=== PATIENT | male | born 1955 | race Caucasian/White ===

== ENCOUNTER 2020-08-01 11:28 | Outpatient (REF) | payer OTHER, SELFPAY ==
[2020-08-09 12:36] LABS: Vitamin D 25-OH, D2 <4 ng/mL; Vitamin D 25-OH, D3 27 ng/mL; Vitamin D 25-OH, Total 27 ng/mL (30-100)
== END 2020-08-01 11:29 | disposition home or self-care (01) ==
LOC: HO.LAB 11:28
PROVIDERS: PCP Physician Assistant; Visit Provider Internal Medicine Cardiovascular Disease
DX: R53.83 Other fatigue (principal); I10 Essential (primary) hypertension; I71.00 Dissection of unspecified site of aorta
CPT/HCPCS: 36415; 82306; 93005

== ENCOUNTER → 2020-09-12 09:12 | Outpatient (BNVA) | payer OTHER, SELFPAY | PROVIDERS: PCP Physician Assistant; Visit Provider Internal Medicine Cardiovascular Disease ==

== ENCOUNTER → 2021-03-11 13:44 | Outpatient (BNVA) | payer OTHER, SELFPAY | PROVIDERS: PCP Physician Assistant; Referring Provider Physician Assistant; Visit Provider Internal Medicine Cardiovascular Disease ==

== ENCOUNTER → 2021-05-08 09:12 | Outpatient (REF) | payer OTHER, SELFPAY ==
--- NOTE | 2021-05-08 09:22 | CA_ITS ---
Transthoracic Echocardiogram Patient (Last, First, Middle): Guero Shukla, Gender: Male Date of : 1955 Age: 65 Procedure Date: 05/08/2021 Procedure Type: Transthoracic Echocardiogram Location: OP Height: 165.1 cm Weight: 74.84 kg BSA: 1.82 m2 Heart Rate: bpm BP: 130 / 86 mmHg Phonograph Cartridge Assembler: REBEKAH Referring MD: Chriss Taylor MD Symptoms: I71.00 - Dissection of unspecified site of aorta Study Quality: Fair ECG Rhythm: Sinus Conclusions: - The left ventricular systolic function is normal. The calculated ejection fraction is 65% by biplane method. - There is mild calcification of the aortic valve. - No obvious valvular pathology seen on this study. - The aortic annulus, sinuses of valsalva, asc aorta, and aortic arch are normal in size. - Visualization of aorta suboptimal. Consider CTA for further evaluation . Findings Left Ventricle Normal left ventricular cavity size. There is normal left ventricular wall thickness. The left ventricular systolic function is normal. The calculated ejection fraction is 65% by biplane method. There is no evidence of regional wall motion abnormalities. Diastolic function is normal for age. Right Ventricle Normal right ventricular cavity size and systolic function. Atria Both atria are normal in size. Aortic Valve There is a normal trileaflet aortic valve. There is mild calcification of the aortic valve. There is no aortic valve stenosis. There is no aortic valve regurgitation. Mitral Valve The mitral valve appears normal. There is no mitral valve regurgitation. There is no mitral valve stenosis. Pulmonic Valve The pulmonic valve was not well visualized. Tricuspid Valve Normal tricuspid valve structure. There is trace tricuspid valve regurgitation. The pulmonary artery systolic pressure is normal. Great Vessels The aortic annulus, sinuses of valsalva, asc aorta, and aortic arch are normal in size. Venous The inferior vena cava is normal in size and collapses greater than 50% with inspiration. Pericardium/Pleural There is no evidence of pericardial effusion. Prior Study Comparison No prior study available for comparison. Recommendations, Care & Conclusions No obvious valvular pathology seen on this study. Measurements M-Mode Liner Measurements Normals - Women/Men LVIDd: 4.47 3.9-5.3/4.2-5.9 cm LVIDd Index: 2.46 1.9-3.2 cm/m2 LVIDs: 3.46 2.0-3.8 cm M-Mode Volumes LV EDV: 91.00 LV ESV: 49.50 2D Linear Measurements IVSd: 1.07 0.6-0.9/0.6-1.0 cm LVIDd: 4.11 3.9-5.3/4.2-5.9 cm LVIDd Index: 2.26 2.4-3.2/2.2-3.1 cm/m2 LVIDs: 3.20 2.0-3.6 cm LVPWd: 1.02 0.7-1.1 cm Ao Root: 3.60 2.1-3.5 cm LA Diam: 2.70 2.7-3.8/3.0-4.0 cm LAIDs Index: 1.48 1.5-2.3 cm/m2 LV Mass: 175.66 67-162/88-224 g LV Mass Index: 96.52 43-95/49-115 g/m2 LVOT Diam: 2.00 3.0+(-)1.3 cm 2D Systolic Function EF 4C: 56.30 >55% EF 2C: 71.50 >55% EF BiP: 64.70 >55% M-Mode Systolic Function FS: 22.60 27-47/25-43% LVEF: 45.60 >55% Mitral Valve MV Pk E: 0.60 MV PK A: 0.77 MV Decel Time: 158.00 E/A: 0.80 E'Lateral: 8.05 E'Medial: 6.85 E/E' Med: 8.70 E/E' Lat: 7.40 PHT: 46.00 MVA PHT: 4.78 Decel Sterling: 3.76 Aortic Valve AoV Pk Kailash: 1.14 AoV Pk Grad: 5.00 LVOT LVOT Pk Kailash: 0.90 LVOT Mn Kailash: 0.65 LVOT VTI: 0.19 LVOT Pk Grad: 3.00 LVOT Mn Grad: 2.00 LVOT Diam: 2.00 LVOT Area: 3.14 Diastolic Function MV Pk E: 0.60 MV Pk A: 0.77 E/A: 0.80 E'Medial: 6.85 E/E' Med: 8.70 E' Laterial: 8.05 E/E' Lat: 7.40 Right Ventricle TAPSE (mm): 1.84 Tricuspid Valve TR Pk Kailash: 2.05 TR Pk Grad: 17.00 RA Press: 3.00 RVSP: 20.00 Great Vessels Aorta Ao Root-2D: 3.60 2.0-3.7 cm Ao Asc: 3.50 2.1-3.4 cm Updated in Other Vendor System with Status of Final Jeff Briggs MD electronically signed on 05/10/2021 12:06:48 PM with status of Final
== END ==
LOC: HO.CARD 09:12
PROVIDERS: PCP Physician Assistant; Visit Provider Internal Medicine Cardiovascular Disease
DX: I71.00 Dissection of unspecified site of aorta (principal)
CPT/HCPCS: 93306

== ENCOUNTER → 2021-09-09 13:47 | Outpatient (BNVA) | payer OTHER, SELFPAY | PROVIDERS: PCP Physician Assistant; Referring Provider Physician Assistant; Visit Provider Internal Medicine Cardiovascular Disease | DX: I71.00 Dissection of unspecified site of aorta (principal); I10 Essential (primary) hypertension; R53.83 Other fatigue | CPT/HCPCS: 93005 ==

== ENCOUNTER 2022-04-28 14:29 | Outpatient (REF) | payer OTHER, SELFPAY ==
[2022-04-28 17:17] LABS: Alanine Aminotransferase 19 U/L (0-40); Albumin Level 4.5 g/dL (3.5-5.0); Alkaline Phosphatase 61 U/L (39-117); Aspartate Amino Transferase 16 U/L (5-37); Bilirubin Direct 0.3 mg/dL (0.0-0.5); Ferritin 135 ng/mL (20-250); Total Protein 6.8 g/dL (6.5-8.0)
== END 2022-04-28 14:30 | disposition home or self-care (01) ==
LOC: HO.LAB 14:29
PROVIDERS: PCP Physician Assistant; Referring Provider Physician Assistant; Visit Provider Internal Medicine Cardiovascular Disease
DX: K76.0 Fatty (change of) liver, not elsewhere classified (principal)
CPT/HCPCS: 36415; 80076; 82728; 93005

== ENCOUNTER 2022-12-19 16:24 | Outpatient (AMB) | payer OTHER, SELFPAY ==
--- NOTE | 2022-12-19 16:26 | A.OFFPC_ITS ---
"Vital Signs 12/19/22 16:27 Height 5 ft 6 in Weight 182 lb BMI 29.4 BP 132/82 Blood Pressure Location Lt brachial Position Sitting Pulse 71 Pulse Source Pulse Oximeter Temp Source Skin Pulse Oximetry (%) 98 Oxygen Delivery Method Room Air Intake Visit Reasons: Diarrhea Intake Note: pt states diarrhea X1week, pt denies nausea vomiting or fevers Reclamation Worker Required: No Allergies No Known Allergies [No Known Allergies*] Allergy (Verified 12/19/22 16:34) Medication List - Last Reconciled 12/19/22 by DAVID Whitfield amlodipine 5 mg PO DAILY 90 days aspirin (Adult Low Dose Aspirin) 81 mg PO DAILY atenolol 25 mg PO DAILY 90 days atorvastatin 80 mg PO DAILY bupropion HCl 150 mg PO QAM cholecalciferol (vitamin D3) 2,000 units PO DAILY lisinopril 5 mg PO DAILY triamcinolone acetonide 0.5% 1 appl topical DAILY 30 days vitamin B complex (B Complex-Vitamin B12 tablet) 1 tab PO DAILY Tobacco use date assessed: 12/19/22 Fall risk assessment: No Falls in past year Last assessed Fall Risk: 12/19/22 Dental Screening Dental Screen Date: 12/19/22 Did you have a dental visit in the last 12 months?: Yes Did you have a dental problem in the last 6 months where you did not have access to dental care?: No HPI Diarrhea HPI Details Patient is a 67-year-old male who presents today for the same day visit due to diarrhea for the past 1 week. Patient of SIMONE Calle. medical history significant for hypertension, lumbar spine pain, hepatic steatosis among others. Patient reports diarrhea each time about 5 minutes after he eats, reports mucus in his stool for the past 3 days, no mucus in stool today. No nausea or vomiting. He reports taking Pepto-Bismol with mild improvement in his symptoms, reports that he feels slightly better. Denies being recently sick. Denies any changes in his life recently. Denies new foods. Reports bland diet now. Reports drinking electrolyte drinks. Reports intermittent abdominal cramping. Reports the stool started slightly forming today. Denies blood in stool. No acid reflux, no vomiting blood. Reports diarrhea in the past the would last about 1-2 days, this time it is about 1 week now. Denies other concerns today. FORMERLY [facility] Medical History Aortic dissection Surgical History H/O heart bypass surgery Family History Mother Breast cancer Father Heart disease Stroke Social History Housing: House Alcohol intake: current Alcohol intake frequency: a few times a month Alcohol type: beer Patient Tobacco Use Status: Never used Tobacco Tobacco use type: Cigarette e-Cigarette/Vaping Use: Never Used Second Hand Smoke Exposure: No Current occupational status: retired Cognitive needs: No Hearing needs: No Vision needs: No Questionnaire Thrive Questionnaire Date Thrive assessed: 01/09/22 AUDIT C Alcohol Use Questionnaire (AUDIT-C) 1. How often do you have a drink containing alcohol?: 2-4 times a month 2. How many drinks containing alcohol do you have on a typical day when you are drinking?: 1 or 2 3. How often do you have six or more drinks on one occasion?: Never Total Score: 2 Score Reviewed/Action Taken: No JANET-7 AMB Questionnaire JANET-7 Date JANET - 7 assessed: 01/09/22 Source: Developed by Drs. Jose Martinez, Jessica Mehta, Tulio Arroyo and colleagues, with an educational gal from [employer] - innovate | mentor | invest. Review of Systems Const Denies body aches, Denies chills, Denies fever(s), Denies headache(s) and Denies weight loss Eyes Denies change in vision ENT Denies dizziness, Denies otalgia, Denies headache(s), Denies nasal discharge, Denies sinus pain and Denies sore throat Card Denies chest pain, Denies edema, Denies lightheadedness and Denies dyspnea Resp Denies cough, Denies dyspnea and Denies wheezing GI Denies abdominal pain, Denies constipation, Reports GI cramping, Reports diarrhea, Denies nausea and Denies vomiting Denies difficulty urinating, Denies dysuria and Denies flank pain Musc Denies myalgias Skin/Breast Denies rash Neuro Denies dizziness and Denies headache(s) Aller/Immun Denies wheezing Physical exam (Primary Care) Vital Signs: Last Vital Signs Pulse 71 12/19/22 16:27 BP 132/82 12/19/22 16:27 Pulse Ox 98 12/19/22 16:27 Oxygen Delivery Method Room Air 12/19/22 16:27 BMI result Body Mass Index 29.4 Tobacco/Smoking Status: Tobacco use Status Tobacco use date assessed 12/19/22 12/19/22 16:27 Patient Tobacco Use Status Never used Tobacco 12/19/22 16:27 Tobacco use type Cigarette 12/19/22 16:27 e-Cigarette/Vaping Use Never Used 12/19/22 16:27 Thrive Assessment: Date of Thrive Assessment Date Thrive assessed 01/09/22 12/19/22 16:27 Const General: cooperative and no acute distress Orientation/consciousness: patient oriented x3 HENMT Head: Yes normocephalic and Yes atraumatic Mouth: oropharynx normal and moist mucous membranes Throat: Yes posterior oropharynx normal Eyes General: appearance normal, both eyes and all related structures Pupils: Equal, round and reactive pupils present Neck Neck: Yes normal visual inspection, Yes full ROM and Yes no lymphadenopathy Resp Effort & Inspection: normal respiratory effort and able to speak in complete sentences Auscultation: clear to auscultation bilaterally, no crackles, no rales, no rhonchi and no wheezes Cardio Rate: regular rate Rhythm: regular rhythm Heart sounds: S1 normal heart sound present, S2 normal heart sound present and no murmurs GI Inspection: Yes normal to inspection Palpation (GI): Soft to palpation, not firm, nontender, no guarding, not rigid and no hepatosplenomegaly Auscultation: normal bowel sounds Skin General skin exam: no rashes or lesions noted Neuro General: patient oriented x3 Cranial nerves: Yes Equal, round and reactive pupils present Gait exam (Neuro): Normal gait present Extrem General: Yes full ROM and No edema Assessment and Plan Assessment & Plan (1) Diarrhea: Code(s): R19.7 - Diarrhea, unspecified Plan: Patient presents with diarrhea for the past 1 week which is after meals. No nausea or vomiting, no fever or chills. Physical exam normal today. Reports taking Pepto-Bismol, reports slight improvement in diarrhea, reports stool started forming today somewhat. No blood in stool. Will obtain blood work and stool samples. Encouraged bland diet until improvement in symptoms. Stay hydrated. Signs and symptoms reviewed when to notify provider or go to the emergency department. Patient agreed with the plan. Orders: Orders Comprehensive Met. Panel Today R19.7 - Diarrhea, unspecified Complete Blood Count Auto Diff Today R19.7 - Diarrhea, unspecified CDiff Gene PCR Today R19.7 - Diarrhea, unspecified Ova and Parasite Today R19.7 - Diarrhea, unspecified Leukocytes Stool Qualitative Today R19.7 - Diarrhea, unspecified Coding Level of Care Code Est Pt Level 3 (64683) Diagnoses Diarrhea R19.7"
[2022-12-19 16:27] VITALS: BP 132/82; PULSE 71; O2SAT 98; BMI 29.4
== END 2022-12-19 16:50 | disposition home or self-care (01) ==
PROVIDERS: PCP Physician Assistant; Visit Provider Nurse Practitioner Family
DX: R19.7 Diarrhea, unspecified (principal)
CPT/HCPCS: 99213

== ENCOUNTER 2022-12-24 12:27 | Outpatient (REF) | payer OTHER, SELFPAY ==
[2022-12-24 13:43] LABS: Erythrocyte Sedimentation Rate 7 MM/HR (0-15)
[2022-12-24 14:50] LABS: Lipase 20 U/L (8-78)
== END 2022-12-24 12:28 | disposition home or self-care (01) ==
LOC: HO.LAB 12:27
PROVIDERS: PCP Physician Assistant; Visit Provider Physician Assistant
DX: R19.7 Diarrhea, unspecified (principal); R10.13 Epigastric pain
CPT/HCPCS: 36415; 83690; 85652; 87338

== ENCOUNTER 2023-01-01 13:15 | Outpatient (AMB) | payer OTHER, SELFPAY ==
--- NOTE | 2023-01-01 13:09 | MHC.PC.OV ---
Vital Signs 01/01/23 13:10 01/01/23 13:19 01/01/23 14:00 Height 5 ft 6 in Weight 167 lb 4 oz BMI 27.0 BP 104/62 90/62 Blood Pressure Location Lt brachial Lt brachial Position Standing Pulse 93 84 94 Pulse Source Pulse Oximeter Pulse Oximeter Pulse Oximetry (%) 97 95 Oxygen Delivery Method Room Air Room Air Intake Visit Reasons: Diarrhea/ abdomen pain Allergies No Known Allergies [No Known Allergies*] Allergy (Verified 01/01/23 13:21) Tobacco use date assessed: 12/19/22 Dental Screening Dental Screen Date: 01/01/23 Did you have a dental visit in the last 12 months?: No Did you have a dental problem in the last 6 months where you did not have access to dental care?: No Was dental information given to patient?: Patient has dentist HPI Diarrhea/ abdomen pain HPI Details Patient is a 67-year-old male here today for problem visit. Patient has a past medical history significant for hypertension, chronic fatigue syndrome, history of aortic dissection.. He reports over the last 3 weeks having diarrhea and decreased appetite. He reports initially having some lower min discomfort and his bowel movements had mucus appearance. He reports whenever he eats he ends up having acute diarrhea. Has lost 15 lb since last office visit. Has been using [id number] medication loperamide, represent old all and Pepto-Bismol all without much significant relief. Today in office blood pressure low and slightly tachycardic. Does seem somewhat tired. [facility]LY [facility] Medical History Aortic dissection Surgical History H/O heart bypass surgery Family History Mother Breast cancer Father Heart disease Stroke Social History Housing: House Alcohol intake: current Alcohol intake frequency: a few times a month Alcohol type: beer Patient Tobacco Use Status: Never used Tobacco Tobacco use type: Cigarette e-Cigarette/Vaping Use: Never Used Second Hand Smoke Exposure: No Advance Directives: No Advance Directives Information Provided: No Current occupational status: retired Cognitive needs: No Hearing needs: No Vision needs: No Questionnaire PHQ-9 Over the last 2 weeks, how often have you been bothered by any of the following problems? 1. Little interest or pleasure in doing things: not at all 2. Feeling down, depressed, or hopeless: not at all 3. Trouble falling or staying asleep, or sleeping too much: not at all 4. Feeling tired or having little energy: not at all 5. Poor appetite or overeating: not at all 6. Feeling bad about yourself - or that you are a failure or have let yourself or your family down: not at all 7. Trouble concentrating on things, such as reading the newspaper or watching television: not at all 8. Moving or speaking so slowly that other people could have noticed. Or the opposite - being so fidgety or restless that you have been moving around a lot more than usual: not at all 9. Thoughts that you would be better off or of hurting yourself in some way: not at all Total score: 0 Depression Screening Interpretation: Negative Source: Developed by Drs. Jose Martinez, Jessica Mehta, Tulio Arroyo and colleagues, with an educational gal from [employer]. Thrive Questionnaire Date Thrive assessed: 01/01/23 I am a: Patient What is your living situation today?: I have a steady place to live Within the past 12 months, did the food you bought not last and you didn't have the money to get more?: Never true Within the past 12 months, did you worry whether your food would run out before you got money to buy more?: Never true Currently or been in a relationship where the following occur: no concerns reported AUDIT C Alcohol Use Questionnaire (AUDIT-C) 1. How often do you have a drink containing alcohol?: Monthly or less 2. How many drinks containing alcohol do you have on a typical day when you are drinking?: 1 or 2 3. How often do you have six or more drinks on one occasion?: Never Total Score: 1 Score Reviewed/Action Taken: No JANET-7 AMB Questionnaire JANET-7 Date JANET - 7 assessed: 01/01/23 Feeling nervous, anxious, or on edge: 0 = Not at all Not being able to stop or control worryin = Not at all Worrying too much about different things: 0 = Not at all Trouble relaxin = Not at all Being so restless that it is hard to sit still: 0 = Not at all Becoming easily annoyed or irritable: 0 = Not at all Feeling afraid as if something awful might happen: 0 = Not at all Total JANET-7 score (0-4 normal; 5-9 mild; 10-14 moderate; 15-21 severe): 0 Source: Developed by Drs. Jose Martinez, Jessica Mehta, Tulio Arroyo and colleagues, with an educational gal from [employer]. Review of Systems Const Denies headache(s) and Reports weight loss Eyes Denies loss of vision ENT Denies vertigo, Denies dizziness, Denies headache(s) and Denies sore throat Card Denies chest pain, Denies leg edema and Denies lightheadedness Resp Denies cough, Denies hemoptysis and Denies wheezing GI Denies abdominal pain, Denies melena, Denies constipation, Reports diarrhea and Denies vomiting Denies dysuria, Denies urinary frequency and Denies urinary urgency Musc Denies arthralgias, Denies joint swelling, Denies numbness and Denies tingling Neuro Denies Abnormal speech present, Denies behavioral changes, Denies vertigo, Denies dizziness, Denies headache(s), Denies loss of vision, Denies memory loss, Denies numbness and Denies tingling Psych Denies anxiety, Denies behavioral changes, Denies depression, Denies memory loss and Denies panic attacks Giovanni/Lymph Denies easy bleeding and Denies easy bruising Aller/Immun Denies wheezing Physical exam (Primary Care) Vital Signs: Last Vital Signs Pulse 94 01/01/23 14:00 BP 90/62 01/01/23 13:19 Pulse Ox 95 01/01/23 13:19 Oxygen Delivery Method Room Air 01/01/23 13:19 BMI result Body Mass Index 27.0 Tobacco/Smoking Status: Tobacco use Status Tobacco use date assessed 12/19/22 01/01/23 13:11 Patient Tobacco Use Status Never used Tobacco 01/01/23 13:11 Tobacco use type Cigarette 01/01/23 13:11 e-Cigarette/Vaping Use Never Used 01/01/23 13:11 PHQ-9: PHQ-9 Score PHQ-9: Total score 0 01/01/23 14:03 Depression Screening Interpretation: Negative Thrive Assessment: Date of Thrive Assessment Date Thrive assessed 01/01/23 01/01/23 13:11 Currently or been in a relationship where the following occur: no concerns reported Const General: healthy appearing, no acute distress, alert and awake Nutritional Appearance: well nourished Orientation/consciousness: oriented to person, oriented to place and oriented to time HENMT Ears: TM's normal bilaterally General nose exam: Normal nasal mucous membranes and turbinates present Eyes Conjunctivae: conjunctivae normal Sclerae: sclerae normal Pupils: Equal, round and reactive pupils present Neck Neck: Yes no lymphadenopathy and Yes no JVD Thyroid: Thyroid normal Carotids: no bruits Resp Effort & Inspection: normal respiratory effort and not tachypneic Auscultation: no crackles, no rales, no rhonchi and no wheezes Cardio Rate: regular rate Rhythm: regular rhythm Heart sounds: no murmurs and normal S1 and S2 GI Palpation (GI): Soft to palpation, nontender, no hepatomegaly and no splenomegaly Auscultation: normal bowel sounds Skin General skin exam: no rashes or lesions noted and dry skin Neuro General: oriented to person, oriented to place and oriented to time Cranial nerves: Yes Equal, round and reactive pupils present Speech: No Abnormal speech present Gait exam (Neuro): Normal gait present Motor exam (neuro): no tremor noted Extrem Right upper extremity: full ROM Left upper extremity: full ROM Right lower extremity: full ROM; no edema Left lower extremity: full ROM; no edema Psych Mental Status: mental status grossly normal Speech and movement: Normal speech and movement present Affect: normal affect Attitude: cooperative Thought process: Normal thought process present Assessment and Plan Assessment & Plan (1) Diarrhea: Code(s): R19.7 - Diarrhea, unspecified Qualifiers: Diarrhea type: presumed infectious Qualified Code(s): R19.7 - Diarrhea, unspecified Plan: Patient with 3 week history diarrhea loss of appetite. Has lost 15 lb since last office visit. Seems somewhat dehydrated in lethargic on exam today. Has been able to somewhat keep down fluids though his apprehensive on eating foods as he has diarrhea after he eats. Has been referred to GI- of note has not had any colon cancer screening Recommended to be seen at the ER for acute evaluation with CT abdomen pelvis to evaluate for diverticulitis. (2) Weight loss: Code(s): R63.4 - Abnormal weight loss Coding Level of Care Code Est Pt Level 3 (10092) Diagnoses Diarrhea R19.7 Diarrhea type: presumed infectious Weight loss R63.4
[2023-01-01 13:10] VITALS: BP 104/62; PULSE 93; O2SAT 97; BMI 27.0
[2023-01-01 13:19] VITALS: BP 90/62; PULSE 84; O2SAT 95
[2023-01-01 14:00] VITALS: PULSE 94
== END 2023-01-01 13:47 | disposition home or self-care (01) ==
PROVIDERS: PCP Physician Assistant; Visit Provider Physician Assistant
DX: R19.7 Diarrhea, unspecified (principal); R63.4 Abnormal weight loss
CPT/HCPCS: 99213

== ENCOUNTER 2023-01-01 13:52 | Emergency (ER) | payer OTHER, SELFPAY ==
--- NOTE | ~2023-01-01 | CT_ITS ---
EXAMINATION: CT ABDOMEN AND PELVIS WITHOUT CONTRAST CLINICAL INFORMATION: Abdominal pain. Weight loss. COMPARISON: None available. TECHNIQUE: Multidetector volumetric imaging was performed from the superior aspect of the liver through the pubic symphysis. Sagittal and coronal reformatted images were obtained on the technologist's workstation. This CT examination was performed using dose optimization techniques as appropriate, variously including the following: *Automated exposure control. *Adjustment of mA and/or kV according to patient size (this includes techniques or standardized protocols for targeted exams where dose is matched to indication/reason for exam; i.e. extremities or head). *Use of iterative reconstruction technique. DLP: 494 mGy-cm FINDINGS: LUNG BASES: The visualized lung bases are unremarkable. LIVER, GALLBLADDER, AND BILIARY TREE: The liver is normal in size, shape, and attenuation. No focal hepatic lesion or biliary ductal dilatation is present. Multiple gallstones are seen. PANCREAS: Unremarkable. SPLEEN: Unremarkable. ADRENAL GLANDS: There is mild bilateral nonspecific adrenal gland thickening. KIDNEYS AND URETERS: The kidneys are normal in size, shape, and attenuation. No hydronephrosis, hydroureter, or calculi seen. No perinephric stranding. BLADDER: Unremarkable. GASTROINTESTINAL TRACT: There are diverticula of the descending and the sigmoid colon. There is a large segment of proximal sigmoid colonic thickening with mild surrounding infiltration. There are also a few diverticula of the ascending colon. ABDOMINAL WALL: No significant hernia is appreciated. LYMPH NODES: Normal. VASCULAR: There is mild atherosclerotic plaque of the abdominal aorta. PELVIC VISCERA: Unremarkable. OSSEOUS STRUCTURES: There is diffuse thoracolumbar disc degenerative change. CT/CT abdomen pelvis wo IV con IMPRESSION: 1. Diverticula of the descending and the sigmoid colon with a significant segment of proximal sigmoid colonic thickening with surrounding infiltration. Findings may be related to diverticulitis. Given history of weight loss other etiology is not excluded. Consider colonoscopic evaluation after treatment of apparent diverticulitis. 2. Cholelithiasis. Fleischner guidelines were followed.
--- NOTE | ~2023-01-01 | CT_ITS ---
EXAMINATION: CT CHEST WITHOUT CONTRAST CLINICAL INFORMATION: Weight loss. COMPARISON: None available. TECHNIQUE: Multidetector volumetric CT imaging of the chest was done. Axial MIP volume rendering provided. Sagittal and coronal reformatted images were obtained. This CT examination was performed using dose optimization techniques as appropriate, variously including the following: *Automated exposure control. *Adjustment of mA and/or kV according to patient size (this includes techniques or standardized protocols for targeted exams where dose is matched to indication/reason for exam; i.e. extremities or head). *Use of iterative reconstruction technique. DLP: 219 mGy-cm FINDINGS: UTILITIES OPERATOR: Unremarkable. LUNGS: There is minimal scarring at the right lung base. No mass or significant nodule is seen. There is no active infiltrate. MEDIASTINUM: The mediastinum is normal. CORONARY ARTERY CALCIFICATION: [id number]. PLEURA: There is no pleural effusion. No pleural mass or thickening. AXILLA: No lymphadenopathy. UPPER ABDOMEN: Numerous gallstones are noted. OSSEOUS STRUCTURES: Unremarkable. CT/CT chest wo IV con IMPRESSION: 1. No active cardiopulmonary disease. 2. Cholelithiasis. Fleischner guidelines were followed.
[2023-01-01 14:32] VITALS: BP 102/68; PULSE 88; RESP 17; TEMP 36.7; O2SAT 96; BMI 28.9
--- NOTE | 2023-01-01 14:33 | ED.GENADULT ---
HPI - General Adult General Chief complaint: General Medical Stated complaint: Dehydration, Cat scan Time Seen by Provider: 01/01/23 16:01 Related Data Home Medications ?Medication ?Instructions ?Recorded ?Confirmed aspirin 81 mg tablet,delayed 81 mg PO DAILY 08/01/20 07/22/23 release (Adult Low Dose Aspirin) cholecalciferol (vitamin D3) 10 2,000 unit PO DAILY 03/11/21 07/22/23 mcg (400 unit) capsule vitamin B complex (B 1 tab PO DAILY 03/11/21 07/22/23 Complex-Vitamin B12 tablet) atenolol 25 mg tablet 25 mg PO DAILY 11/11/23 Previous Rx's ?Medication ?Instructions ?Recorded atorvastatin 80 mg tablet 80 mg PO DAILY #90 tabs 01/26/23 bupropion HCl 150 mg 24 hr tablet, 150 mg PO QAM #90 tabs 02/17/23 extended release amlodipine 5 mg tablet 2.5 mg (1/2 x 5 mg) PO DAILY 90 11/12/23 days #45 tabs lisinopril 5 mg tablet 5 mg PO DAILY #90 tabs 11/12/23 Allergies Allergy/AdvReac Type Severity Reaction Status Date / Time No Known Allergies Allergy Verified 07/22/23 11:21 [No Known Allergies*] [facility] Past Medical History Medical History (Updated 07/22/23 @ 11:25 by Karthik Calle PA-C) Fatigue Essential hypertension Aortic dissection Surgical History Hx of colonoscopy H/O heart bypass surgery Family History Family History Mother Breast cancer Father Heart disease Stroke Social History Social History Housing: House Alcohol intake: current Alcohol intake frequency: holidays/special occasions only Alcohol type: beer Patient Tobacco Use Status: Never used Tobacco Tobacco use type: Cigarette e-Cigarette/Vaping Use: Never Used Second Hand Smoke Exposure: No Current occupational status: retired Cognitive needs: No Hearing needs: No Vision needs: No Physical Exam ED Vital Signs: Vital Signs - 24 hr 01/01/23 18:06 01/01/23 20:19 Temperature 97.9 F Pulse Rate 83 88 Respiratory Rate 15 22 H Blood Pressure 112/63 113/71 Pulse Oximetry 98 93 Oxygen Delivery Method Room Air Room Air BMI result Body Mass Index 28.9 Const Other: Appearance: Alert. Oriented X3. No acute distress. Eyes: Pupils equal, round and reactive to light. ENT: Pharynx normal. Neck: Normal inspection. Neck supple. No lymph nodes noted. No crepitus CVS: Normal heart rate and rhythm. Pulses normal. Normal S1 and S2 Respiratory: No respiratory distress. Breath sounds normal. No Wheezing. No rales Abdomen: Soft and nontender. No rigidity. No distention. Skin: Skin warm and dry. Normal skin color. Normal skin turgor. Extremities: No lower extremity edema. No Lacerations. No Rash Neuro: Oriented X 3. No motor deficit. No sensory deficit. Moving all extremities. No slurred speech. CN 2 through 12 grossly intact Psych: calm, cooperative, normal affect Course Course Course Narrative: RME: 67yo M w/PMHx HTN, Aortic dissection, sent in by PCP office [facility] for lower abdominal pain w/15-20lb weight loss over the past month, loose nonbloody diarrhea, & hypotension 90/60's in office. Patient denies abdominal pain at present. Admits to poor PO intake. Saw PCP 2x in the past few weeks, did outpatient lab/stool however unable to see results, had them done at our lab BP 102/68 Labs, Stool studies and UA ordered Full HPI, ROS and PE to be performed by primary ED provider. Medications Administered Discontinued Medications Generic Name Dose Route Start Last Admin Trade Name Freq PRN Reason Stop Dose Admin Sodium Chloride 1,000 mls @ 999 mls/hr 01/01/23 14:45 01/01/23 16:50 Ns IV 01/01/23 15:45 Infused .Q1H1M GUY Infusion Sodium Chloride 1,000 mls @ 999 mls/hr 01/01/23 16:00 01/01/23 18:13 Ns IV 01/01/23 17:00 Infused .Q1H1M GUY Infusion Piperacillin Sod/Tazobactam 50 mls @ 100 mls/hr 01/01/23 15:56 01/01/23 17:02 Sod 3.375 gm/ Sodium Chloride IV 01/01/23 16:25 Infused ONCE ONE Infusion Sodium Chloride 2,000 mls @ 999 mls/hr 01/01/23 16:16 01/01/23 18:55 Ns IVCONT 01/01/23 18:16 Infused .Q2H1M ONE Infusion Medical Decision Making Medical Decision Making [facility] Narrative: -the CT scans could not be done with contrast due to renal function. -my interpretation of chest CT: No obvious abnormality or malignancy -my interpretation of abdomen/pelvis CT scan: No obvious masses -I discussed the CT scan results with the patient, patient has diverticulitis. Patient was given Zosyn on arrival, patient will continue with Levaquin and metronidazole. Admission was offered to the patient, patient respectfully declined, states that he has no significant abdominal pain and prefers to take antibiotics p.o. at home. 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 Patient's creatinine 1.8, patient's baseline 1.7 Differential Diagnosis Differential Diagnoses: The differential diagnosis associated with the presentation includes (Diverticulitis, diverticulosis, malignancy, bacterial/parasitic intestinal infection) Admission/Observation Consideration of admission/observation: Escalation of care including admission/observation considered (Patient declined admission) Lab Data [facility] Lab Attestation statement: I reviewed the patient's lab results. 01/01/23 15:03 01/01/23 20:39 Labs: Lab Results 01/01/23 01/01/23 01/01/23 Range/Units 15:03 16:19 19:25 WBC 19.0 H (4.8-10.8) X10*3/uL RBC 5.48 (4.60-5.80) X10*6/uL Hgb 15.4 (14.0-18.0) g/dl Hct 46.4 (42.0-52.0) % MCV 84.7 (80.0-98.0) fL MCH 28.1 (27.0-33.0) pg MCHC 33.2 (31.0-36.0) g/dl RDW 13.2 (11.0-16.0) % Plt Count 390 (160-400) X10*3/uL MPV 8.7 L (9.4-12.4) fL Immature Gran % (Auto) 1.5 H (0.0-0.4) % Neut % (Auto) 77.9 H (45-73) % Lymph % (Auto) 9.2 L (20-40) % Maury % (Auto) 10.9 (2-11) % Eos % (Auto) 0.2 (0-4) % Baso % (Auto) 0.3 (0-2) % Lymph # (Auto) 1.8 (1.2-4.9) X10*3/uL Maury # (Auto) 2.1 H (0.1-1.2) X10*3/uL Eos # (Auto) 0.0 (0.0-0.4) X10*3/uL Baso # (Auto) 0.1 (0.0-0.2) X10*3/uL Abs Immat Gran (auto) 0.28 H (0.00-0.03) X10*3/uL Absolute Neuts (auto) 14.8 H (2.0-8.3) x10*3/uL Absolute Nucleated RBC 0.000 (0.0-0.012) X10*3/uL Nucleated RBC % (auto) 0.0 (0.0-0.2) /100WBC Smear Tech's Comments VERIFIED Sodium 138 (135-145) mmol/L Potassium 4.6 (3.3-5.1) mmol/L Chloride 101 (96-108) mmol/L Carbon Dioxide 26 (22-29) mmol/L Anion Gap 16 (12-20) BUN 31 H (9-16) mg/dL Creatinine 2.29 H (0.5-1.4) mg/dL Estim Creat Clear Calc 28.8 Estimated GFR 29 Random Glucose 139 H (60-115) mg/dL Lactic Acid 1.0 (0.5-2.0) mmol/L Calcium 10.0 (8.4-10.2) mg/dL Magnesium 2.5 (1.6-2.6) mg/dL Total Bilirubin 0.8 (0.0-1.0) mg/dL Direct Bilirubin 0.4 (0.0-0.5) mg/dL AST 37 (5-37) U/L ALT 64 H (0-40) U/L Alkaline Phosphatase 80 (39-117) U/L Total Protein 7.6 (6.5-8.0) g/dL Albumin 3.9 (3.5-5.0) g/dL Lipase 20 (8-78) U/L Urine Color Urine Appearance Urine pH (5.0-9.0) Ur Specific [place] (1.005-1.025) Urine Protein (Neg-Trace) mg/dL Urine Glucose (UA) (Negative) mg/dL Urine Ketones (Negative) mg/dL Urine Blood (Negative) Urine Nitrite (Negative) Ur Leukocyte Esterase (Negative) Stl C. cayetanensis PCR Cancelled Stool Rotavirus A PCR Cancelled Stl Adenov F 40/41 PCR Cancelled Stool Astrovirus (PCR) Cancelled Stool Campylobacter PCR Cancelled Stool Cryptosporidium PCR Cancelled Stl Sh Tox Pr E STEC PCR Cancelled Stool E coli O157 PCR Cancelled Stl Enterotoxigenic E PCR Cancelled Stool EPEC (PCR) Cancelled Stool EAEC (PCR) Cancelled Stl E. histolytica PCR Cancelled Stool Giardia Lamblia PCR Cancelled Stl P. shigelloides PCR Cancelled Stool Salmonella PCR Cancelled Stool Sapovirus (PCR) Cancelled Stl Shigella/EIEC PCR Cancelled St Y.enterocolitica PCR Cancelled Stool Vibrio (PCR) Cancelled Stl Vibrio cholerae PCR Cancelled Stl Norovirus GI/GII PCR Cancelled C. difficile Tox B Gene NEGATIVE (Negative) 01/01/23 01/01/23 Range/Units 20:30 20:39 WBC (4.8-10.8) X10*3/uL RBC (4.60-5.80) X10*6/uL Hgb (14.0-18.0) g/dl Hct (42.0-52.0) % MCV (80.0-98.0) fL MCH (27.0-33.0) pg MCHC (31.0-36.0) g/dl RDW (11.0-16.0) % Plt Count (160-400) X10*3/uL MPV (9.4-12.4) fL Immature Gran % (Auto) (0.0-0.4) % Neut % (Auto) (45-73) % Lymph % (Auto) (20-40) % Maury % (Auto) (2-11) % Eos % (Auto) (0-4) % Baso % (Auto) (0-2) % Lymph # (Auto) (1.2-4.9) X10*3/uL Maury # (Auto) (0.1-1.2) X10*3/uL Eos # (Auto) (0.0-0.4) X10*3/uL Baso # (Auto) (0.0-0.2) X10*3/uL Abs Immat Gran (auto) (0.00-0.03) X10*3/uL Absolute Neuts (auto) (2.0-8.3) x10*3/uL Absolute Nucleated RBC (0.0-0.012) X10*3/uL Nucleated RBC % (auto) (0.0-0.2) /100WBC Smear Tech's Comments Sodium 142 (135-145) mmol/L Potassium 4.1 (3.3-5.1) mmol/L Chloride 111 H (96-108) mmol/L Carbon Dioxide 22 (22-29) mmol/L Anion Gap 13 (12-20) BUN 29 H (9-16) mg/dL Creatinine 1.89 H (0.5-1.4) mg/dL Estim Creat Clear Calc 34.9 Estimated GFR 36 Random Glucose 112 (60-115) mg/dL Lactic Acid (0.5-2.0) mmol/L Calcium 7.9 L D (8.4-10.2) mg/dL Magnesium (1.6-2.6) mg/dL Total Bilirubin (0.0-1.0) mg/dL Direct Bilirubin (0.0-0.5) mg/dL AST (5-37) U/L ALT (0-40) U/L Alkaline Phosphatase (39-117) U/L Total Protein (6.5-8.0) g/dL Albumin (3.5-5.0) g/dL Lipase (8-78) U/L Urine Color Yellow Urine Appearance Clear Urine pH 5.5 (5.0-9.0) Ur Specific [place] 1.020 (1.005-1.025) Urine Protein Trace (Neg-Trace) mg/dL Urine Glucose (UA) Negative (Negative) mg/dL Urine Ketones Trace (Negative) mg/dL Urine Blood Negative (Negative) Urine Nitrite Negative (Negative) Ur Leukocyte Esterase Negative (Negative) Stl C. cayetanensis PCR Stool Rotavirus A PCR Stl Adenov F 40/41 PCR Stool Astrovirus (PCR) Stool Campylobacter PCR Stool Cryptosporidium PCR Stl Sh Tox Pr E STEC PCR Stool E coli O157 PCR Stl Enterotoxigenic E PCR Stool EPEC (PCR) Stool EAEC (PCR) Stl E. histolytica PCR Stool Giardia Lamblia PCR Stl P. shigelloides PCR Stool Salmonella PCR Stool Sapovirus (PCR) Stl Shigella/EIEC PCR St Y.enterocolitica PCR Stool Vibrio (PCR) Stl Vibrio cholerae PCR Stl Norovirus GI/GII PCR C. difficile Tox B Gene (Negative) Independent Interpretation I performed an independent interpretation of an: CT Scan Radiology Impression Discussion of test interpretation with radiology: I have reviewed the radiologist's reading. Radiologist Impression: INDINGS: PENSION AGENT: Unremarkable. LUNGS: There is minimal scarring at the right lung base. No mass or significant nodule is seen. There is no active infiltrate.? MEDIASTINUM: The mediastinum is normal.? CORONARY ARTERY CALCIFICATION: [id number]. PLEURA: There is no pleural effusion. No pleural mass or thickening.? AXILLA: No lymphadenopathy.? UPPER ABDOMEN: Numerous gallstones are noted.? OSSEOUS STRUCTURES: Unremarkable.? CT/CT chest wo IV con IMPRESSION: 1. No active cardiopulmonary disease. ? 2. Cholelithiasis.? Independent Historian Clinical information obtained from an independent historian. History obtained from or confirmed by: Spouse Critical Care Time Critical Care Time Critical Care Time: Yes Total Critical Care Time: 60 Attestation: I have personally provided critical care time. Time includes review of lab data, radiology results, discussion with consultants, and monitoring for potential decompensation. Intervention performed as documented. Discharge Plan Discharge Clinical Impression: Diverticulitis, [id number] kidney injury Patient Disposition: Home, Self-Care Instructions: Diverticulitis (ED), Diverticulitis Diet (ED) Additional Instructions: Please follow-up with your primary care physician tomorrow. If you have any worsening or new symptoms, please return to the emergency room or call 911 Prescriptions: No Action atorvastatin 80 mg tablet 80 mg PO DAILY Qty: 90 3RF bupropion HCl 150 mg tablet extended release 24 hr 150 mg PO QAM Qty: 90 3RF amlodipine 5 mg tablet 2.5 mg PO DAILY 90 Days Qty: 45 0RF lisinopril 5 mg tablet 5 mg PO DAILY Qty: 90 1RF atenolol 25 mg tablet 25 mg PO DAILY aspirin [Adult Low Dose Aspirin] 81 mg tablet,delayed release (DR/EC) 81 mg PO DAILY vitamin B complex [B Complex-Vitamin B12] Tablet 1 tab PO DAILY cholecalciferol (vitamin D3) 10 mcg (400 unit) capsule 2,000 unit PO DAILY Interventions: ED Discharge Assessment Last Done: 01/01/23 21:24 Discharge Date/Time: 01/01/23 21:26 Print Language: Lao
--- NOTE | 2023-01-01 14:44 | ECG_ITS ---
Test Reason : diarrhea Blood Pressure : / mmHG Vent. Rate : 083 BPM Atrial Rate : 083 BPM P-R Int : 140 ms QRS Dur : 084 ms QT Int : 380 ms P-R-T Axes : 033 039 047 degrees QTc Int : 446 ms Normal sinus rhythm Nonspecific ST and T wave abnormality Abnormal ECG When compared with ECG of 23-AUG-2018 14:48, ST-T wave changes have developed in the Anteroseptal leads Referred By: Johanna Mendoza Electronically Signed By:EMILY LOWERY
[2023-01-01 15:10] LABS: Basophils Absolute Auto 0.1 X10*3/uL (0.0-0.2); Basophils Percent Auto 0.3 % (0-2); Eosinophils Percent Auto 0.2 % (0-4); Hematocrit 46.4 % (42.0-52.0); Hemoglobin 15.4 g/dl (14.0-18.0); Imm Gran Abs Auto 0.28 X10*3/uL (0.00-0.03); Imm Gran Pct Auto 1.5 % (0.0-0.4); Lymphocytes Absolute Auto 1.8 X10*3/uL (1.2-4.9); Lymphocytes Percent Auto 9.2 % (20-40); MANUAL DIFF FLAG SCAN; Mean Corpuscular HGB Conc 33.2 g/dl (31.0-36.0); Mean Corpuscular Hemoglobin 28.1 pg (27.0-33.0); Mean Corpuscular Volume 84.7 fL (80.0-98.0); Mean Platelet Volume 8.7 fL (9.4-12.4); Monocytes Absolute Auto 2.1 X10*3/uL (0.1-1.2); Monocytes Percent Auto 10.9 % (2-11); Neutrophils Absolute Auto 14.8 x10*3/uL (2.0-8.3); Neutrophils Percent Auto 77.9 % (45-73); Platelet Count 390 X10*3/uL (160-400); Red Blood Count 5.48 X10*6/uL (4.60-5.80); Red Cell Distribution Width 13.2 % (11.0-16.0); SCAN SMEAR FLAG 1
[2023-01-01] MEDS: 0.9 % Sodium Chloride 1,000 ML 999 ML IV ×2 (15:22→16:53)
[2023-01-01 15:28] LABS: Alanine Aminotransferase 64 U/L (0-40); Albumin Level 3.9 g/dL (3.5-5.0); Alkaline Phosphatase 80 U/L (39-117); Anion Gap 16 (12-20); Aspartate Amino Transferase 37 U/L (5-37); Bilirubin Direct 0.4 mg/dL (0.0-0.5); Bilirubin Total 0.8 mg/dL (0.0-1.0); Blood Urea Nitrogen 31 mg/dL (9-16); Carbon Dioxide 26 mmol/L (22-29); Chloride 101 mmol/L (96-108); Creatinine Clr Calc Pharmacy 28.8; Estimated Glomerular Filt Rate 29; Glucose Random 139 mg/dL (60-115); Lipase 20 U/L (8-78); Magnesium 2.5 mg/dL (1.6-2.6); Potassium 4.6 mmol/L (3.3-5.1); Sodium 138 mmol/L (135-145); Total Protein 7.6 g/dL (6.5-8.0)
[2023-01-01 15:38] LABS: SLIDE REVIEW VERIFIED
[2023-01-01 16:10] VITALS: BP 104/69; PULSE 74; RESP 19; O2SAT 97
--- NOTE | 2023-01-01 16:17 | ED.GENADULT ---
HPI - General Adult General Chief complaint: General Medical Stated complaint: Dehydration, Cat scan Time Seen by Provider: 01/01/23 16:01 Source: patient and family Mode of arrival: ambulatory Limitations: no limitations History of Present Illness HPI narrative: Patient comes to the emergency room complaining of 1 month of diarrhea and 20 lb weight loss. Patient states that he also does not feel hungry. Patient denies nausea vomiting, patient does have intermittent diarrhea occasional soft stool. Patient denies any flank pain, no UTI symptoms. Patient states that he has tried Pepto-Bismol and loperamide. Patient came today because his symptoms have been ongoing for wait too long. Patient denies any blood in the stool. Related Data Home Medications ?Medication ?Instructions ?Recorded ?Confirmed aspirin 81 mg tablet,delayed 81 mg PO DAILY 08/01/20 07/22/23 release (Adult Low Dose Aspirin) cholecalciferol (vitamin D3) 10 2,000 unit PO DAILY 03/11/21 07/22/23 mcg (400 unit) capsule vitamin B complex (B 1 tab PO DAILY 03/11/21 07/22/23 Complex-Vitamin B12 tablet) atenolol 25 mg tablet 25 mg PO DAILY 11/11/23 Previous Rx's ?Medication ?Instructions ?Recorded atorvastatin 80 mg tablet 80 mg PO DAILY #90 tabs 01/26/23 bupropion HCl 150 mg 24 hr tablet, 150 mg PO QAM #90 tabs 02/17/23 extended release amlodipine 5 mg tablet 2.5 mg (1/2 x 5 mg) PO DAILY 90 11/12/23 days #45 tabs lisinopril 5 mg tablet 5 mg PO DAILY #90 tabs 11/12/23 Allergies Allergy/AdvReac Type Severity Reaction Status Date / Time No Known Allergies Allergy Verified 07/22/23 11:21 [No Known Allergies*] Review of Systems Review of Systems: Constitutional : Patient reports a 20 lb weight loss in a month No Fever, No Chills, No Night Sweats, No Fatigue, No Malaise ENT/Mouth : No Hearing loss, No Ear Pain, No Nasal Congestion, No Sinus Pain, No Hoarseness, No sore throat, No Rhinorrhea, No Swallowing Difficulty Eyes: No Eye Pain, No Swelling, No Redness, No Foreign Body, No Discharge, No Vision Changes Cardiovascular : No Chest Pain, No SOB, No Dyspnea on Exertion, No Orthopnea, No Edema, No Palpitations Respiratory : No Cough, No Sputum, No Wheezing, No Smoke Exposure, No Dyspnea Gastrointestinal : No Nausea, No Vomiting, complaining of chronic diarrhea for over a month, occasional abdominal cramping Genitourinary : no irregular bleeding, No Dysuria, No Urinary Frequency, No Hematuria, No Urinary Incontinence, No Urgency, No Flank Pain, No Urinary Flow Changes, No Hesitancy Musculoskeletal : No joint pain, No Myalgias, No Joint Swelling Skin : No Skin Lesions, No rash Neuro : No Weakness, No Numbness, No Paresthesias, No Loss of Consciousness, No Dizziness, No Headache Psych : No Anxiety/Panic, No Depression, No SI/HI/AH/VH, No Social Issues, Heme/Lymph: No Bruising, No Bleeding,No Lymphadenopathy Endocrine : No Polyuria, No Polydipsia, No Temperature Intolerance [facility] Past Medical History Medical History (Updated 07/22/23 @ 11:25 by Karthik Calle PA-C) Fatigue Essential hypertension Aortic dissection Surgical History Hx of colonoscopy H/O heart bypass surgery Family History Family History Mother Breast cancer Father Heart disease Stroke Social History Social History Housing: House Alcohol intake: current Alcohol intake frequency: holidays/special occasions only Alcohol type: beer Patient Tobacco Use Status: Never used Tobacco Tobacco use type: Cigarette e-Cigarette/Vaping Use: Never Used Second Hand Smoke Exposure: No Current occupational status: retired Cognitive needs: No Hearing needs: No Vision needs: No Physical Exam ED Vital Signs: Vital Signs - 24 hr 01/01/23 14:32 01/01/23 16:10 Temperature 98.1 F Pulse Rate 88 74 Respiratory Rate 17 19 Blood Pressure 102/68 104/69 Pulse Oximetry 96 97 Oxygen Delivery Method Room Air Room Air BMI result Body Mass Index 28.9 Const Other: Appearance: Alert. Oriented X3. No acute distress. Eyes: Pupils equal, round and reactive to light. ENT: Pharynx normal. Neck: Normal inspection. Neck supple. No lymph nodes noted. No crepitus CVS: Normal heart rate and rhythm. Pulses normal. Normal S1 and S2 Respiratory: No respiratory distress. Breath sounds normal. No Wheezing. No rales Abdomen: Soft and nontender. No rigidity. No distention. Skin: Skin warm and dry. Normal skin color. Normal skin turgor. Extremities: No lower extremity edema. No Lacerations. No Rash Neuro: Oriented X 3. No motor deficit. No sensory deficit. Moving all extremities. No slurred speech. CN 2 through 12 grossly intact Psych: calm, cooperative, normal affect Course Course Course Narrative: -labs antibiotics were ordered from triage Medications Administered Discontinued Medications Generic Name Dose Route Start Last Admin Trade Name Freq PRN Reason Stop Dose Admin Sodium Chloride 1,000 mls @ 999 mls/hr 01/01/23 14:45 01/01/23 16:50 Ns IV 01/01/23 15:45 Infused .Q1H1M GUY Infusion Sodium Chloride 1,000 mls @ 999 mls/hr 01/01/23 16:00 01/01/23 18:13 Ns IV 01/01/23 17:00 Infused .Q1H1M GUY Infusion Piperacillin Sod/Tazobactam 50 mls @ 100 mls/hr 01/01/23 15:56 01/01/23 17:02 Sod 3.375 gm/ Sodium Chloride IV 01/01/23 16:25 Infused ONCE ONE Infusion Sodium Chloride 2,000 mls @ 999 mls/hr 01/01/23 16:16 01/01/23 18:55 Ns IVCONT 01/01/23 18:16 Infused .Q2H1M ONE Infusion Medical Decision Making Medical Decision Making [facility] Narrative: My interpretation of labs: White blood cell count 19.0, patient has had diarrhea for a month, stool studies pending, unlikely to resolve today. Patient's creatinine 2.29, baseline 1.7, likely due to diarrhea/dehydration -urinalysis pending -CT scan of the chest abdomen pelvis, patient reports a 20 lb weight loss in 1 month Differential Diagnosis Differential Diagnoses: The differential diagnosis associated with the presentation includes (Bacterial intestinal infection, parasitic infection, malignancy) Admission/Observation Consideration of admission/observation: Escalation of care including admission/observation considered (Patient has an elevated white blood cell count and creatinine. Patient being hydrated, admission considered) Lab Data 01/01/23 15:03 01/01/23 20:39 Labs: Lab Results 01/01/23 01/01/23 01/01/23 Range/Units 15:03 16:19 19:25 WBC 19.0 H (4.8-10.8) X10*3/uL RBC 5.48 (4.60-5.80) X10*6/uL Hgb 15.4 (14.0-18.0) g/dl Hct 46.4 (42.0-52.0) % MCV 84.7 (80.0-98.0) fL MCH 28.1 (27.0-33.0) pg MCHC 33.2 (31.0-36.0) g/dl RDW 13.2 (11.0-16.0) % Plt Count 390 (160-400) X10*3/uL MPV 8.7 L (9.4-12.4) fL Immature Gran % (Auto) 1.5 H (0.0-0.4) % Neut % (Auto) 77.9 H (45-73) % Lymph % (Auto) 9.2 L (20-40) % Nolan % (Auto) 10.9 (2-11) % Eos % (Auto) 0.2 (0-4) % Baso % (Auto) 0.3 (0-2) % Lymph # (Auto) 1.8 (1.2-4.9) X10*3/uL Nolan # (Auto) 2.1 H (0.1-1.2) X10*3/uL Eos # (Auto) 0.0 (0.0-0.4) X10*3/uL Baso # (Auto) 0.1 (0.0-0.2) X10*3/uL Abs Immat Gran (auto) 0.28 H (0.00-0.03) X10*3/uL Absolute Neuts (auto) 14.8 H (2.0-8.3) x10*3/uL Absolute Nucleated RBC 0.000 (0.0-0.012) X10*3/uL Nucleated RBC % (auto) 0.0 (0.0-0.2) /100WBC Smear Tech's Comments VERIFIED Sodium 138 (135-145) mmol/L Potassium 4.6 (3.3-5.1) mmol/L Chloride 101 (96-108) mmol/L Carbon Dioxide 26 (22-29) mmol/L Anion Gap 16 (12-20) BUN 31 H (9-16) mg/dL Creatinine 2.29 H (0.5-1.4) mg/dL Estim Creat Clear Calc 28.8 Estimated GFR 29 Random Glucose 139 H (60-115) mg/dL Lactic Acid 1.0 (0.5-2.0) mmol/L Calcium 10.0 (8.4-10.2) mg/dL Magnesium 2.5 (1.6-2.6) mg/dL Total Bilirubin 0.8 (0.0-1.0) mg/dL Direct Bilirubin 0.4 (0.0-0.5) mg/dL AST 37 (5-37) U/L ALT 64 H (0-40) U/L Alkaline Phosphatase 80 (39-117) U/L Total Protein 7.6 (6.5-8.0) g/dL Albumin 3.9 (3.5-5.0) g/dL Lipase 20 (8-78) U/L Urine Color Urine Appearance Urine pH (5.0-9.0) Ur Specific [place] (1.005-1.025) Urine Protein (Neg-Trace) mg/dL Urine Glucose (UA) (Negative) mg/dL Urine Ketones (Negative) mg/dL Urine Blood (Negative) Urine Nitrite (Negative) Ur Leukocyte Esterase (Negative) Stl C. cayetanensis PCR Cancelled Stool Rotavirus A PCR Cancelled Stl Adenov F PCR Cancelled Stool Astrovirus (PCR) Cancelled Stool Campylobacter PCR Cancelled Stool Cryptosporidium PCR Cancelled Stl Sh Tox Pr E STEC PCR Cancelled Stool E coli O157 PCR Cancelled Stl Enterotoxigenic E PCR Cancelled Stool EPEC (PCR) Cancelled Stool EAEC (PCR) Cancelled Stl E. histolytica PCR Cancelled Stool Giardia Lamblia PCR Cancelled Stl P. shigelloides PCR Cancelled Stool Salmonella PCR Cancelled Stool Sapovirus (PCR) Cancelled Stl Shigella/EIEC PCR Cancelled St Y.enterocolitica PCR Cancelled Stool Vibrio (PCR) Cancelled Stl Vibrio cholerae PCR Cancelled Stl Norovirus GI/GII PCR Cancelled C. difficile Tox B Gene NEGATIVE (Negative) 01/01/23 01/01/23 Range/Units 20:30 20:39 WBC (4.8-10.8) X10*3/uL RBC (4.60-5.80) X10*6/uL Hgb (14.0-18.0) g/dl Hct (42.0-52.0) % MCV (80.0-98.0) fL MCH (27.0-33.0) pg MCHC (31.0-36.0) g/dl RDW (11.0-16.0) % Plt Count (160-400) X10*3/uL MPV (9.4-12.4) fL Immature Gran % (Auto) (0.0-0.4) % Neut % (Auto) (45-73) % Lymph % (Auto) (20-40) % Nolan % (Auto) (2-11) % Eos % (Auto) (0-4) % Baso % (Auto) (0-2) % Lymph # (Auto) (1.2-4.9) X10*3/uL Nolan # (Auto) (0.1-1.2) X10*3/uL Eos # (Auto) (0.0-0.4) X10*3/uL Baso # (Auto) (0.0-0.2) X10*3/uL Abs Immat Gran (auto) (0.00-0.03) X10*3/uL Absolute Neuts (auto) (2.0-8.3) x10*3/uL Absolute Nucleated RBC (0.0-0.012) X10*3/uL Nucleated RBC % (auto) (0.0-0.2) /100WBC Smear Tech's Comments Sodium 142 (135-145) mmol/L Potassium 4.1 (3.3-5.1) mmol/L Chloride 111 H (96-108) mmol/L Carbon Dioxide 22 (22-29) mmol/L Anion Gap 13 (12-20) BUN 29 H (9-16) mg/dL Creatinine 1.89 H (0.5-1.4) mg/dL Estim Creat Clear Calc 34.9 Estimated GFR 36 Random Glucose 112 (60-115) mg/dL Lactic Acid (0.5-2.0) mmol/L Calcium 7.9 L D (8.4-10.2) mg/dL Magnesium (1.6-2.6) mg/dL Total Bilirubin (0.0-1.0) mg/dL Direct Bilirubin (0.0-0.5) mg/dL AST (5-37) U/L ALT (0-40) U/L Alkaline Phosphatase (39-117) U/L Total Protein (6.5-8.0) g/dL Albumin (3.5-5.0) g/dL Lipase (8-78) U/L Urine Color Yellow Urine Appearance Clear Urine pH 5.5 (5.0-9.0) Ur Specific [place] 1.020 (1.005-1.025) Urine Protein Trace (Neg-Trace) mg/dL Urine Glucose (UA) Negative (Negative) mg/dL Urine Ketones Trace (Negative) mg/dL Urine Blood Negative (Negative) Urine Nitrite Negative (Negative) Ur Leukocyte Esterase Negative (Negative) Stl C. cayetanensis PCR Stool Rotavirus A PCR Stl Adenov F 40/41 PCR Stool Astrovirus (PCR) Stool Campylobacter PCR Stool Cryptosporidium PCR Stl Sh Tox Pr E STEC PCR Stool E coli O157 PCR Stl Enterotoxigenic E PCR Stool EPEC (PCR) Stool EAEC (PCR) Stl E. histolytica PCR Stool Giardia Lamblia PCR Stl P. shigelloides PCR Stool Salmonella PCR Stool Sapovirus (PCR) Stl Shigella/EIEC PCR St Y.enterocolitica PCR Stool Vibrio (PCR) Stl Vibrio cholerae PCR Stl Norovirus GI/GII PCR C. difficile Tox B Gene (Negative) Discharge Plan Discharge Clinical Impression: Diverticulitis, [id number] kidney injury Patient Disposition: Home, Self-Care Instructions: Diverticulitis (ED), Diverticulitis Diet (ED) Additional Instructions: Please follow-up with your primary care physician tomorrow. If you have any worsening or new symptoms, please return to the emergency room or call 911 Prescriptions: No Action atorvastatin 80 mg tablet 80 mg PO DAILY Qty: 90 3RF bupropion HCl 150 mg tablet extended release 24 hr 150 mg PO QAM Qty: 90 3RF amlodipine 5 mg tablet 2.5 mg PO DAILY 90 Days Qty: 45 0RF lisinopril 5 mg tablet 5 mg PO DAILY Qty: 90 1RF atenolol 25 mg tablet 25 mg PO DAILY aspirin [Adult Low Dose Aspirin] 81 mg tablet,delayed release (DR/EC) 81 mg PO DAILY vitamin B complex [B Complex-Vitamin B12] Tablet 1 tab PO DAILY cholecalciferol (vitamin D3) 10 mcg (400 unit) capsule 2,000 unit PO DAILY Interventions: ED Discharge Assessment Last Done: 01/01/23 21:24 Discharge Date/Time: 01/01/23 21:26 Print Language: Tuvaluan
[2023-01-01] MEDS: Piperacillin Sodium/Tazobactam 3.375 GM in 0.9 % Sodium Chloride 50 ML IV (16:24)
[2023-01-01] MEDS: 0.9 % Sodium Chloride 2,000 ML 999 ML IVCONT (16:54)
[2023-01-01 18:06] VITALS: BP 112/63; PULSE 83; RESP 15; O2SAT 98
[2023-01-01 20:19] VITALS: BP 113/71; PULSE 88; RESP 22; TEMP 36.6; O2SAT 93
[2023-01-01 20:38] LABS: Appearance Urine Clear; Color Urine Yellow; Glucose Urine UA Negative (Negative); Leukocyte Esterase Urine Negative (Negative); Nitrite Urine Negative (Negative); PH 5.5 (5.0-9.0); Urine Blood Negative (Negative); Urine Ketones Trace mg/dL (Negative); Urine Protein Trace mg/dL (Neg-Trace)
[2023-01-01 20:59] LABS: Anion Gap 13 (12-20); Blood Urea Nitrogen 29 mg/dL (9-16); Calcium 7.9 mg/dL (8.4-10.2); Carbon Dioxide 22 mmol/L (22-29); Chloride 111 mmol/L (96-108); Creatinine Clr Calc Pharmacy 34.9; Estimated Glomerular Filt Rate 36; Glucose Random 112 mg/dL (60-115); Potassium 4.1 mmol/L (3.3-5.1); Sodium 142 mmol/L (135-145)
[2023-01-02 02:00] LABS: CDiff Gene PCR NEGATIVE (Negative)
== END 2023-01-01 21:26 | disposition home or self-care (01) ==
PROVIDERS: Physician Assistant; Emergency Provider Emergency Medicine; PCP Physician Assistant
DX: K57.32 Diverticulitis of large intestine without perforation or abscess without bleeding (principal); N17.9 Acute kidney failure, unspecified; I10 Essential (primary) hypertension; F17.200 Nicotine dependence, unspecified, uncomplicated; Z79.82 Long term (current) use of aspirin; Z79.899 Other long term (current) drug therapy
CPT/HCPCS: 36415; 71250; 74176; 80048; 80076; 81003; 83605; 83690; 83735; 85025; 87040; 87493; 87507; 93005; 96361; 96374; 99285; J2543

== ENCOUNTER 2023-01-07 13:49 | Outpatient (REF) | payer OTHER, SELFPAY ==
[2023-01-07 15:06] LABS: MANUAL DIFF FLAG NO
[2023-01-07 15:31] LABS: Basophils Absolute Auto 0.1 X10*3/uL (0.0-0.2); Basophils Percent Auto 0.7 % (0-2); Eosinophils Absolute Auto 0.2 X10*3/uL (0.0-0.4); Hematocrit 42.1 % (42.0-52.0); Hemoglobin 13.8 g/dl (14.0-18.0); Imm Gran Abs Auto 0.74 X10*3/uL (0.00-0.03); Imm Gran Pct Auto 4.2 % (0.0-0.4); Lymphocytes Absolute Auto 1.8 X10*3/uL (1.2-4.9); Lymphocytes Percent Auto 10.4 % (20-40); Mean Corpuscular HGB Conc 32.8 g/dl (31.0-36.0); Mean Corpuscular Hemoglobin 28.2 pg (27.0-33.0); Mean Corpuscular Volume 86.1 fL (80.0-98.0); Mean Platelet Volume 8.9 fL (9.4-12.4); Monocytes Absolute Auto 1.1 X10*3/uL (0.1-1.2); Monocytes Percent Auto 6.2 % (2-11); Neutrophils Absolute Auto 13.7 x10*3/uL (2.0-8.3); Neutrophils Percent Auto 77.5 % (45-73); Platelet Count 351 X10*3/uL (160-400); Red Blood Count 4.89 X10*6/uL (4.60-5.80); Red Cell Distribution Width 13.5 % (11.0-16.0); White Blood Count 17.6 X10*3/uL (4.8-10.8)
[2023-01-07 16:10] LABS: Alanine Aminotransferase 26 U/L (0-40); Albumin Level 3.5 g/dL (3.5-5.0); Alkaline Phosphatase 60 U/L (39-117); Anion Gap 12 (12-20); Aspartate Amino Transferase 23 U/L (5-37); Bilirubin Total 0.5 mg/dL (0.0-1.0); Blood Urea Nitrogen 16 mg/dL (9-16); Calcium 9.3 mg/dL (8.4-10.2); Carbon Dioxide 25 mmol/L (22-29); Chloride 107 mmol/L (96-108); Estimated Glomerular Filt Rate 50; Glucose Random 98 mg/dL (60-115); Potassium 4.7 mmol/L (3.3-5.1); Sodium 139 mmol/L (135-145); Total Protein 6.4 g/dL (6.5-8.0)
[2023-01-07 16:24] LABS: TSH reflex Free T4 1.31 uIU/mL (0.32-4.0)
== END 2023-01-07 13:50 | disposition home or self-care (01) ==
LOC: HO.LAB 13:49
PROVIDERS: Nurse Practitioner Family; PCP Physician Assistant; Visit Provider Internal Medicine
DX: R19.7 Diarrhea, unspecified (principal); K52.9 Noninfective gastroenteritis and colitis, unspecified; R63.4 Abnormal weight loss
CPT/HCPCS: 36415; 80053; 84443; 85025

== ENCOUNTER 2023-01-07 13:49 | Outpatient (AMB) | payer OTHER, SELFPAY ==
[2023-01-07 13:50] VITALS: BP 110/69; PULSE 83; O2SAT 98; BMI 29.5
--- NOTE | 2023-01-07 13:50 | MHC.OFFVIS ---
Intake Vital Signs 01/07/23 13:50 Height 5 ft 4 in Weight 171 lb 15.369 oz BMI 29.5 BP 110/69 Blood Pressure Location Lt brachial Position Sitting Pulse 83 Pulse Source Pulse Oximeter Pulse Oximetry (%) 98 Oxygen Delivery Method Room Air Intake Visit Reasons: Diarrhea Intake Note: Pt presents to the office today as a new patient for diarrhea. He states he was in the emergency room last week and the ER did a CAT scan and they the ER stated he has diverticulitis. Pt states with the meds that were given to him from the ER he states he is feeling a bit better. He denies any NVD. He states his appetite is coming back but he is still mainly only eating soup, boiled chicken, and boiled carrots. He denies any stomach pain as well. Allergies No Known Allergies [No Known Allergies*] Allergy (Verified 01/07/23 13:53) HPI HPI Comments History of Present Illness Details This is a 67-year-old gentleman with past medical history of aortic dissection status post repair, hypertension, major depressive disorder, who is presenting to the office to establish care for chronic diarrhea and weight loss. History was removed the patient, who states that for the past 1 month, he has been having loose watery stools up to 10 times a day without any blood. Sometimes he does see mucus. This started a day after he had eaten out, however have continued beyond 4 weeks at this point. Associated with severe abdominal pain and loss of appetite. Resultantly, has lost almost 18 lb in this duration. He was seen in the emergency room last week for similar complaints and imaging showed:CT Abd/pel: 1. Diverticula of the descending and the sigmoid colon with a significant segment of proximal sigmoid colonic thickening with surrounding infiltration. Findings may be related to diverticulitis. Given history of weight loss other etiology is not excluded. Consider colonoscopic evaluation after treatment of apparent diverticulitis. ? 2. Cholelithiasis.? LABS NOTABLE FOR DERANGED KIDNEY FUNCTION, NORMAL TSH, NORMAL THYROID FUNCTION, NEGATIVE C DIFF. Pt has never had colon cancer screening performed. Was given cologuard kit last year which he never sent out. [facility] Medical History Aortic dissection Essential hypertension Fatigue Surgical History H/O heart bypass surgery Family History Mother Breast cancer Father Heart disease Stroke Social History Housing: House Alcohol intake: current Alcohol intake frequency: holidays/special occasions only Alcohol type: beer Patient Tobacco Use Status: Never used Tobacco Tobacco use type: Cigarette e-Cigarette/Vaping Use: Never Used Second Hand Smoke Exposure: No Current occupational status: retired Cognitive needs: No Hearing needs: No Vision needs: No Review of Systems Const All systems reviewed & are unremarkable except as noted in HPI and below Physical Exam Vital Signs: Last Vital Signs Pulse 83 01/07/23 13:50 BP 110/69 01/07/23 13:50 Pulse Ox 98 01/07/23 13:50 Oxygen Delivery Method Room Air 01/07/23 13:50 BMI result Body Mass Index 29.5 Gen appear: NAD HEENT: nonicteric, no cervical lymphadenopathy Chest: CTA CVS: Regular S1/S2 Abd: soft, nontender, nondistended, bowel sounds + Ext: no peripheral edema Neuro: A/Ox3, noted to move all extremities spontaneously Psych: depressed affect but interacting appropriately Assessment & Plan Assessment & Plan (1) Chronic diarrhea: Code(s): K52.9 - Noninfective gastroenteritis and colitis, unspecified (2) Weight loss: Code(s): R63.4 - Abnormal weight loss Plan We will proceed with URGENT evaluation with EGD and colonoscopy to rule out any malignancy, or chronic inflammation / infection leading to severe diarrhea and weight loss. Split PEG prep instructions reviewed with the patient. Handout provided as well. Follow-up after the procedures. Orders: Orders Calprotectin, Fecal 01/07/23 K52.9 - Noninfective gastroenteritis and colitis, unspecified TSH reflex Free T4 01/07/23 K52.9 - Noninfective gastroenteritis and colitis, unspecified Medications: New peg 3350-electrolytes 236-22.74-6.74 -5.86 gram (Golytely) as per split prep instructions, until fecal effluent is clear 240 mL PO Q10M 4,000 mL 0RF colonoscopy Coding Level of Care Code New Pt Level 4 (39945) Diagnoses Chronic diarrhea K52.9 Weight loss R63.4
== END 2023-01-07 16:23 | disposition home or self-care (01) ==
PROVIDERS: PCP Physician Assistant; Visit Provider Internal Medicine
DX: K52.9 Noninfective gastroenteritis and colitis, unspecified (principal); R63.4 Abnormal weight loss
CPT/HCPCS: 99204

== ENCOUNTER 2023-01-22 10:06 | Outpatient (AMB) | payer OTHER, SELFPAY ==
[2023-01-22 10:35] VITALS: BP 98/68; PULSE 75; O2SAT 97; BMI 28.7
--- NOTE | 2023-01-22 10:35 | A.OFFPC_ITS ---
Vital Signs 01/22/23 10:35 Height 5 ft 4 in Weight 167 lb 8 oz BMI 28.7 BP 98/68 Blood Pressure Location Lt brachial Position Sitting Pulse 75 Pulse Source Pulse Oximeter Pulse Oximetry (%) 97 Oxygen Delivery Method Room Air Intake Visit Reasons: PE Intake Note: Patient is here today for a physical. 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: No Accompanied by: Spouse Allergies No Known Allergies [No Known Allergies*] Allergy (Verified 01/22/23 10:44) Medication List - Last Reconciled 01/22/23 by Karthik Calle PA-C amlodipine 5 mg PO DAILY 90 days aspirin (Adult Low Dose Aspirin) 81 mg PO DAILY atenolol 25 mg PO DAILY 90 days atorvastatin 80 mg PO DAILY bupropion HCl 150 mg PO QAM cholecalciferol (vitamin D3) 2,000 units PO DAILY lisinopril 5 mg PO DAILY peg 3350-electrolytes 236-22.74-6.74 -5.86 gram (Golytely) 240 mL PO Q10M vitamin B complex (B Complex-Vitamin B12 tablet) 1 tab PO DAILY Tobacco use date assessed: 12/19/22 Fall risk assessment: No Falls in past year Last assessed Fall Risk: 01/22/23 Dental Screening Dental Screen Date: 01/22/23 Did you have a dental visit in the last 12 months?: No Did you have a dental problem in the last 6 months where you did not have access to dental care?: No Was dental information given to patient?: Patient has dentist HPI PE HPI Details Patient is a 67-year-old male here today for routine annual physical. Patient has a past medical history significant for essential hypertension, history of aortic dissection with surgical repair, MDD. Recently seen at the ER for a 2 week history of diarrhea and weight loss. CT of abdomen showing consistent findings of diverticulitis. Was placed on antibiotics. During his ER stay did find to have acute kidney injury which had gotten better with IV fluids. Now feeling somewhat better and has less watery stool. He does report still having some fatigue and dizziness when standing likely due to dehydration. His stools now formed. Has been graduating his diet and trying to increase his fiber. Has now followed up with Gastroenterology and will be getting colonoscopy and endoscopy soon. .. Aortic dissection: Patient continues to follow assistant corporate controller and stress testing done which did not show any ischemia.? Echocardiography has shown normal biventricular function.? He continues to complain of fatigue and feels that he is unable to go back to his previous self before aortic dissection. . Major depressive disorder: Continues to feel fatigue and anhedonia. Continues on Wellbutrin 150mg and does not feel it is helped much. Has been referred to Psychiatry by his assistant corporate controller. .. Colorectal cancer screening: getting EGD and colonoscopy . Vaccines: Up-to-date with tetanus, needs PCV-20 , up-to-date with shingles and COVID vaccine PENDING SALE TO [facility] Medical History Fatigue Essential hypertension Aortic dissection Surgical History H/O heart bypass surgery Family History Mother Breast cancer Father Heart disease Stroke Social History Housing: House Alcohol intake: current Alcohol intake frequency: holidays/special occasions only Alcohol type: beer Patient Tobacco Use Status: Never used Tobacco Tobacco use type: Cigarette e-Cigarette/Vaping Use: Never Used Second Hand Smoke Exposure: No Current occupational status: retired Cognitive needs: No Hearing needs: No Vision needs: No Questionnaire Thrive Questionnaire Date Thrive assessed: 01/01/23 JANET-7 AMB Questionnaire JANET-7 Date JANET - 7 assessed: 01/01/23 Source: Developed by Drs. Jose Martinez, Jessica Mehta, Tulio Arroyo and colleagues, with an educational gal from [employer]. Review of Systems Const Denies body aches, Denies chills, Denies excessive sweating, Denies fatigue, Denies fever(s) and Denies headache(s) Eyes Denies blurry vision ENT Denies dysphagia, Denies vertigo, Denies dizziness, Denies headache(s), Denies hearing loss and Denies tinnitus Card Denies chest pain, Denies chest pain with activity, Denies syncope, Denies irregular heart rhythm and Denies dyspnea Resp Denies chest congestion, Denies cough, Denies hemoptysis, Denies dyspnea and Denies wheezing GI Denies abdominal pain, Denies melena, Denies hematochezia, Denies coffee ground emesis, Denies dysphagia, Denies diarrhea, Denies nausea and Denies vomiting Denies difficulty urinating, Denies dysuria, Denies urinary frequency, Denies urinary hesitancy and Denies urinary urgency Musc Denies arthralgias, Denies limited range of motion, Denies muscle cramps and Denies muscle weakness Skin/Breast Denies rash and Denies skin ulcer Neuro Denies Abnormal speech present, Denies confusion, Denies vertigo, Denies dizziness, Denies syncope, Denies headache(s), Denies memory loss and Denies seizure-like activity Psych Denies anxiety, Denies confusion, Denies depression, Denies memory loss, Denies panic attacks and Denies paranoia Endo Denies excessive sweating, Denies fatigue, Denies flushing, Denies polydipsia and Denies polyuria Aller/Immun Denies wheezing Physical exam (Primary Care) Vital Signs: Last Vital Signs Pulse 75 01/22/23 10:35 BP 98/68 01/22/23 10:35 Pulse Ox 97 01/22/23 10:35 Oxygen Delivery Method Room Air 01/22/23 10:35 BMI result Body Mass Index 28.7 Tobacco/Smoking Status: Tobacco use Status Tobacco use date assessed 12/19/22 01/22/23 10:41 Patient Tobacco Use Status Never used Tobacco 01/22/23 10:41 Tobacco use type Cigarette 01/22/23 10:41 e-Cigarette/Vaping Use Never Used 01/22/23 10:41 Thrive Assessment: Date of Thrive Assessment Date Thrive assessed 01/01/23 01/22/23 10:41 Const General: cooperative, comfortable, no acute distress, alert and awake; No confusion Orientation/consciousness: oriented to person, oriented to place, patient orien rubén x3 and No confusion HENMT Head: Yes normocephalic Ears: external ears normal and TM's normal bilaterally Face and sinus: No sinus tenderness Mouth: Normal oral and palatal mucosa present and tongue normal Teeth and gingiva: dentition normal and gingiva normal Throat: Yes posterior oropharynx normal, Yes tonsils normal and Yes uvula midline Eyes Conjunctivae: conjunctivae normal Sclerae: sclerae normal Pupils: Equal, round and reactive pupils present EOM: EOMs intact bilaterally Direct Ophthalmoscopy: No no photophobia Neck Neck: Yes no lymphadenopathy, No tender and Yes no JVD Thyroid: Thyroid normal Carotids: no bruits Chest Chest palpation & inspection: no tenderness Resp Effort & Inspection: normal respiratory effort, no audible wheezes, not labored and no stridor Auscultation: no crackles, no rales, no rhonchi and no wheezes Cardio Jugular venous distension: no JVD Rate: regular rate, not bradycardic and not tachycardic Rhythm: regular rhythm Bruits: no carotid bruits Peripheral pulses: Peripheral pulses 2+ throughout GI Inspection: Yes normal to inspection, No abdominal wall ecchymosis and No visible herniation Palpation (GI): Soft to palpation, nontender, no guarding, not rigid and No hepatosplenomegaly present Auscultation: normoactive bowel sounds General: Yes no CVA tenderness Back/Spine/Pelvis Back: no CVA tenderness and No back tenderness Cervical Spine: cervical ROM normal Thoracic/Lumbar Spine: thoracic and lumbar spine normal to inspection, straight leg raise negative bilaterally, No thoraco-lumbar ROM limited and No lumbar spinal tenderness Skin Lesions: no lesions Rashes: no rashes Wounds: no wounds Neuro General: oriented to person, oriented to place, patient oriented x3, CN's II-XI intact bilaterally and No confusion Cranial nerves: Yes Equal, round and reactive pupils present and Yes Normal accommodation reflex present Cognition (Neuro): normal cognition Speech: No Abnormal speech present Gait exam (Neuro): Normal gait present Motor exam (neuro): 5/5 motor strength present throughout Extrem Right upper extremity: full ROM; no cyanosis Left upper extremity: full ROM; no cyanosis Right lower extremity: no edema Left lower extremity: no edema Psych Appearance: grossly normal Mental Status: mental status grossly normal Affect: normal affect Attitude: cooperative Thought process: Normal thought process present Immunizations pneumoc 20-li conj-dip cr(PF) 0.5 mL IM syringe Performing Provider: Karthik Calle PA-C Performing Location: [facility] Administered by: JORDAN Singleton on 01/22/23 11:19 Dose Route Admin Location Dispensed Lot Number Expiration Date NDC Tour Counselor 0.5 mL IM Left Deltoid 0.5 mL [id number] 03/17/24 3685-8297-59 [employer] VIS Given Date VIS Provided VIS Publication Date 01/22/23 Single Vaccine 21 Eligibility Eligibility Date Funding Source Not [facility] Eligible 01/22/23 Private Assessment and Plan Assessment & Plan (1) Annual physical exam: Code(s): Z00.00 - Encounter for general adult medical examination without abnormal findings (2) Aortic dissection: Comment: Stable Code(s): I71.00 - Dissection of unspecified site of aorta Qualifiers: Aortic location: thoracic aorta Thoracic aorta location: ascending aorta Qualified Code(s): I71.010 - Dissection of ascending aorta Plan: Status post aortic dissection repair. Continues on beta-millie and high-dose statin therapy. Has been followed by a cardiovascular surgeon. (3) Essential hypertension: Comment: Stable Code(s): I10 - Essential (primary) hypertension Plan: Blood pressure low today in office. Will advised to reduce his dose of amlodipine to 2.5 mg and increase his fluids and electrolytes. Orders: Orders Microalbumin, Random (w Creat) 6 Months I10 - Essential (primary) hypertension Comprehensive [place]. Panel Fast 6 Months I10 - Essential (primary) hypertension Complete Blood Count no Diff 6 Months I10 - Essential (primary) hypertension Lipid Panel 6 Months I71.00 - Dissection of unspecified site of aorta Pneumococcal 20 Immunization Today I71.010 - Dissection of ascending aorta, Z23 - Encounter for immunization Coding Level of Care Code Est Pt Prev Care >65y(84648) Diagnoses Annual physical exam Z00.00 Dissection of ascending aorta I71.010 Aortic location: thoracic aorta Thoracic aorta location: ascending aorta Essential hypertension I10
== END 2023-01-22 11:21 | disposition home or self-care (01) ==
PROVIDERS: Visit Provider Physician Assistant
DX: Z00.00 Encounter for general adult medical examination without abnormal findings (principal); I71.010 Dissection of ascending aorta; I10 Essential (primary) hypertension; Z23 Encounter for immunization
CPT/HCPCS: 90471; 90677; 99397

== ENCOUNTER 2023-03-19 08:11 | Day surgery (SDC) | payer OTHER, SELFPAY ==
[2023-03-16 19:40] VITALS: BMI 28.0
--- NOTE | 2023-03-17 12:52 | HO.ANESPROP2 ---
Documented by User: Ashlei Medrano NP 03/17/23 13:01 HPI - Anesthesia Eval Consult details Narrative: 67yo M for Colonoscopy Follows [facility] [place]. Hx aortic dissection 2018 with uneventful surgical repair. Stable at last eval 04/2022 except fatigue so referred to GI PMFSH Active Problems Active Problems: All Active Problems (Updated 01/22/23 @ 11:04 by Karthik Calle PA-C) Chronic diarrhea (Acute) Fatigue (Acute) Essential hypertension (Acute) Weight loss (Acute) Epigastric pain (Acute) Diarrhea (Acute) Hepatic steatosis (Acute) Annual physical exam (Acute) Poison marcia dermatitis (Acute) Lumbar spine pain (Acute) Aortic dissection (Acute) Past Medical History Medical History Fatigue Essential hypertension Aortic dissection Family History Family History Mother Breast cancer Father Heart disease Stroke Surgical History Surgical History H/O heart bypass surgery Social History Social History Housing: House Alcohol intake: current Alcohol intake frequency: holidays/special occasions only Alcohol type: beer Patient Tobacco Use Status: Never used Tobacco Tobacco use type: Cigarette e-Cigarette/Vaping Use: Never Used Second Hand Smoke Exposure: No Use of substances other than those prescribed or required for medical reasons: No Are you DNR?: No Advance Directives: No Advance Directives Information Provided: Yes Advance Directives on File: No Recently lost weight without trying: Yes Nutrition Risks: No Nutritional Risk Current occupational status: retired Cognitive needs: No Hearing needs: No Vision needs: No Meds Allergies Allergy/AdvReac Type Severity Reaction Status Date / Time No Known Allergies Allergy Verified 01/22/23 10:44 [No Known Allergies*] Home Medications Medication Instructions Recorded Confirmed Last Taken Type aspirin 81 mg tablet,delayed 81 mg PO DAILY 08/01/20 03/16/23 Unknown History release (Adult Low Dose Aspirin) cholecalciferol (vitamin D3) 10 2,000 unit PO DAILY 03/11/21 03/16/23 Unknown History mcg (400 unit) capsule vitamin B complex (B 1 tab PO DAILY 03/11/21 03/16/23 Unknown History Complex-Vitamin B12 tablet) atenolol 25 mg tablet 12.5 mg PO DAILY 03/16/23 03/16/23 Unknown History Exam Exam Date and Time: March 17, 2023 1252 Height,Weight and Vital Signs: Height 5 ft 4 in Weight 73.936 kg Pertinent Lab Results Pertinent Lab Results: Laboratory Tests 01/07/23 15:05 WBC 17.6 H Hgb 13.8 L Hct 42.1 Plt Count 351 Sodium 139 Potassium 4.7 Chloride 107 Carbon Dioxide 25 BUN 16 Creatinine 1.40 Narrative Narrative: EKG 12/2022 Vent. Rate : 083 BPM Atrial Rate : 083 BPM P-R Int : 140 ms QRS Dur : 084 ms QT Int : 380 ms P-R-T Axes : 033 039 047 degrees QTc Int : 446 ms Normal sinus rhythm Nonspecific ST and T wave abnormality Abnormal ECG When compared with ECG of 23-AUG-2018 14:48, ST-T wave changes have developed in the Anteroseptal leads CT chest wo IV con 12/2022 IMPRESSION: 1. No active cardiopulmonary disease. 2. Cholelithiasis. ECHO 2020 Conclusions: - The left ventricular systolic function is normal. The calculated ejection fraction is 65% by biplane method. - There is mild calcification of the aortic valve. - No obvious valvular pathology seen on this study. - The aortic annulus, sinuses of valsalva, asc aorta, and aortic arch are normal in size. - Visualization of aorta suboptimal. Consider CTA for further evaluation . Exercise Stress 2019 neg for ischemia Assessment and Plan Assessment Anesthesia Assessment: Chart Reviewed Documented by User: Cyn Rosado MD 03/19/23 09:40 PMF Past Medical History Medical History Fatigue Essential hypertension Aortic dissection Family History Family History Mother Breast cancer Father Heart disease Stroke Family history of problems with anesthesia: No Surgical History Surgical History H/O heart bypass surgery History of Problems with Anesthesia: No Social History Social History Housing: House Alcohol intake: current Alcohol intake frequency: holidays/special occasions only Alcohol type: beer Patient Tobacco Use Status: Never used Tobacco Tobacco use type: Cigarette e-Cigarette/Vaping Use: Never Used Second Hand Smoke Exposure: No Use of substances other than those prescribed or required for medical reasons: No Are you DNR?: No Advance Directives: No Advance Directives Information Provided: Yes Advance Directives on File: No Recently lost weight without trying: Yes Nutrition Risks: No Nutritional Risk Current occupational status: retired Cognitive needs: No Hearing needs: No Vision needs: No Meds Allergies Allergy/AdvReac Type Severity Reaction Status Date / Time No Known Allergies Allergy Verified 01/22/23 10:44 [No Known Allergies*] Home Medications Medication Instructions Recorded Confirmed Last Taken Type aspirin 81 mg tablet,delayed 81 mg PO DAILY 08/01/20 03/16/23 Unknown History release (Adult Low Dose Aspirin) cholecalciferol (vitamin D3) 10 2,000 unit PO DAILY 03/11/21 03/16/23 Unknown History mcg (400 unit) capsule vitamin B complex (B 1 tab PO DAILY 03/11/21 03/16/23 Unknown History Complex-Vitamin B12 tablet) atenolol 25 mg tablet 12.5 mg PO DAILY 03/16/23 03/16/23 Unknown History Exam Airway Mallampati Class: II TM Dist: >3cm Neck ROM: Limited Loose/Missing/Broken Teeth: Upper (left upper broken teeth) Heart: rrr Lungs: cta Assessment and Plan Assessment Anesthesia Assessment: Anesthesia Plan Discussed Final Anesthetic Review Family History of Problems with Anesthesia: No History of Problems with Anesthesia: No NPO: Yes ASA Class: III Final Preanesthetic Review: No Changes in Pt Med Stat, Meds/Allgs Chart Reviewed, Consent Obtained/Reviewed and Anes Risks/Benef Reviewed Patient Risk: Intermediate Procedure Risk: Low Anesthetic Plan Anesthetic Plan: MAC: Disposition: Standard PACU
[2023-03-19 08:33] VITALS: BP 131/85; PULSE 89; RESP 16; TEMP 36.3; O2SAT 99; BMI 28.0
--- NOTE | 2023-03-19 08:53 | MHC.SHP ---
Pre-Procedural Eval Section A Date of Service: 03/19/23 Section B Chief Complaint: Unintentional weight loss, diarrhea, diverticuliti Details of Present Illness: PMH: Aortic dissection Essential hypertension Fatigue Surgical History H/O heart bypass surgery Present Medications: see Short Stay Collaborative assessment Allergies: Allergies Allergy/AdvReac Type Severity Reaction Status Date / Time No Known Allergies Allergy Verified 01/22/23 10:44 [No Known Allergies*] Review of Systems Review of Systems Comment: Ten point ROS negative Exam Exam Comment: Gen appear: No acute distress HEENT: no icterus Chest: No overt resp distress Abd: soft, nontender, nondistended Psych: Stable affect, answering questions appropriately Neuro: A/Ox3 noted to move all extremities spontaneously Ext: no peripheral edema Plan Diagnosis/Plan: Unchanged I have reviewed the history and physical and performed a pertinent physical examination on my patient. No changes have occurred unless specified. Time Spent With Patient Time: Total time managing care of this patient today ____ minutes.
--- NOTE | 2023-03-19 09:46 | P.OP_ITS ---
Operative Note Operative Note Date of Service: 03/19/23 Narrative: Procedure:?Esophagogastroduodenoscopy and colonoscopy Endoscopist:?Jazzy Abbott MD Indication:?Unintentional weight loss, chronic diarrhea Anesthesia Provider:?Dr Aldo Swenson Anesthesia Type:?MAC Instrument:?Olympus GIF-H190, PCF-H190L EGD Procedure:?? The procedure, indications, preparation and potential complications were reviewed with the patient who indicated understanding and gave written informed consent to proceed. A physical exam was performed. The endoscope was introduced through the mouth, and advanced to the second part of duodenum. The mucosa was carefully examined on slow withdrawal of the endoscope. There were no immediate complications. Patient tolerated the procedure well. EGD Findings:? * Esophagus:? Normal esophageal mucosa was noted. The Z line is at 39 cm. There was a small sized hiatal hernia with the diaphragmatic pinch at 42 cm. Lower esophagus cold forceps biopsies were taken. * Stomach:? Normal gastric mucosa was noted. Retroflexion performed in the fundus that showed Hill grade II hiatal hernia. Cold forceps biopsies were taken from the stomach to r/o H Pylori. * Duodenum:? Normal duodenal mucosa noted to the extent examined. Cold forceps biopsies were taken from the duodenal bulb and second portion of the duodenum to r/o celiac sprue. Colonoscopy Procedure:? The patient was then turned for the colonoscopy. A digital rectal exam was performed which was normal.? A distal attachment cap was affixed to the tip of the scope and the colonoscope was then inserted through the anus and advanced through the colon to the cecum at 70 cm and terminal ileum. Appendiceal orifice and ileocecal valve were identified. Mucosa was carefully examined under high definition white light as the instrument was slowly withdrawn in a retrograde panoramic fashion. Retroflexion was performed in rectum. The procedure was not difficult. There were no immediate obvious complications. The quality of the prep was BBPS: 2+2+2 = adequate Withdrawal time: 11 minutes Limitations: No limitation. Findings: Mucosa: Erosions, erythema, whitish exudates were noted in the distal sigmoid colon associated luminal narrowing and spasticity. Scope was able to traverse through this segment. Cold forceps biopsies were taken to r/o segmental colitis associated with diverticulosis. Remaining mucosa otherwise normal mucosa to cecum and terminal ileum. Protruding lesions: * Small internal hemorrhoids with stigmata of recent bleeding. Excavated lesions: * Scattered diverticulosis of the whole colon. Impression: 1. Normal esophagus (biopsy) 2. Normal stomach (biopsy) 3. Normal duodenum (biopsy) 4. Abnormal sigmoid mucosa (biopsy) 5. Internal hemorrhoids 6. Diverticulosis Recommendations:?? * Await pathology results. * If biopsies confirm SCAD will initiate patient on PO and TN mesalamine * Due to prep quality, recommend repeat colonoscopy in 5 years
[2023-03-19 10:19] VITALS: BP 93/58; PULSE 80; RESP 16; TEMP 36.1; O2SAT 95
[2023-03-19 10:34] VITALS: BP 115/77; PULSE 72; RESP 16; O2SAT 97
[2023-03-19 10:46] VITALS: BP 110/76; PULSE 75; RESP 16; TEMP 36.4; O2SAT 97
== END 2023-03-19 12:00 | disposition home or self-care (01) ==
PROVIDERS: PCP Physician Assistant; Visit Provider Internal Medicine
PROC: (CPT 43239; principal; 2023-03-19 10:10)
DX: R63.4 Abnormal weight loss (principal); K52.9 Noninfective gastroenteritis and colitis, unspecified; K44.9 Diaphragmatic hernia without obstruction or gangrene; K57.30 Diverticulosis of large intestine without perforation or abscess without bleeding; K64.8 Other hemorrhoids; K56.609 Unspecified intestinal obstruction, unspecified as to partial versus complete obstruction; Z68.29 Body mass index [BMI] 29.0-29.9, adult; I10 Essential (primary) hypertension; Z79.82 Long term (current) use of aspirin; Z79.899 Other long term (current) drug therapy
CPT/HCPCS: 43239; 45380; 88305; 88342; J2250

== ENCOUNTER → 2023-03-19 08:11 | Outpatient (BNV) | payer OTHER, SELFPAY | PROVIDERS: PCP Physician Assistant; Visit Provider Internal Medicine | DX: R63.4 Abnormal weight loss (principal); K52.9 Noninfective gastroenteritis and colitis, unspecified; K64.8 Other hemorrhoids; K57.30 Diverticulosis of large intestine without perforation or abscess without bleeding | CPT/HCPCS: 43239; 45380 ==

== ENCOUNTER → 2023-04-01 11:28 | Outpatient (AMB) | payer OTHER, SELFPAY ==
--- NOTE | 2023-04-01 11:30 | A.OFFVIS_ITS ---
Intake Vital Signs 04/01/23 11:32 Height 5 ft 5 in Weight 167 lb 8.821 oz BMI 27.9 BP 110/68 Blood Pressure Location Lt brachial Position Sitting Pulse 70 Intake Visit Reasons: S/p colon Intake Note: Guero presents in the office as a follow up colonoscopy. CC: He states that he is not having any concerns since his procedure. Shake Out Worker Required: No Allergies No Known Allergies [No Known Allergies*] Allergy (Verified 04/01/23 11:32) HPI HPI Comments History of Present Illness Details This is a 67-year-old gentleman with past medical history of aortic dissection status post repair, hypertension, major depressive disorder, who is presenting to the office to establish care for chronic diarrhea and weight loss. 01/07/23: History was obtained from the patient, who states that for the past 1 month, he has been having loose watery stools up to 10 times a day without any blood. Sometimes he does see mucus. This started a day after he had eaten out, however have continued beyond 4 weeks at this point. Associated with severe abdominal pain and loss of appetite. Resultantly, has lost almost 18 lb in this duration. He was seen in the emergency room last week for similar complaints and imaging showed:CT Abd/pel: 1. Diverticula of the descending and the sigmoid colon with a significant segment of proximal sigmoid colonic thickening with surrounding infiltration. Findings may be related to diverticulitis. Given history of weight loss other etiology is not excluded. Consider colonoscopic evaluation after treatment of apparent diverticulitis. ? 2. Cholelithiasis.? LABS NOTABLE FOR DERANGED KIDNEY FUNCTION, NORMAL TSH, NORMAL THYROID FUNCTION, NEGATIVE C DIFF. Pt has never had colon cancer screening performed. Was given cologuard kit last year which he never sent out. 03/19/23: 1. Normal esophagus (biopsy) 2. Normal stomach (biopsy) 3. Normal duodenum (biopsy) 4. Abnormal sigmoid mucosa (biopsy) 5. Internal hemorrhoids 6. Diverticulosis Path: A. Duodenum, biopsy: Duodenum mucosa within normal limits; preserved villous architecture and no increased intraepithelial lymphocytes seen. B. Stomach, random, biopsy: Gastric antral mucosa with mild reactive gastropathy; gastric body mucosa within normal limits; negative for Helicobacter pylori, intestinal metaplasia and dysplasia. C. Esophagus, lower, biopsy: Squamous mucosa within normal limits; negative for inflammation (including intraepithelial eosinophils), fungal organisms and intestinal metaplasia. D. Colon, right side, biopsy: Colonic mucosa within normal limits; negative for active, chronic or microscopic colitis. E. Colon, left side, biopsy: Colonic mucosa within normal limits; negative for active, chronic or microscopic colitis. F. Colon, abnormal sigmoid, biopsy: Active colitis with detached fragment of inflamed granulation tissue (see comment). COMMENT (F): No chronic mucosal injury nor granulomas are seen. The differential diagnosis includes segmental colitis associated with diverticulosis or idiopathic inflammatory bowel disease, among others. Clinical correlation is advised. 04/01/23: Here with his . Reports resolution of diarrhea and weight curve stable as well. Has not had recu rrence of abd pain. Findings of EGD/colo reviewed. 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 [facility] Medical History (Updated 04/01/23 @ 12:03 by Jazzy Abbott MD) Fatigue Essential hypertension Aortic dissection Surgical History (Updated 04/01/23 @ 11:31 by VIOLET Baez) Hx of colonoscopy H/O heart bypass surgery Family History Mother Breast cancer Father Heart disease Stroke Social History Housing: House Alcohol intake: current Alcohol intake frequency: holidays/special occasions only Alcohol type: beer Patient Tobacco Use Status: Never used Tobacco Tobacco use type: Cigarette e-Cigarette/Vaping Use: Never Used Second Hand Smoke Exposure: No Current occupational status: retired Cognitive needs: No Hearing needs: No Vision needs: No Review of Systems Const All systems reviewed & are unremarkable except as noted in HPI and below Physical Exam Vital Signs: Last Vital Signs Pulse 70 04/01/23 11:32 BP 110/68 04/01/23 11:32 BMI result Body Mass Index 27.9 Gen appear: NAD HEENT: nonicteric, no cervical lymphadenopathy Chest: CTA CVS: Regular S1/S2 Abd: soft, nontender, nondistended, bowel sounds + Ext: no peripheral edema Neuro: A/Ox3, noted to move all extremities spontaneously Psych: depressed affect but interacting appropriately Assessment & Plan Assessment & Plan (1) Chronic diarrhea: Code(s): K52.9 - Noninfective gastroenteritis and colitis, unspecified (2) Abdominal pain: Code(s): R10.9 - Unspecified abdominal pain (3) Diverticulosis: Code(s): K57.90 - Diverticulosis of intestine, part unspecified, without perforation or abscess without bleeding (4) Segmental colitis associated with diverticulosis: Code(s): K50.10 - Crohn's disease of large intestine without complications; K57.30 - Diverticulosis of large intestine without perforation or abscess without bleeding Plan Reviewed with the pt that prolonged abd cramping with diarrhea after acute diverticulitis could have been secondary to SCAD. Discussed that tx is not well defined but is either through PO Abx vs mesalamine enema based on extent of sx and response. However pt would like to defer at this time since sx are well controlled and have not recurred since. He was encouraged to call our office for any changes that may arise in the future. He is also aware that we recommend a recall colo in 5 years for asymptomatic CRC screening due to prep quality. Follow up as needed Medications: Changed From amlodipine 5 mg PO DAILY 90 days 90 tabs 3RF To amlodipine 2.5 mg (1/2 x 5 mg) PO DAILY 45 tabs 3RF 90 days Coding Level of Care Code Est Pt Level 4 (02891) Diagnoses Chronic diarrhea K52.9 Abdominal pain R10.9 Diverticulosis K57.90 Segmental colitis associated with diverticulosis K50.10; K57.30
[2023-04-01 11:32] VITALS: BP 110/68; PULSE 70; BMI 27.9
== END ==
PROVIDERS: PCP Physician Assistant; Visit Provider Internal Medicine
DX: K52.9 Noninfective gastroenteritis and colitis, unspecified (principal); R10.9 Unspecified abdominal pain; K57.90 Diverticulosis of intestine, part unspecified, without perforation or abscess without bleeding; K50.10 Crohn's disease of large intestine without complications; K57.30 Diverticulosis of large intestine without perforation or abscess without bleeding
CPT/HCPCS: 99214

== ENCOUNTER → 2023-04-01 11:28 | Outpatient (BNVA) | payer OTHER, SELFPAY | PROVIDERS: PCP Physician Assistant; Visit Provider Internal Medicine ==

== ENCOUNTER 2023-07-22 10:57 | Outpatient (AMB) | payer OTHER, SELFPAY ==
[2023-07-22 11:00] VITALS: BP 126/84; PULSE 69; RESP 16; O2SAT 97; BMI 29.6
--- NOTE | 2023-07-22 11:00 | A.OFFPC_ITS ---
Vital Signs 07/22/23 11:00 Height 5 ft 5 in Weight 178 lb 2 oz BMI 29.6 BP 126/84 Blood Pressure Location Lt brachial Position Sitting Respiration 16 Pulse 69 Pulse Source Pulse Oximeter Pulse Oximetry (%) 97 Oxygen Delivery Method Room Air Intake Visit Reasons: f/u HTN Legal Services Manager Required: No Accompanied by: Self / Same As Patient Allergies No Known Allergies [No Known Allergies*] Allergy (Verified 07/22/23 11:21) Medication List - Last Reconciled 07/22/23 by Karthik Calle PA-C amlodipine 2.5 mg (1/2 x 5 mg) PO DAILY 90 days aspirin (Adult Low Dose Aspirin) 81 mg PO DAILY atenolol 12.5 mg PO DAILY atorvastatin 80 mg PO DAILY bupropion HCl 150 mg PO QAM cholecalciferol (vitamin D3) 2,000 units PO DAILY lisinopril 5 mg PO DAILY vitamin B complex (B Complex-Vitamin B12 tablet) 1 tab PO DAILY Tobacco use date assessed: 07/22/23 Fall risk assessment: No Falls in past year Last assessed Fall Risk: 07/22/23 Dental Screening Dental Screen Date: 07/22/23 Did you have a dental visit in the last 12 months?: Yes Did you have a dental problem in the last 6 months where you did not have access to dental care?: No Was dental information given to patient?: Patient has dentist HPI f/u HTN HPI Details Patient is a 67-year-old male here today for follow-up visit Patient has a past medical history significant for essential hypertension, history of aortic dissection with surgical repair, MDD. .. Aortic dissection: Patient continues to follow marketing and outreach coordinator and stress testing done which did not show any ischemia.? Echocardiography has shown normal biventricular function.? He continues to complain of fatigue and feels that he is unable to go back to his previous self before aortic dissection. He is due for repeat CT with IV contrast chest in 2023. He will follow-up with his cardiac surgeon at [facility]. .. Hypertension: Blood pressure well controlled on current antihypertensive therapy. . Major depressive disorder: Continues to feel fatigue and anhedonia. Continues on Wellbutrin 150mg and does not feel it is helped much. He does not feel he is actually depressed though chest has a depressed mood due to not being able to do what he used to do before his aortic dissection surgery. [facility] Medical History (Updated 07/22/23 @ 11:25 by Karthik Calle PA-C) Fatigue Essential hypertension Aortic dissection Surgical History Hx of colonoscopy H/O heart bypass surgery Family History Mother Breast cancer Father Heart disease Stroke Social History Housing: House Alcohol intake: current Alcohol intake frequency: holidays/special occasions only Alcohol type: beer Patient Tobacco Use Status: Never used Tobacco Tobacco use type: Cigarette e-Cigarette/Vaping Use: Never Used Second Hand Smoke Exposure: No Current occupational status: retired Cognitive needs: No Hearing needs: No Vision needs: No Questionnaire PHQ-9 Over the last 2 weeks, how often have you been bothered by any of the following problems? 1. Little interest or pleasure in doing things: not at all 2. Feeling down, depressed, or hopeless: not at all 3. Trouble falling or staying asleep, or sleeping too much: not at all 4. Feeling tired or having little energy: not at all 5. Poor appetite or overeating: not at all 6. Feeling bad about yourself - or that you are a failure or have let yourself or your family down: not at all 7. Trouble concentrating on things, such as reading the newspaper or watching television: not at all 8. Moving or speaking so slowly that other people could have noticed. Or the opposite - being so fidgety or restless that you have been moving around a lot more than usual: not at all 9. Thoughts that you would be better off or of hurting yourself in some way: not at all Total score: 0 Depression Screening Interpretation: Negative Depression Screening Done: Yes 17159 - PHQ-9 Billing: Yes Source: Developed by Drs. Jose Martinez, Jessica Mehta, Tulio Arroyo and colleagues, with an educational gal from [employer]. Thrive Questionnaire Date Thrive assessed: 07/22/23 I am a: Patient What is your living situation today?: I have a steady place to live Within the past 12 months, did the food you bought not last and you didn't have the money to get more?: Never true Within the past 12 months, did you worry whether your food would run out before you got money to buy more?: Never true Do you have trouble paying for medicines?: No Do you have trouble getting transportation to medical appointments?: No Do you have trouble paying your heating and electricity bill?: No Do you have trouble taking care of your child, family member or friend?: No Do you have trouble with day-to-day activities such as bathing, preparing meals, shopping, managing finances, etc.?: No Are you currently unemployed and looking for a job?: No Are you interested in more education?: No Please select the resources that you would like help with: None Currently or been in a relationship where the following occur: no concerns reported THRIVE Score: 0 AUDIT C Alcohol Use Questionnaire (AUDIT-C) 1. How often do you have a drink containing alcohol?: Monthly or less 2. How many drinks containing alcohol do you have on a typical day when you are drinking?: 1 or 2 3. How often do you have six or more drinks on one occasion?: Never Total Score: 1 Score Reviewed/Action Taken: No JANET-7 AMB Questionnaire JANET-7 Date JANET - 7 assessed: 07/22/23 Feeling nervous, anxious, or on edge: 0 = Not at all Not being able to stop or control worryin = Not at all Worrying too much about different things: 0 = Not at all Trouble relaxin = Not at all Being so restless that it is hard to sit still: 0 = Not at all Becoming easily annoyed or irritable: 0 = Not at all Feeling afraid as if something awful might happen: 0 = Not at all Total JANET-7 score (0-4 normal; 5-9 mild; 10-14 moderate; 15-21 severe): 0 Source: Developed by Drs. Jose Martinez, Jessica Mehta, Tulio Arroyo and colleagues, with an educational gal from [employer]. JANET-7 Assessment Billing JANET-7 Assessment Tool: JANET-7 Assessment 73312 Review of Systems Const Denies headache(s) Eyes Denies loss of vision ENT Denies vertigo, Denies dizziness, Denies headache(s) and Denies sore throat Card Denies chest pain, Denies leg edema and Denies lightheadedness Resp Denies cough, Denies hemoptysis and Denies wheezing GI Denies abdominal pain, Denies melena, Denies constipation, Denies diarrhea and Denies vomiting Denies dysuria, Denies urinary frequency and Denies urinary urgency Musc Denies arthralgias, Denies joint swelling, Denies numbness and Denies tingling Neuro Denies Abnormal speech present, Denies behavioral changes, Denies vertigo, Denies dizziness, Denies headache(s), Denies loss of vision, Denies memory loss, Denies numbness and Denies tingling Psych Denies anxiety, Denies behavioral changes, Denies depression, Denies memory loss and Denies panic attacks Giovanni/Lymph Denies easy bleeding and Denies easy bruising Aller/Immun Denies wheezing Physical exam (Primary Care) Vital Signs: Last Vital Signs Pulse 69 07/22/23 11:00 Resp 16 07/22/23 11:00 BP 126/84 07/22/23 11:00 Pulse Ox 97 07/22/23 11:00 Oxygen Delivery Method Room Air 07/22/23 11:00 BMI result Body Mass Index 29.6 Tobacco/Smoking Status: Tobacco use Status Tobacco use date assessed 07/22/23 07/22/23 11:01 Patient Tobacco Use Status Never used Tobacco 07/22/23 11:01 Tobacco use type Cigarette 07/22/23 11:01 e-Cigarette/Vaping Use Never Used 07/22/23 11:01 PHQ-9: PHQ-9 Score PHQ-9: Total score 0 07/22/23 11:23 Depression Screening Interpretation: Negative Thrive Assessment: Date of Thrive Assessment Date Thrive assessed 07/22/23 07/22/23 11:01 Currently or been in a relationship where the following occur: no concerns reported Const General: healthy appearing, no acute distress, alert and awake Nutritional Appearance: well nourished Orientation/consciousness: oriented to person, oriented to place and oriented to time HENMT Ears: TM's normal bilaterally General nose exam: Normal nasal mucous membranes and turbinates present Eyes Conjunctivae: conjunctivae normal Sclerae: sclerae normal Pupils: Equal, round and reactive pupils present Neck Neck: Yes no lymphadenopathy and Yes no JVD Thyroid: Thyroid normal Carotids: no bruits Resp Effort & Inspection: normal respiratory effort and not tachypneic Auscultation: no crackles, no rales, no rhonchi and no wheezes Cardio Rate: regular rate Rhythm: regular rhythm Heart sounds: no murmurs and normal S1 and S2 GI Palpation (GI): Soft to palpation, nontender, no hepatomegaly and no splenomegaly Auscultation: normal bowel sounds Skin General skin exam: no rashes or lesions noted and dry skin Neuro General: oriented to person, oriented to place and oriented to time Cranial nerves: Yes Equal, round and reactive pupils present Speech: No Abnormal speech present Gait exam (Neuro): Normal gait present Motor exam (neuro): no tremor noted Extrem Right upper extremity: full ROM Left upper extremity: full ROM Right lower extremity: full ROM; no edema Left lower extremity: full ROM; no edema Psych Mental Status: mental status grossly normal Speech and movement: Normal speech and movement present Affect: normal affect Attitude: cooperative Thought process: Normal thought process present Assessment and Plan Assessment & Plan (1) Aortic dissection: Comment: Stable Code(s): I71.00 - Dissection of unspecified site of aorta Qualifiers: Aortic location: thoracic aorta Thoracic aorta location: ascending aorta Qualified Code(s): I71.010 - Dissection of ascending aorta Plan: Status post aortic dissection repair. Continues on beta-millie and high-dose statin therapy. Has been followed by a cardiovascular surgeon at [facility]. There was mention of repeat CT IV contrast in 2023. (2) Essential hypertension: Comment: Stable Code(s): I10 - Essential (primary) hypertension Plan: Blood pressure low today in office. Will advised to reduce his dose of amlodipine to 2.5 mg and increase his fluids and electrolytes. (3) MDD (major depressive disorder), recurrent episode, moderate: Code(s): F33.1 - Major depressive disorder, recurrent, moderate Plan: Has been stable. PHQ-9 score 0 today office. Continues on Wellbutrin 150. (4) Segmental colitis associated with diverticulosis: Code(s): K50.10 - Crohn's disease of large intestine without complications; K57.30 - Diverticulosis of large intestine without perforation or abscess without bleeding Plan: Has resolved Orders: Orders Microalbumin, Random (w Creat) Today I10 - Essential (primary) hypertension Comprehensive [place]. Panel Fast Today I10 - Essential (primary) hypertension Prostate Specific Antigen Scr Today I10 - Essential (primary) hypertension, Z12.5 - Encounter for screening for malignant neoplasm of prostate Complete Blood Count no Diff Today I71.010 - Dissection of ascending aorta Lipid Panel Today I71.010 - Dissection of ascending aorta Coding Level of Care Code Est Pt Level 4 (54978) Diagnoses Dissection of ascending aorta I71.010 Aortic location: thoracic aorta Thoracic aorta location: ascending aorta Essential hypertension I10 MDD (major depressive disorder), recurrent episode, moderate F33.1 Segmental colitis associated with diverticulosis K50.10; K57.30 Additional Codes JANET-7 Assessment Billing - JANET-7 Assessment Tool: JANET-7 Assessment [id number] ([id number])
== END 2023-07-22 11:38 | disposition home or self-care (01) ==
PROVIDERS: PCP Physician Assistant; Visit Provider Physician Assistant
DX: I71.010 Dissection of ascending aorta (principal); F33.1 Major depressive disorder, recurrent, moderate; K50.10 Crohn's disease of large intestine without complications; I10 Essential (primary) hypertension; K57.30 Diverticulosis of large intestine without perforation or abscess without bleeding
CPT/HCPCS: 99214

== ENCOUNTER 2023-11-11 13:34 | Outpatient (AMB) | payer OTHER, SELFPAY ==
--- NOTE | 2023-11-11 13:41 | MHC.OFFVIS ---
Vital Signs 11/11/23 13:42 Height 5 ft 5 in Weight 176 lb 5.917 oz BMI 29.3 BP 120/74 Blood Pressure Location Lt brachial Position Sitting Pulse 73 Intake Visit Reasons: over due KM f/up Intake Note: Overdue follow-up with ekg feeling good Animal Shelter Clerk Required: No Commercial Service Technician: Commercial Service Technician Present Accompanied by: Spouse Allergies No Known Allergies [No Known Allergies*] Allergy (Verified 07/22/23 11:21) Medication List - Last Reconciled 11/11/23 by Anastasia Yang NP amlodipine 2.5 mg (1/2 x 5 mg) PO DAILY 90 days aspirin (Adult Low Dose Aspirin) 81 mg PO DAILY atenolol 25 mg PO DAILY atorvastatin 80 mg PO DAILY bupropion HCl XL 150 mg PO QAM cholecalciferol (vitamin D3) 2,000 units PO DAILY lisinopril 5 mg PO DAILY vitamin B complex (B Complex-Vitamin B12 tablet) 1 tab PO DAILY HPI Comments Details: 68-year-old male presents today for a follow-up. He had last seen Dr. Taylor in [facility] 2021. He reports he has been doing well since he was last seen. He denies any symptoms. He tends to his horses and does the mowing at home and tolerates it well. He reports compliance with his medications. [facility] Medical History (Updated 07/22/23 @ 11:25 by Karthik Calle PA-C) Fatigue Essential hypertension Aortic dissection Surgical History Hx of colonoscopy H/O heart bypass surgery Family History Mother Breast cancer Father Heart disease Stroke Social History Housing: House Alcohol intake: current Alcohol intake frequency: holidays/special occasions only Alcohol type: beer Patient Tobacco Use Status: Never used Tobacco Tobacco use type: Cigarette e-Cigarette/Vaping Use: Never Used Second Hand Smoke Exposure: No Current occupational status: retired Cognitive needs: No Hearing needs: No Vision needs: No Review of Systems Const Denies chills, Denies fatigue, Denies fever(s), Denies frequent falls, Denies weakness, Denies weight gain and Denies weight loss ENT Denies dizziness Card Denies chest pain, Denies leg edema, Denies lightheadedness, Denies palpitations, Denies dyspnea, Denies dyspnea on exertion, Denies orthopnea and Denies other (loss of consciousness) Resp Denies cough, Denies dyspnea and Denies dyspnea on exertion GI Denies hematochezia and Denies change in stool character Musc Denies abnormal gait, Denies muscle weakness, Denies numbness, Denies radiating pain into limb and Denies tingling Neuro Denies abnormal gait, Denies dizziness, Denies frequent falls, Denies numbness, Denies tingling and Denies weakness Endo Denies fatigue and Denies palpitations Physical Exam Vital Signs: Last Vital Signs Pulse 73 11/11/23 13:42 BP 120/74 11/11/23 13:42 BMI result Body Mass Index 29.3 Const General: healthy appearing and no acute distress Orientation/consciousness: patient oriented x3 HEENT Head: Yes normal to inspection Eyes General: appearance normal, both eyes and all related structures Neck Neck: Yes normal visual inspection Chest Chest palpation & inspection: normal inspection of the chest Resp Effort & Inspection: normal respiratory effort Auscultation: clear to auscultation bilaterally Cardio Jugular venous distension: no JVD Palpation: normal PMI Rate: regular rate Rhythm: regular rhythm Heart sounds: S1 normal heart sound present, S2 normal heart sound present, no click, no gallops, no murmurs and no rubs GI Inspection: Yes normal to inspection Palpation (GI): Soft to palpation Skin General skin exam: no rashes or lesions noted Neuro General: patient oriented x3 Extrem General: Yes normal to inspection Psych Appearance: grossly normal Assessment & Plan Assessment & Plan (1) Aortic dissection: Comment: Stable Code(s): I71.00 - Dissection of unspecified site of aorta Category: Medical Qualifiers: Aortic location: thoracic aorta Thoracic aorta location: ascending aorta Qualified Code(s): I71.010 - Dissection of ascending aorta Plan: [place] [facility] [place] Will repeat. (2) Essential hypertension: Comment: Stable Code(s): I10 - Essential (primary) hypertension Category: Medical Plan: On lisinopril and atenolol. Blood pressure within range today. Plan Will have lab work from PCP forward to us. Will check echocardiogram to assess heart function. ED care if needed. Orders: Orders Lipid Panel 07/22/23 I71.010 - Dissection of ascending aorta Complete Blood Count no Diff 07/22/23 I71.010 - Dissection of ascending aorta Comprehensive [place]. Panel Fast 07/22/23 I10 - Essential (primary) hypertension CA echo transthoracic complete 11/11/23 I10 - Essential (primary) hypertension, I71.010 - Dissection of ascending aorta CT Cardiac Coronary Angio Today I71.010 - Dissection of ascending aorta Coding Level of Care Code Est Pt Level 3 (73376) Diagnoses Dissection of ascending aorta I71.010 Aortic location: thoracic aorta Thoracic aorta location: ascending aorta Essential hypertension I10
[2023-11-11 13:42] VITALS: BP 120/74; PULSE 73; BMI 29.3
== END 2023-11-11 14:35 | disposition home or self-care (01) ==
PROVIDERS: PCP Physician Assistant; Visit Provider Nurse Practitioner
DX: I71.010 Dissection of ascending aorta (principal); I10 Essential (primary) hypertension
CPT/HCPCS: 93010; 99213

== ENCOUNTER → 2023-11-11 13:34 | Outpatient (BNVA) | payer OTHER, SELFPAY | PROVIDERS: PCP Physician Assistant; Visit Provider Nurse Practitioner | DX: I71.010 Dissection of ascending aorta (principal); I10 Essential (primary) hypertension; Z79.899 Other long term (current) drug therapy | CPT/HCPCS: 93005 ==

== ENCOUNTER → 2024-01-06 14:47 | Outpatient (REF) | payer OTHER, SELFPAY ==
--- NOTE | 2024-01-06 14:51 | CA_ITS ---
Transthoracic Echocardiogram Patient (Last, First, Middle): Guero Shukla, Gender: Male Date of : 1955 Age: 68 Procedure Date: 01/06/2024 Procedure Type: Transthoracic Echocardiogram Location: OP Height: 165.1 cm Weight: 77.11 kg BSA: 1.85 m2 Heart Rate: bpm BP: 122 / 78 mmHg Sales Assistant: TO Referring MD: Anastasia Yang PATIENT RELATIONS DIRECTOR Back Up Worker: Deep Steele MD Symptoms: I71.010 - Dissection of ascending aorta Study Quality: Adequate w contrast ECG Rhythm: Sinus Conclusions: - 1. Normal LV ejection fraction 55-60% with impaired relaxation filling pattern with possible RCA territory wall motion abnormality 2. Normal cardiac valvular Dopplers with mi calcific aortic valve changes noted 3. Visualized portion of aorta within normal limits 4. No gross pericardial effusion Findings Procedure Information Contrast agent, definity, is being given per protocol without apparent complications. Left Ventricle Normal left ventricular size, thickness, and systolic function. The visually estimated ejection fraction is between 55-60%. Spectral Doppler is indicative of an impaired relaxation filling pattern. E/E prime ratio is between 8 and 15 consistent with indeterminate filling pressures. There is mild septal asymmetric hypertrophy. Wall Motion Rest Echo Findings The mid inferior segment is hypokinetic. The basal inferior and basal inferoseptal segments are akinetic. All other scored wall segments showed normal motion. Right Ventricle Normal right ventricular cavity size and systolic function. Atria The left atrium is likely dilated. There is lipomatous hypertrophy of the interatrial septum. There is no evidence of interatrial shunt. The right atrium is normal in size. Aortic Valve There is mild calcification of the aortic valve. There is mild thickening of the aortic valve. There is no aortic valve stenosis. There is no aortic valve regurgitation. Mitral Valve Normal mitral valve structure and function. There is trace mitral valve regurgitation. There is no mitral valve stenosis. Pulmonic Valve The pulmonic valve is likely normal. There is mild pulmonic valve regurgitation. Tricuspid Valve Normal tricuspid valve structure. Tricuspid regurgitation envelope is inadequate for calculation of right ventricular systolic pressure. Normal right atrial pressure. Great Vessels The aorta was not well visualized. The pulmonary artery was not well visualized. There is no dilatation of the ascending aorta measuring 3.20 cm. Venous The inferior vena cava is normal in size and collapses greater than 50% with inspiration. Pericardium/Pleural There is no evidence of pericardial effusion. Measurements 2D Linear Measurements IVSd: 1.21 0.6-0.9/0.6-1.0 cm LVIDd: 4.24 3.9-5.3/4.2-5.9 cm LVIDd Index: 2.29 2.4-3.2/2.2-3.1 cm/m2 LVIDs: 2.56 2.0-3.6 cm LVPWd: 0.74 0.7-1.1 cm LA Diam: 3.80 2.7-3.8/3.0-4.0 cm LAIDs Index: 2.05 1.5-2.3 cm/m2 LV Mass: 167.63 67-162/88-224 g LV Mass Index: 90.61 43-95/49-115 g/m2 LVOT Diam: 2.20 3.0+(-)1.3 cm 2D Systolic Function EF 4C: 57.20 >55% EF 2C: 51.60 >55% EF BiP: 55.50 >55% Mitral Valve MV Pk E: 0.72 MV PK A: 1.05 MV Decel Time: 262.00 E/A: 0.70 E'Lateral: 6.31 E'Medial: 5.33 E/E' Med: 13.50 E/E' Lat: 11.40 PHT: 77.00 MVA PHT: 2.86 Decel Guthrie: 2.75 Aortic Valve AoV Pk Kailash: 1.48 AoV Mn Kailash: 0.96 AoV VTI: 0.27 AoV Pk Grad: 9.00 Aov Mn Grad: 4.00 CHERYL Cont.VTI: 2.72 LVOT LVOT Pk Kailash: 1.06 LVOT Mn Kailash: 0.59 LVOT VTI: 0.20 LVOT Pk Grad: 4.00 LVOT Mn Grad: 2.00 LVOT Diam: 2.20 LVOT Area: 3.80 Diastolic Function MV Pk E: 0.72 MV Pk A: 1.05 E/A: 0.70 E'Medial: 5.33 E/E' Med: 13.50 E' Laterial: 6.31 E/E' Lat: 11.40 Right Ventricle TAPSE (mm): 18.20 TVS' Kailash: 8.23 Tricuspid Valve TR Pk Kailash: 1.97 TR Pk Grad: 16.00 Great Vessels Aorta Sinus of Valsalva: 3.58 2.0-3.5 cm Ao Asc: 3.20 2.1-3.4 cm Ao Arch: 3.30 Updated in Other Vendor System with Status of Final Deep Steele MD electronically signed on 01/07/2024 11:52:29 AM with status of Final
== END ==
LOC: HO.CARD 14:47
PROVIDERS: PCP Physician Assistant; Visit Provider Nurse Practitioner
DX: I71.010 Dissection of ascending aorta (principal); I10 Essential (primary) hypertension
CPT/HCPCS: 93306; Q9957

== ENCOUNTER → 2024-01-06 14:51 | Outpatient (BNV) | payer OTHER, SELFPAY | PROVIDERS: PCP Physician Assistant; Visit Provider Internal Medicine Cardiovascular Disease | DX: I37.1 Nonrheumatic pulmonary valve insufficiency (principal); I42.2 Other hypertrophic cardiomyopathy | CPT/HCPCS: 93306 ==

== ENCOUNTER 2024-01-21 07:22 | Outpatient (REF) | payer OTHER, SELFPAY ==
[2024-01-21 07:58] LABS: Hematocrit 46.1 % (42.0-52.0); Hemoglobin 15.2 g/dl (14.0-18.0); Mean Corpuscular Hemoglobin 29.6 pg (27.0-33.0); Mean Corpuscular Volume 89.9 fL (80.0-98.0); Platelet Count 193 X10*3/uL (160-400); Red Blood Count 5.13 X10*6/uL (4.60-5.80); Red Cell Distribution Width 13.8 % (11.0-16.0); White Blood Count 7.5 X10*3/uL (4.8-10.8)
[2024-01-21 08:10] LABS: Alanine Aminotransferase 23 U/L (0-40); Alkaline Phosphatase 55 U/L (39-117); Anion Gap 9 (12-20); Aspartate Amino Transferase 21 U/L (5-37); Bilirubin Total 0.7 mg/dL (0.0-1.0); Blood Urea Nitrogen 24 mg/dL (9-16); Carbon Dioxide 27 mmol/L (22-29); Chloride 106 mmol/L (96-108); Cholesterol 153 mg/dL (<200); Estimated Glomerular Filt Rate 40; Glucose Fasting 129 mg/dL (60-99); HDL Cholesterol 39 mg/dL (>40); LDL Cholesterol Calculated 94 mg/dL (<100); Potassium 4.2 mmol/L (3.3-5.1); Sodium 138 mmol/L (135-145); Total Protein 6.5 g/dL (6.5-8.0); Triglycerides 101 mg/dL (<150)
[2024-01-21 08:27] LABS: Prostate Specific Antigen Scr 1.92 ng/mL (<0.05-4.0)
[2024-01-21 09:14] LABS: Creatinine Urine 96.99 mg/dL; Microalbumin Urine < 5.0 mg/L
== END 2024-01-21 07:23 | disposition home or self-care (01) ==
LOC: HO.LAB 07:22
PROVIDERS: Absent Provider Nurse Practitioner; PCP Physician Assistant; Visit Provider Physician Assistant
DX: I10 Essential (primary) hypertension (principal); I71.00 Dissection of unspecified site of aorta; Z12.5 Encounter for screening for malignant neoplasm of prostate
CPT/HCPCS: 36415; 80053; 80061; 82043; 82570; 84153; 85027

== ENCOUNTER 2024-01-26 08:55 | Outpatient (AMB) | payer OTHER, SELFPAY ==
[2024-01-26 09:03] VITALS: BP 112/78; PULSE 69; O2SAT 98; BMI 30.9
--- NOTE | 2024-01-26 09:03 | A.OFFPC_ITS ---
Vital Signs 01/26/24 09:03 Height 5 ft 5 in Weight 186 lb BMI 30.9 BP 112/78 Blood Pressure Location Lt brachial Position Sitting Pulse 69 Pulse Source Pulse Oximeter Pulse Oximetry (%) 98 Oxygen Delivery Method Room Air Intake Visit Reasons: Annual Exam Refrigerator Glazier Required: No Accompanied by: Self / Same As Patient Allergies No Known Allergies [No Known Allergies*] Allergy (Verified 01/26/24 09:11) Medication List - Last Reconciled 01/26/24 by Karthik Calle PA-C amlodipine 2.5 mg (1/2 x 5 mg) PO DAILY 90 days aspirin (Adult Low Dose Aspirin) 81 mg PO DAILY atenolol 25 mg PO DAILY atorvastatin 80 mg PO DAILY bupropion HCl XL 150 mg PO QAM cholecalciferol (vitamin D3) 2,000 units PO DAILY lisinopril 5 mg PO DAILY vitamin B complex (B Complex-Vitamin B12 tablet) 1 tab PO DAILY Tobacco use date assessed: 01/26/24 Fall risk assessment: No Falls in past year Last assessed Fall Risk: 01/26/24 Dental Screening Dental Screen Date: 01/26/24 Did you have a dental visit in the last 12 months?: Yes Did you have a dental problem in the last 6 months where you did not have access to dental care?: No Was dental information given to patient?: Patient has dentist HPI Annual Exam HPI Details Patient is a 68-year-old male here today for routine annual physical. Patient has a past medical history significant for essential hypertension, history of aortic dissection with surgical repair, MDD. .. 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 Recently underwent a echocardiogram that showed some relaxing filling defects around the RCA, he will be sent for nuclear stress test in a CTA angiogram at [facility]..? Otherwise he is fairly asymptomatic without any chest discomfort, shortness of breath on exertion ect.. .. Hypertension: Blood pressure well controlled on current antihypertensive therapy. . Major depressive disorder: Continues to feel fatigue and anhedonia. Continues on Wellbutrin 150mg and does not feel it is helped much. He does not feel he is actually depressed though chest has a depressed mood due to not being able to do what he used to do before his aortic dissection surgery. Noted labs showing elevated fasting blood sugar. Today's A1c is 6.1 Colorectal cancer screening: Colonoscopy done in 2022, fair prep due for repeat 5 years. Vaccines: Up-to-date with tetanus, needs PCV-20 , up-to-date with shingles and COVID vaccine Laboratory Tests 06/10/19 01/01/23 01/01/23 08:50 15:03 20:39 WBC Hgb BUN Creatinine 2.29 H 1.89 H Fasting Glucose 120 H Cholesterol PSA Screen TSH Urine Microalbumin 01/07/23 01/21/24 01/21/24 15:05 07:34 07:35 WBC 17.6 H 7.5 Hgb 15.2 BUN 24 H Creatinine 1.40 1.69 H Fasting Glucose 129 H Cholesterol 153 PSA Screen 1.92 TSH 1.31 Urine Microalbumin < 5.0 PFSH Medical History Abnormal echocardiogram Fatigue Essential hypertension Aortic dissection Surgical History Hx of colonoscopy H/O heart bypass surgery Family History Mother Breast cancer Father Heart disease Stroke Social History (Updated 01/26/24 @ 09:20 by Karthik Calle PA-C) Housing: House Alcohol intake: current Alcohol intake frequency: holidays/special occasions only Alcohol type: beer Patient Tobacco Use Status: Never used Tobacco Tobacco use type: Cigarette e-Cigarette/Vaping Use: Never Used Second Hand Smoke Exposure: No Current occupational status: retired Cognitive needs: No Hearing needs: No Vision needs: No Questionnaire PHQ-9 Over the last 2 weeks, how often have you been bothered by any of the following problems? 1. Little interest or pleasure in doing things: not at all 2. Feeling down, depressed, or hopeless: not at all 3. Trouble falling or staying asleep, or sleeping too much: not at all 4. Feeling tired or having little energy: not at all 5. Poor appetite or overeating: not at all 6. Feeling bad about yourself - or that you are a failure or have let yourself or your family down: not at all 7. Trouble concentrating on things, such as reading the newspaper or watching television: not at all 8. Moving or speaking so slowly that other people could have noticed. Or the opposite - being so fidgety or restless that you have been moving around a lot more than usual: not at all 9. Thoughts that you would be better off or of hurting yourself in some way: not at all Total score: 0 Depression Screening Interpretation: Negative Depression Screening Done: Yes 43419 - PHQ-9 Billing: Yes Source: Developed by Drs. Jose Martinez, Jessica Mehta, Tulio Arroyo and colleagues, with an educational gal from [employer]. Thrive Questionnaire Date Thrive assessed: 01/26/24 I am a: Parent/Caregiver What is your living situation today?: I choose not to answer this question Within the past 12 months, did the food you bought not last and you didn't have the money to get more?: I choose not to answer this question Within the past 12 months, did you worry whether your food would run out before you got money to buy more?: I choose not to answer this question Do you have trouble paying for medicines?: I choose not to answer this question Do you have trouble getting transportation to medical appointments?: I choose not to answer this question Do you have trouble paying your heating and electricity bill?: I choose not to answer this question Do you have trouble taking care of your child, family member or friend?: I choose not to answer this question Do you have trouble with day-to-day activities such as bathing, preparing meals, shopping, managing finances, etc.?: I choose not to answer this question Are you currently unemployed and looking for a job?: I choose not to answer this question Are you interested in more education?: I choose not to answer this question Please select the resources that you would like help with: None Currently or been in a relationship where the following occur: I choose not to answer THRIVE Score: 0 AUDIT C Alcohol Use Questionnaire (AUDIT-C) 1. How often do you have a drink containing alcohol?: 2-4 times a month 2. How many drinks containing alcohol do you have on a typical day when you are drinking?: 1 or 2 3. How often do you have six or more drinks on one occasion?: Never Total Score: 2 JANET-7 AMB Questionnaire JANET-7 Date JANET - 7 assessed: 01/26/24 Feeling nervous, anxious, or on edge: 0 = Not at all Not being able to stop or control worryin = Not at all Worrying too much about different things: 0 = Not at all Trouble relaxin = Not at all Being so restless that it is hard to sit still: 0 = Not at all Becoming easily annoyed or irritable: 0 = Not at all Feeling afraid as if something awful might happen: 0 = Not at all Total JANET-7 score (0-4 normal; 5-9 mild; 10-14 moderate; 15-21 severe): 0 Source: Developed by Drs. Jose Martinez, Jessica Mehta, Tulio Arroyo and colleagues, with an educational gal from [employer]. JANET-7 Assessment Billing JANET-7 Assessment Tool: JANET-7 Assessment 10896 Review of Systems Const Denies body aches, Denies chills, Denies excessive sweating, Denies fatigue, Denies fever(s) and Denies headache(s) Eyes Denies blurry vision ENT Denies dysphagia, Denies vertigo, Denies dizziness, Denies headache(s), Denies hearing loss and Denies tinnitus Card Denies chest pain, Denies chest pain with activity, Denies syncope, Denies irregular heart rhythm and Denies dyspnea Resp Denies chest congestion, Denies cough, Denies hemoptysis, Denies dyspnea and Denies wheezing GI Denies abdominal pain, Denies melena, Denies hematochezia, Denies coffee ground emesis, Denies dysphagia, Denies diarrhea, Denies nausea and Denies vomiting Denies difficulty urinating, Denies dysuria, Denies urinary frequency, Denies urinary hesitancy and Denies urinary urgency Musc Denies arthralgias, Denies limited range of motion, Denies muscle cramps and Denies muscle weakness Skin/Breast Denies rash and Denies skin ulcer Neuro Denies Abnormal speech present, Denies confusion, Denies vertigo, Denies dizziness, Denies syncope, Denies headache(s), Denies memory loss and Denies seizure-like activity Psych Denies anxiety, Denies confusion, Denies depression, Denies memory loss, Denies panic attacks and Denies paranoia Endo Denies excessive sweating, Denies fatigue, Denies flushing, Denies polydipsia and Denies polyuria Aller/Immun Denies wheezing Physical exam (Primary Care) Vital Signs: Last Vital Signs Pulse 69 01/26/24 09:03 BP 112/78 01/26/24 09:03 Pulse Ox 98 01/26/24 09:03 Oxygen Delivery Method Room Air 01/26/24 09:03 BMI result Body Mass Index 30.9 Tobacco/Smoking Status: Tobacco use Status Tobacco use date assessed 01/26/24 01/26/24 09:07 Patient Tobacco Use Status Never used Tobacco 01/26/24 09:20 Tobacco use type Cigarette 01/26/24 09:20 e-Cigarette/Vaping Use Never Used 01/26/24 09:20 PHQ-9: PHQ-9 Score PHQ-9: Total score 0 01/26/24 16:07 Depression Screening Interpretation: Negative Thrive Assessment: Date of Thrive Assessment Date Thrive assessed 01/26/24 01/26/24 09:07 Currently or been in a relationship where the following occur: I choose not to answer Const General: cooperative, comfortable, no acute distress, alert and awake; No confusion Orientation/consciousness: oriented to person, oriented to place, patient oriented x3 and No confusion HENMT Head: Yes normocephalic Ears: external ears normal and TM's normal bilaterally Face and sinus: No sinus tenderness Mouth: Normal oral and palatal mucosa present and tongue normal Teeth and gingiva: dentition normal and gingiva normal Throat: Yes posterior oropharynx normal, Yes tonsils normal and Yes uvula midline Eyes Conjunctivae: conjunctivae normal Sclerae: sclerae normal Pupils: Equal, round and reactive pupils present EOM: EOMs intact bilaterally Direct Ophthalmoscopy: No no photophobia Neck Neck: Yes no lymphadenopathy, No tender and Yes no JVD Thyroid: Thyroid normal Carotids: no bruits Chest Chest palpation & inspection: no tenderness Resp Effort & Inspection: normal respiratory effort, no audible wheezes, not labored and no stridor Auscultation: no crackles, no rales, no rhonchi and no wheezes Cardio Jugular venous distension: no JVD Rate: regular rate, not bradycardic and not tachycardic Rhythm: regular rhythm Bruits: no carotid bruits Peripheral pulses: Peripheral pulses 2+ throughout GI Inspection: Yes normal to inspection, No abdominal wall ecchymosis and No visible herniation Palpation (GI): Soft to palpation, nontender, no guarding, not rigid and No hepa tosplenomegaly present Auscultation: normoactive bowel sounds General: Yes no CVA tenderness Back/Spine/Pelvis Back: no CVA tenderness and No back tenderness Cervical Spine: cervical ROM normal Thoracic/Lumbar Spine: thoracic and lumbar spine normal to inspection, straight leg raise negative bilaterally, No thoraco-lumbar ROM limited and No lumbar spinal tenderness Skin Lesions: no lesions Rashes: no rashes Wounds: no wounds Neuro General: oriented to person, oriented to place, patient oriented x3, CN's II-XI intact bilaterally and No confusion Cranial nerves: Yes Equal, round and reactive pupils present and Yes Normal accommodation reflex present Cognition (Neuro): normal cognition Speech: No Abnormal speech present Gait exam (Neuro): Normal gait present Motor exam (neuro): 5/5 motor strength present throughout Extrem Right upper extremity: full ROM; no cyanosis Left upper extremity: full ROM; no cyanosis Right lower extremity: no edema Left lower extremity: no edema Psych Appearance: grossly normal Mental Status: mental status grossly normal Affect: normal affect Attitude: cooperative Thought process: Normal thought process present Results AMB Hemoglobin A1c AMB Hemoglobin A1c 6.1 % Last Edit by VIOLET Torres on 01/26/24 09 :20 Results Reviewed Results Reviewed: Laboratory Last Values Hgb A1c (Clinic) 6.1 % (4.0-6.0) H 01/26/24 09:14 Assessment and Plan Assessment & Plan (1) Annual physical exam: Code(s): Z00.00 - Encounter for general adult medical examination without abnormal findings (2) Impaired glucose metabolism: Code(s): R73.09 - Other abnormal glucose Plan: Noted elevated fasting blood sugar and A1c is 6.1. Work extensively on lifestyle and dietary modifications. Patient not interested in any further medication . (3) Aortic dissection: Comment: Stable Code(s): I71.00 - Dissection of unspecified site of aorta Qualifiers: Aortic location: thoracic aorta Thoracic aorta location: ascending aorta Qualified Code(s): I71.010 - Dissection of ascending aorta Plan: Status post aortic dissection repair. Continues on beta-millie and high-dose statin therapy. Has been followed by a cardiovascular surgeon at [facility]. . (4) Essential hypertension: Comment: Stable Code(s): I10 - Essential (primary) hypertension Plan: Blood pressure acceptable today in office. patient continues on amlodipine, atenolol and lisinopril with good effect on his blood pressure. Goal blood pressures to remain below 140/90. (5) MDD (major depressive disorder), recurrent episode, moderate: Code(s): F33.1 - Major depressive disorder, recurrent, moderate Plan: Has been stable. PHQ-9 score 0 today office. Continues on Wellbutrin 150. (6) Abnormal echocardiogram: Comment: 01/06/2024 showing possible RCA wall motion Code(s): R93.1 - Abnormal findings on diagnostic imaging of heart and coronary circulation Plan: as per HPI there was an abnormal echocardiogram finding to which further workup will be done through Cardiology. Orders: Orders AMB Hemoglobin A1c 01/26/24 Z13.9 - Encounter for screening, unspecified Comprehensive [place]. Panel Fast 01/26/24 R73.09 - Other abnormal glucose Hemoglobin A1c 01/26/24 R73.09 - Other abnormal glucose Complete Blood Count no Diff 01/26/24 R73.09 - Other abnormal glucose Patient Instructions: Goal: blood pressure to remain below 140/90 barriers: adherence to physical activity and healthy eating habits Coding Level of Care Code Est Pt Prev Care >65y(50127) Diagnoses Annual physical exam Z00.00 Impaired glucose metabolism R73.09 Dissection of ascending aorta I71.010 Aortic location: thoracic aorta Thoracic aorta location: ascending aorta Essential hypertension I10 MDD (major depressive disorder), recurrent episode, moderate F33.1 Abnormal echocardiogram R93.1 Additional Codes JANET-7 Assessment Billing - JANET-7 Assessment Tool: JANET-7 Assessment [id number] ([id number])
== END 2024-01-26 09:42 | disposition home or self-care (01) ==
PROVIDERS: PCP Physician Assistant; Visit Provider Physician Assistant
DX: R73.09 Other abnormal glucose (principal)
CPT/HCPCS: 83036; 99397

== ENCOUNTER 2024-02-11 10:21 | Outpatient (REF) | payer OTHER, SELFPAY ==
[2024-02-11 10:56] LABS: Hematocrit 46.5 % (42.0-52.0); Hemoglobin 15.8 g/dl (14.0-18.0); Mean Corpuscular Hemoglobin 29.5 pg (27.0-33.0); Mean Corpuscular Volume 86.8 fL (80.0-98.0); Mean Platelet Volume 9.7 fL (9.4-12.4); Platelet Count 148 X10*3/uL (160-400); Red Blood Count 5.36 X10*6/uL (4.60-5.80); Red Cell Distribution Width 14.1 % (11.0-16.0); White Blood Count 6.5 X10*3/uL (4.8-10.8)
[2024-02-11 11:05] LABS: Estimated Average Glucose 123 mg/dL; Hemoglobin A1c % 5.9 % (<6.0)
[2024-02-11 11:08] LABS: Appearance Urine Cloudy; Color Urine Dark Yellow; Glucose Urine UA Negative (Negative); Leukocyte Esterase Urine Negative (Negative); Nitrite Urine Negative (Negative); PH 5.5 (5.0-9.0); Specific Gravity - Urine 1.025 (1.005-1.025); UMIC TRIGGER UACC YES; Urine Blood Negative (Negative); Urine Ketones Trace mg/dL (Negative); Urine Protein 100 (2+) mg/dL (Neg-Trace)
[2024-02-11 11:21] LABS: Anion Gap 13 (12-20); Blood Urea Nitrogen 28 mg/dL (9-16); Calcium 9.4 mg/dL (8.4-10.2); Carbon Dioxide 26 mmol/L (22-29); Chloride 100 mmol/L (96-108); Estimated Glomerular Filt Rate 33; Glucose Random 132 mg/dL (60-115); Potassium 4.6 mmol/L (3.3-5.1); Sodium 134 mmol/L (135-145)
[2024-02-11 11:24] LABS: Bacteria Urine None Seen (None Seen); Granular Casts Urine Present; RBC Urine 0-2 /HPF (0-2); WBC Urine 0-5 /HPF (0-5)
[2024-02-11 11:33] LABS: Influenza A PCR NEGATIVE (Negative); Influenza B PCR NEGATIVE (Negative); Resp Syncy Virus RNA Qual PCR NEGATIVE (Negative); SARS COV2 PCR INHOUSE NEGATIVE (Negative)
== END 2024-02-11 10:22 | disposition home or self-care (01) ==
LOC: HO.LAB 10:21
PROVIDERS: PCP Physician Assistant; Visit Provider Physician Assistant
DX: R09.89 Other specified symptoms and signs involving the circulatory and respiratory systems (principal); R73.09 Other abnormal glucose
CPT/HCPCS: 0241U; 80048; 81001; 81003; 83036; 85027

== ENCOUNTER 2024-02-17 14:35 | Inpatient (IN) | payer OTHER, SELFPAY ==
--- NOTE | ~2024-02-17 | XR_ITS ---
EXAMINATION: XR CHEST CLINICAL INFORMATION: Worsening saturation COMPARISON: 02/17/2024 TECHNIQUE: Portable semiupright 9:12 PM. view of the chest was obtained. FINDINGS: Evidence of previous cardiac surgery. Heart size normal. Right perihilar airspace disease persists consistent with atelectasis/consolidation. No pleural disease. No left-sided abnormality. XR/XR chest 1V IMPRESSION: Persistent right perihilar airspace disease as above. No new findings. Electronically signed by: Terrnace Dodge MD 02/20/2024 11:27 PM EDT
--- NOTE | ~2024-02-17 | XR_ITS ---
EXAMINATION: XR CHEST CLINICAL INFORMATION: Worsening oxygen saturation COMPARISON: CT angiography chest 02/21/2024. Chest radiograph 02/20/2024 TECHNIQUE: Frontal view of the chest was obtained. FINDINGS: Normal appearance of the cardiomediastinal structures. No effusions or pneumothoraces. Right middle lung zone airspace opacification. Right middle lung zone air bronchograms. Findings are unchanged appreciably compared with 02/20/2024. Surgical clips projected over the right axillary region. XR/XR chest 1V IMPRESSION: *No change compared with 02/20/2024. Focal consolidation within the right middle lung zone unchanged compared with 02/20/2024 suspicious for pneumonia. Electronically signed by: Rakesh Melendrez MD 02/22/2024 05:38 AM EDT
--- NOTE | ~2024-02-17 | XR_ITS ---
EXAMINATION: XR CHEST CLINICAL INFORMATION: Weakness. COMPARISON: CT of chest January 01, 2023. Chest x-ray August 23, 2018 TECHNIQUE: 2 views of the chest were obtained. FINDINGS: There is focal dense consolidation in the right lower lobe in the superior segment. This consistent with pneumonia. The left lung is normally aerated. Status post median sternotomy. Heart size normal. No pulmonary vascular congestion. There is no pleural effusion. XR/XR chest 2V IMPRESSION: Right lower lobe pneumonia. Electronically signed by: Kevyn Gutierrez MD 02/17/2024 04:01 PM EDT
--- NOTE | ~2024-02-17 | CT_ITS ---
EXAMINATION: CT ANGIOGRAM CHEST CLINICAL INFORMATION: Hypoxia COMPARISON: 01/01/2023 and intervening plain radiographs TECHNIQUE: Multiple axial images were obtained through the chest after the administration of 100 mL of Omnipaque 350 intravenous contrast. Extensive vascular post-processing including two-dimensional and three-dimensional reformatted images were created and reviewed on an independent workstation. This CT examination was performed using dose optimization techniques as appropriate, variously including the following: *Automated exposure control *Adjustment of mA and/or kV according to patient size (this includes techniques or standardized protocols for targeted exams where dose is matched to indication/reason for exam; i.e. extremities or head) *Use of iterative reconstruction technique DLP: 285 mGy-cm FINDINGS: General Assignment Reporter: Status post median sternotomy. BOLUS: Bolus quality satisfactory. PULMONARY ARTERIES: Positive for large central saddle embolism as well as bilateral segmental and subsegmental pulmonary emboli. Large thrombus burden. AORTA: Motion degraded. Atherosclerotic disease. No gross aneurysm or dissection on dextro phase imaging. Probable aortic repair with graft material along arch. CARDIAC: Evidence of increased right heart pressures with straightening of the interventricular septum and reflux of contrast into the IVC and hepatic veins. Coronary artery disease. MEDIASTINUM: Postsurgical changes. No mass or adenopathy. LUNGS: Extensive consolidation in the posterior right upper and lower lobes. Leading considerations infarction or aspiration. No endotracheal lesion. There is an irregular 10 mm left upper lobe nodule just above the hilum (series 5 image /59). Recommend attention on short follow up with repeat CT scan of the chest in 3 months time. Failure resolution should prompt further investigation to exclude lung cancer. Nonspecific groundglass opacity in the right upper lobe (series 5 image 17/59). This could represent infection, aspiration or pulmonary hemorrhage. Pleura: Small right pleural effusion. No left pleural effusion. No significant pericardial effusion. CHEST WALL: Minimal asymmetric left gynecomastia. UPPER ABDOMEN: Reflux of contrast into the IVC consistent with increased right heart pressures. Cholelithiasis with no evidence of cholecystitis. Nonspecific bilateral perinephric fat stranding. Mild colonic diverticulosis. OSSEOUS STRUCTURES: The sternum is well united. Degenerative spine disease. CT/CT angio chest PE protocol IMPRESSION: 1. Positive for pulmonary emboli. Large thrombus burden. 2. Extensive right lung consolidation, infarction versus aspiration. 3. Indeterminate irregular 10 mm left upper lobe pulmonary nodule. Follow with noncontrast chest CT in 3 months. 4. Postsurgical changes thoracic aorta. 5. Evidence of right heart strain/increased right heart pressures. 6. Cholelithiasis. 7. Diverticulosis. VTE: Positive This critical result was discussed with Dr Barboza at 10:50 AM on 02/21/2024 and it was ascertained that the content and urgency of the report was understood at the time of direct communication. Fleischner guidelines were followed. Electronically signed by: Lane Witt MD 02/21/2024 11:00 AM EDT
--- NOTE | ~2024-02-17 | US_ITS ---
EXAMINATION: US TRIPLEX LOWER EXTREMITY, BILATERAL CLINICAL INFORMATION: Pulmonary emboli COMPARISON: None available. TECHNIQUE: Color-flow triplex imaging with spectral analysis and compression Doppler were performed on the bilateral lower extremities. FINDINGS: Right Leg: Respiratory variation, normal compression and augmented flow are noted in the right common femoral vein, great saphenous vein, superficial femoral vein, and profunda femoral vein. There is nearly occlusive thrombus in the right popliteal vein and occlusive thrombus in the gastrocnemius vein, posterior tibial vein, and peroneal vein. Left Leg: Respiratory variation, normal compression and augmented flow are noted in the left common femoral vein, great saphenous vein, superficial femoral vein, profunda femoral vein, popliteal vein. There is occlusive thrombus in the left posterior tibial vein and the peroneal vein. There is no Vallejo's cyst. US/US venous duplex LE IMPRESSION: Acute DVT in the bilateral below the knee veins and in the right popliteal vein. Electronically signed by: Astrid Kelly MD 02/21/2024 12:31 PM EDT
[2024-02-17 14:48] VITALS: BP 99/72; PULSE 100; RESP 16; TEMP 36.5; O2SAT 87; BMI 27.4
--- NOTE | 2024-02-17 14:49 | ED_ITS ---
HPI - General Adult General Chief complaint: Weakness Stated complaint: dehydration Time Seen by Provider: 02/17/24 15:53 Source: patient Mode of arrival: ambulatory Limitations: no limitations History of Present Illness HPI narrative: This is a 68-year-old man with a past medical history of hypertension, depression, ascending aortic dissection status post surgical repair, CVA who presents for evaluation cough, weakness and dehydration. Patient states that he has been feeling generally sick with body aches for the last 2 weeks. He states no known fevers. He states associated productive cough without hemoptysis. He states no chest pain or dyspnea. He states no abdominal pain or back pain. He states no syncope. He states no nausea or vomiting. He reports decreased appetite. He states that he had some blood work done last week and was recommended to go to the emergency room for hydration versus increasing oral intake. He states that he chose to stay home and continue to hydrate at home. He states ongoing coughing and weakness. He states no urinary symptoms. Related Data Home Medications ?Medication ?Instructions ?Recorded ?Confirmed aspirin 81 mg tablet,delayed 81 mg PO DAILY 08/01/20 01/26/24 release (Adult Low Dose Aspirin) cholecalciferol (vitamin D3) 10 2,000 unit PO DAILY 03/11/21 01/26/24 mcg (400 unit) capsule vitamin B complex (B 1 tab PO DAILY 03/11/21 01/26/24 Complex-Vitamin B12 tablet) Previous Rx's ?Medication ?Instructions ?Recorded lisinopril 5 mg tablet 5 mg PO DAILY #90 tabs 11/12/23 atenolol 25 mg tablet 25 mg PO DAILY #90 tabs 02/08/24 atorvastatin 80 mg tablet 80 mg PO DAILY #90 tabs 02/08/24 bupropion HCl 150 mg 24 hr tablet, 150 mg PO QAM #90 tabs 02/08/24 extended release amlodipine 5 mg tablet 2.5 mg (1/2 x 5 mg) PO DAILY 90 02/10/24 days #45 tabs Allergies Allergy/AdvReac Type Severity Reaction Status Date / Time No Known Allergies Allergy Verified 02/17/24 14:52 [No Known Allergies*] [facility] Past Medical History Medical History Abnormal echocardiogram Fatigue Essential hypertension Aortic dissection Surgical History Hx of colonoscopy H/O heart bypass surgery Family History Family History Mother Breast cancer Father Heart disease Stroke Social History Social History (Updated 01/26/24 @ 09:20 by Karthik Calle PA-C) Housing: House Alcohol intake: current Alcohol intake frequency: holidays/special occasions only Alcohol type: beer Patient Tobacco Use Status: Never used Tobacco Tobacco use type: Cigarette e-Cigarette/Vaping Use: Never Used Second Hand Smoke Exposure: No Advance Directives: No Advance Directives Information Provided: No Do you have a plan to hurt others: No Plan Current occupational status: retired Cognitive needs: No Hearing needs: No Vision needs: No Physical Exam ED Vital Signs: Vital Signs - 24 hr 02/17/24 14:48 02/17/24 15:57 Temperature 97.7 F 98 F Pulse Rate 100 99 Respiratory Rate 16 20 Blood Pressure 99/72 106/71 Pulse Oximetry 87 L 94 Oxygen Delivery Method Room Air Nasal Cannula Oxygen Flow Rate 2 BMI result Body Mass Index 27.4 Gen: NAD, AOx3 HEENT: NCAT, EOMI, normal conjunctiva CV: RRR, no murmurs appreciated, 2+ bilateral radial pulses Pulm: Few rales right mid/inferior aspect of the right chest, no wheezes rhonchi, no increased work of breathing at rest GI: Soft, NTND, no rebound, guarding or rigidity Neuro: Grossly non focal Course Course Course Narrative: This is a rapid medical exam performed by Deena Rasmussen NP: Additional HPI, ROS, PE not included below will be deferred to primary provider. Patient is a 68- year old male with history of HTN, aortic dissection with surgical repair, MDD presenting to the ED for dehydration, had recent labs done, referred to ED by cardiology. Patient complains of feeling weak and dizzy. Oxygen 87% on room air in triage, placed on O2 via NC in triage. Plan: EKG, labs, CXR, viral serology Medications Administered Generic Name Dose Route Start Last Admin Trade Name Freq PRN Reason Stop Dose Admin Lactated Ringer's 2,313.33 mls @ 2,313.33 mls/hr 02/17/24 16:06 02/17/24 16:35 Lr 30 ml/kg infuse over 1 hr (2313.33 ml) 02/17/24 17:05 2,313.33 mls/hr IV Administration .Q1H ONE Medical Decision Making Medical Decision Making [facility] Narrative: 1609 - patient arrived a few minutes ago into his ED room. He is afebrile and hemodynamically stable albeit found to have a new oxygen requirement currently doing well on 2 liters/minute supplemental oxygen via nasal cannula. I have independently reviewed and interpreted patient's labs which are notable for leukocytosis with a white blood cell count 12.0, neutrophilia of 78.5%, INR 1.3, BUN 28, creatinine 1.71 (previous creatinine 2.00), total bilirubin 1.3, AST 113, ALT 196, troponin 326.3, mildly elevated BNP of 197, hypoalbuminemia of 3.5. I independently reviewed and interpreted patient's chest x-ray, which demonstrates right lower lobe consolidation consistent with pneumonia. Patient is provided ceftriaxone and doxycycline. Patient's order for sepsis 30 cc/kilos IV fluid bolus. Sepsis labs including blood cultures/lactic acid ordered. Patient has tested negative for COVID-19, influenza and RSV. Troponin is elevated at 326.3. However, EKG demonstrates no ischemic changes and patient states no chest pain or dyspnea. Thus, there is low clinical suspicion for ACS or myocarditis. I do suspect this is most likely demand ischemia in the setting of hypoxia. Patient's case and management as discussed with admitting hospitalist Dr. Corbett and patient is admitted in stable and improved condition Critical Care Time: A total of 35 minutes spent in direct patient care with coordinating critical resuscitation, procedures, reviewing records, discussing with consultants, reviewing labs, and/or managing patient. Admission/Observation Consideration of admission/observation: Escalation of care including admission/observation considered Consult Healthcare Provider Management of the patient was discussed with: Hospitalist Lab Data [facility] Lab Attestation statement: I reviewed the patient's lab results. 02/17/24 15:06 02/17/24 15:06 Labs: Lab Results 02/17/24 02/17/24 Range/Units 15:06 15:08 WBC 12.0 H (4.8-10.8) X10*3/uL RBC 4.79 (4.60-5.80) X10*6/uL Hgb 14.0 (14.0-18.0) g/dl Hct 41.9 L (42.0-52.0) % MCV 87.5 (80.0-98.0) fL MCH 29.2 (27.0-33.0) pg MCHC 33.4 (31.0-36.0) g/dl RDW 14.5 (11.0-16.0) % Plt Count 308 D (160-400) X10*3/uL MPV 8.9 L (9.4-12.4) fL Immature Gran % (Auto) 1.8 H (0.0-0.4) % Neut % (Auto) 78.5 H (45-73) % Lymph % (Auto) 8.0 L (20-40) % [place] % (Auto) 11.1 H (2-11) % Eos % (Auto) 0.4 (0-4) % Baso % (Auto) 0.2 (0-2) % Lymph # (Auto) 1.0 L (1.2-4.9) X10*3/uL [place] # (Auto) 1.3 H (0.1-1.2) X10*3/uL Eos # (Auto) 0.1 (0.0-0.4) X10*3/uL Baso # (Auto) 0.0 (0.0-0.2) X10*3/uL Abs Immat Gran (auto) 0.22 H (0.00-0.03) X10*3/uL Absolute Neuts (auto) 9.4 H (2.0-8.3) x10*3/uL Absolute Nucleated RBC 0.000 (0.0-0.012) X10*3/uL Nucleated RBC % (auto) 0.0 (0.0-0.2) /100WBC PT 15.3 H (10.9-12.4) SEC INR 1.3 H (0.9-1.1) Sodium 136 (135-145) mmol/L Potassium 4.8 (3.3-5.1) mmol/L Chloride 103 (96-108) mmol/L Carbon Dioxide 24 (22-29) mmol/L Anion Gap 14 (12-20) BUN 28 H (9-16) mg/dL Creatinine 1.71 H (0.5-1.4) mg/dL Estim Creat Clear Calc 39.8 Estimated GFR 40 Random Glucose 148 H (60-115) mg/dL Calcium 8.4 D (8.4-10.2) mg/dL Total Bilirubin 1.3 H (0.0-1.0) mg/dL AST 113 H (5-37) U/L ALT 196 H (0-40) U/L Alkaline Phosphatase 71 (39-117) U/L Troponin I High Sens 326.3 H* (<3.5-35.0) ng/L B-Natriuretic Peptide 197 H (<100) pg/mL Total Protein 5.9 L (6.5-8.0) g/dL Albumin 3.2 L (3.5-5.0) g/dL Influenza Type A (PCR) NEGATIVE (Negative) Influenza Type B (PCR) NEGATIVE (Negative) RSV RNA Qual (PCR) NEGATIVE (Negative) SARS-CoV-2 RNA (RT-PCR) NEGATIVE (Negative) Independent Interpretation I performed an independent interpretation of an: EKG and Plain X-Ray Interpretation: I independently reviewed and interpreted patient's chest x-ray, which demonstrates right lower lobe consolidation consistent with pneumonia. Radiology Impression Discussion of test interpretation with radiology: I have reviewed the radiologist's reading. Radiologist Impression: XR/XR chest 2V IMPRESSION: Right lower lobe pneumonia. Electronically signed by: Kevyn Gutierrez MD 02/17/2024 04:01 PM EDT Dictated By: Kevyn Gutierrez MD Signed By: <Electronically signed by Kevyn Gutierrez MD in OV> 02/17/24 1601 Independent Historian Clinical information obtained from an independent historian. History obtained from or confirmed by: Spouse Discharge Plan Discharge Clinical Impression: Pneumonia, Acute hypoxemic respiratory failure, Elevated troponin, Abnormal transaminases, Hypoalbuminemia, Elevated brain natriuretic peptide (BNP) level, Leukocytosis, Elevated bilirubin Patient Disposition: Admitted As Inpatient Prescriptions: No Action lisinopril 5 mg tablet 5 mg PO DAILY Qty: 90 1RF atenolol 25 mg tablet 25 mg PO DAILY Qty: 90 3RF bupropion HCl 150 mg tablet extended release 24 hr 150 mg PO QAM Qty: 90 3RF atorvastatin 80 mg tablet 80 mg PO DAILY Qty: 90 3RF amlodipine 5 mg tablet 2.5 mg PO DAILY 90 Days Qty: 45 0RF aspirin [Adult Low Dose Aspirin] 81 mg tablet,delayed release (DR/EC) 81 mg PO DAILY vitamin B complex [B Complex-Vitamin B12] Tablet 1 tab PO DAILY cholecalciferol (vitamin D3) 10 mcg (400 unit) capsule 2,000 unit PO DAILY Print Language: Bruneian
--- NOTE | 2024-02-17 14:51 | ECG_ITS ---
Test Reason : SOB Blood Pressure : / mmHG Vent. Rate : 098 BPM Atrial Rate : 098 BPM P-R Int : 146 ms QRS Dur : 094 ms QT Int : 368 ms P-R-T Axes : 057 085 049 degrees QTc Int : 469 ms Normal sinus rhythm Incomplete right bundle branch block Borderline ECG When compared with ECG of 01-JAN-2023 14:57, Nonspecific T wave abnormality has replaced inverted T waves in Anterior leads Referred By: Katie Rasmussen Electronically Signed By:EMILY LOWERY
[2024-02-17 15:15] LABS: MANUAL DIFF FLAG NO
[2024-02-17 15:19] LABS: Basophils Percent Auto 0.2 % (0-2); Eosinophils Absolute Auto 0.1 X10*3/uL (0.0-0.4); Eosinophils Percent Auto 0.4 % (0-4); Hematocrit 41.9 % (42.0-52.0); Imm Gran Abs Auto 0.22 X10*3/uL (0.00-0.03); Imm Gran Pct Auto 1.8 % (0.0-0.4); Mean Corpuscular HGB Conc 33.4 g/dl (31.0-36.0); Mean Corpuscular Hemoglobin 29.2 pg (27.0-33.0); Mean Corpuscular Volume 87.5 fL (80.0-98.0); Mean Platelet Volume 8.9 fL (9.4-12.4); Monocytes Absolute Auto 1.3 X10*3/uL (0.1-1.2); Monocytes Percent Auto 11.1 % (2-11); Neutrophils Absolute Auto 9.4 x10*3/uL (2.0-8.3); Neutrophils Percent Auto 78.5 % (45-73); Platelet Count 308 X10*3/uL (160-400); Red Blood Count 4.79 X10*6/uL (4.60-5.80); Red Cell Distribution Width 14.5 % (11.0-16.0)
[2024-02-17 15:31] LABS: INTERNATIONAL NORM RATIO 1.3 (0.9-1.1); Prothrombin Time 15.3 SEC (10.9-12.4)
[2024-02-17 15:32] LABS: Alanine Aminotransferase 196 U/L (0-40); Albumin Level 3.2 g/dL (3.5-5.0); Alkaline Phosphatase 71 U/L (39-117); Anion Gap 14 (12-20); Aspartate Amino Transferase 113 U/L (5-37); Bilirubin Total 1.3 mg/dL (0.0-1.0); Blood Urea Nitrogen 28 mg/dL (9-16); Calcium 8.4 mg/dL (8.4-10.2); Carbon Dioxide 24 mmol/L (22-29); Chloride 103 mmol/L (96-108); Creatinine Clr Calc Pharmacy 39.8; Estimated Glomerular Filt Rate 40; Glucose Random 148 mg/dL (60-115); Potassium 4.8 mmol/L (3.3-5.1); Sodium 136 mmol/L (135-145); Total Protein 5.9 g/dL (6.5-8.0)
[2024-02-17 15:37] LABS: B Type Natriuretic Peptide 197 pg/mL (<100)
[2024-02-17 15:44] LABS: Troponin-I High Sensitivity 326.3 ng/L (<3.5-35.0)
[2024-02-17 15:54] LABS: Influenza A PCR NEGATIVE (Negative); Influenza B PCR NEGATIVE (Negative); Resp Syncy Virus RNA Qual PCR NEGATIVE (Negative); SARS COV2 PCR INHOUSE NEGATIVE (Negative)
[2024-02-17 15:57] VITALS: BP 106/71; PULSE 99; RESP 20; TEMP 36.6; O2SAT 94
--- NOTE | 2024-02-17 16:04 | ED_ITS ---
HPI - General Adult General Chief complaint: Weakness Stated complaint: dehydration Time Seen by Provider: 02/17/24 15:53 History of Present Illness HPI narrative: Note created in error. Please remove the medical record. Please see signed and completed note for detailed ED visit note. Related Data Home Medications ?Medication ?Instructions ?Recorded ?Confirmed aspirin 81 mg tablet,delayed 81 mg PO DAILY 08/01/20 01/26/24 release (Adult Low Dose Aspirin) cholecalciferol (vitamin D3) 10 2,000 unit PO DAILY 03/11/21 01/26/24 mcg (400 unit) capsule vitamin B complex (B 1 tab PO DAILY 03/11/21 01/26/24 Complex-Vitamin B12 tablet) Previous Rx's ?Medication ?Instructions ?Recorded lisinopril 5 mg tablet 5 mg PO DAILY #90 tabs 11/12/23 atenolol 25 mg tablet 25 mg PO DAILY #90 tabs 02/08/24 atorvastatin 80 mg tablet 80 mg PO DAILY #90 tabs 02/08/24 bupropion HCl 150 mg 24 hr tablet, 150 mg PO QAM #90 tabs 02/08/24 extended release amlodipine 5 mg tablet 2.5 mg (1/2 x 5 mg) PO DAILY 90 02/10/24 days #45 tabs Allergies Allergy/AdvReac Type Severity Reaction Status Date / Time No Known Allergies Allergy Verified 02/17/24 14:52 [No Known Allergies*] PMFSH Past Medical History Medical History Abnormal echocardiogram Fatigue Essential hypertension Aortic dissection Surgical History Hx of colonoscopy H/O heart bypass surgery Family History Family History Mother Breast cancer Father Heart disease Stroke Social History Social History Housing: House Alcohol intake: current Alcohol intake frequency: holidays/special occasions only Alcohol type: beer Patient Tobacco Use Status: Never used Tobacco Tobacco use type: Cigarette e-Cigarette/Vaping Use: Never Used Second Hand Smoke Exposure: No Advance Directives: No Advance Directives Information Provided: No Do you have a plan to hurt others: No Plan Current occupational status: retired Cognitive needs: No Hearing needs: No Vision needs: No Physical Exam ED Vital Signs: Vital Signs - 24 hr 02/17/24 14:48 02/17/24 15:57 Temperature 97.7 F 98 F Pulse Rate 100 99 Respiratory Rate 16 20 Blood Pressure 99/72 106/71 Pulse Oximetry 87 L 94 Oxygen Delivery Method Room Air Nasal Cannula Oxygen Flow Rate 2 BMI result Body Mass Index 27.4 Medications Administered Discontinued Medications Generic Name Dose Route Start Last Admin Trade Name Frepattie PRN Reason Stop Dose Admin Lactated Ringer's 2,313.33 mls @ 2,313.33 mls/hr 02/17/24 16:06 02/17/24 16:35 Lr 30 ml/kg infuse over 1 hr (2313.33 ml) 02/17/24 17:05 2,313.33 mls/hr IV Administration .Q1H ONE Ceftriaxone Sodium 1 gm/ 50 mls @ 100 mls/hr 02/17/24 16:07 02/17/24 17:23 Sodium Chloride IV 02/17/24 16:36 Infused ONCE ONE Infusion Doxycycline Hyclate 100 mg/ 250 mls @ 166.67 mls/hr 02/17/24 16:07 02/17/24 17:18 Sodium Chloride IV 02/17/24 17:36 166.67 mls/hr ONCE ONE Administration Medical Decision Making Lab Data 02/17/24 15:06 02/17/24 15:06 Labs: Lab Results 02/17/24 02/17/24 02/17/24 Range/Units 15:06 15:08 17:01 WBC 12.0 H (4.8-10.8) X10*3/uL RBC 4.79 (4.60-5.80) X10*6/uL Hgb 14.0 (14.0-18.0) g/dl Hct 41.9 L (42.0-52.0) % MCV 87.5 (80.0-98.0) fL MCH 29.2 (27.0-33.0) pg MCHC 33.4 (31.0-36.0) g/dl RDW 14.5 (11.0-16.0) % Plt Count 308 D (160-400) X10*3/uL MPV 8.9 L (9.4-12.4) fL Immature Gran % (Auto) 1.8 H (0.0-0.4) % Neut % (Auto) 78.5 H (45-73) % Lymph % (Auto) 8.0 L (20-40) % [place] % (Auto) 11.1 H (2-11) % Eos % (Auto) 0.4 (0-4) % Baso % (Auto) 0.2 (0-2) % Lymph # (Auto) 1.0 L (1.2-4.9) X10*3/uL [place] # (Auto) 1.3 H (0.1-1.2) X10*3/uL Eos # (Auto) 0.1 (0.0-0.4) X10*3/uL Baso # (Auto) 0.0 (0.0-0.2) X10*3/uL Abs Immat Gran (auto) 0.22 H (0.00-0.03) X10*3/uL Absolute Neuts (auto) 9.4 H (2.0-8.3) x10*3/uL Absolute Nucleated RBC 0.000 (0.0-0.012) X10*3/uL Nucleated RBC % (auto) 0.0 (0.0-0.2) /100WBC PT 15.3 H (10.9-12.4) SEC INR 1.3 H (0.9-1.1) APTT 28.1 (26.0-36.8) SEC Sodium 136 (135-145) mmol/L Potassium 4.8 (3.3-5.1) mmol/L Chloride 103 (96-108) mmol/L Carbon Dioxide 24 (22-29) mmol/L Anion Gap 14 (12-20) BUN 28 H (9-16) mg/dL Creatinine 1.71 H (0.5-1.4) mg/dL Estim Creat Clear Calc 39.8 Estimated GFR 40 Random Glucose 148 H (60-115) mg/dL Lactic Acid 2.0 (0.5-2.0) mmol/L Calcium 8.4 D (8.4-10.2) mg/dL Total Bilirubin 1.3 H 1.2 H (0.0-1.0) mg/dL Direct Bilirubin 0.4 (0.0-0.5) mg/dL AST 113 H 100 H (5-37) U/L ALT 196 H 178 H (0-40) U/L Alkaline Phosphatase 71 68 (39-117) U/L Troponin I High Sens 326.3 H* 362.0 H* (<3.5-35.0) ng/L B-Natriuretic Peptide 197 H (<100) pg/mL Total Protein 5.9 L 5.5 L (6.5-8.0) g/dL Albumin 3.2 L 2.9 L (3.5-5.0) g/dL Influenza Type A (PCR) NEGATIVE (Negative) Influenza Type B (PCR) NEGATIVE (Negative) RSV RNA Qual (PCR) NEGATIVE (Negative) SARS-CoV-2 RNA (RT-PCR) NEGATIVE (Negative) Discharge Plan Discharge Clinical Impression: Pneumonia, Acute hypoxemic respiratory failure, Elevated troponin, Abnormal transaminases, Hypoalbuminemia, Elevated brain natriuretic peptide (BNP) level, Leukocytosis, Elevated bilirubin Patient Disposition: Admitted As Inpatient
[2024-02-17] MEDS: LACTATED RINGERS 2313.33 ML IV (16:35)
[2024-02-17] MEDS: cefTRIAXone sodium 1 GM in 0.9 % Sodium Chloride 50 ML IV (17:02)
[2024-02-17] MEDS: Doxycycline Hyclate 100 MG in 0.9 % Sodium Chloride 250 ML 166.67 MG IV (17:18)
[2024-02-17 17:23] LABS: Partial Thromboplastin Time 28.1 SEC (26.0-36.8)
[2024-02-17 17:29] LABS: Alanine Aminotransferase 178 U/L (0-40); Albumin Level 2.9 g/dL (3.5-5.0); Alkaline Phosphatase 68 U/L (39-117); Aspartate Amino Transferase 100 U/L (5-37); Bilirubin Direct 0.4 mg/dL (0.0-0.5); Bilirubin Total 1.2 mg/dL (0.0-1.0); Total Protein 5.5 g/dL (6.5-8.0)
--- NOTE | 2024-02-17 17:42 | PM.IMHP ---
History of Present Illness Date of Service: 02/17/24 Chief Complaint: Shortness of breath 68-year-old male with past medical history of hypertension depression ascending aortic dissection status post urgent surgical repair, CVA presents for evaluation of cough weakness and dehydration since 02/14/24. He states he has felt generally sick with diffuse body aches. He had some blood work done by his PCP was suggested he come in for volume repletion but declined. He presents today for worsening shortness of breath weakness in the absence of chest pain. He does endorse productive cough Review of Systems Review of Systems: Denies chest pain Admits to shortness of breath with exertion Denies nausea vomiting diarrhea Denies fever chills PMFSH Medical History Abnormal echocardiogram Fatigue Essential hypertension Aortic dissection Family History Mother Breast cancer Father Heart disease Stroke Surgical History Hx of colonoscopy H/O heart bypass surgery Social History Housing: House Alcohol intake: current Alcohol intake frequency: holidays/special occasions only Alcohol type: beer Patient Tobacco Use Status: Never used Tobacco Tobacco use type: Cigarette e-Cigarette/Vaping Use: Never Used Second Hand Smoke Exposure: No Advance Directives: No Advance Directives Information Provided: No Do you have a plan to hurt others: No Plan Current occupational status: retired Cognitive needs: No Hearing needs: No Vision needs: No Meds Allergies Allergy/AdvReac Type Severity Reaction Status Date / Time No Known Allergies Allergy Verified 02/17/24 14:52 [No Known Allergies*] Active Medications: Current Medications Acetaminophen (Acetaminophen 325 Mg Tablet) 650 mg PO Q6H PRN PRN Reason: Pain, Mild (Pain Scale 1-3), fever or headache Calcium Carbonate (Calcium Carbonate 750 Mg Tab.Chew) 750 mg PO Q4H PRN PRN Reason: Heartburn Enoxaparin Sodium (Enoxaparin Sodium 40 Mg/0.4 Ml Syringe) 40 mg SUBCUT Q24H GUY Ceftriaxone Sodium 1 gm/ (Sodium Chloride) 50 mls @ 100 mls/hr IV Q24H GUY Doxycycline Hyclate 100 mg/ (Sodium Chloride) 250 mls @ 166.67 mls/hr IV Q12H [facility] Magnesium Hydroxide (Milk Of Magnesia 30 Ml Oral.Susp) 30 ml PO DAILY PRN PRN Reason: Constipation Melatonin (Melatonin 3 Mg Tablet) 6 mg PO BEDTIME PRN PRN Reason: Insomnia Ondansetron HCl (Ondansetron Hcl 4 Mg/2 Ml Vial) 4 mg IVPUSH Q8H PRN PRN Reason: Nausea and Vomiting Sodium Chloride (0.9 % Sodium Chloride Flush 3 Ml Syringe) 3 ml IVFLUSH QSHIFT [facility] Home Medications ?Medication ?Instructions ?Recorded ?Confirmed ?Last Taken ?Type aspirin 81 mg tablet,delayed 81 mg PO DAILY 08/01/20 01/26/24 Unknown History release (Adult Low Dose Aspirin) cholecalciferol (vitamin D3) 10 2,000 unit PO DAILY 03/11/21 01/26/24 Unknown History mcg (400 unit) capsule vitamin B complex (B 1 tab PO DAILY 03/11/21 01/26/24 Unknown History Complex-Vitamin B12 tablet) Physical Exam Vital Signs and Narrative: Vital Signs: Last Vital Signs Temp 98 F 02/17/24 15:57 Pulse 99 02/17/24 15:57 Resp 20 02/17/24 15:57 BP 106/71 02/17/24 15:57 Pulse Ox 94 02/17/24 15:57 O2 Del Method Nasal Cannula 02/17/24 15:57 O2 Flow Rate 2 02/17/24 15:57 BMI result Body Mass Index 27.4 Const: Other: Awake alert no acute distress Resp: Other: Diminished right base with dense crackles to inferior scapular border; left side essentially clear. No wheezes appreciated Cardio: Other: No S4; positive S1-S2; no S3 murmurs rubs or gallops GI: Other: Soft nontender nondistended normoactive bowel sounds Neuro: Other: Cranial nerves 2-12 are grossly intact as tested. Motor is 5/5 all extremities. Sensation is intact. Cognition appropriate. Gait not observed Extrem: Other: No edema bilaterally Results Labs 02/17/24 15:06 02/17/24 15:06 Labs: Laboratory Results - last 24 hr 02/17/24 02/17/24 02/17/24 15:06 15:08 17:01 MCV 87.5 MCH 29.2 MCHC 33.4 RDW 14.5 Plt Count 308 D MPV 8.9 L Immature Gran % (Auto) 1.8 H Neut % (Auto) 78.5 H Lymph % (Auto) 8.0 L [place] % (Auto) 11.1 H Eos % (Auto) 0.4 Baso % (Auto) 0.2 Lymph # (Auto) 1.0 L [place] # (Auto) 1.3 H Eos # (Auto) 0.1 Baso # (Auto) 0.0 Abs Immat Gran (auto) 0.22 H Absolute Neuts (auto) 9.4 H Absolute Nucleated RBC 0.000 Nucleated RBC % (auto) 0.0 PT 15.3 H INR 1.3 H APTT 28.1 Anion Gap 14 Estim Creat Clear Calc 39.8 Estimated GFR 40 Random Glucose 148 H Lactic Acid 2.0 Calcium 8.4 D Total Bilirubin 1.3 H 1.2 H Direct Bilirubin 0.4 AST 113 H 100 H ALT 196 H 178 H Alkaline Phosphatase 71 68 Troponin I High Sens 326.3 H* 362.0 H* B-Natriuretic Peptide 197 H Total Protein 5.9 L 5.5 L Albumin 3.2 L 2.9 L Influenza Type A (PCR) NEGATIVE Influenza Type B (PCR) NEGATIVE RSV RNA Qual (PCR) NEGATIVE SARS-CoV-2 RNA (RT-PCR) NEGATIVE Imaging Radiologist's Impressions: Impressions Chest X-Ray 02/17/24 15:10 IMPRESSION: Right lower lobe pneumonia. Electronically signed by: Kevyn Gutierrez MD 02/17/2024 04:01 PM EDT Assessment and Plan (1) Right lower lobe pneumonia: Qualifiers: Pneumonia type: due to unspecified organism Qualified Code(s): J18.9 - Pneumonia, unspecified organism Status: Acute (2) Elevated troponin: Status: Acute (3) Essential hypertension: Status: Acute Plan 68-year-old male with history of hypertension status post aortic dissection repair presents with weakness and fatigue worsening over the last 2 weeks. Labs prior to hospitalization showed some mild elevation of creatinine for which he was suggested to come in for some volume repletion although he denied. He states his shortness of breath worsened and became productive cough as well. He never endorses any chest pain. In the emergency room workup was consistent with a right lower lobe pneumonia; troponin elevated at 326. 1. Right lower lobe infiltrate -ceftriaxone/doxycycline (1) -titrate O2 to maintain sat greater equal to 92% -[place] p.r.n. shortness of breath 2. Elevated troponins -discussed with cardiology; will see in a.m. -repeat troponin in a.m.; further workup and or treatment as per cardiology 3. Hypertension (relative hypo tension in ER) -received 2 L bolus in ER -will hold antihypertensive at this time -restart when clinically appropriate 4. Transaminitis -likely secondary to infiltrate -trend; follow clinically 5. CKD -at baseline -repeat renals/divalents in a.m. Full code Lovenox Requires at least 2 midnights of inpatient stay going forward for IV antibiotics to treat a right lower lobe pneumonia and specialist consultation related to elevated troponins. This can not be achieved a lesser acute setting Quality Stroke Does the patient have a stroke diagnosis?: No VTE Prior VTE?: No VTE Risk Level:: Medical - moderate - high VTE Device Contraindication: Treatment Not Indicated VTE Drug Contraindication: N/A - Med Ordered
--- NOTE | 2024-02-17 18:24 | PHA.MEDREC ---
Addendum entered by Shun Hernandez 02/17/24 18:26: reviewed Original Note: Pharmacy Consult ? Medication Reconciliation Pharmacy has completed the medication reconciliation. Spoke to patients to confirm med list.
[2024-02-17 18:37] VITALS: BP 111/73; PULSE 96; RESP 31; TEMP 36.8; O2SAT 94
--- NOTE | 2024-02-17 19:19 | PC.NURSE ---
This RN assumed pt care @ 1900. Pt a&x4, no signs of distress Pts family at bedside Pt denies pain at this time Plan of care ongoing.
[2024-02-17] MEDS: Flu Vacc TS2024-25(6mos up)/PF 0.5 ML SYRINGE IM (20:39)
[2024-02-17] MEDS: 0.9 % Sodium Chloride Flush 3 ML SYRINGE IVFLUSH (20:40)
[2024-02-17 20:42] VITALS: BP 119/78; PULSE 105; RESP 20; TEMP 36.7; O2SAT 92
[2024-02-17 23:32] VITALS: BP 109/69; PULSE 95; RESP 20; TEMP 37.2; O2SAT 94
[2024-02-18 02:06] VITALS: BMI 29.2
[2024-02-18 03:16] VITALS: BP 104/66; PULSE 91; RESP 20; TEMP 36.9; O2SAT 93
[2024-02-18] MEDS: Doxycycline Hyclate 100 MG in 0.9 % Sodium Chloride 250 ML 166.67 MG IV ×2 (05:11→18:23)
[2024-02-18 06:41] LABS: MANUAL DIFF FLAG NO
[2024-02-18 07:04] LABS: Alanine Aminotransferase 141 U/L (0-40); Albumin Level 2.7 g/dL (3.5-5.0); Alkaline Phosphatase 58 U/L (39-117); Anion Gap 12 (12-20); Aspartate Amino Transferase 75 U/L (5-37); Basophils Percent Auto 0.4 % (0-2); Bilirubin Total 0.9 mg/dL (0.0-1.0); Blood Urea Nitrogen 25 mg/dL (9-16); Calcium 8.3 mg/dL (8.4-10.2); Carbon Dioxide 25 mmol/L (22-29); Chloride 106 mmol/L (96-108); Creatinine Clr Calc Pharmacy 46.7; Eosinophils Absolute Auto 0.1 X10*3/uL (0.0-0.4); Eosinophils Percent Auto 0.9 % (0-4); Estimated Glomerular Filt Rate 46; Glucose Random 122 mg/dL (60-115); Hematocrit 37.3 % (42.0-52.0); Hemoglobin 12.4 g/dl (14.0-18.0); Imm Gran Abs Auto 0.19 X10*3/uL (0.00-0.03); Imm Gran Pct Auto 1.8 % (0.0-0.4); Lymphocytes Absolute Auto 1.1 X10*3/uL (1.2-4.9); Lymphocytes Percent Auto 10.9 % (20-40); Mean Corpuscular HGB Conc 33.2 g/dl (31.0-36.0); Mean Corpuscular Hemoglobin 29.4 pg (27.0-33.0); Mean Corpuscular Volume 88.4 fL (80.0-98.0); Mean Platelet Volume 9.5 fL (9.4-12.4); Monocytes Absolute Auto 1.3 X10*3/uL (0.1-1.2); Monocytes Percent Auto 12.7 % (2-11); Neutrophils Absolute Auto 7.7 x10*3/uL (2.0-8.3); Neutrophils Percent Auto 73.3 % (45-73); Platelet Count 252 X10*3/uL (160-400); Potassium 5.4 mmol/L (3.3-5.1); Red Blood Count 4.22 X10*6/uL (4.60-5.80); Red Cell Distribution Width 14.5 % (11.0-16.0); Sodium 138 mmol/L (135-145); White Blood Count 10.5 X10*3/uL (4.8-10.8)
[2024-02-18 07:13] LABS: INTERNATIONAL NORM RATIO 1.3 (0.9-1.1); Prothrombin Time 15.4 SEC (10.9-12.4)
[2024-02-18 07:17] LABS: Troponin-I High Sensitivity 219.2 ng/L (<3.5-35.0)
[2024-02-18 07:30] VITALS: BP 104/66; PULSE 86; RESP 20; TEMP 36.3; O2SAT 94
[2024-02-18] MEDS: 0.9 % Sodium Chloride Flush 3 ML SYRINGE IVFLUSH ×2 (08:53→16:46)
--- NOTE | 2024-02-18 09:30 | MHC.CM.PN ---
Addendum entered by Regina Fine 02/18/24 13:54: HCP form completed and uploaded to chart, 2 copies given to Pt. Original Note: Pt. lives with his , PCP confirmed: Karthik Calle, HCP discussed, pt. asked if CM could return later when is here. Pt. is independent, no home health services or DME. Family to provide transport home at DC. DCP: home, self care. CM to follow for DC needs.
[2024-02-18 11:27] VITALS: BP 95/54; PULSE 94; RESP 20; TEMP 36.5; O2SAT 91
--- NOTE | 2024-02-18 14:36 | HO.PM.IMPN ---
Subjective Subjective Date of Service: 02/18/24 Interval History: Being followed for right lower lobe pneumonia/noted to be hypoxic requiring 5 L of oxygen, not on home O2 Denies chest pain, no shortness of breath complaining of cough productive of clear to light yellow phlegm, denies fever, no chills, no headache, no dizziness, no acute events overnight. Review of Systems All other system reviewed and negative Physical Exam Vital Signs: Vital Signs: Last Vital Signs Temp 97.7 F 02/18/24 11: Pulse 94 02/18/24 11:27 Resp 20 02/18/24 11:27 BP 95/54 L 02/18/24 11:27 Pulse Ox 91 L 02/18/24 11:27 O2 Del Method Nasal Cannula 02/18/24 11: O2 Flow Rate 5 02/18/24 11:27 BMI result Body Mass Index 29.2 Const: Other: General resting comfortably in no acute distress. Anicteric sclera Neck no JVD. CVS regular rate rhythm, Respiratory lungs right basilar coarse breath sounds, otherwise clear to auscultation, no respiratory distress, no wheeze. Gastrointestinal abdomen soft, non tender, bowel sounds audible. Extremities no edema. Neuro non focal Skin no rash psych depressed affect Objective Data Active Medications Acetaminophen (Acetaminophen 325 Mg Tablet) 650 mg PO Q6H PRN PRN Reason: Pain, Mild (Pain Scale 1-3), fever or headache Calcium Carbonate (Calcium Carbonate 750 Mg Tab.Chew) 750 mg PO Q4H PRN PRN Reason: Heartburn Enoxaparin Sodium (Enoxaparin Sodium 40 Mg/0.4 Ml Syringe) 40 mg SUBCUT Q24H [facility] Last Admin: 02/17/24 18:37 Dose: Not Given Documented By: NOE Non-Admin Reason: See Note Ceftriaxone Sodium 1 gm/ (Sodium Chloride) 50 mls @ 100 mls/hr IV Q24H [facility] Last Admin: 02/17/24 18:36 Dose: Not Given Documented By: NOE Non-Admin Reason: Duplicate Order Doxycycline Hyclate 100 mg/ (Sodium Chloride) 250 mls @ 166.67 mls/hr IV Q12H [facility] Last Infusion: 02/18/24 09:05 Dose: Infused Documented By: IMANI Magnesium Hydroxide (Milk Of Magnesia 30 Ml Oral.Susp) 30 ml PO DAILY PRN PRN Reason: Constipation Melatonin (Melatonin 3 Mg Tablet) 6 mg PO BEDTIME PRN PRN Reason: Insomnia Ondansetron HCl (Ondansetron Hcl 4 Mg/2 Ml Vial) 4 mg IVPUSH Q8H PRN PRN Reason: Nausea and Vomiting Sodium Chloride (0.9 % Sodium Chloride Flush 3 Ml Syringe) 3 ml IVFLUSH QSHIFT [facility] Last Admin: 02/18/24 08:53 Dose: 3 ml Documented By: IMANI Labs 02/18/24 06:12 02/18/24 06:12 Labs: Laboratory Results - last 24 hr 02/17/24 02/17/24 02/17/24 15:06 15:08 17:01 MCV 87.5 MCH 29.2 MCHC 33.4 RDW 14.5 Plt Count 308 D MPV 8.9 L Immature Gran % (Auto) 1.8 H Neut % (Auto) 78.5 H Lymph % (Auto) 8.0 L [place] % (Auto) 11.1 H Eos % (Auto) 0.4 Baso % (Auto) 0.2 Lymph # (Auto) 1.0 L [place] # (Auto) 1.3 H Eos # (Auto) 0.1 Baso # (Auto) 0.0 Abs Immat Gran (auto) 0.22 H Absolute Neuts (auto) 9.4 H Absolute Nucleated RBC 0.000 Nucleated RBC % (auto) 0.0 PT 15.3 H INR 1.3 H APTT 28.1 Anion Gap 14 Estim Creat Clear Calc 39.8 Estimated GFR 40 Random Glucose 148 H Lactic Acid 2.0 Calcium 8.4 D Total Bilirubin 1.3 H 1.2 H Direct Bilirubin 0.4 AST 113 H 100 H ALT 196 H 178 H Alkaline Phosphatase 71 68 Troponin I High Sens 326.3 H* 362.0 H* B-Natriuretic Peptide 197 H Total Protein 5.9 L 5.5 L Albumin 3.2 L 2.9 L Influenza Type A (PCR) NEGATIVE Influenza Type B (PCR) NEGATIVE RSV RNA Qual (PCR) NEGATIVE SARS-CoV-2 RNA (RT-PCR) NEGATIVE 02/18/24 02/18/24 06:11 06:12 MCV 88.4 MCH 29.4 MCHC 33.2 RDW 14.5 Plt Count 252 MPV 9.5 Immature Gran % (Auto) 1.8 H Neut % (Auto) 73.3 H Lymph % (Auto) 10.9 L [place] % (Auto) 12.7 H Eos % (Auto) 0.9 Baso % (Auto) 0.4 Lymph # (Auto) 1.1 L [place] # (Auto) 1.3 H Eos # (Auto) 0.1 Baso # (Auto) 0.0 Abs Immat Gran (auto) 0.19 H Absolute Neuts (auto) 7.7 Absolute Nucleated RBC 0.000 Nucleated RBC % (auto) 0.0 PT 15.4 H INR 1.3 H APTT Anion Gap 12 Estim Creat Clear Calc 46.7 Estimated GFR 46 Random Glucose 122 H Lactic Acid Calcium 8.3 L Total Bilirubin 0.9 Direct Bilirubin AST 75 H ALT 141 H Alkaline Phosphatase 58 Troponin I High Sens 219.2 H* B-Natriuretic Peptide Total Protein 5.0 L Albumin 2.7 L Influenza Type A (PCR) Influenza Type B (PCR) RSV RNA Qual (PCR) SARS-CoV-2 RNA (RT-PCR) Assessment and Plan (1) Right lower lobe pneumonia: Status: Acute (2) Elevated bilirubin: Status: Acute Plan 68-year-old male with history of hypertension status post aortic dissection repair presents with weakness and fatigue worsening over the last 2 weeks. Labs prior to hospitalization showed some mild elevation of creatinine for which he was suggested to come in for some volume repletion although he denied. He states his shortness of breath worsened and became productive cough as well. He never endorses any chest pain. In the emergency room workup was consistent with a right lower lobe pneumonia; troponin elevated at 326. 1. Acute hypoxic respiratory failure due to Right lower lobe infiltrate -WBC normalized no fever -ceftriaxone/doxycycline d2/5 -titrate O2 to maintain sat greater equal to 92%, not on home oxygen -DuoNebs p.r.n. shortness of breath 2. Elevated troponins but flat ,no chest pain, no acute EKG changes, history of aortic dissection, CT scan of aorta has shown a stable repair in the past - recent echo showed inferior septal and basal segment akinesis , stable EF, follow cardiology consult - elevated BNP no evidence of acute CHF 3. Hypertension (relative hypo tension in ER) -received 2 L bolus in ER, hold further fluids -BP remains soft continue to hold antihypertensive including lisinopril, amlodipine and atenolol -restart when clinically appropriate 4. Transaminitis -trending down, likely secondary to infiltrate -avoid hepatotoxins 5. CKD stage III -at baseline -follow labs 6. Acute hyperkalemia likely due to CKD treat with [facility] follow labs 7. Mood disorder continue Wellbutrin Full code Lovenox Requires inpatient stay going forward for IV antibiotics to treat a right lower lobe pneumonia and specialist consultation related to elevated troponins. This can not be achieved a lesser acute setting Quality Stroke Does the patient have a stroke diagnosis?: No VTE Prior VTE?: No VTE Risk Level:: Medical - moderate - high VTE Device Contraindication: Treatment Not Indicated VTE Drug Contraindication: N/A - Med Ordered
[2024-02-18 15:49] VITALS: BP 103/57; PULSE 93; RESP 19; TEMP 36.7; O2SAT 94
[2024-02-18] MEDS: Sodium Zirconium Cyclosilicate 5 GM POWD.PACK PO (16:45)
[2024-02-18] MEDS: cefTRIAXone sodium 1 GM in 0.9 % Sodium Chloride 50 ML IV (16:46)
--- NOTE | 2024-02-18 17:51 | PM.CNCAR ---
History of Present Illness History of Present Illness Date of Service: 02/18/24 Chief complaint: Pneumonia, troponin + Narrative: 68-year-old gentleman with previous aortic dissection status post surgery presenting with shortness of breath and fatigue. Ongoing for 2 days. No fevers but he had chills yesterday. Imaging has shown pneumonia and he started on antibiotics. He has mildly elevated troponin levels. No chest discomfort. ECG has no dynamic changes. We have been asked to see him for elevated troponins. [facility] Past Medical History Medical History Abnormal echocardiogram Fatigue Essential hypertension Aortic dissection Family History Family History Mother Breast cancer Father Heart disease Stroke Surgical History Surgical History Hx of colonoscopy H/O heart bypass surgery Social History Social History Household Members: Spouse Housing: House Do you presently have visiting nurse or other home services: No Alcohol intake: current Alcohol intake frequency: holidays/special occasions only Alcohol type: beer Patient Tobacco Use Status: Never used Tobacco Tobacco use type: Cigarette e-Cigarette/Vaping Use: Never Used Second Hand Smoke Exposure: No service: No Current occupational status: retired Cognitive needs: No Hearing needs: No Vision needs: No Meds Allergies Allergy/AdvReac Type Severity Reaction Status Date / Time No Known Allergies Allergy Verified 02/17/24 14:52 [No Known Allergies*] Active Medications: Current Medications Acetaminophen (Acetaminophen 325 Mg Tablet) 650 mg PO Q6H PRN PRN Reason: Pain, Mild (Pain Scale 1-3), fever or headache Aspirin (Aspirin Enteric Coated 81 Mg Tablet.Dr) 81 mg PO DAILY GUY Bupropion HCl (Bupropion Hcl Xl 150 Mg Tab.Er.24h) 150 mg PO DAILY GUY Calcium Carbonate (Calcium Carbonate 750 Mg Tab.Chew) 750 mg PO Q4H PRN PRN Reason: Heartburn Cyanocobalamin (Cyanocobalamin (Vitamin B-12) 500 Mcg Tablet) 500 mcg PO DAILY [facility] Enoxaparin Sodium (Enoxaparin Sodium 40 Mg/0.4 Ml Syringe) 40 mg SUBCUT Q24H [facility] Last Admin: 02/17/24 18:37 Dose: Not Given Ceftriaxone Sodium 1 gm/ (Sodium Chloride) 50 mls @ 100 mls/hr IV Q24H [facility] Last Admin: 02/18/24 16:46 Dose: 100 mls/hr Doxycycline Hyclate 100 mg/ (Sodium Chloride) 250 mls @ 166.67 mls/hr IV Q12H [facility] Last Infusion: 02/18/24 09:05 Dose: Infused Magnesium Hydroxide (Milk Of Magnesia 30 Ml Oral.Susp) 30 ml PO DAILY PRN PRN Reason: Constipation Melatonin (Melatonin 3 Mg Tablet) 6 mg PO BEDTIME PRN PRN Reason: Insomnia Ondansetron HCl (Ondansetron Hcl 4 Mg/2 Ml Vial) 4 mg IVPUSH Q8H PRN PRN Reason: Nausea and Vomiting Sodium Chloride (0.9 % Sodium Chloride Flush 3 Ml Syringe) 3 ml IVFLUSH QSHIFT [facility] Last Admin: 02/18/24 16:46 Dose: 3 ml Vitamin D (Cholecalciferol (Vitamin D3) 25 Mcg Tablet) 25 mcg PO DAILY [facility] Home Medications ?Medication ?Instructions ?Recorded ?Confirmed ?Last Taken ?Type aspirin 81 mg tablet,delayed 81 mg PO DAILY 08/01/20 02/17/24 02/16/24 History release (Adult Low Dose Aspirin) atorvastatin 80 mg tablet 80 mg PO BEDTIME 02/17/24 02/17/24 Unknown History bupropion HCl 150 mg 24 hr tablet, 150 mg PO DAILY 02/17/24 02/17/24 02/16/24 History extended release cholecalciferol (vitamin D3) 25 25 mcg PO DAILY 02/17/24 02/17/24 02/16/24 History mcg (1,000 unit) tablet (Vitamin D3) cyanocobalamin (vitamin B-12) 500 500 mcg PO DAILY 02/17/24 02/17/24 02/16/24 History mcg tablet (Vitamin B-12) [id number] 150 mcg-vit K1 1 tab PO DAILY 02/17/24 02/17/24 02/16/24 History 30 mcg-lycop 300 mcg-lutein tablet (Centrum Minis Men 50 Plus) Physical Exam Vital Signs: Vital Signs: Last Vital Signs Temp 98.0 F 02/18/24 15:49 Pulse 93 02/18/24 15:49 Resp 19 02/18/24 15:49 BP 103/57 L 02/18/24 15:49 Pulse Ox 94 02/18/24 15:49 O2 Del Method Nasal Cannula 02/18/24 15:49 O2 Flow Rate 5 02/18/24 15:49 BMI result Body Mass Index 29.2 GENERAL APPEARANCE: in no acute distress. NECK: no carotid bruit, no jugular venous distention. SKIN: no suspicious lesions, warm and dry. HEART: no murmurs, regular rate and rhythm. LUNGS: CTABL. ABDOMEN: soft, nontender. EXTREMITIES: no edema. PERIPHERAL PULSES: equal. NEUROLOGIC: No gross deficits, AAO X 3 Objective Labs and Meds 02/18/24 06:12 02/18/24 06:12 Lab results: Laboratory Results - last 24 hr 02/18/24 02/18/24 06:11 06:12 WBC 10.5 RBC 4.22 L Hgb 12.4 L Hct 37.3 L MCV 88.4 MCH 29.4 MCHC 33.2 RDW 14.5 Plt Count 252 MPV 9.5 Immature Gran % (Auto) 1.8 H Neut % (Auto) 73.3 H Lymph % (Auto) 10.9 L [place] % (Auto) 12.7 H Eos % (Auto) 0.9 Baso % (Auto) 0.4 Lymph # (Auto) 1.1 L [place] # (Auto) 1.3 H Eos # (Auto) 0.1 Baso # (Auto) 0.0 Abs Immat Gran (auto) 0.19 H Absolute Neuts (auto) 7.7 Absolute Nucleated RBC 0.000 Nucleated RBC % (auto) 0.0 PT 15.4 H INR 1.3 H Sodium 138 Potassium 5.4 H Chloride 106 Carbon Dioxide 25 Anion Gap 12 BUN 25 H Creatinine 1.50 H Estim Creat Clear Calc 46.7 Estimated GFR 46 Random Glucose 122 H Calcium 8.3 L Total Bilirubin 0.9 AST 75 H ALT 141 H Alkaline Phosphatase 58 Troponin I High Sens 219.2 H* Total Protein 5.0 L Albumin 2.7 L Assessment and Plan (1) Elevated troponin: Status: Acute Plan 68-year-old gentleman with pneumonia and mildly elevated troponin. Type II IN due to sepsis. Continue treatment for pneumonia. No further workup required inpatient. As he recovers he can be discharged home. We will arrange follow-up in our office after discharge. Thank you Procedures Date of Service Date of Service: 02/18/24
[2024-02-18] MEDS: Enoxaparin Sodium 40 MG/0.4 ML SYRINGE SUBCUT (18:22)
[2024-02-18 19:54] VITALS: BP 102/67; PULSE 96; RESP 20; TEMP 36.7; O2SAT 91
[2024-02-18 22:15] LABS: Appearance Urine Clear; Color Urine Yellow; Glucose Urine UA Negative (Negative); Leukocyte Esterase Urine Negative (Negative); Nitrite Urine Negative (Negative); PH 5.5 (5.0-9.0); Specific Gravity - Urine 1.025 (1.005-1.025); Urine Blood Negative (Negative); Urine Ketones Negative (Negative); Urine Protein Trace mg/dL (Neg-Trace)
[2024-02-18 23:53] VITALS: BP 111/68; PULSE 94; RESP 20; TEMP 37.1; O2SAT 92
[2024-02-19 03:47] VITALS: BP 133/81; PULSE 90; RESP 20; TEMP 36.6; O2SAT 93
[2024-02-19] MEDS: Doxycycline Hyclate 100 MG in 0.9 % Sodium Chloride 250 ML 166.67 MG IV ×2 (05:42→17:19)
[2024-02-19 07:22] LABS: Alanine Aminotransferase 129 U/L (0-40); Albumin Level 2.6 g/dL (3.5-5.0); Alkaline Phosphatase 58 U/L (39-117); Anion Gap 11 (12-20); Aspartate Amino Transferase 56 U/L (5-37); Bilirubin Direct 0.3 mg/dL (0.0-0.5); Bilirubin Total 0.8 mg/dL (0.0-1.0); Blood Urea Nitrogen 20 mg/dL (9-16); Calcium 8.3 mg/dL (8.4-10.2); Carbon Dioxide 27 mmol/L (22-29); Chloride 107 mmol/L (96-108); Creatinine Clr Calc Pharmacy 51.5; Estimated Glomerular Filt Rate 52; Glucose Random 121 mg/dL (60-115); Potassium 4.6 mmol/L (3.3-5.1); Sodium 140 mmol/L (135-145)
[2024-02-19 07:40] VITALS: BP 133/80; PULSE 88; RESP 20; TEMP 36; O2SAT 94
[2024-02-19] MEDS: 0.9 % Sodium Chloride Flush 3 ML SYRINGE IVFLUSH ×2 (08:55)
[2024-02-19] MEDS: Cyanocobalamin (Vitamin B-12) 500 MCG TABLET PO (08:55)
[2024-02-19] MEDS: buPROPion HCl XL 150 MG TAB.ER.24H PO (08:55)
[2024-02-19] MEDS: Aspirin Enteric Coated 81 MG TABLET.DR PO (08:55)
[2024-02-19] MEDS: Cholecalciferol (Vitamin D3) 25 MCG TABLET PO (08:55)
--- NOTE | 2024-02-19 10:43 | MHC.CM.PN ---
PER MD ROUNDS, PT NOT MEDICALLY CLEAR FOR DC DCP REMAINS HOME WITH NO SERVICES VIA PRIVATE TRANSPORT
[2024-02-19 11:27] VITALS: BP 126/78; PULSE 94; RESP 20; TEMP 36.3; O2SAT 94
--- NOTE | 2024-02-19 11:59 | HO.PM.IMPN ---
Subjective Subjective Date of Service: 02/19/24 Interval History: Feeling better this morning, denies fever, no chills , denies cough and shortness of breath, no acute events overnight currently on 4 L of oxygen with finger oximetry 94% Review of Systems All other system reviewed and are negative Physical Exam Vital Signs: Vital Signs: Last Vital Signs Temp 97.3 F 02/19/24 11:27 Pulse 94 02/19/24 11:27 Resp 20 02/19/24 11:27 BP 126/78 02/19/24 11:27 Pulse Ox 94 02/19/24 11:27 O2 Del Method Nasal Cannula 02/19/24 11:27 O2 Flow Rate 3 02/19/24 11:27 BMI result Body Mass Index 29.2 Const: Other: General resting comfortably in no acute distress. Anicteric sclera Neck no JVD. CVS regular rate rhythm, Respiratory lungs right basilar coarse breath sounds, otherwise clear to auscultation, no respiratory distress, no wheeze. Gastrointestinal abdomen soft, non tender, bowel sounds audible. Extremities no edema. Neuro non focal Skin no rash psych depressed affect Objective Data Active Medications Acetaminophen (Acetaminophen 325 Mg Tablet) 650 mg PO Q6H PRN PRN Reason: Pain, Mild (Pain Scale 1-3), fever or headache Aspirin (Aspirin Enteric Coated 81 Mg Tablet.) 81 mg PO DAILY [facility] Last Admin: 02/19/24 08:55 Dose: 81 mg Documented By: SIOMARA Bupropion HCl (Bupropion Hcl Xl 150 Mg Tab.Er.24h) 150 mg PO DAILY [facility] Last Admin: 02/19/24 08:55 Dose: 150 mg Documented By: SIOMARA Calcium Carbonate (Calcium Carbonate 750 Mg Tab.Chew) 750 mg PO Q4H PRN PRN Reason: Heartburn Cyanocobalamin (Cyanocobalamin (Vitamin B-12) 500 Mcg Tablet) 500 mcg PO DAILY [facility] Last Admin: 02/19/24 08:55 Dose: 500 mcg Documented By: SIOMARA Enoxaparin Sodium (Enoxaparin Sodium 40 Mg/0.4 Ml Syringe) 40 mg SUBCUT Q24H [facility] Last Admin: 02/18/24 18:22 Dose: 40 mg Documented By: IMANI Ceftriaxone Sodium 1 gm/ (Sodium Chloride) 50 mls @ 100 mls/hr IV Q24H [facility] Last Infusion: 02/18/24 18:17 Dose: Infused Documented By: IMANI Doxycycline Hyclate 100 mg/ (Sodium Chloride) 250 mls @ 166.67 mls/hr IV Q12H [facility] Last Infusion: 02/19/24 11:33 Dose: Infused Documented By: SIOMARA Magnesium Hydroxide (Milk Of Magnesia 30 Ml Oral.Susp) 30 ml PO DAILY PRN PRN Reason: Constipation Melatonin (Melatonin 3 Mg Tablet) 6 mg PO BEDTIME PRN PRN Reason: Insomnia Ondansetron HCl (Ondansetron Hcl 4 Mg/2 Ml Vial) 4 mg IVPUSH Q8H PRN PRN Reason: Nausea and Vomiting Sodium Chloride (0.9 % Sodium Chloride Flush 3 Ml Syringe) 3 ml IVFLUSH QSHIFT [facility] Last Admin: 02/19/24 08:55 Dose: 3 ml Documented By: SIOMARA Vitamin D (Cholecalciferol (Vitamin D3) 25 Mcg Tablet) 25 mcg PO DAILY [facility] Last Admin: 02/19/24 08:55 Dose: 25 mcg Documented By: SIOMARA Labs 02/18/24 06:12 02/19/24 05:44 Labs: Laboratory Results - last 24 hr 02/18/24 02/19/24 21:10 05:44 Anion Gap 11 L Estim Creat Clear Calc 51.5 Estimated GFR 52 Random Glucose 121 H Calcium 8.3 L Total Bilirubin 0.8 Direct Bilirubin 0.3 AST 56 H ALT 129 H Alkaline Phosphatase 58 Total Protein 5.0 L Albumin 2.6 L Urine Color Yellow Urine Appearance Clear Urine pH 5.5 Ur Specific [place] 1.025 Urine Protein Trace Urine Glucose (UA) Negative Urine Ketones Negative Urine Blood Negative Urine Nitrite Negative Ur Leukocyte Esterase Negative Microbiology Microbiology Results: Microbiology 02/17/24 17:01 Blood Culture - Preliminary Blood - Venous No growth after 24 hours. 02/17/24 17:01 Blood Culture - Preliminary Blood - Venous No growth after 24 hours. Assessment and Plan (1) Right lower lobe pneumonia: Status: Acute (2) Elevated bilirubin: Status: Acute (3) Leukocytosis: Status: Acute Plan 68-year-old male with history of hypertension status post aortic dissection repair presents with weakness and fatigue worsening over the last 2 weeks. Labs prior to hospitalization showed some mild elevation of creatinine for which he was suggested to come in for some volume repletion although he denied. He states his shortness of breath worsened and became productive cough as well. He never endorses any chest pain. In the emergency room workup was consistent with a right lower lobe pneumonia; troponin elevated at 326. 1. Acute hypoxic respiratory failure due to Right lower lobe infiltrate -WBC normalized no fever -ceftriaxone/doxycycline d3/5 -titrate O2 to maintain sat greater equal to 92%, not on home oxygen -DuoNebs p.r.n. shortness of breath 2. Elevated troponins but flat ,no chest pain, no acute EKG changes, history of aortic dissection, CT scan of aorta has shown a stable repair in the past - recent echo showed inferior septal and basal segment akinesis , stable EF, seen by Cardiology they diagnosed patient with type 2 UT due to infection no further workup inpatient, cardiology will arrange for outpatient follow-up - elevated BNP no evidence of acute CHF 3. Hypertension (relative hypo tension in ER) -received 2 L bolus in ER, hold further fluids -BP improved and stable without antihypertensive, continue to hold antihypertensive including lisinopril, amlodipine and atenolol -restart when clinically appropriate 4. Transaminitis -trending down, likely secondary to infection -avoid hepatotoxins 5. CKD stage III -at baseline -follow labs 6. Acute hyperkalemia likely due to CKD treat with [facility] follow labs 7. Mood disorder continue Wellbutrin Full code Lovenox Requires inpatient stay going forward for IV antibiotics to treat a right lower lobe pneumonia and specialist consultation related to elevated troponins. This can not be achieved a lesser acute setting Quality Stroke Does the patient have a stroke diagnosis?: No VTE Prior VTE?: No VTE Risk Level:: Medical - moderate - high VTE Device Contraindication: Treatment Not Indicated VTE Drug Contraindication: N/A - Med Ordered
--- NOTE | 2024-02-19 12:46 | P.CDIM_ITS ---
PROVIDER RESPONSE TEXT: To clarify, the appropriate diagnosis supported by the clinical indicators: Sepsis: present on admission QUERY TEXT: PHYSICIAN'S DOCUMENTATION REQUEST Date of Query: 02/19/2024 10:19 AM EDT Patient Name: Guero Shukla Admit Date: 02/17/2024 Dear Rafa Hernandez MD, A review of the medical record indicates additional documentation may be needed. Please review below and update the documentation accordingly. Clinical indicators: Cardiology consult note 02/17 - Type II WI due to Sepsis. Continue treatment for pneumonia. Short of breath and fatigue, no fever but chills. Started on Antibiotics WBC 12.0 LA 2.0 HR 100/105 RR 31 Sepsis Systemic manifestations of infection, with 2 or more SIRS criteria which include: Fever > 100.4?F or hypothermia < 96.8?F Leukocytosis - WBC > 12,000 or leukopenia, WBC < 4,000, or > 10% bands Tachycardia- > 90 beats/minute Tachypnea- RR > 20 breaths/minute or PaCO2 < 32mmHg Based on the above information and the recognized standard for sepsis, could you please clarify if th is diagnoses is still accurate and reflective of the patient's condition to ensure quality of the medical record. Sepsis possible, probable, suspected, resolved etc. After study Sepsis has been ruled out Other (explain) Clinically unable to determine (explain) Thank you, Esha Clemons, CCS, CDIS Use of terms such as suspected, likely, concern for, or probable (associated with a specific diagnosi s that is being evaluated, monitored, or treated as if it exists) are acceptable and can be coded in the inpatient se tting, when documented at the time of discharge. Please use your independent medical judgment in providing your response. THIS QUERY IS PART OF THE PERMANENT MEDICAL RECORD
[2024-02-19] MEDS: cefTRIAXone sodium 1 GM in 0.9 % Sodium Chloride 50 ML IV (16:38)
[2024-02-19 16:46] VITALS: BP 143/77; PULSE 109; RESP 18; TEMP 36.6; O2SAT 92
[2024-02-19] MEDS: Enoxaparin Sodium 40 MG/0.4 ML SYRINGE SUBCUT (17:18)
[2024-02-19 19:11] VITALS: BP 113/81; PULSE 99; RESP 20; TEMP 36.4; O2SAT 92
--- NOTE | 2024-02-19 19:12 | PC.NURSE ---
Pt given incentive spirometer and instructed on use.
[2024-02-20] VITALS (7 sets, daily range): BP systolic 109–127; BP diastolic 67–79; PULSE 101–119; RESP 18–20; TEMP 36.2–36.6; O2SAT 86–94
[2024-02-20] MEDS: Doxycycline Hyclate 100 MG in 0.9 % Sodium Chloride 250 ML 166.67 MG IV ×2 (05:40→17:28)
[2024-02-20] MEDS: Cyanocobalamin (Vitamin B-12) 500 MCG TABLET PO (08:42)
[2024-02-20] MEDS: Aspirin Enteric Coated 81 MG TABLET.DR PO (08:42)
[2024-02-20] MEDS: Cholecalciferol (Vitamin D3) 25 MCG TABLET PO (08:42)
[2024-02-20] MEDS: buPROPion HCl XL 150 MG TAB.ER.24H PO (08:43)
[2024-02-20] MEDS: 0.9 % Sodium Chloride Flush 3 ML SYRINGE IVFLUSH ×3 (08:43→23:54)
--- NOTE | 2024-02-20 09:40 | PC.NURSE ---
MD Baca made aware pt continues to remove o2 and walk around the room. Pt o2 saturation 86% on room air at rest, 92-95% on 3L. Pt educated on importance of using call phan and requesting help before ambulating around room so supplemental o2 can be applied. Pt states he understands teaching and is able to repeat back instructions.
--- NOTE | 2024-02-20 09:44 | HO.PM.IMPN ---
Subjective Subjective Date of Service: 02/20/24 Interval History: Had some diffiulties last night but feels better this morning, O2 drops Review of Systems All other system reviewed and are negative O2 drops to 86 on room air. Physical Exam Vital Signs: Vital Signs: Last Vital Signs Temp 97.2 F 02/20/24 07:28 Pulse 106 H 02/20/24 07:28 Resp 20 02/20/24 07:28 BP 127/79 02/20/24 07:28 Pulse Ox 92 02/20/24 08:50 O2 Del Method Nasal Cannula 02/20/24 08:50 O2 Flow Rate 3 02/20/24 08:50 BMI result Body Mass Index 29.2 Const: Other: General resting comfortably in no acute distress. Anicteric sclera Neck no JVD. CVS regular rate rhythm, Respiratory lungs right basilar coarse breath sounds, otherwise clear to auscultation, no respiratory distress, no wheeze. Gastrointestinal abdomen soft, non tender, bowel sounds audible. Extremities no edema. Neuro non focal Skin no rash psych depressed affect Objective Data Active Medications Acetaminophen (Acetaminophen 325 Mg Tablet) 650 mg PO Q6H PRN PRN Reason: Pain, Mild (Pain Scale 1-3), fever or headache Albuterol/Ipratropium (Albuterol/Iprat 2.5/0.5mg 3 Ml Ampul.Neb) 3 ml INHALE RQ6H WHILE AWAKE PRN PRN Reason: sob Aspirin (Aspirin Enteric Coated 81 Mg Tablet.) 81 mg PO DAILY [facility] Last Admin: 02/20/24 08:42 Dose: 81 mg Documented By: BRIGHT Bupropion HCl (Bupropion Hcl Xl 150 Mg Tab.Er.24h) 150 mg PO DAILY [facility] Last Admin: 02/20/24 08:43 Dose: 150 mg Documented By: BRIGHT Calcium Carbonate (Calcium Carbonate 750 Mg Tab.Chew) 750 mg PO Q4H PRN PRN Reason: Heartburn Cyanocobalamin (Cyanocobalamin (Vitamin B-12) 500 Mcg Tablet) 500 mcg PO DAILY [facility] Last Admin: 02/20/24 08:42 Dose: 500 mcg Documented By: BRIGHT Enoxaparin Sodium (Enoxaparin Sodium 40 Mg/0.4 Ml Syringe) 40 mg SUBCUT Q24H [facility] Last Admin: 02/19/24 17:18 Dose: 40 mg Documented By: ARIEL Ceftriaxone Sodium 1 gm/ (Sodium Chloride) 50 mls @ 100 mls/hr IV Q24H [facility] Last Infusion: 02/19/24 17:20 Dose: Infused Documented By: ARIEL Doxycycline Hyclate 100 mg/ (Sodium Chloride) 250 mls @ 166.67 mls/hr IV Q12H [facility] Last Infusion: 02/20/24 07:40 Dose: Infused Documented By: BRIGHT Magnesium Hydroxide (Milk Of Magnesia 30 Ml Oral.Susp) 30 ml PO DAILY PRN PRN Reason: Constipation Melatonin (Melatonin 3 Mg Tablet) 6 mg PO BEDTIME PRN PRN Reason: Insomnia Ondansetron HCl (Ondansetron Hcl 4 Mg/2 Ml Vial) 4 mg IVPUSH Q8H PRN PRN Reason: Nausea and Vomiting Sodium Chloride (0.9 % Sodium Chloride Flush 3 Ml Syringe) 3 ml IVFLUSH QSHIFT [facility] Last Admin: 02/20/24 08:43 Dose: 3 ml Documented By: BRIGHT Vitamin D (Cholecalciferol (Vitamin D3) 25 Mcg Tablet) 25 mcg PO DAILY [facility] Last Admin: 02/20/24 08:42 Dose: 25 mcg Documented By: BRIGHT Labs 02/18/24 06:12 02/19/24 05:44 Microbiology Microbiology Results: Microbiology 02/17/24 17:01 Blood Culture - Preliminary Blood - Venous No growth after 48 hours. 02/17/24 17:01 Blood Culture - Preliminary Blood - Venous No growth after 48 hours. Assessment and Plan (1) Right lower lobe pneumonia: Status: Acute (2) Elevated bilirubin: Status: Acute (3) Leukocytosis: Status: Acute Plan 68/m with HTN, status post aortic dissection repair presented with 2 weeks of sob, productive cough fatigue and malaise, ALEX on outpt labs, found to have acute hypoxic resp failure d/t RLL PNA Acute hypoxic respiratory failure due to Right lower lobe PNA, overall improving, WBC nl -ceftriaxone/doxycycline started 02/16, treat for 7 days ending 02/22, ceftin for ceftriaxone at dc -O2, gaol 94% -DuoNebs p.r.n. shortness of breath -may need home O2 Elevated troponins, flat -due to Type 2 ID d/t above -card will arrange for outpatient f/u -elevated BNP-no signs/symptoms of acute heart faiure, recent echo showed inferior septal and basal segment akinesis , stable EF HTN (relative hypo tension in ER) and requied IVF -BP presently nl, continue holding meds and restart when clinically appropriate Transaminitis--likely d/t acute infection, -follow LFTs CKD stage III -at baseline -follow labs Acute hyperkalemia d/t CKD treat with Lokelma follow labs Mood disorder continue Wellbutrin Full code Lovenox need for inpt: ongoing management for acute hypoxc resp failure d/t to PNA, remains hypoxic Quality Stroke Does the patient have a stroke diagnosis?: No VTE Prior VTE?: No VTE Risk Level:: Medical - moderate - high VTE Device Contraindication: Treatment Not Indicated VTE Drug Contraindication: N/A - Med Ordered
[2024-02-20] MEDS: Enoxaparin Sodium 40 MG/0.4 ML SYRINGE SUBCUT (16:53)
[2024-02-20] MEDS: cefTRIAXone sodium 1 GM in 0.9 % Sodium Chloride 50 ML IV (16:54)
[2024-02-20] MEDS: Albuterol/Iprat 2.5/0.5MG 3 ML AMPUL.NEB INHALE (20:22)
--- NOTE | 2024-02-20 20:48 | PC.RT ---
pt sats were 82% on 4 l n/c. placed on 8 l oxymask and sats up to 91-93% hr 122. no rsp distress . RN aware and tiger text Dr. Kearney
--- NOTE | 2024-02-20 21:50 | PM.EVENT ---
Event Note Date of Service: 02/20/24 Event Note: Contacted to notify Mr. Shukla is requiring more supplemental oxygen, he is now on 8L/min Oxymask. On my evaluation, he seems frustrated and said he feels lousy. Denied worsening SOB and does not look in distress. Pulmonary exam is remarkable for crackles to the right mid lung+ base, the left lung is clear. CXR was repeated. Right lung base infiltrate seems similar to prior. As he is not clinically improving we will switch his antibiotic therapy to Zosyn to cover for aspiration as the infiltrate is in the right lung. We will obtain nasal MRSA and sputum culture. Time Spent With Patient Time: Total time managing care of this patient today ____ minutes.
--- NOTE | 2024-02-20 22:01 | PC.NURSE ---
This proposal lead writer called respiratory to ask for a PRN Neb treatment d/t the fact that his O2 sats kept deteriorating, going from 94 to 82% after being put on 4L NC and then 4L oxymask, and now on [address] oCok was notified, she ordered a stat chest CT, came to see the pt and we are exploring options for this patient. Pt is not struggling, no work of breathing or accessory muscle use. Keeping a close eye on this pt.
[2024-02-20] MEDS: Piperacillin Sodium/Tazobactam 3.375 GM in 0.9 % Sodium Chloride 50 ML IV (23:54)
[2024-02-21 03:44] VITALS: BP 108/73; PULSE 114; RESP 20; TEMP 36.4; O2SAT 92
[2024-02-21] MEDS: Piperacillin Sodium/Tazobactam 3.375 GM in 0.9 % Sodium Chloride 50 ML IV ×3 (06:00→18:20)
[2024-02-21] MEDS: Doxycycline Hyclate 100 MG in 0.9 % Sodium Chloride 250 ML 166.67 MG IV ×2 (06:38→18:36)
[2024-02-21 07:11] LABS: Hematocrit 38.7 % (42.0-52.0); Hemoglobin 12.7 g/dl (14.0-18.0); Mean Corpuscular HGB Conc 32.8 g/dl (31.0-36.0); Mean Corpuscular Hemoglobin 29.3 pg (27.0-33.0); Mean Corpuscular Volume 89.2 fL (80.0-98.0); Mean Platelet Volume 9.2 fL (9.4-12.4); Platelet Count 269 X10*3/uL (160-400); Red Blood Count 4.34 X10*6/uL (4.60-5.80); Red Cell Distribution Width 14.7 % (11.0-16.0); White Blood Count 14.2 X10*3/uL (4.8-10.8)
[2024-02-21 07:14] LABS: Alanine Aminotransferase 92 U/L (0-40); Albumin Level 2.7 g/dL (3.5-5.0); Alkaline Phosphatase 57 U/L (39-117); Anion Gap 15 (12-20); Aspartate Amino Transferase 34 U/L (5-37); Bilirubin Direct 0.4 mg/dL (0.0-0.5); Bilirubin Total 0.9 mg/dL (0.0-1.0); Blood Urea Nitrogen 18 mg/dL (9-16); Calcium 8.7 mg/dL (8.4-10.2); Carbon Dioxide 23 mmol/L (22-29); Chloride 109 mmol/L (96-108); Creatinine Clr Calc Pharmacy 51.9; Estimated Glomerular Filt Rate 52; Glucose Random 133 mg/dL (60-115); Potassium 4.8 mmol/L (3.3-5.1); Sodium 142 mmol/L (135-145); Total Protein 5.2 g/dL (6.5-8.0)
[2024-02-21 07:23] VITALS: BP 156/100; PULSE 86; RESP 20; TEMP 36.4; O2SAT 91
[2024-02-21 07:56] LABS: C Reactive Protein 10.81 mg/dL (< or = 0.50)
[2024-02-21] MEDS: Cyanocobalamin (Vitamin B-12) 500 MCG TABLET PO (08:09)
[2024-02-21] MEDS: Cholecalciferol (Vitamin D3) 25 MCG TABLET PO (08:09)
[2024-02-21] MEDS: Aspirin Enteric Coated 81 MG TABLET.DR PO (08:09)
[2024-02-21] MEDS: atenoloL 25 MG TABLET PO (08:09)
[2024-02-21] MEDS: buPROPion HCl XL 150 MG TAB.ER.24H PO (08:09)
[2024-02-21] MEDS: 0.9 % Sodium Chloride Flush 3 ML SYRINGE IVFLUSH ×2 (08:10→18:34)
[2024-02-21 08:18] LABS: Procalcitonin 0.07 ng/mL
--- NOTE | 2024-02-21 09:50 | PC.NURSE ---
Addendum entered by Jaimee Lincoln RN 02/21/24 11:14: Report given to ALDAIR [place], pt brought to [phone]. Original Note: Pt alert and oriented x4 and able to make needs known. Pt o2 saturation 91% on 8L oxy mask this AM. Does not endorse SOB, able to speak in full sentences. LS dim throughout, right lobe fine crackles noted. MD Barboza aware. New orders entered including CTA of chest, consent obtained. Resp panel and MRSA swab collected, pt tolerated well. Orders entered to transfer to [facility], threat monitoring analyst applied, continuous o2 monitoring ordered but not available at this time, charge nurse aware. last VS 97.5, 86, 22 118/78, 95% on oxy mask. Pt aware of plan of care.
[2024-02-21 09:56] VITALS: BP 118/78; PULSE 95; RESP 22; TEMP 36.6; O2SAT 95
[2024-02-21] MEDS: iohexoL 350 MG/ML 100 ML INFUS..BTL IV (10:26)
[2024-02-21 11:10] LABS: MRSA Nasal PCR NEGATIVE (Negative); SA Nasal PCR NEGATIVE (Negative)
[2024-02-21 11:16] VITALS: BMI 27.6
[2024-02-21 11:18] LABS: Adenovirus PCR Not Detected (Not Detect.); Bordetella parapertussis PCR Not Detected (Not Detect.); Bordetella pertussis PCR Not Detected (Not Detect.); Chlamydia pneumoniae PCR Not Detected (Not Detect.); Coronavirus 229E PCR Not Detected (Not Detect.); Coronavirus HKU1 PCR Not Detected (Not Detect.); Coronavirus NL63 PCR Not Detected (Not Detect.); Coronavirus OC43 PCR Not Detected (Not Detect.); Human metapneumovirus PCR Not Detected (Not Detect.); Influenza A PCR Not Detected (Not Detect.); Influenza B PCR Not Detected (Not Detect.); Mycoplasma pneumoniae PCR Not Detected (Not Detect.); Parainfluenza 1 PCR Not Detected (Not Detect.); Parainfluenza 2 PCR Not Detected (Not Detect.); Parainfluenza 3 PCR Not Detected (Not Detect.); Parainfluenza 4 PCR Not Detected (Not Detect.); RSV PCR Not Detected (Not Detect.); Rhino/Enterovirus PCR Not Detected (Not Detect.)
[2024-02-21 11:20] LABS: SARS-CoV-2 PCR Not Detected (Not Detect.)
[2024-02-21 11:43] LABS: Glucose, Whole Blood 116 mg/dL (60-115)
--- NOTE | 2024-02-21 11:48 | P.PNIM_ITS ---
Subjective Subjective Date of Service: 02/21/24 Interval History: worsening hypoxia overnight; antibiotic coverage broadened to piperacillin- tazobactam this AM has worsening dyspnea; CTA positive for large saddle embolus no hx of VTE Review of Systems Review of Systems: Yes all other systems are reviewed and are negative Physical Exam 2 Vital Signs: Vital Signs: Last Vital Signs Temp 97.8 F 02/21/24 09:56 Pulse 95 02/21/24 09:56 Resp 22 H 02/21/24 09:56 BP 118/78 02/21/24 09:56 Pulse Ox 95 02/21/24 09:56 O2 Del Method Oxymask 02/21/24 09:56 O2 Flow Rate 8 02/21/24 09:56 BMI result Body Mass Index 27.6 Gen: in moderate respiratory distress HEENT: sclera anicteric, moist mucus membranes Neck: supple Lungs: coarse inspiratory crackles R>L Heart: regular rate and rhythm, no murmurs Abd: soft, non-tender, non-distended Ext: no edema Skin: warm/well-perfused Neuro: alert and oriented x3, no focal findings Psych: appropriate affect Objective Data Active Medications Acetaminophen (Acetaminophen 325 Mg Tablet) 650 mg PO Q6H PRN PRN Reason: Pain, Mild (Pain Scale 1-3), fever or headache Albuterol/Ipratropium (Albuterol/Iprat 2.5/0.5mg 3 Ml Ampul.Neb) 3 ml INHALE RQ6H WHILE AWAKE PRN PRN Reason: sob Last Admin: 02/20/24 20:22 Dose: 3 ml Documented By: SARATH Aspirin (Aspirin Enteric Coated 81 Mg Tablet.) 81 mg PO DAILY [facility] Last Admin: 02/21/24 08:09 Dose: 81 mg Documented By: BRIGHT Atenolol (Atenolol 25 Mg Tablet) 25 mg PO DAILY [facility]; Protocol Last Admin: 02/21/24 08:09 Dose: 25 mg Documented By: BRIGHT Atorvastatin Calcium (Atorvastatin Calcium 80 Mg Tablet) 80 mg PO BEDTIME [facility] Bupropion HCl (Bupropion Hcl Xl 150 Mg Tab.Er.24h) 150 mg PO DAILY [facility] Last Admin: 02/21/24 08:09 Dose: 150 mg Documented By: BRIGHT Calcium Carbonate (Calcium Carbonate 750 Mg Tab.Chew) 750 mg PO Q4H PRN PRN Reason: Heartburn Cyanocobalamin (Cyanocobalamin (Vitamin B-12) 500 Mcg Tablet) 500 mcg PO DAILY [facility] Last Admin: 02/21/24 08:09 Dose: 500 mcg Documented By: BRIGHT Heparin Sodium (Porcine) (Heparin Sodium,Porcine 5,000 Unit/Ml Vial) 3,100 unit 40 unit/kg (3100 unit) IVPUSH PROTOCOL BOLUS PRN; Protocol PRN Reason: 40 unit/kg - Heparin Protocol Heparin Sodium (Porcine) (Heparin Sodium,Porcine 5,000 Unit/Ml Vial) 6,200 unit 80 unit/kg (6200 unit) IVPUSH PROTOCOL BOLUS PRN; Protocol PRN Reason: 80 unit/kg - Heparin Protocol Doxycycline Hyclate 100 mg/ (Sodium Chloride) 250 mls @ 166.67 mls/hr IV Q12H [facility] Last Infusion: 02/21/24 08:15 Dose: Infused Documented By: BRIGHT Piperacillin Sod/Tazobactam (Sod 3.375 gm/ Sodium Chloride) 50 mls @ 100 mls/hr IV Q6H [facility] Last Infusion: 02/21/24 06:42 Dose: Infused Documented By: NALLELY Heparin Sodium/Sodium Chloride (Heparin Sodium,Porcine/1/2ns) 25,000 unit in 250 mls @ 0 mls/hr IVCONT .Q0M [facility]; Protocol Magnesium Hydroxide (Milk Of Magnesia 30 Ml Oral.Susp) 30 ml PO DAILY PRN PRN Reason: Constipation Melatonin (Melatonin 3 Mg Tablet) 6 mg PO BEDTIME PRN PRN Reason: Insomnia Ondansetron HCl (Ondansetron Hcl 4 Mg/2 Ml Vial) 4 mg IVPUSH Q8H PRN PRN Reason: Nausea and Vomiting Sodium Chloride (0.9 % Sodium Chloride Flush 3 Ml Syringe) 3 ml IVFLUSH QSHIFT [facility] Last Admin: 02/21/24 08:10 Dose: 3 ml Documented By: BRIGHT Vitamin D (Cholecalciferol (Vitamin D3) 25 Mcg Tablet) 25 mcg PO DAILY [facility] Last Admin: 02/21/24 08:09 Dose: 25 mcg Documented By: BRIGHT Labs 02/21/24 06:29 02/21/24 06:29 Labs: Laboratory Results - last 24 hr 02/21/24 02/21/24 02/21/24 06:29 09:15 11:34 MCV 89.2 MCH 29.3 MCHC 32.8 RDW 14.7 Plt Count 269 MPV 9.2 L Absolute Nucleated RBC 0.000 Nucleated RBC % (auto) 0.0 Anion Gap 15 Estim Creat Clear Calc 51.9 Estimated GFR 52 POC Glucose 116 H Random Glucose 133 H Calcium 8.7 Total Bilirubin 0.9 Direct Bilirubin 0.4 AST 34 ALT 92 H Alkaline Phosphatase 57 C-Reactive Protein 10.81 H Total Protein 5.2 L Albumin 2.7 L Procalcitonin 0.07 Nasal Screen MRSA (PCR) NEGATIVE Nasal S. aureus Screen NEGATIVE Nasal MRSA/S.aureus Interp SEE NOTE Respiratory Panel [facility] See Note Adenovirus (Rapid PCR) Not Detected B.pert (TEM-PCR) Not Detected B.parapertussis DNA PCR Not Detected C. pneumoniae DNA (PCR) Not Detected Coronavirus OC43 (PCR) Not Detected Coronavirus HKU1 (PCR) Not Detected Coronavirus 229E (PCR) Not Detected Coronavirus NL63 (PCR) Not Detected Human Metapneumovir PCR Not Detected Influenza A (RT-PCR) Not Detected Influenza B (RT-PCR) Not Detected M. pneumoniae (PCR) Not Detected Parainfluenza 1 (PCR) Not Detected Parainfluenza 2 (PCR) Not Detected Parainfluenza 3 (PCR) Not Detected Parainfluenza 4 (PCR) Not Detected RSV (PCR) Not Detected Entero/Rhino (PCR) Not Detected SARS-CoV-2 RNA (RT-PCR) Not Detected Impressions Chest X-Ray 02/20/24 21:15 IMPRESSION: Persistent right perihilar airspace disease as above. No new findings. Electronically signed by: Terrance Dodge MD 02/20/2024 11:27 PM EDT Chest CTA 02/21/24 10:12 IMPRESSION: 1. Positive for pulmonary emboli. Large thrombus burden. 2. Extensive right lung consolidation, infarction versus aspiration. 3. Indeterminate irregular 10 mm left upper lobe pulmonary nodule. Follow with noncontrast chest CT in 3 months. 4. Postsurgical changes thoracic aorta. 5. Evidence of right heart strain/increased right heart pressures. 6. Cholelithiasis. 7. Diverticulosis. VTE: Positive This critical result was discussed with Dr Barboza at 10:50 AM on 02/21/2024 and it was ascertained that the content and urgency of the report was understood at the time of direct communication. Fleischner guidelines were followed. Electronically signed by: Lane Witt MD 02/21/2024 11:00 AM EDT RP Assessment and Plan (1) Right lower lobe pneumonia: Status: Acute (2) Elevated bilirubin: Status: Acute (3) Leukocytosis: Status: Acute Plan d5 68yo with HTN, hx type A aortic dissection s/p repair with tube graft in 2019 presented with 2 wk of dyspnea, productive cough, fatigue/malaise; found to have ALEX on outpt labs admitted for AHRF due to RLL PNA; now with submassive PE acute hypoxic respiratory failure due to saddle PE with R heart strain - start heparin gtt, consult Pulm/Vasc Surg, NPO for possible catheter-directed thrombolysis vs thrombectomy - EKG, Tn-I, BNP - BLE duplex - wean O2 as tolerated PNA - 02/16-02/20 ceftriaxone, 02/20- piperacillin-tazobactam, 02/16- doxycycline hypotension - resolved; restart atenolol; amlodipine + lisinopril still on hold troponin elevation - initially attributed to PNA but more likely due to PE; will need outpt Cardiology f/u transaminasemia - likely due to acute infection; improving CKD3 - Cr now at baseline; ALEX had mostly resolved by the time he was admitted hyperK - mild; resolved after Lokelma mood disorder - bupropion dispo - TBD In my clinical judgment, the patient requires continued inpatient hospitalization for the following reasons: hypoxia, thrombectomy, IV ABX Total time managing care of this patient today: 60 minutes. Quality Stroke Does the patient have a stroke diagnosis?: No VTE Prior VTE?: No VTE Risk Level:: Medical - moderate - high VTE Device Contraindication: Treatment Not Indicated VTE Drug Contraindication: N/A - Med Ordered
[2024-02-21 12:26] LABS: INTERNATIONAL NORM RATIO 1.2 (0.9-1.1); Prothrombin Time 14.2 SEC (10.9-12.4)
[2024-02-21 12:29] LABS: D Dimer High Sensitivity 979 NG/ML; PTT Heparin Drip 26.1 SEC (53-77.9)
[2024-02-21] MEDS: Heparin Sodium,Porcine/1/2NS 25,000 UNIT/250 ML IV.SOLN 10.88 UNIT IVCONT (12:36)
[2024-02-21 12:38] LABS: Troponin-I High Sensitivity 39.6 ng/L (<3.5-35.0)
[2024-02-21 12:39] LABS: B Type Natriuretic Peptide 1510 pg/mL (<100)
[2024-02-21] MEDS: Heparin Sodium,Porcine 5,000 UNIT/ML VIAL 6200 UNIT IVPUSH (12:41)
[2024-02-21 12:57] VITALS: BP 111/76; PULSE 94; RESP 17; TEMP 36.6; O2SAT 92
--- NOTE | 2024-02-21 13:18 | PM.CNPUL ---
History of Present Illness History of Present Illness Consult date: 02/21/24 Chief complaint: Pneumonia, troponin + Narrative: 68-year-old gentleman with underlying hypertension, CAD status post CABG, severe aortic dissection status post repair admitted on 02/17/2024 with with malaise and dyspnea. He was noted to have large central pulmonary embolus with distal emboli. His bilateral lower extremity Dopplers positive for DVT's. He was started on heparin drip, but he still continues to require supplemental oxygen 8 L to maintain normal oximetry. Patient also covered for possible pneumonia with empiric antibiotic therapy. Review of Systems Constitutional: Constitutional: Denies daytime sleepiness, Denies excessive sweating, Denies fatigue, Denies fever(s), Denies lethargy, Denies malaise, Denies night sweats, Denies snoring and Denies weight loss Eyes: Eyes: Denies blurry vision and Denies itchy eyes ENT: Denies nasal congestion, Denies post nasal drip, Denies sinus pain, Denies sinus pressure and Denies other ( Thrush) Cardiovascular: Cardiovascular: Denies chest pain, Denies pedal edema, Reports dyspnea, Reports dyspnea on exertion, Denies orthopnea and Denies paroxysmal nocturnal dyspnea Respiratory: Respiratory: Denies cough, Denies hemoptysis, Denies excessive phlegm production, Reports dyspnea, Reports dyspnea on exertion, Denies snoring and Denies wheezing Gastrointestinal: Gastrointestinal: Denies abdominal pain and Denies heartburn Musculoskeletal: Musculoskeletal: Denies myalgias, Denies arthralgias and Denies joint swelling Integumentary/Breasts: Skin/Breast: Denies rash Neurologic: Denies memory loss and Denies seizure-like activity Psychiatric: Psychiatric: Denies abnormal sleep pattern, Denies anxiety and Denies memory loss Endocrine: Endocrine: Denies excessive sweating, Denies fatigue and Denies heat intolerance Hematologic/Lymphatic: Hematologic/Lymphatic: Denies easy bruising Allergic/Immunologic: Allergic/Immunologic: Denies itchy eyes, Denies seasonal rhinorrhea and Denies wheezing PMFSH Past Medical History Medical History Abnormal echocardiogram Fatigue Essential hypertension Aortic dissection Family History Family History Mother Breast cancer Father Heart disease Stroke Surgical History Surgical History Hx of colonoscopy H/O heart bypass surgery Social History Social History Household Members: Spouse Housing: House Do you presently have visiting nurse or other home services: No Alcohol intake: current Alcohol intake frequency: holidays/special occasions only Alcohol type: beer Patient Tobacco Use Status: Never used Tobacco Tobacco use type: Cigarette e-Cigarette/Vaping Use: Never Used Second Hand Smoke Exposure: No service: No Current occupational status: retired Cognitive needs: No Hearing needs: No Vision needs: No Meds Allergies Allergy/AdvReac Type Severity Reaction Status Date / Time No Known Allergies Allergy Verified 02/17/24 14:52 [No Known Allergies*] Active Medications: Current Medications Acetaminophen (Acetaminophen 325 Mg Tablet) 650 mg PO Q6H PRN PRN Reason: Pain, Mild (Pain Scale 1-3), fever or headache Albuterol/Ipratropium (Albuterol/Iprat 2.5/0.5mg 3 Ml Ampul.Neb) 3 ml INHALE RQ6H WHILE AWAKE PRN PRN Reason: sob Last Admin: 02/20/24 20:22 Dose: 3 ml Aspirin (Aspirin Enteric Coated 81 Mg Tablet.Dr) 81 mg PO DAILY GUY Last Admin: 02/21/24 08:09 Dose: 81 mg Atenolol (Atenolol 25 Mg Tablet) 25 mg PO DAILY GUY; Protocol Last Admin: 02/21/24 08:09 Dose: 25 mg Atorvastatin Calcium (Atorvastatin Calcium 80 Mg Tablet) 80 mg PO BEDTIME [facility]Y Bupropion HCl (Bupropion Hcl Xl 150 Mg Tab.Er.24h) 150 mg PO DAILY [facility]Y Last Admin: 02/21/24 08:09 Dose: 150 mg Calcium Carbonate (Calcium Carbonate 750 Mg Tab.Chew) 750 mg PO Q4H PRN PRN Reason: Heartburn Cyanocobalamin (Cyanocobalamin (Vitamin B-12) 500 Mcg Tablet) 500 mcg PO DAILY GUY Last Admin: 02/21/24 08:09 Dose: 500 mcg Heparin Sodium (Porcine) (Heparin Sodium,Porcine 5,000 Unit/Ml Vial) 3,100 unit 40 unit/kg (3100 unit) IVPUSH PROTOCOL BOLUS PRN; Protocol PRN Reason: 40 unit/kg - Heparin Protocol Heparin Sodium (Porcine) (Heparin Sodium,Porcine 5,000 Unit/Ml Vial) 6,200 unit 80 unit/kg (6200 unit) IVPUSH PROTOCOL BOLUS PRN; Protocol PRN Reason: 80 unit/kg - Heparin Protocol Doxycycline Hyclate 100 mg/ (Sodium Chloride) 250 mls @ 166.67 mls/hr IV Q12H [facility] Last Infusion: 02/21/24 08:15 Dose: Infused Piperacillin Sod/Tazobactam (Sod 3.375 gm/ Sodium Chloride) 50 mls @ 100 mls/hr IV Q6H [facility] Last Admin: 02/21/24 12:40 Dose: 100 mls/hr Heparin Sodium/Sodium Chloride (Heparin Sodium,Porcine/1/2ns) 25,000 unit in 250 mls @ 0 mls/hr IVCONT .Q0M [facility]; Protocol Last Admin: 02/21/24 12:36 Dose: 14 units/kg/hr, 10.88 mls/hr Magnesium Hydroxide (Milk Of Magnesia 30 Ml Oral.Susp) 30 ml PO DAILY PRN PRN Reason: Constipation Melatonin (Melatonin 3 Mg Tablet) 6 mg PO BEDTIME PRN PRN Reason: Insomnia Ondansetron HCl (Ondansetron Hcl 4 Mg/2 Ml Vial) 4 mg IVPUSH Q8H PRN PRN Reason: Nausea and Vomiting Sodium Chloride (0.9 % Sodium Chloride Flush 3 Ml Syringe) 3 ml IVFLUSH QSHIFT [facility] Last Admin: 02/21/24 08:10 Dose: 3 ml Vitamin D (Cholecalciferol (Vitamin D3) 25 Mcg Tablet) 25 mcg PO DAILY [facility] Last Admin: 02/21/24 08:09 Dose: 25 mcg Home Medications ?Medication ?Instructions ?Recorded ?Confirmed ?Last Taken ?Type aspirin 81 mg tablet,delayed 81 mg PO DAILY 08/01/20 02/17/24 02/16/24 History release (Adult Low Dose Aspirin) atorvastatin 80 mg tablet 80 mg PO BEDTIME 02/17/24 02/17/24 Unknown History bupropion HCl 150 mg 24 hr tablet, 150 mg PO DAILY 02/17/24 02/17/24 02/16/24 History extended release cholecalciferol (vitamin D3) 25 25 mcg PO DAILY 02/17/24 02/17/24 02/16/24 History mcg (1,000 unit) tablet (Vitamin D3) cyanocobalamin (vitamin B-12) 500 500 mcg PO DAILY 02/17/24 02/17/24 02/16/24 History mcg tablet (Vitamin B-12) [id number] 150 mcg-vit K1 1 tab PO DAILY 02/17/24 02/17/24 02/16/24 History 30 mcg-lycop 300 mcg-lutein tablet (Centrum Minis Men 50 Plus) Physical Exam Vital Signs: Vital Signs: Last Vital Signs Temp 97.8 F 02/21/24 12:57 Pulse 94 02/21/24 12:57 Resp 17 02/21/24 12:57 BP 111/76 02/21/24 12:57 Pulse Ox 92 02/21/24 12:57 O2 Del Method Oxymask 02/21/24 12:57 O2 Flow Rate 8 02/21/24 12:57 BMI result Body Mass Index 27.6 Const: General: no acute distress, alert and awake Eyes: Sclerae: sclerae normal EOM: EOMs intact bilaterally Neck: Neck: Yes no lymphadenopathy, Yes trachea midline and Yes supple Resp: Effort & Inspection: normal respiratory effort and no respiratory distress Auscultation: clear to auscultation bilaterally Cardio: Rate: regular rate Rhythm: regular rhythm Heart sounds: no gallops, no murmurs and no rubs GI: Palpation (GI): Soft to palpation and Other GI palpation findings present ( Nontender) Auscultation: normal bowel sounds Extrem: General: Yes no pedal edema, No clubbing and No cyanosis Results Laboratory Findings 02/21/24 06:29 02/21/24 06:29 ABG, PT/INR, D-dimer: PT/INR, D-dimer PT 14.2 SEC (10.9-12.4) H 02/21/24 12:12 INR 1.2 (0.9-1.1) H 02/21/24 12:12 Abnormal lab findings: Abnormal Labs 02/17/24 02/17/24 02/17/24 15:06 15:08 17:01 WBC 12.0 H RBC Hgb Hct 41.9 L MPV 8.9 L Immature Gran % (Auto) 1.8 H Neut % (Auto) 78.5 H Lymph % (Auto) 8.0 L Wilson % (Auto) 11.1 H Lymph # (Auto) 1.0 L Wilson # (Auto) 1.3 H Abs Immat Gran (auto) 0.22 H Absolute Neuts (auto) 9.4 H PT 15.3 H INR 1.3 H aPTT Heparin Protocol Potassium Chloride Anion Gap BUN 28 H Creatinine 1.71 H POC Glucose Random Glucose 148 H Calcium Total Bilirubin 1.3 H 1.2 H AST 113 H 100 H ALT 196 H 178 H Troponin I High Sens 326.3 H* 362.0 H* C-Reactive Protein B-Natriuretic Peptide 197 H Total Protein 5.9 L 5.5 L Albumin 3.2 L 2.9 L 02/18/24 02/18/24 02/19/24 06:11 06:12 05:44 WBC RBC 4.22 L Hgb 12.4 L Hct 37.3 L MPV Immature Gran % (Auto) 1.8 H Neut % (Auto) 73.3 H Lymph % (Auto) 10.9 L Wilson % (Auto) 12.7 H Lymph # (Auto) 1.1 L Wilson # (Auto) 1.3 H Abs Immat Gran (auto) 0.19 H Absolute Neuts (auto) PT 15.4 H INR 1.3 H aPTT Heparin Protocol Potassium 5.4 H Chloride Anion Gap 11 L BUN 25 H 20 H Creatinine 1.50 H POC Glucose Random Glucose 122 H 121 H Calcium 8.3 L 8.3 L Total Bilirubin AST 75 H 56 H ALT 141 H 129 H Troponin I High Sens 219.2 H* C-Reactive Protein B-Natriuretic Peptide Total Protein 5.0 L 5.0 L Albumin 2.7 L 2.6 L 02/21/24 02/21/24 02/21/24 06:29 11:34 12:12 WBC 14.2 H RBC 4.34 L Hgb 12.7 L Hct 38.7 L MPV 9.2 L Immature Gran % (Auto) Neut % (Auto) Lymph % (Auto) Wilson % (Auto) Lymph # (Auto) Wilson # (Auto) Abs Immat Gran (auto) Absolute Neuts (auto) PT 14.2 H INR 1.2 H aPTT Heparin Protocol 26.1 L Potassium Chloride 109 H Anion Gap BUN 18 H Creatinine POC Glucose 116 H Random Glucose 133 H Calcium Total Bilirubin AST ALT 92 H Troponin I High Sens 39.6 H D C-Reactive Protein 10.81 H B-Natriuretic Peptide 1510 H Total Protein 5.2 L Albumin 2.7 L Microbiology: Microbiology 02/17/24 17:01 Blood - Venous Blood Culture - Preliminary No growth after 48 hours. 02/17/24 17:01 Blood - Venous Blood Culture - Preliminary No growth after 48 hours. Assessment and Plan (1) Pulmonary emboli: Status: Acute (2) Acute hypoxemic respiratory failure: Status: Acute (3) Deep venous thrombosis: Status: Acute Plan Impression: 68-year-old gentleman with submassive pulmonary embolus and possible pulmonary infarcts resulting in acute hypoxic respiratory failure who continues to require supplemental oxygen titers to maintain normal oximetry. Possible overlying pneumonia. Recommendations: Agree with empiric antibiotic coverage. Recheck troponin/BNP. Unlikely a good candidate for systemic thrombolysis, but would consider vascular surgery evaluation for Laurence filter placement and catheter directed thrombolysis or clot extraction. Procedures Date of Service Date of Service: 02/21/24
[2024-02-21 16:00] VITALS: BP 119/81; PULSE 95; RESP 21; TEMP 37.2; O2SAT 95
[2024-02-21 18:50] LABS: PTT Heparin Drip 103.1 SEC (53-77.9)
[2024-02-21 19:37] VITALS: BP 110/75; PULSE 98; RESP 22; TEMP 36.8; O2SAT 92
[2024-02-21] MEDS: Atorvastatin Calcium 80 MG TABLET PO (21:03)
[2024-02-21] MEDS: Melatonin 3 MG TABLET 6 MG PO (21:12)
[2024-02-22] VITALS (20 sets, daily range): BP systolic 91–152; BP diastolic 43–87; PULSE 68–98; RESP 16–25; TEMP 36.2–37.2; O2SAT 86–97
[2024-02-22] MEDS: Piperacillin Sodium/Tazobactam 3.375 GM in 0.9 % Sodium Chloride 50 ML IV ×5 (00:09→23:36)
[2024-02-22] MEDS: 0.9 % Sodium Chloride Flush 3 ML SYRINGE IVFLUSH ×3 (00:09→20:22)
[2024-02-22 02:22] LABS: PTT Heparin Drip 33.3 SEC (53-77.9)
[2024-02-22] MEDS: Heparin Sodium,Porcine 5,000 UNIT/ML VIAL 6200 UNIT IVPUSH (02:38)
[2024-02-22] MEDS: traZODone HCL 25 MG HALFTAB PO ×2 (02:43→20:17)
[2024-02-22] MEDS: Doxycycline Hyclate 100 MG in 0.9 % Sodium Chloride 250 ML 166.67 MG IV ×2 (04:42→20:17)
[2024-02-22 06:45] LABS: Hematocrit 39.1 % (42.0-52.0); Hemoglobin 12.9 g/dl (14.0-18.0); Mean Corpuscular Hemoglobin 28.8 pg (27.0-33.0); Mean Corpuscular Volume 87.3 fL (80.0-98.0); Mean Platelet Volume 9.1 fL (9.4-12.4); Platelet Count 291 X10*3/uL (160-400); Red Blood Count 4.48 X10*6/uL (4.60-5.80); Red Cell Distribution Width 14.9 % (11.0-16.0); White Blood Count 13.9 X10*3/uL (4.8-10.8)
--- NOTE | 2024-02-22 07:00 | CA_ITS ---
Transthoracic Echocardiogram Patient (Last, First, Middle): Guero Shukla, Gender: Male Date of : 1955 Age: 68 Procedure Date: 02/22/2024 Procedure Type: Transthoracic Echocardiogram [place] [facility] [place] Height: 167.64 cm Weight: 77.57 kg BSA: 1.87 m2 Heart Rate: 94 bpm BP: 109 / 78 mmHg Wool Presser: Referring MD: Albaro Barboza MD [employer]anner: Deep Steele MD Symptoms: R-sided heart strain from PE Study Quality: Adequate w contrast ECG Rhythm: Sinus Conclusions: - 1. Severely dilated right ventricle with severe systolic dysfunction with apical sparing, findings usually seen with acute cor pulmonale 2. Normal LV ejection fraction of 60-65% with grade 1 diastolic dysfunction Findings Procedure Information Contrast agent, definity, is being given per protocol without apparent complications. Left Ventricle Normal left ventricular size, thickness, and systolic function. The visually estimated ejection fraction is between 60-65%. There is a flattened septum in systole consistent with right ventricular pressure overload. Spectral Doppler is indicative of an impaired relaxation filling pattern. E/E prime ratio is <8, consistent with normal filling pressures. Evidence suggests grade I (mild) diastolic dysfunction. Right Ventricle Severely increased right ventricular cavity size. There is severely decreased right ventricular systolic function. Findings are consistent with acute cor pulmonale. Measurements 2D Linear Measurements RVIDd: 4.53 RVIDd Index: 2.42 IVSd: 1.20 0.6-0.9/0.6-1.0 cm LVIDd: 3.24 3.9-5.3/4.2-5.9 cm LVIDd Index: 1.73 2.4-3.2/2.2-3.1 cm/m2 LVIDs: 2.22 2.0-3.6 cm LVPWd: 1.21 0.7-1.1 cm LV Mass: 152.20 67-162/88-224 g LV Mass Index: 81.39 43-95/49-115 g/m2 Mitral Valve MV Pk E: 0.39 MV PK A: 0.62 MV Decel Time: 124.00 E/A: 0.60 E'Lateral: 7.62 E'Medial: 6.31 E/E' Med: 6.10 E/E' Lat: 5.10 PHT: 36.00 MVA PHT: 6.11 Decel [place]: 3.10 Diastolic Function MV Pk E: 0.39 MV Pk A: 0.62 E/A: 0.60 E'Medial: 6.31 E/E' Med: 6.10 E' Laterial: 7.62 E/E' Lat: 5.10 Right Ventricle TAPSE (mm): 9.70 TVS' Kailash: 5.40 Tricuspid Valve TR Pk Kailash: 2.60 TR Pk Grad: 27.00 RA Press: 3.00 RVSP: 30.00 Great Vessels Aorta Ao Asc: 3.30 2.1-3.4 cm Ao Arch: 3.20 Updated in Other Vendor System with Status of Final Deep Steele MD electronically signed on 02/22/2024 11:08:46 AM with status of Final
[2024-02-22 07:01] LABS: INTERNATIONAL NORM RATIO 1.3 (0.9-1.1); Prothrombin Time 15.2 SEC (10.9-12.4)
[2024-02-22 07:03] LABS: Alanine Aminotransferase 100 U/L (0-40); Albumin Level 2.8 g/dL (3.5-5.0); Alkaline Phosphatase 57 U/L (39-117); Anion Gap 13 (12-20); Aspartate Amino Transferase 43 U/L (5-37); Bilirubin Total 1.1 mg/dL (0.0-1.0); Blood Urea Nitrogen 22 mg/dL (9-16); Calcium 8.5 mg/dL (8.4-10.2); Carbon Dioxide 24 mmol/L (22-29); Chloride 110 mmol/L (96-108); Creatinine Clr Calc Pharmacy 45.5; Estimated Glomerular Filt Rate 46; Glucose Random 126 mg/dL (60-115); Potassium 4.6 mmol/L (3.3-5.1); Sodium 142 mmol/L (135-145); Total Protein 5.4 g/dL (6.5-8.0)
[2024-02-22 07:08] LABS: B Type Natriuretic Peptide 1119 pg/mL (<100)
--- NOTE | 2024-02-22 07:59 | P.PNVS_ITS ---
<Statement entered by Milan Arnold MD - 02/22/24 11:09> I have seen and evaluated the patient and agree with history, findings, assessment and plan documented by Lucie Ramirez PA-c. In short this is a 68-year-old gentleman who after a trip to a regarding in [facility] developed right calf pain. He had progressively been developing shortness of breath. Last 2-3 days it was to the point where he could not walk from the barn up to the house. Subsequently brought in and worked up. Initial evaluation thought it was pneumonia. Upon further evaluation he was noted to have a saddle pulmonary embolism on CT. Noninvasive duplex demonstrated right calf DVT. He will require pulmonary embolectomy. Risks benefits complications were discussed in detail with the patient and the patient's family at bedside. They agreed and would like to move forward. Please see my PA note for further details. Subjective Subjective Date of Service: 02/22/24 Interval history: Guero is doing okay this morning. He states he slept last night and has not eaten anything since then. He states he is breathing comfortably and is without chest pain. Physical Exam Vital Signs: Vital Signs: Last Vital Signs Temp 97.2 F 02/22/24 04:00 Pulse 95 02/22/24 04:00 Resp 20 02/22/24 05:02 BP 109/78 02/22/24 04:00 Pulse Ox 94 02/22/24 04:00 O2 Del Method Room Air 02/22/24 04:00 O2 Flow Rate 8 02/21/24 12:57 BMI result Body Mass Index 27.6 Const: Other: Appears comfortable sitting up in bed, speaking in full sentences. No obvious resp distress noted. Orientation/consciousness: patient oriented x3 Resp: Other: Slight increased work of breathing Effort & Inspection: able to speak in complete sentences Cardio: Rate: regular rate Rhythm: regular rhythm Skin: Other: slightly pale in appearance +DP/PT pulses bilaterally Neuro: General: patient oriented x3 Progress Note: A&P Assessment and plan (1) Pulmonary emboli: Status: Acute (2) Deep venous thrombosis: Status: Acute Plan Guero is doing ok; he states he feels blah and fatigued. He denies shortness of breath/CP/diff breathing; he currently remains on O2. He states this is helping. He is slightly winded when talking in full sentences but is able to speak in full sentences. He did sleep last night, he states he was given a medication for sleep last night. He has been NPO since last night. He denies any questions at this point. We discussed that we will be taking him in for surgery later this morning/early afternoon for thrombectomy for the saddle pulmonary emboli. We discussed the surgery and possible complications. I discussed with him that if any questions arise, that we can answer the questions prior to surgery. Time Spent With Patient Time: Total time managing care of this patient today ___20_ minutes. Procedures Date of Service Date of Service: 02/22/24 Quality Stroke Does the patient have a stroke diagnosis?: No VTE Prior VTE?: No VTE Risk Level:: Medical - moderate - high VTE Device Contraindication: Treatment Not Indicated VTE Drug Contraindication: N/A - Med Ordered
[2024-02-22 08:54] LABS: PTT Heparin Drip 85.5 SEC (53-77.9)
[2024-02-22] MEDS: Aspirin Enteric Coated 81 MG TABLET.DR PO (08:57)
[2024-02-22] MEDS: buPROPion HCl XL 150 MG TAB.ER.24H PO (08:57)
[2024-02-22] MEDS: atenoloL 25 MG TABLET PO (08:57)
[2024-02-22] MEDS: Cyanocobalamin (Vitamin B-12) 500 MCG TABLET PO (08:57)
[2024-02-22] MEDS: Cholecalciferol (Vitamin D3) 25 MCG TABLET PO (08:57)
--- NOTE | 2024-02-22 13:34 | MHC.CM.PN ---
EMR reviewed and per MD rounds, pt is not medically cleared for discharge due to management of hypoxia, PE, with pending thrombectomy.
--- NOTE | 2024-02-22 14:44 | HO.PM.IMPN ---
Subjective Subjective Date of Service: 02/22/24 Interval History: transitioned to HFNC, now on 40LPm, 55% FiO2 c/o dyspnea/no chest pain Review of Systems Review of Systems: Yes all other systems are reviewed and are negative Physical Exam Vital Signs: Vital Signs: Last Vital Signs Temp 97.8 F 02/22/24 12:00 Pulse 68 02/22/24 12:00 Resp 16 02/22/24 12:00 BP 129/73 02/22/24 12:00 Pulse Ox 97 02/22/24 08:00 O2 Del Method Room Air 02/22/24 12:00 O2 Flow Rate 10 02/22/24 08:00 FiO2 65 02/22/24 04:00 BMI result Body Mass Index 27.6 Gen: in mild respiratory distress HEENT: sclera anicteric, moist mucus membranes Neck: supple Lungs: coarse inspiratory crackles R>L Heart: regular rate and rhythm, no murmurs Abd: soft, non-tender, non-distended Ext: no edema Skin: warm/well-perfused Neuro: alert and oriented x3, no focal findings Psych: appropriate affect Objective Data Active Medications Acetaminophen (Acetaminophen 325 Mg Tablet) 650 mg PO Q6H PRN PRN Reason: Pain, Mild (Pain Scale 1-3), fever or headache Albuterol/Ipratropium (Albuterol/Iprat 2.5/0.5mg 3 Ml Ampul.Neb) 3 ml INHALE RQ6H WHILE AWAKE PRN PRN Reason: sob Last Admin: 02/20/24 20:22 Dose: 3 ml Documented By: SARATH Aspirin (Aspirin Enteric Coated 81 Mg Tablet.) 81 mg PO DAILY [facility] Last Admin: 02/22/24 08:57 Dose: 81 mg Documented By: ROSANNE Atenolol (Atenolol 25 Mg Tablet) 25 mg PO DAILY [facility]; Protocol Last Admin: 02/22/24 08:57 Dose: 25 mg Documented By: ROSANNE Atorvastatin Calcium (Atorvastatin Calcium 80 Mg Tablet) 80 mg PO BEDTIME [facility] Last Admin: 02/21/24 21:03 Dose: 80 mg Documented By: ANDRÉS Bupropion HCl (Bupropion Hcl Xl 150 Mg Tab.Er.24h) 150 mg PO DAILY [facility] Last Admin: 02/22/24 08:57 Dose: 150 mg Documented By: ROSANNE Calcium Carbonate (Calcium Carbonate 750 Mg Tab.Chew) 750 mg PO Q4H PRN PRN Reason: Heartburn Cyanocobalamin (Cyanocobalamin (Vitamin B-12) 500 Mcg Tablet) 500 mcg PO DAILY [facility] Last Admin: 02/22/24 08:57 Dose: 500 mcg Documented By: ROSANNE Heparin Sodium (Porcine) (Heparin Sodium,Porcine 5,000 Unit/Ml Vial) 3,100 unit 40 unit/kg (3100 unit) IVPUSH PROTOCOL BOLUS PRN; Protocol PRN Reason: 40 unit/kg - Heparin Protocol Heparin Sodium (Porcine) (Heparin Sodium,Porcine 5,000 Unit/Ml Vial) 6,200 unit 80 unit/kg (6200 unit) IVPUSH PROTOCOL BOLUS PRN; Protocol PRN Reason: 80 unit/kg - Heparin Protocol Last Admin: 02/22/24 02:38 Dose: 6,200 unit Documented By: ANDRÉS Doxycycline Hyclate 100 mg/ (Sodium Chloride) 250 mls @ 166.67 mls/hr IV Q12H [facility] Last Infusion: 02/22/24 08:10 Dose: Infused Documented By: ROSANNE Piperacillin Sod/Tazobactam (Sod 3.375 gm/ Sodium Chloride) 50 mls @ 100 mls/hr IV Q6H [facility] Last Infusion: 02/22/24 11:59 Dose: Infused Documented By: ROSANNE Heparin Sodium/Sodium Chloride (Heparin Sodium,Porcine/1/2ns) 25,000 unit in 250 mls @ 0 mls/hr IVCONT .Q0M [facility]; Protocol Last Titration: 02/22/24 09:09 Dose: 13 units/kg/hr, 10.1 mls/hr Documented By: ROSANNE Co-signed By: IMANI Sodium Chloride (Ns) 1,000 mls @ 100 mls/hr IVCONT .Q10H [facility] Magnesium Hydroxide (Milk Of Magnesia 30 Ml Oral.Susp) 30 ml PO DAILY PRN PRN Reason: Constipation Melatonin (Melatonin 3 Mg Tablet) 6 mg PO BEDTIME PRN PRN Reason: Insomnia Last Admin: 02/21/24 21:12 Dose: 6 mg Documented By: ANDRÉS Ondansetron HCl (Ondansetron Hcl 4 Mg/2 Ml Vial) 4 mg IVPUSH Q8H PRN PRN Reason: Nausea and Vomiting Sodium Chloride (0.9 % Sodium Chloride Flush 3 Ml Syringe) 3 ml IVFLUSH QSHIFT [facility] Last Admin: 02/22/24 08:57 Dose: 3 ml Documented By: ROSANNE Trazodone HCl (Trazodone Hcl 25 Mg Halftab) 25 mg PO BEDTIME [facility] Last Admin: 02/22/24 02:43 Dose: 25 mg Documented By: ANDRÉS Vitamin D (Cholecalciferol (Vitamin D3) 25 Mcg Tablet) 25 mcg PO DAILY [facility] Last Admin: 02/22/24 08:57 Dose: 25 mcg Documented By: ROSANNE Labs 02/22/24 06:05 02/22/24 06:05 Labs: Laboratory Results - last 24 hr 02/21/24 02/22/24 02/22/24 18:35 02:08 06:05 MCV 87.3 MCH 28.8 MCHC 33.0 RDW 14.9 Plt Count 291 MPV 9.1 L Absolute Nucleated RBC 0.000 Nucleated RBC % (auto) 0.0 PT 15.2 H INR 1.3 H aPTT Heparin Protocol 103.1 H D 33.3 L D Anion Gap 13 Estim Creat Clear Calc 45.5 Estimated GFR 46 Random Glucose 126 H Calcium 8.5 Total Bilirubin 1.1 H AST 43 H ALT 100 H Alkaline Phosphatase 57 B-Natriuretic Peptide 1119 H Total Protein 5.4 L Albumin 2.8 L 02/22/24 08:39 MCV MCH MCHC RDW Plt Count MPV Absolute Nucleated RBC Nucleated RBC % (auto) PT INR aPTT Heparin Protocol 85.5 H D Anion Gap Estim Creat Clear Calc Estimated GFR Random Glucose Calcium Total Bilirubin AST ALT Alkaline Phosphatase B-Natriuretic Peptide Total Protein Albumin Impressions Venous Duplex 02/21/24 11:44 IMPRESSION: Acute DVT in the bilateral below the knee veins and in the right popliteal vein. Electronically signed by: Astrid Kelly MD 02/21/2024 12:31 PM EDT Chest X-Ray 02/22/24 01:56 IMPRESSION: *No change compared with 02/20/2024. Focal consolidation within the right middle lung zone unchanged compared with 02/20/2024 suspicious for pneumonia. Electronically signed by: Rakesh Melendrez MD 02/22/2024 05:38 AM EDT RP TTE 02/22/24 1. Severely dilated right ventricle with severe systolic dysfunction with apical sparing, findings usually seen with acute cor pulmonale 2. Normal LV ejection fraction of 60-65% with grade 1 diastolic dysfunction Assessment and Plan (1) Right lower lobe pneumonia: Status: Acute (2) Elevated bilirubin: Status: Acute (3) Leukocytosis: Status: Acute Plan d6 68yo with HTN, hx type A aortic dissection s/p repair with tube graft in 2019 presented with 2 wk of dyspnea, productive cough, fatigue/malaise; found to have ALEX on outpt labs admitted for AHRF due to RLL PNA; now with submassive PE acute hypoxic respiratory failure due to saddle PE with R heart strain bilateral LE DVT acute cor pulmonale - heparin gtt, consulted Pulm/Vasc Surg, NPO for catheter-directed thrombectomy - on HFNC; wean O2 as tolerated PNA - 02/16-02/20 ceftriaxone, 02/20- piperacillin-tazobactam, 02/16- doxycycline; RPP negative; PCT low; urinary antigens for Legionella and pneumococcus pending hypotension - resolved; restarted atenolol; amlodipine + lisinopril still on hold troponin elevation - initially attributed to PNA but more likely due to PE; will need outpt Cardiology f/u transaminasemia - likely due to hepatic congestion or PNA; improving CKD3 - monitor Cr closely hyperK - mild; resolved after Lokelma mood disorder - bupropion dispo - TBD In my clinical judgment, the patient requires continued inpatient hospitalization for the following reasons: hypoxia, thrombectomy, IV ABX Total time managing care of this patient today: 50 minutes. Quality Stroke Does the patient have a stroke diagnosis?: No VTE Prior VTE?: No VTE Risk Level:: Medical - moderate - high VTE Device Contraindication: Treatment Not Indicated VTE Drug Contraindication: N/A - Med Ordered
--- NOTE | 2024-02-22 17:44 | W.PM.OPN ---
Operative Note Operative Note Date of Service: 02/22/24 Narrative: Operative note by [facility] Preoperative diagnosis: DVT with PE Postoperative diagnosis: Same Procedure:1. Ultrasound-guided right common femoral vein access 2. Inferior vena cavogram 3. Selective right pulmonary artery angiogram 4. Selective left pulmonary artery angiogram 5. Mechanical thrombectomy of pulmonary embolism of bilateral pulmonary artery 6. Return of blood using flow Saver system 7. Radiologic supervision and interpretation. Surgeon:Milan Arnold M.D. Car Hopper: None Anesthesia: Local with moderate conscious sedation. Total intraservice moderate sedation time was 127 minutes. I monitored the patient's level of consciousness and physiologic status continuously throughout the procedure. Specimens: none Drains :none Estimated blood loss: Less than 50 ml Implant: None Comorbid conditions: Acute respiratory failure with hypoxia, DVT , right lower lobe pneumonia, aortic dissection, lumbar spine pain, hypertension, diverticulosis, segmental colitis, major depressive disorder. Indications: Patient was noted to have submassive pulmonary embolism.. CT of the chest was reviewed and demonstrated saddle embolus. Heparin drip was initiated immediately. Due to the clot burden the patient now presents for pulmonary embolectomy. The patient has signed the informed consent after reviewing risks, complications, benefits, and alternatives previously discussed with the patient. The patient was given the opportunity to ask any additional questions or voice any concerns. All questions were answered to the patient's satisfaction. Procedure in detail: Patient was brought to the angiography suite prior to which a time-out was called for patient identification and site verification. Bilateral groins were prepped and draped in the standard surgical fashion. Under ultrasound guidance right common femoral vein was punctured with micro puncture needle and wire. Subsequently a precision 5 Bulgarian sheath was then placed. Bentson wire was advanced to the level of the vena cava. 5 Bulgarian Flush catheter was brought up and parked at the level of the renal arteries. Vena cavogram was then undertaken. The patient was systemically anticoagulated with 13,000 heparin and therapeutic ACT was achieved of 261. We then advanced a Bentson wire all the way up into the inferior vena cava to the atrial junction. We then advanced a pigtail catheter through that from the right atrium to the right ventricle into the pulmonary artery. We then readvanced the Bentson wire through this. In order to confirm appropriate positioning and no trauma to cardiac tissue we advanced an insufflated 8 x 40 balloon. We met no resistance. At this time we did a selective image the right main pulmonary artery and subsequently the left main pulmonary artery. We then advanced the INTRI 24 Bulgarian sheath. Over this we then placed TRIEVER 24 large-bore catheter. This was directed towards the left pulmonary artery. We then successfully aspirated moderate clot burden. Once the syringe was filled we placed this through the flow Saver blood filtering system and returned the blood back to the patient. Several aspirations were performed until we had no thrombus return. In a similar manner we then selectively declotted the right pulmonary artery. Multiple aspirations were undertaken. Once this was all done completion imaging was then undertaken. No residual thrombus was noted. Catheter wire and sheath were removed. 10 minutes of direct pressure was held. Patient tolerated the procedure well and was returned to recovery with stable vitals. Interpretation of films: 1. Ultrasound was used to evaluate access site of the femoral vein. The femoral vein was noted to be patent with no thrombus. Ultrasound was used for visualization of needle entry. Image was saved to PACS 2. Vena cavogram demonstrated normal caliber vena cava with no evidence of thrombus. 3. Pulmonary artery imaging demonstrated - significant saddle embolus with clot in the right pulmonary artery and left pulmonary artery 4. Completion imaging demonstrated resolution of clot Conclusion: 1. Successful pulmonary embolectomy 2. Anticoagulation status: Continue heparin drip at previous right. Can restart formal oral anticoagulation tomorrow This note is constructed using voice recognition software. While every effort has been made to ensure accuracy, repairer maintenance building errors may have been included. Thank you for allowing me to participate in the care of your patient. Yours sincerely, Milan Arnold MD, FACS, R.P.V.I.
--- NOTE | 2024-02-22 20:02 | PC.NURSE ---
Patient arrived back to unit from PACU s/p IR thrombectomy at 1948. VSS. Heparin gtt infusing at 13 units/kg/hr on arrival back. Per bedside handoff report from [employer], heparin gtt had been paused at 14:[address] Arnold and restarted in radiology at 17:40. Director Process called and spoke with phlebotomy, requested to bedside for 19:00 PTT draw. Pt resting in bed, alert and conversing with family. Breathing is even and unlabored without distress 94% on 9L oxymask. RT notified pt back on unit. Bed alarm on and safety measures in place. Plan of care continues.
[2024-02-22] MEDS: Atorvastatin Calcium 80 MG TABLET PO (20:17)
[2024-02-22 21:29] LABS: PTT Heparin Drip 135.5 SEC (53-77.9)
[2024-02-22 23:30] LABS: PTT Heparin Drip 43.8 SEC (53-77.9)
[2024-02-22] MEDS: Heparin Sodium,Porcine/1/2NS 25,000 UNIT/250 ML IV.SOLN 6.99 UNIT IVCONT (23:52)
[2024-02-23 00:15] VITALS: BP 94/61; PULSE 86; RESP 20; TEMP 36.4; O2SAT 92
[2024-02-23] MEDS: 0.9 % Sodium Chloride 1,000 ML 100 ML IVCONT (02:14)
[2024-02-23 04:43] VITALS: BP 124/71; PULSE 84; RESP 20; TEMP 36.3; O2SAT 97
[2024-02-23] MEDS: Piperacillin Sodium/Tazobactam 3.375 GM in 0.9 % Sodium Chloride 50 ML IV ×4 (05:12→23:22)
[2024-02-23] MEDS: Doxycycline Hyclate 100 MG in 0.9 % Sodium Chloride 250 ML 166.67 MG IV ×2 (05:53→17:34)
[2024-02-23 06:11] LABS: D Dimer High Sensitivity 675 NG/ML
[2024-02-23 06:12] LABS: PTT Heparin Drip 30.3 SEC (53-77.9)
[2024-02-23 06:24] LABS: Hematocrit 36.8 % (42.0-52.0); Hemoglobin 12.1 g/dl (14.0-18.0); Mean Corpuscular HGB Conc 32.9 g/dl (31.0-36.0); Mean Corpuscular Hemoglobin 29.2 pg (27.0-33.0); Mean Corpuscular Volume 88.9 fL (80.0-98.0); Platelet Count 287 X10*3/uL (160-400); Red Blood Count 4.14 X10*6/uL (4.60-5.80); Red Cell Distribution Width 14.9 % (11.0-16.0)
[2024-02-23 06:27] LABS: Anion Gap 13 (12-20); Blood Urea Nitrogen 26 mg/dL (9-16); Calcium 8.3 mg/dL (8.4-10.2); Carbon Dioxide 23 mmol/L (22-29); Chloride 111 mmol/L (96-108); Creatinine Clr Calc Pharmacy 47.8; Estimated Glomerular Filt Rate 49; Glucose Random 104 mg/dL (60-115); Potassium 4.5 mmol/L (3.3-5.1); Sodium 142 mmol/L (135-145)
[2024-02-23 06:29] LABS: B Type Natriuretic Peptide 634 pg/mL (<100)
[2024-02-23] MEDS: Heparin Sodium,Porcine 5,000 UNIT/ML VIAL 6200 UNIT IVPUSH (06:41)
[2024-02-23 06:45] LABS: Troponin-I High Sensitivity 102.7 ng/L (<3.5-35.0)
[2024-02-23 07:53] VITALS: BP 116/69; PULSE 89; RESP 13; TEMP 36.2; O2SAT 95
--- NOTE | 2024-02-23 09:17 | P.CONCA_ITS ---
History of Present Illness History of Present Illness Date of Service: 02/23/24 Requesting physician: Albaro Barboza Chief complaint: Acute cor pulmonale Narrative: I was consulted to see Guero in cardiology consultation today for presentation with exertional lightheadedness, fatigue, shortness of breath and subsequently admitted to the hospital although because of his vague symptoms have vague lab was felt like he might have sepsis with pneumonia however he continued to have significant deterioration respiratory status requiring high flow oxygen. Subsequent workup showed submassive to massive pulmonary embolism with saddle pulmonary embolism with right heart strain. He underwent an echocardiogram which confirmed presence of acute cor pulmonale and underwent pulmonary thrombectomy yesterday interventionally. Since then his respiratory status has improved although he still appears to be short of breath. Hemodynamically stable. On admission he had elevated BNP as well as troponins which were flat. He was admitted with sinus tachycardia. At no time there was significant hemodynamic compromise. He said after doing 25 ft kayak riding for 2 hours he got leg cramps and felt exhausted. He felt this was due to heat stroke. 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 Symptoms persisted and did not get better and therefore he came to the emergency room. At no point he had syncopal episode at home. He had no chest pain. Review of Systems 2 Constitutional: Constitutional: Reports fatigue and Reports weakness Eyes: Eyes: Reports no additional eye complaints Cardiovascular: Cardiovascular: Denies chest pain, Reports lightheadedness, Denies Loss of Consciousness, Denies palpitations, Reports dyspnea on exertion and Denies orthopnea Respiratory: Respiratory: Denies cough, Reports dyspnea on exertion and Denies wheezing Gastrointestinal: Gastrointestinal: Reports no additional gastrointestinal complaints Genitourinary: Genitourinary: Reports no additional male genitourinary complaints Musculoskeletal: Musculoskeletal: Reports muscle cramps Integumentary/Breasts: Skin/Breast: Reports system reviewed and no additional complaints, except as docu Neurologic: Reports system reviewed and no additional complaints, except as documented and Reports weakness Psychiatric: Psychiatric: Reports no additional psychiatric complaints Endocrine: Endocrine: Reports fatigue and Denies palpitations Allergic/Immunologic: Allergic/Immunologic: Denies wheezing [facility] Past Medical History Medical History Abnormal echocardiogram Fatigue Essential hypertension Aortic dissection Family History Family History Mother Breast cancer Father Heart disease Stroke Surgical History Surgical History Hx of colonoscopy H/O heart bypass surgery Social History Social History Household Members: Spouse Housing: House Do you presently have visiting nurse or other home services: No Alcohol intake: current Alcohol intake frequency: holidays/special occasions only Alcohol type: beer Patient Tobacco Use Status: Never used Tobacco Tobacco use type: Cigarette e-Cigarette/Vaping Use: Never Used Second Hand Smoke Exposure: No service: No Current occupational status: retired Cognitive needs: No Hearing needs: No Vision needs: No Meds Allergies Allergy/AdvReac Type Severity Reaction Status Date / Time No Known Allergies Allergy Verified 02/22/24 14:11 [No Known Allergies*] Active Medications: Current Medications Acetaminophen (Acetaminophen 325 Mg Tablet) 650 mg PO Q6H PRN PRN Reason: Pain, Mild (Pain Scale 1-3), fever or headache Albuterol/Ipratropium (Albuterol/Iprat 2.5/0.5mg 3 Ml Ampul.Neb) 3 ml INHALE RQ6H WHILE AWAKE PRN PRN Reason: sob Last Admin: 02/20/24 20:22 Dose: 3 ml Aspirin (Aspirin Enteric Coated 81 Mg Tablet.Dr) 81 mg PO DAILY [facility] Last Admin: 02/22/24 08:57 Dose: 81 mg Atenolol (Atenolol 25 Mg Tablet) 25 mg PO DAILY [facility]; Protocol Last Admin: 02/22/24 08:57 Dose: 25 mg Atorvastatin Calcium (Atorvastatin Calcium 80 Mg Tablet) 80 mg PO BEDTIME GUY Last Admin: 02/22/24 20:17 Dose: 80 mg Bupropion HCl (Bupropion Hcl Xl 150 Mg Tab.Er.24h) 150 mg PO DAILY [facility] Last Admin: 02/22/24 08:57 Dose: 150 mg Calcium Carbonate (Calcium Carbonate 750 Mg Tab.Chew) 750 mg PO Q4H PRN PRN Reason: Heartburn Cyanocobalamin (Cyanocobalamin (Vitamin B-12) 500 Mcg Tablet) 500 mcg PO DAILY [facility] Last Admin: 02/22/24 08:57 Dose: 500 mcg Heparin Sodium (Porcine) (Heparin Sodium,Porcine 5,000 Unit/Ml Vial) 3,100 unit 40 unit/kg (3100 unit) IVPUSH PROTOCOL BOLUS PRN; Protocol PRN Reason: 40 unit/kg - Heparin Protocol Heparin Sodium (Porcine) (Heparin Sodium,Porcine 5,000 Unit/Ml Vial) 6,200 unit 80 unit/kg (6200 unit) IVPUSH PROTOCOL BOLUS PRN; Protocol PRN Reason: 80 unit/kg - Heparin Protocol Last Admin: 02/23/24 06:41 Dose: 6,200 unit Doxycycline Hyclate 100 mg/ (Sodium Chloride) 250 mls @ 166.67 mls/hr IV Q12H [facility] Last Admin: 02/23/24 05:53 Dose: 166.67 mls/hr Piperacillin Sod/Tazobactam (Sod 3.375 gm/ Sodium Chloride) 50 mls @ 100 mls/hr IV Q6H [facility] Last Infusion: 02/23/24 05:42 Dose: Infused Heparin Sodium/Sodium Chloride (Heparin Sodium,Porcine/1/2ns) 25,000 unit in 250 mls @ 0 mls/hr IVCONT .Q0M [facility]; Protocol Last Titration: 02/23/24 06:43 Dose: 13 units/kg/hr, 10.1 mls/hr Sodium Chloride (Ns) 1,000 mls @ 100 mls/hr IVCONT .Q10H [facility] Last Admin: 02/23/24 02:16 Dose: Not Given Magnesium Hydroxide (Milk Of Magnesia 30 Ml Oral.Susp) 30 ml PO DAILY PRN PRN Reason: Constipation Melatonin (Melatonin 3 Mg Tablet) 6 mg PO BEDTIME PRN PRN Reason: Insomnia Last Admin: 02/21/24 21:12 Dose: 6 mg Ondansetron HCl (Ondansetron Hcl 4 Mg/2 Ml Vial) 4 mg IVPUSH Q8H PRN PRN Reason: Nausea and Vomiting Sodium Chloride (0.9 % Sodium Chloride Flush 3 Ml Syringe) 3 ml IVFLUSH QSHIFT [facility] Last Admin: 02/22/24 20:22 Dose: 3 ml Trazodone HCl (Trazodone Hcl 25 Mg Halftab) 25 mg PO BEDTIME [facility] Last Admin: 02/22/24 20:17 Dose: 25 mg Vitamin D (Cholecalciferol (Vitamin D3) 25 Mcg Tablet) 25 mcg PO DAILY [facility] Last Admin: 02/22/24 08:57 Dose: 25 mcg Home Medications ?Medication ?Instructions ?Recorded ?Confirmed ?Last Taken ?Type aspirin 81 mg tablet,delayed 81 mg PO DAILY 08/01/20 02/17/24 02/16/24 History release (Adult Low Dose Aspirin) atorvastatin 80 mg tablet 80 mg PO BEDTIME 02/17/24 02/17/24 Unknown History bupropion HCl 150 mg 24 hr tablet, 150 mg PO DAILY 02/17/24 02/17/24 02/16/24 History extended release cholecalciferol (vitamin D3) 25 25 mcg PO DAILY 02/17/24 02/17/24 02/16/24 History mcg (1,000 unit) tablet (Vitamin D3) cyanocobalamin (vitamin B-12) 500 500 mcg PO DAILY 02/17/24 02/17/24 02/16/24 History mcg tablet (Vitamin B-12) [id number] 150 mcg-vit K1 1 tab PO DAILY 02/17/24 02/17/24 02/16/24 History 30 mcg-lycop 300 mcg-lutein tablet (Centrum Minis Men 50 Plus) Physical Exam 2 Vital Signs: Vital Signs: Last Vital Signs Temp 97.2 F 02/23/24 07:53 Pulse 89 02/23/24 07:53 Resp 13 02/23/24 07:53 BP 116/69 02/23/24 07:53 Pulse Ox 95 02/23/24 07:53 O2 Del Method Oxymask 02/23/24 07:53 O2 Flow Rate 6 02/23/24 07:53 FiO2 65 02/22/24 04:00 BMI result Body Mass Index 27.6 Const: General: cooperative, well developed, alert, awake and in distress mild and respiratory Nutritional Appearance: average body habitus and well nourished Orientation/consciousness: patient oriented x3 HEENT: Head: Yes normocephalic and Yes atraumatic Neck: Neck: Yes trachea midline, Yes supple and Yes no JVD Resp: Effort & Inspection: decreased respiratory effort Auscultation: clear to auscultation bilaterally Cardio: Jugular venous distension: no JVD Rate: regular rate Rhythm: r egular rhythm Heart sounds: S1 normal heart sound present, S2 normal heart sound present, no click, no gallops and no murmurs GI: Auscultation: normal bowel sounds Skin: General skin exam: no rashes or lesions noted Neuro: General: patient oriented x3 and no focal motor deficits Extrem: General: Yes no clubbing, cyanosis or edema Objective Labs and Meds 02/23/24 05:52 02/23/24 05:52 Lab results: Laboratory Results - last 24 hr 02/22/24 02/22/24 02/22/24 20:07 20:12 22:25 WBC RBC Hgb Hct MCV MCH MCHC RDW Plt Count MPV Absolute Nucleated RBC Nucleated RBC % (auto) Hold Purple Top SEE NOTE aPTT Heparin Protocol 135.5 H* D 43.8 L D D-Dimer High Sensitivty Sodium Potassium Chloride Carbon Dioxide Anion Gap BUN Creatinine Estim Creat Clear Calc Estimated GFR Random Glucose Calcium Troponin I High Sens B-Natriuretic Peptide 02/23/24 05:52 WBC 10.0 RBC 4.14 L Hgb 12.1 L Hct 36.8 L MCV 88.9 MCH 29.2 MCHC 32.9 RDW 14.9 Plt Count 287 MPV 9.0 L Absolute Nucleated RBC 0.000 Nucleated RBC % (auto) 0.0 Hold Purple Top aPTT Heparin Protocol 30.3 L D D-Dimer High Sensitivty 675 Sodium 142 Potassium 4.5 Chloride 111 H Carbon Dioxide 23 Anion Gap 13 BUN 26 H Creatinine 1.43 H Estim Creat Clear Calc 47.8 Estimated GFR 49 Random Glucose 104 Calcium 8.3 L Troponin I High Sens 102.7 H* D B-Natriuretic Peptide 634 H Assessment and Plan (1) Acute cor pulmonale: Status: Acute Acute cor pulmonale in this elderly gentleman secondary to massive/submassive pulmonary embolism, with bilateral large pulmonary embolism burden. Underwent pulmonary thrombectomy yesterday interventionally. Respiratory status and oxygen requirement have significantly improved overnight. Patient was feeling better. This appears to be unprovoked pulmonary embolic event and therefore after Hematology consultation would consider lifelong therapy. For now I would continue with IV heparin and once cleared by vascular surgery would start him on oral anticoagulation therapy. Repeat limited echo tomorrow to see if there is improvement in RV size and function. Supportive care to continue. Mechanism of pulmonary thromboembolism was discussed with him. Will follow with you Procedures Date of Service Date of Service: 02/23/24
[2024-02-23] MEDS: buPROPion HCl XL 150 MG TAB.ER.24H PO (09:25)
[2024-02-23] MEDS: Aspirin Enteric Coated 81 MG TABLET.DR PO (09:25)
[2024-02-23] MEDS: Cholecalciferol (Vitamin D3) 25 MCG TABLET PO (09:25)
[2024-02-23] MEDS: atenoloL 25 MG TABLET PO (09:25)
[2024-02-23] MEDS: Cyanocobalamin (Vitamin B-12) 500 MCG TABLET PO (09:25)
--- NOTE | 2024-02-23 09:26 | HO.VASCPN ---
Subjective Subjective Date of Service: 02/23/24 Interval history: Guero is doing well this morning. He has no complaints. He states he slept well last night. He states he is not short of breath or having any difficulty breathing. Physical Exam Vital Signs: Vital Signs: Last Vital Signs Temp 97.2 F 02/23/24 07:53 Pulse 89 02/23/24 07:53 Resp 13 02/23/24 07:53 BP 116/69 02/23/24 07:53 Pulse Ox 95 02/23/24 07:53 O2 Del Method Oxymask 02/23/24 07:53 O2 Flow Rate 6 02/23/24 07:53 FiO2 65 02/22/24 04:00 BMI result Body Mass Index 27.6 Const: General: comfortable, no acute distress, alert and awake Orientation/consciousness: patient oriented x3 Resp: Effort & Inspection: normal respiratory effort and able to speak in complete sentences Cardio: Rate: regular rate Rhythm: regular rhythm Skin: Other: Right groin: C/D/I [place]/warm/dry Neuro: General: patient oriented x3 Progress Note: A&P Assessment and plan (1) Deep venous thrombosis: Status: Acute (2) Pulmonary emboli: Status: Acute Plan Guero is doing much better. He is able to speak in full sentences without pausing. He denies any shortness of breath/diff breathing/CP. He states after returning to his room post-op he immediately felt much better. He currently continues on O2 facemask at 6L and is maintaining O2 sats in the mid to high 90s. He has been using his incentive spirometry without difficulty. He appears more comfortable. He is pink/warm/dry. The groin incision is C/D/I. At this point he is ok to transistion to PO anticoagulation. We discussed that he will likely stay on lifelong anticoagulation. We discussed a follow up in our office in the next 2w. We discussed that he should slowly return to increased physical activity; however, at this point, he needs to continue to rest. Time Spent With Patient Time: Total time managing care of this patient today ___20_ minutes. Procedures Date of Service Date of Service: 02/23/24 Quality Stroke Does the patient have a stroke diagnosis?: No VTE Prior VTE?: No VTE Risk Level:: Medical - moderate - high VTE Device Contraindication: Treatment Not Indicated VTE Drug Contraindication: N/A - Med Ordered
--- NOTE | 2024-02-23 09:51 | P.PNIM_ITS ---
Subjective Subjective Date of Service: 02/23/24 Interval History: POD1 thrombectomy dyspnea improving, off HFNC and now on 6L via Oxymask no chest pain no leg swelling no hemoptysis Review of Systems Review of Systems: Yes all other systems are reviewed and are negative Physical Exam 2 Vital Signs: Vital Signs: Last Vital Signs Temp 97.2 F 02/23/24 07:53 Pulse 89 02/23/24 07:53 Resp 13 02/23/24 07:53 BP 116/69 02/23/24 07:53 Pulse Ox 95 02/23/24 07:53 O2 Del Method Oxymask 02/23/24 07:53 O2 Flow Rate 6 02/23/24 07:53 FiO2 65 02/22/24 04:00 BMI result Body Mass Index 27.6 Gen: NAD HEENT: sclera anicteric, moist mucus membranes Neck: supple Lungs: inspiratory crackles R>L Heart: regular rate and rhythm, no murmurs Abd: soft, non-tender, non-distended Ext: no edema Skin: warm/well-perfused Neuro: alert and oriented x3, no focal findings Psych: appropriate affect Objective Data Active Medications Acetaminophen (Acetaminophen 325 Mg Tablet) 650 mg PO Q6H PRN PRN Reason: Pain, Mild (Pain Scale 1-3), fever or headache Albuterol/Ipratropium (Albuterol/Iprat 2.5/0.5mg 3 Ml Ampul.Neb) 3 ml INHALE RQ6H WHILE AWAKE PRN PRN Reason: sob Last Admin: 02/20/24 20:22 Dose: 3 ml Documented By: SARATH Aspirin (Aspirin Enteric Coated 81 Mg Tablet.) 81 mg PO DAILY [facility] Last Admin: 02/23/24 09:25 Dose: 81 mg Documented By: ANCELMO Atenolol (Atenolol 25 Mg Tablet) 25 mg PO DAILY [facility]; Protocol Last Admin: 02/23/24 09:25 Dose: 25 mg Documented By: ANCELMO Atorvastatin Calcium (Atorvastatin Calcium 80 Mg Tablet) 80 mg PO BEDTIME [facility] Last Admin: 02/22/24 20:17 Dose: 80 mg Documented By: DANI Bupropion HCl (Bupropion Hcl Xl 150 Mg Tab.Er.24h) 150 mg PO DAILY [facility] Last Admin: 02/23/24 09:25 Dose: 150 mg Documented By: ANCELMO Calcium Carbonate (Calcium Carbonate 750 Mg Tab.Chew) 750 mg PO Q4H PRN PRN Reason: Heartburn Cyanocobalamin (Cyanocobalamin (Vitamin B-12) 500 Mcg Tablet) 500 mcg PO DAILY [facility] Last Admin: 02/23/24 09:25 Dose: 500 mcg Documented By: ANCELMO Heparin Sodium (Porcine) (Heparin Sodium,Porcine 5,000 Unit/Ml Vial) 3,100 unit 40 unit/kg (3100 unit) IVPUSH PROTOCOL BOLUS PRN; Protocol PRN Reason: 40 unit/kg - Heparin Protocol Heparin Sodium (Porcine) (Heparin Sodium,Porcine 5,000 Unit/Ml Vial) 6,200 unit 80 unit/kg (6200 unit) IVPUSH PROTOCOL BOLUS PRN; Protocol PRN Reason: 80 unit/kg - Heparin Protocol Last Admin: 02/23/24 06:41 Dose: 6,200 unit Documented By: DANI Doxycycline Hyclate 100 mg/ (Sodium Chloride) 250 mls @ 166.67 mls/hr IV Q12H [facility] Last Infusion: 02/23/24 09:31 Dose: Infused Documented By: ANCELMO Piperacillin Sod/Tazobactam (Sod 3.375 gm/ Sodium Chloride) 50 mls @ 100 mls/hr IV Q6H [facility] Last Infusion: 02/23/24 05:42 Dose: Infused Documented By: DANI Heparin Sodium/Sodium Chloride (Heparin Sodium,Porcine/1/2ns) 25,000 unit in 250 mls @ 0 mls/hr IVCONT .Q0M [facility]; Protocol Last Titration: 02/23/24 06:43 Dose: 13 units/kg/hr, 10.1 mls/hr Documented By: DANI Co-signed By: WESTON Sodium Chloride (Ns) 1,000 mls @ 100 mls/hr IVCONT .Q10H [facility] Last Admin: 02/23/24 02:16 Dose: Not Given Documented By: DANI Non-Admin Reason: IV Running Magnesium Hydroxide (Milk Of Magnesia 30 Ml Oral.Susp) 30 ml PO DAILY PRN PRN Reason: Constipation Melatonin (Melatonin 3 Mg Tablet) 6 mg PO BEDTIME PRN PRN Reason: Insomnia Last Admin: 02/21/24 21:12 Dose: 6 mg Documented By: ANDRÉS Ondansetron HCl (Ondansetron Hcl 4 Mg/2 Ml Vial) 4 mg IVPUSH Q8H PRN PRN Reason: Nausea and Vomiting Sodium Chloride (0.9 % Sodium Chloride Flush 3 Ml Syringe) 3 ml IVFLUSH QSHIFT [facility] Last Admin: 02/23/24 09:26 Dose: Not Given Documented By: ANCELMO Non-Admin Reason: IV Running Trazodone HCl (Trazodone Hcl 25 Mg Halftab) 25 mg PO BEDTIME [facility] Last Admin: 02/22/24 20:17 Dose: 25 mg Documented By: DANI Vitamin D (Cholecalciferol (Vitamin D3) 25 Mcg Tablet) 25 mcg PO DAILY [facility] Last Admin: 02/23/24 09:25 Dose: 25 mcg Documented By: ANCELMO Labs 02/23/24 05:52 02/23/24 05:52 Labs: Laboratory Results - last 24 hr 02/22/24 02/22/24 02/22/24 20:07 20:12 22:25 MCV MCH MCHC RDW Plt Count MPV Absolute Nucleated RBC Nucleated RBC % (auto) Hold Purple Top SEE NOTE aPTT Heparin Protocol 135.5 H* D 43.8 L D D-Dimer High Sensitivty Anion Gap Estim Creat Clear Calc Estimated GFR Random Glucose Calcium Troponin I High Sens B-Natriuretic Peptide 02/23/24 05:52 MCV 88.9 MCH 29.2 MCHC 32.9 RDW 14.9 Plt Count 287 MPV 9.0 L Absolute Nucleated RBC 0.000 Nucleated RBC % (auto) 0.0 Hold Purple Top aPTT Heparin Protocol 30.3 L D D-Dimer High Sensitivty 675 Anion Gap 13 Estim Creat Clear Calc 47.8 Estimated GFR 49 Random Glucose 104 Calcium 8.3 L Troponin I High Sens 102.7 H* D B-Natriuretic Peptide 634 H Microbiology Microbiology Results: Microbiology 02/17/24 17:01 Blood Culture - Final Blood - Venous No growth after 5 days. 02/17/24 17:01 Blood Culture - Final Blood - Venous No growth after 5 days. Assessment and Plan (1) Right lower lobe pneumonia: Status: Acute (2) Elevated bilirubin: Status: Acute (3) Leukocytosis: Status: Acute Plan d7 68yo with HTN, hx type A aortic dissection s/p repair with tube graft in 2019 presented with 2 wk of dyspnea, productive cough, fatigue/malaise; found to have ALEX on outpt labs admitted for AHRF due to RLL PNA; found to have submassive PE acute hypoxic respiratory failure due to saddle PE with R heart strain bilateral LE DVT acute cor pulmonale - POD1 mechanical thrombectomy of pulmonary embolism of bilateral pulmonary artery - transition heparin gtt to PO apixaban - limited TTE tomorrow to re-assess RV size + function - will need outpt follow-up with Vascular Surgery + Hematology + Pulm [repeat CT chest to ensure no occult malignancy] - wean O2 as tolerated PNA - 02/16-02/20 ceftriaxone, 02/20- piperacillin-tazobactam, 02/16- doxycycline; RPP negative; PCT low; urinary antigens for Legionella and pneumococcus pending hypotension - resolved; restarted atenolol; amlodipine + lisinopril still on hold troponin elevation - initially attributed to PNA but more likely due to PE transaminasemia - likely due to hepatic congestion or PNA; improving CKD3 - monitor Cr closely hyperK - mild; resolved after Lokelma mood disorder - bupropion dispo - TBD; PT eval tomorrow In my clinical judgment, the patient requires continued inpatient hospitalization for the following reasons: hypoxia, post-thrombectomy care, IV ABX Total time managing care of this patient today: 50 minutes. Quality Stroke Does the patient have a stroke diagnosis?: No VTE Prior VTE?: No VTE Risk Level:: Medical - moderate - high VTE Device Contraindication: Treatment Not Indicated VTE Drug Contraindication: N/A - Med Ordered
[2024-02-23] MEDS: Apixaban 5 MG TABLET 10 MG PO ×2 (10:32→20:05)
[2024-02-23 11:15] VITALS: BP 101/57; PULSE 85; RESP 14; TEMP 36.7; O2SAT 93
--- NOTE | 2024-02-23 12:59 | P.PNPL_ITS ---
Subjective Subjective Date of Service: 02/23/24 Interval history: The patient was seen on exam. He is status post embolectomy. He did tolerate the procedure well but did require high-flow afterwards. He is back to a Ventimask 6 L. he continues on IV antibiotics. He restarted the heparin and now be switched over to an oral anticoagulant. We did talk about the abnormal CT scan with a right lower lobe consolidation. Appears to have some components of airspace disease from pneumonia. There is also some areas that are more like rounded like densities which could be concerning for an occult malignancy. This area could also be related to infarct. But, looks more consolidated than infarctive. Distribution appears to be more lobar. Therefore, he should complete a course of antibiotics. The patient is aware that he will need close follow-up and will need to reimage that area to make sure that it completely resolves. At this time there is no clear explanation for the blood clots therefore is considered unprovoked. Objective Data Labs 02/23/24 05:52 02/23/24 05:52 Labs: Laboratory Results - last 24 hr 02/22/24 02/22/24 02/22/24 20:07 20:12 22:25 WBC RBC Hgb Hct MCV MCH MCHC RDW Plt Count MPV Absolute Nucleated RBC Nucleated RBC % (auto) Hold Purple Top SEE NOTE aPTT Heparin Protocol 135.5 H* D 43.8 L D D-Dimer High Sensitivty Sodium Potassium Chloride Carbon Dioxide Anion Gap BUN Creatinine Estim Creat Clear Calc Estimated GFR Random Glucose Calcium Troponin I High Sens B-Natriuretic Peptide 02/23/24 05:52 WBC 10.0 RBC 4.14 L Hgb 12.1 L Hct 36.8 L MCV 88.9 MCH 29.2 MCHC 32.9 RDW 14.9 Plt Count 287 MPV 9.0 L Absolute Nucleated RBC 0.000 Nucleated RBC % (auto) 0.0 Hold Purple Top aPTT Heparin Protocol 30.3 L D D-Dimer High Sensitivty 675 Sodium 142 Potassium 4.5 Chloride 111 H Carbon Dioxide 23 Anion Gap 13 BUN 26 H Creatinine 1.43 H Estim Creat Clear Calc 47.8 Estimated GFR 49 Random Glucose 104 Calcium 8.3 L Troponin I High Sens 102.7 H* D B-Natriuretic Peptide 634 H Microbiology Microbiology Results: Microbiology 02/17/24 17:01 Blood - Venous Blood Culture - Final No growth after 5 days. 02/17/24 17:01 Blood - Venous Blood Culture - Final No growth after 5 days. Review of Systems Constitutional: Reports fatigue and Reports weakness Eyes: Reports no additional eye complaints Cardiovascular: Denies chest pain, Reports lightheadedness, Denies Loss of Consciousness, Denies palpitations, Reports dyspnea on exertion and Denies orthopnea Respiratory: Denies cough, Reports dyspnea on exertion and Denies wheezing Gastrointestinal: Reports no additional gastrointestinal complaints Genitourinary: Reports no additional male genitourinary complaints Musculoskeletal: Reports muscle cramps Skin/Breast: Reports system reviewed and no additional complaints, except as docu Reports system reviewed and no additional complaints, except as documented and Reports weakness Psychiatric: Reports no additional psychiatric complaints Endocrine: Reports fatigue and Denies palpitations Allergic/Immunologic: Denies wheezing Physical Exam 2 Vital Signs: Vital Signs: Last Vital Signs Temp 98.1 F 02/23/24 11:15 Pulse 85 02/23/24 11:15 Resp 14 02/23/24 11:15 BP 101/57 L 02/23/24 11:15 Pulse Ox 93 02/23/24 11:15 O2 Del Method Oxymask 02/23/24 11:15 O2 Flow Rate 6 02/23/24 11:15 FiO2 65 02/22/24 04:00 BMI result Body Mass Index 27.6 Const: General: cooperative, well developed, alert, awake and in distress mild and respiratory Nutritional Appearance: average body habitus and well nourished Orientation/consciousness: patient oriented x3 HEENT: Head: Yes normocephalic and Yes atraumatic Neck: Neck: Yes trachea midline, Yes supple and Yes no JVD Resp: Effort & Inspection: decreased respiratory effort Auscultation: d iminished lung sounds Cardio: Jugular venous distension: no JVD Rate: regular rate Rhythm: r egular rhythm Heart sounds: S1 normal heart sound present, S2 normal heart sound present, no click, no gallops and no murmurs GI: Auscultation: normal bowel sounds Skin: General skin exam: no rashes or lesions noted Neuro: General: patient oriented x3 and no focal motor deficits Extrem: General: Yes no clubbing, cyanosis or edema Procedures Date of Service Date of Service: 02/23/24 Assessment and Plan Assessment and plan (1) Acute hypoxemic respiratory failure: Status: Acute (2) Right lower lobe pneumonia: Status: Acute (3) Deep venous thrombosis: Status: Acute (4) Pulmonary emboli: Problem details: s/p embolectomy Status: Acute Plan continue oxygen supplementation to keep pox>90% start oral anticoagulation ok to change to oral antibiotics tomorrow to complete a 10 day course Will need a repeat CTA in 6-8 weeks to make sure that the bloodclots are gone and to make sure that the nadular density/pneumonia are gone F/U with pulmonary Time Spent With Patient Time: Total time managing care of this patient today ____ minutes. Progress Note: Quality Stroke Does the patient have a stroke diagnosis?: No
[2024-02-23 15:22] VITALS: BP 99/61; PULSE 80; RESP 30; TEMP 36.6; O2SAT 94
[2024-02-23] MEDS: 0.9 % Sodium Chloride Flush 3 ML SYRINGE IVFLUSH ×2 (16:42→20:05)
[2024-02-23 19:25] VITALS: BP 111/70; PULSE 82; RESP 24; TEMP 36.3; O2SAT 96
[2024-02-23] MEDS: Atorvastatin Calcium 80 MG TABLET PO (20:05)
[2024-02-24] MEDS: Piperacillin Sodium/Tazobactam 3.375 GM in 0.9 % Sodium Chloride 50 ML IV (06:59)
--- NOTE | 2024-02-24 07:00 | CA_ITS ---
Transthoracic Echocardiogram Patient (Last, First, Middle): Guero Shukla, Gender: Male Date of : 1955 Age: 68 Procedure Date: 02/24/2024 Procedure Type: Transthoracic Echocardiogram Location: [facility] [place] Height: 167.64 cm Weight: 77.57 kg BSA: 1.87 m2 Heart Rate: bpm BP: 111 / 70 mmHg [employer]: Referring MD: Albaro Barboza MD Ppa Teacher: Deep Steele MD Symptoms: re-assesss RV size/function [cor pulmonale from PE Study Quality: Good ECG Rhythm: Sinus Conclusions: - Moderately dilated RV with [id number] systolic dysfunction. Findings Left Ventricle Normal left ventricular size, thickness, and systolic function. The visually estimated ejection fraction is between 60-65%. There is a flattened septum in systole consistent with right ventricular pressure overload. Spectral Doppler is indicative of an impaired relaxation filling pattern. Right Ventricle Moderately increased right ventricular cavity size. There is mild to moderately decreased right ventricular systolic function. Prior Study Comparison Changes noted compared to prior study dated: 02/22/2024. RV size and systolic function have improved Measurements 2D Linear Measurements IVSd: 1.22 0.6-0.9/0.6-1.0 cm LVIDd: 3.87 3.9-5.3/4.2-5.9 cm LVIDd Index: 2.07 2.4-3.2/2.2-3.1 cm/m2 LVIDs: 2.41 2.0-3.6 cm LVPWd: 1.25 0.7-1.1 cm LV Mass: 204.75 67-162/88-224 g LV Mass Index: 109.49 43-95/49-115 g/m2 Mitral Valve MV Pk E: 0.58 MV PK A: 0.88 MV Decel Time: 213.00 E/A: 0.70 E'Lateral: 8.59 E'Medial: 5.22 E/E' Med: 11.00 E/E' Lat: 6.70 PHT: 62.00 MVA PHT: 3.55 Decel Ector: 2.70 Diastolic Function MV Pk E: 0.58 MV Pk A: 0.88 E/A: 0.70 E'Medial: 5.22 E/E' Med: 11.00 E' Laterial: 8.59 E/E' Lat: 6.70 Updated in Other Vendor System with Status of Final Deep Steele MD electronically signed on 02/24/2024 1:32:05 PM with status of Final
[2024-02-24] MEDS: Doxycycline Hyclate 100 MG in 0.9 % Sodium Chloride 250 ML 166.67 MG IV (07:04)
[2024-02-24 07:20] LABS: B Type Natriuretic Peptide 532 pg/mL (<100)
[2024-02-24 07:28] LABS: Anion Gap 11 (12-20); Blood Urea Nitrogen 22 mg/dL (9-16); Calcium 8.3 mg/dL (8.4-10.2); Carbon Dioxide 24 mmol/L (22-29); Chloride 111 mmol/L (96-108); Creatinine Clr Calc Pharmacy 49.9; Estimated Glomerular Filt Rate 52; Glucose Random 110 mg/dL (60-115); Potassium 4.6 mmol/L (3.3-5.1); Sodium 141 mmol/L (135-145)
[2024-02-24 08:00] VITALS: BP 135/79; PULSE 83; RESP 20; TEMP 36.1; O2SAT 97
[2024-02-24] MEDS: Apixaban 5 MG TABLET 10 MG PO ×2 (08:48→21:33)
[2024-02-24] MEDS: atenoloL 25 MG TABLET PO (08:49)
[2024-02-24] MEDS: Cholecalciferol (Vitamin D3) 25 MCG TABLET PO (08:49)
[2024-02-24] MEDS: Cyanocobalamin (Vitamin B-12) 500 MCG TABLET PO (08:49)
[2024-02-24] MEDS: Aspirin Enteric Coated 81 MG TABLET.DR PO (08:49)
[2024-02-24] MEDS: 0.9 % Sodium Chloride Flush 3 ML SYRINGE IVFLUSH ×3 (08:49→21:33)
[2024-02-24] MEDS: buPROPion HCl XL 150 MG TAB.ER.24H PO (08:49)
[2024-02-24 09:23] VITALS: O2SAT 91
--- NOTE | 2024-02-24 09:38 | P.PNIM_ITS ---
Subjective Subjective Date of Service: 02/24/24 Interval History: dyspnea improving but still on 6L O2 no dizziness/lightheadedness cough also improving Review of Systems Review of Systems: Yes all other systems are reviewed and are negative Physical Exam 2 Vital Signs: Vital Signs: Last Vital Signs Temp 97.3 F 02/23/24 19:25 Pulse 82 02/23/24 19:25 Resp 24 H 02/23/24 19:25 BP 111/70 02/23/24 19:25 Pulse Ox 96 02/23/24 19:25 O2 Del Method Oxymask 02/23/24 19:25 O2 Flow Rate 6 02/23/24 19:25 FiO2 65 02/22/24 04:00 BMI result Body Mass Index 27.6 Gen: NAD HEENT: sclera anicteric, moist mucus membranes Neck: supple Lungs: diminished throughout Heart: regular rate and rhythm, no murmurs Abd: soft, non-tender, non-distended Ext: no edema Skin: warm/well-perfused Neuro: alert and oriented x3, no focal findings Psych: appropriate affect Objective Data Active Medications Acetaminophen (Acetaminophen 325 Mg Tablet) 650 mg PO Q6H PRN PRN Reason: Pain, Mild (Pain Scale 1-3), fever or headache Albuterol/Ipratropium (Albuterol/Iprat 2.5/0.5mg 3 Ml Ampul.Neb) 3 ml INHALE RQ6H WHILE AWAKE PRN PRN Reason: sob Last Admin: 02/20/24 20:22 Dose: 3 ml Documented By: SARATH Apixaban (Apixaban 5 Mg Tablet) 10 mg PO BID [facility] Stop: 02/29/24 21:01 Last Admin: 02/24/24 08:48 Dose: 10 mg Documented By: AUDREY Aspirin (Aspirin Enteric Coated 81 Mg Tablet.) 81 mg PO DAILY [facility] Last Admin: 02/24/24 08:49 Dose: 81 mg Documented By: AUDREY Atenolol (Atenolol 25 Mg Tablet) 25 mg PO DAILY [facility]; Protocol Last Admin: 02/24/24 08:49 Dose: 25 mg Documented By: AUDREY Atorvastatin Calcium (Atorvastatin Calcium 80 Mg Tablet) 80 mg PO BEDTIME [facility] Last Admin: 02/23/24 20:05 Dose: 80 mg Documented By: ANDRÉS Bupropion HCl (Bupropion Hcl Xl 150 Mg Tab.Er.24h) 150 mg PO DAILY [facility] Last Admin: 02/24/24 08:49 Dose: 150 mg Documented By: AUDREY Calcium Carbonate (Calcium Carbonate 750 Mg Tab.Chew) 750 mg PO Q4H PRN PRN Reason: Heartburn Cyanocobalamin (Cyanocobalamin (Vitamin B-12) 500 Mcg Tablet) 500 mcg PO DAILY [facility] Last Admin: 02/24/24 08:49 Dose: 500 mcg Documented By: AUDREY Doxycycline Hyclate 100 mg/ (Sodium Chloride) 250 mls @ 166.67 mls/hr IV Q12H [facility] Last Infusion: 02/24/24 08:40 Dose: Infused Documented By: ROSANNE Piperacillin Sod/Tazobactam (Sod 3.375 gm/ Sodium Chloride) 50 mls @ 100 mls/hr IV Q6H [facility] Last Infusion: 02/24/24 08:28 Dose: Infused Documented By: ANDRÉS Magnesium Hydroxide (Milk Of Magnesia 30 Ml Oral.Susp) 30 ml PO DAILY PRN PRN Reason: Constipation Melatonin (Melatonin 3 Mg Tablet) 6 mg PO BEDTIME PRN PRN Reason: Insomnia Last Admin: 02/21/24 21:12 Dose: 6 mg Documented By: ANDRÉS Ondansetron HCl (Ondansetron Hcl 4 Mg/2 Ml Vial) 4 mg IVPUSH Q8H PRN PRN Reason: Nausea and Vomiting Sodium Chloride (0.9 % Sodium Chloride Flush 3 Ml Syringe) 3 ml IVFLUSH QSHIFT [facility] Last Admin: 02/24/24 08:49 Dose: 3 ml Documented By: AUDREY Trazodone HCl (Trazodone Hcl 25 Mg Halftab) 25 mg PO BEDTIME [facility] Last Admin: 02/23/24 23:44 Dose: Not Given Documented By: ANDRÉS Non-Admin Reason: Patient declined Vitamin D (Cholecalciferol (Vitamin D3) 25 Mcg Tablet) 25 mcg PO DAILY [facility] Last Admin: 02/24/24 08:49 Dose: 25 mcg Documented By: AUDREY Labs 02/23/24 05:52 02/24/24 06:35 Labs: Laboratory Results - last 24 hr 02/24/24 06:35 Anion Gap 11 L Estim Creat Clear Calc 49.9 Estimated GFR 52 Random Glucose 110 Calcium 8.3 L B-Natriuretic Peptide 532 H Assessment and Plan (1) Right lower lobe pneumonia: Status: Acute (2) Elevated bilirubin: Status: Acute (3) Leukocytosis: Status: Acute Plan d8 68yo with HTN, hx type A aortic dissection s/p repair with tube graft in 2019 presented with 2 wk of dyspnea, productive cough, fatigue/malaise; found to have ALEX on outpt labs admitted for AHRF due to RLL PNA; found to have submassive PE acute hypoxic respiratory failure due to saddle PE with R heart strain bilateral LE DVT acute cor pulmonale - POD2 mechanical thrombectomy of pulmonary embolism of bilateral pulmonary artery - transitioned heparin gtt to PO apixaban 10 mg bid 02/22-02/28, then 5 mg bid 03/01- - limited TTE today to re-assess RV size + function - will need outpt follow-up with Vascular Surgery + Hematology + Pulm [repeat CT chest to ensure no occult malignancy] - wean O2 as tolerated; home O2 eval tomorrow PNA - 02/16-02/20 ceftriaxone, 02/20-02/23 piperacillin-tazobactam, 02/23-02/26 cefuroxime, 02/16-02/26 doxycycline; RPP negative; PCT low; urinary antigens for Legionella and pneumococcus pending hypotension - resolved; restarted atenolol; amlodipine + lisinopril still on hold troponin elevation - initially attributed to PNA but more likely due to PE transaminasemia - likely due to hepatic congestion or PNA; improving CKD3 - monitor Cr closely; improving hyperK - mild; resolved after Lokelma mood disorder - bupropion dispo - likely home with VNA and may need home O2 as above In my clinical judgment, the patient requires continued inpatient hospitalization for the following reasons: hypoxia, post-thrombectomy care Total time managing care of this patient today: 45 minutes. Quality Stroke Does the patient have a stroke diagnosis?: No VTE Prior VTE?: No VTE Risk Level:: Medical - moderate - high VTE Device Contraindication: Treatment Not Indicated VTE Drug Contraindication: N/A - Med Ordered
[2024-02-24] MEDS: cefuroxime axetiL 500 MG TABLET PO ×2 (10:57→21:33)
--- NOTE | 2024-02-24 11:26 | PM.PNCARD ---
Subjective Subjective Date of Service: 02/24/24 Principal diagnosis: Acute cor pulmonale from PE Interval history: Patient looking much better. He said he is feeling much better. Much less short of breath. No lightheadedness or syncope with moving around the room. Heart rate is stable without any arrhythmias Review of Systems Constitutional: Reports no additional constitutional complaints Cardiovascular: Denies chest pain, Denies lightheadedness, Denies Loss of Consciousness, Denies palpitations and Reports dyspnea on exertion Respiratory: Reports dyspnea on exertion Gastrointestinal: Reports no additional gastrointestinal complaints Psychiatric: Reports no additional psychiatric complaints Endocrine: Denies palpitations Physical Exam Vital Signs: Last Vital Signs Temp 97.0 F 02/24/24 08:00 Pulse 83 02/24/24 08:00 Resp 20 02/24/24 08:00 BP 135/79 02/24/24 08:00 Pulse Ox 91 L 02/24/24 09:23 O2 Del Method Room Air 02/24/24 08:00 O2 Flow Rate 6 02/23/24 19:25 FiO2 65 02/22/24 04:00 BMI result Body Mass Index 27.6 Const General: cooperative, well developed, alert, awake and in distress mild and respiratory Nutritional Appearance: average body habitus and well nourished Orientation/consciousness: patient oriented x3 HEENT Head: Yes normocephalic and Yes atraumatic Neck Neck: Yes trachea midline, Yes supple and Yes no JVD Resp Effort & Inspection: decreased respiratory effort Auscultation: clear to auscultation bilaterally Cardio Jugular venous distension: no JVD Rate: regular rate Rhythm: regular rhythm Heart sounds: S1 normal heart sound present, S2 normal heart sound present, no click, no gallops and no murmurs GI Auscultation: normal bowel sounds Skin General skin exam: no rashes or lesions noted Neuro General: patient oriented x3 and no focal motor deficits Extrem General: Yes no clubbing, cyanosis or edema Objective Labs and Meds 02/23/24 05:52 02/24/24 06:35 Lab results: Laboratory Results - last 24 hr 02/24/24 06:35 Sodium 141 Potassium 4.6 Chloride 111 H Carbon Dioxide 24 Anion Gap 11 L BUN 22 H Creatinine 1.37 Estim Creat Clear Calc 49.9 Estimated GFR 52 Random Glucose 110 Calcium 8.3 L B-Natriuretic Peptide 532 H Progress Note: A&P Assessment and plan (1) Acute cor pulmonale: Status: Acute Assessment and Plan: Acute cor pulmonale, clinically appears much better compared to yesterday when I saw him. Will review the echocardiogram. Agree with oral anticoagulation with apixaban. I am not sure if there is a role for aspirin therapy for him at this point in time. Continue supportive care. Continue oxygen tapering as tolerated. RV recovery may take some time up to a week to 2 weeks. Will sign of the case and follow as outpatient with follow-up echocardiogram Time Spent With Patient Time: Total time managing care of this patient today ____ minutes. Progress Note: Quality Stroke Does the patient have a stroke diagnosis?: No Procedures Date of Service Date of Service: 02/24/24
[2024-02-24 11:38] VITALS: BP 103/66; PULSE 75; RESP 20; TEMP 36; O2SAT 98
--- NOTE | 2024-02-24 12:03 | P.PNVS_ITS ---
Subjective Subjective Date of Service: 02/24/24 Interval history: Guero was found sitting up in his chair this morning, doing much better. He continues on O2 at 6L. He denies any diff breathing/shortness of breath/CP. He states he overall feels much better. He has transitioned off of IV Heparin and is on the loading dose of Eliquis of 10mg bid. Physical Exam Vital Signs: Vital Signs: Last Vital Signs Temp 96.8 F 02/24/24 11:38 Pulse 75 02/24/24 11:38 Resp 20 02/24/24 11:38 BP 103/66 02/24/24 11:38 Pulse Ox 98 02/24/24 11:38 O2 Del Method Oxymask 02/24/24 11:38 O2 Flow Rate 5 02/24/24 11:38 FiO2 65 02/22/24 04:00 BMI result Body Mass Index 27.6 Const: General: comfortable and no acute distress Orientation/consciousness: patient oriented x3 HEENT: Ears: hearing grossly normal bilaterally Resp: Effort & Inspection: normal respiratory effort and able to speak in complete sentences Auscultation: clear to auscultation bilaterally Cardio: Rate: regular rate Rhythm: regular rhythm Heart sounds: S1 normal heart sound present and S2 normal heart sound present Bruits: no abdominal aortic bruits, no carotid bruits, no femoral bruits and no renal bruits GI: Palpation (GI): No Abdominal aortic bruit present Skin: Other: [place], warm, dry. Groin incision C/D/I. Neuro: General: patient oriented x3 Cranial nerves: Yes CN's II-XII intact bilaterally Progress Note: A&P Assessment and plan (1) Deep venous thrombosis: Status: Acute (2) Pulmonary emboli: Status: Acute Plan Guero is doing much better. He is getting out of bed and will be walking around today. He continues on O2 at 6L. He has been transitioned off of IV Heparin and was started on the loading dose of Eliquis 10mg bid. Groin incision is C/D/I. We discussed today that he will need to stay on lifelong anticoagulation. From a vascular standpoint, he remains stable. He will need to follow up with us 2w after discharge. Time Spent With Patient Time: Total time managing care of this patient today __20__ minutes. Procedures Date of Service Date of Service: 02/24/24 Quality Stroke Does the patient have a stroke diagnosis?: No VTE Prior VTE?: No VTE Risk Level:: Medical - moderate - high VTE Device Contraindication: Treatment Not Indicated VTE Drug Contraindication: N/A - Med Ordered
--- NOTE | 2024-02-24 14:15 | MHC.CM.PN ---
Per rounds and EMR review, pt is no tready for DC, he requires continued care for Hypoxia and post thrombectomy care. DCP is home with services, referral out for [facility].
[2024-02-24 16:10] VITALS: BP 145/77; PULSE 80; RESP 16; TEMP 36.6; O2SAT 99
[2024-02-24 16:35] LABS: ACT 261 Celite s (79-173)
[2024-02-24 16:35] LABS: ACT 258 Celite s (79-173)
[2024-02-24 16:35] LABS: ACT 109 Celite s (79-173)
[2024-02-24 16:35] LABS: ACT 173 Celite s (79-173)
[2024-02-24 16:35] LABS: ACT 214 Celite s (79-173)
[2024-02-24 16:35] LABS: ACT 167 Celite s (79-173)
[2024-02-24 16:35] LABS: ACT 208 Celite s (79-173)
[2024-02-24 19:39] VITALS: BP 115/61; PULSE 86; RESP 20; TEMP 36.9; O2SAT 97
[2024-02-24] MEDS: Doxycycline Monohydrate 100 MG CAPSULE PO (21:32)
[2024-02-24] MEDS: Atorvastatin Calcium 80 MG TABLET PO (21:33)
[2024-02-24 23:54] VITALS: BP 139/78; PULSE 72; RESP 20; TEMP 36.3; O2SAT 98
[2024-02-25 04:00] VITALS: BP 124/71; PULSE 77; RESP 18; TEMP 36.4; O2SAT 99
[2024-02-25 08:00] VITALS: BP 155/84; PULSE 86; RESP 20; TEMP 36.1; O2SAT 99
[2024-02-25] MEDS: Apixaban 5 MG TABLET 10 MG PO ×2 (09:41→20:23)
[2024-02-25] MEDS: Cyanocobalamin (Vitamin B-12) 500 MCG TABLET PO (09:41)
[2024-02-25] MEDS: buPROPion HCl XL 150 MG TAB.ER.24H PO (09:41)
[2024-02-25] MEDS: Cholecalciferol (Vitamin D3) 25 MCG TABLET PO (09:42)
[2024-02-25] MEDS: atenoloL 25 MG TABLET PO (09:42)
[2024-02-25] MEDS: cefuroxime axetiL 500 MG TABLET PO ×2 (09:42→20:23)
[2024-02-25] MEDS: Aspirin Enteric Coated 81 MG TABLET.DR PO (09:42)
[2024-02-25] MEDS: Doxycycline Monohydrate 100 MG CAPSULE PO ×2 (09:42→20:23)
[2024-02-25] MEDS: 0.9 % Sodium Chloride Flush 3 ML SYRINGE IVFLUSH (09:44)
--- NOTE | 2024-02-25 11:47 | HO.PM.IMPN ---
Subjective Subjective Date of Service: 02/25/24 Interval History: feeling much better, off O2 at rest but has nocturnal hypoxemia no chest pain no lightheadedness with ambulation Review of Systems Review of Systems: Yes all other systems are reviewed and are negative Physical Exam Vital Signs: Vital Signs: Last Vital Signs Temp 97.0 F 02/25/24 08:00 Pulse 86 02/25/24 08:00 Resp 20 02/25/24 08:00 BP 155/84 H 02/25/24 08:00 Pulse Ox 99 02/25/24 08:00 O2 Del Method Nasal Cannula 02/25/24 08:00 O2 Flow Rate 4 02/25/24 08:00 FiO2 65 02/22/24 04:00 BMI result Body Mass Index 27.6 Gen: NAD HEENT: sclera anicteric, moist mucus membranes Neck: supple Lungs: clear Heart: regular rate and rhythm, no murmurs Abd: soft, non-tender, non-distended Ext: no edema Skin: warm/well-perfused Neuro: alert and oriented x3, no focal findings Psych: appropriate affect Objective Data Active Medications Acetaminophen (Acetaminophen 325 Mg Tablet) 650 mg PO Q6H PRN PRN Reason: Pain, Mild (Pain Scale 1-3), fever or headache Albuterol/Ipratropium (Albuterol/Iprat 2.5/0.5mg 3 Ml Ampul.Neb) 3 ml INHALE RQ6H WHILE AWAKE PRN PRN Reason: sob Last Admin: 02/20/24 20:22 Dose: 3 ml Documented By: SARATH Apixaban (Apixaban 5 Mg Tablet) 10 mg PO BID [facility] Stop: 02/29/24 21:01 Last Admin: 02/25/24 09:41 Dose: 10 mg Documented By: ARSLAN Aspirin (Aspirin Enteric Coated 81 Mg Tablet.) 81 mg PO DAILY [facility] Last Admin: 02/25/24 09:42 Dose: 81 mg Documented By: ARSLAN Atenolol (Atenolol 25 Mg Tablet) 25 mg PO DAILY [facility]; Protocol Last Admin: 02/25/24 09:42 Dose: 25 mg Documented By: ARSLAN Atorvastatin Calcium (Atorvastatin Calcium 80 Mg Tablet) 80 mg PO BEDTIME [facility] Last Admin: 02/24/24 21:33 Dose: 80 mg Documented By: REGINA Bupropion HCl (Bupropion Hcl Xl 150 Mg Tab.Er.24h) 150 mg PO DAILY [facility] Last Admin: 02/25/24 09:41 Dose: 150 mg Documented By: ARSLAN Calcium Carbonate (Calcium Carbonate 750 Mg Tab.Chew) 750 mg PO Q4H PRN PRN Reason: Heartburn Cefuroxime Axetil (Cefuroxime Axetil 500 Mg Tablet) 500 mg PO Q12H [facility] Last Admin: 02/25/24 09:42 Dose: 500 mg Documented By: ARSLAN Cyanocobalamin (Cyanocobalamin (Vitamin B-12) 500 Mcg Tablet) 500 mcg PO DAILY [facility] Last Admin: 02/25/24 09:41 Dose: 500 mcg Documented By: ARSLAN Doxycycline Monohydrate (Doxycycline Monohydrate 100 Mg Capsule) 100 mg PO Q12H [facility] Last Admin: 02/25/24 09:42 Dose: 100 mg Documented By: ARSLAN Magnesium Hydroxide (Milk Of Magnesia 30 Ml Oral.Susp) 30 ml PO DAILY PRN PRN Reason: Constipation Melatonin (Melatonin 3 Mg Tablet) 6 mg PO BEDTIME PRN PRN Reason: Insomnia Last Admin: 02/21/24 21:12 Dose: 6 mg Documented By: ANDRÉS Ondansetron HCl (Ondansetron Hcl 4 Mg/2 Ml Vial) 4 mg IVPUSH Q8H PRN PRN Reason: Nausea and Vomiting Sodium Chloride (0.9 % Sodium Chloride Flush 3 Ml Syringe) 3 ml IVFLUSH QSHIFT [facility] Last Admin: 02/25/24 09:44 Dose: 3 ml Documented By: ARSLAN Trazodone HCl (Trazodone Hcl 25 Mg Halftab) 25 mg PO BEDTIME [facility] Last Admin: 02/24/24 21:35 Dose: Not Given Documented By: REGINA Non-Admin Reason: Patient Refused Vitamin D (Cholecalciferol (Vitamin D3) 25 Mcg Tablet) 25 mcg PO DAILY [facility] Last Admin: 02/25/24 09:42 Dose: 25 mcg Documented By: ARSLAN Labs 02/23/24 05:52 02/24/24 06:35 Labs: Laboratory Results - last 24 hr 02/22/24 02/22/24 02/22/24 15:24 15:34 15:43 Activated Clotting Time 109 167 173 02/22/24 02/22/24 02/22/24 15:52 16:01 16:11 Activated Clotting Time 208 H 214 H 258 H 02/22/24 16:46 Activated Clotting Time 261 H Assessment and Plan (1) Right lower lobe pneumonia: Status: Acute (2) Elevated bilirubin: Status: Acute (3) Leukocytosis: Status: Acute Plan d9 68yo with HTN, hx type A aortic dissection s/p repair with tube graft in 2019 presented with 2 wk of dyspnea, productive cough, fatigue/malaise; found to have ALEX on outpt labs admitted for AHRF due to RLL PNA; found to have submassive PE acute hypoxic respiratory failure due to saddle PE with R heart strain bilateral LE DVT acute cor pulmonale - POD3 mechanical thrombectomy of pulmonary embolism of bilateral pulmonary artery - transitioned heparin gtt to PO apixaban 10 mg bid 02/22-02/28, then 5 mg bid 03/01- - TTE 02/22/24: 1. Severely dilated right ventricle with severe systolic dysfunction with apical sparing, findings usually seen with acute cor pulmonale 2. Normal LV ejection fraction of 60-65% with grade 1 diastolic dysfunction: - RV size + function improved on TTE 02/24/24: Moderately dilated RV with [id number] systolic dysfunction - will need outpt follow-up with Vascular Surgery + Hematology + Pulm [repeat CT chest to ensure no occult malignancy] + Cardiology - overnight oximetry test tonight PNA - 02/16-02/20 ceftriaxone, 02/20-02/23 piperacillin-tazobactam, 02/23-02/26 cefuroxime, 02/16-02/26 doxycycline; RPP negative; PCT low; urinary antigens for Legionella and pneumococcus pending hypotension - resolved; restarted atenolol; restart lisinopril; hold amloidpine troponin elevation - initially attributed to PNA but more likely due to PE transaminasemia - likely due to hepatic congestion or PNA; improving CKD3 - monitor Cr closely; improving hyperK - mild; resolved after Lokelma mood disorder - bupropion dispo - likely home with outpt PT but may need O2 @ night In my clinical judgment, the patient requires continued inpatient hospitalization for the following reasons: hypoxia, post-thrombectomy care Total time managing care of this patient today: 45 minutes. Quality Stroke Does the patient have a stroke diagnosis?: No VTE Prior VTE?: No VTE Risk Level:: Medical - moderate - high VTE Device Contraindication: Treatment Not Indicated VTE Drug Contraindication: N/A - Med Ordered
[2024-02-25 11:56] VITALS: BP 118/72; PULSE 85; RESP 20; TEMP 36.2; O2SAT 94
[2024-02-25] MEDS: lisinopriL 5 MG TABLET PO (12:44)
--- NOTE | 2024-02-25 12:46 | PC.NURSE ---
both IV site outdated , IV removed , pt is refusing to get the new IV site , DR Barboza was notified and it is okay per MD to leave the IV out
[2024-02-25 16:00] VITALS: BP 133/93; PULSE 78; RESP 18; TEMP 36.3; O2SAT 90
[2024-02-25 19:13] LABS: Strep Pneumo Ag urine Not Detected (Not Detected)
[2024-02-25 20:00] VITALS: BP 110/66; PULSE 82; RESP 17; TEMP 36.9; O2SAT 92
[2024-02-25] MEDS: Atorvastatin Calcium 80 MG TABLET PO (20:24)
[2024-02-26] VITALS: BP 143/76; PULSE 86; RESP 18; TEMP 36.3; O2SAT 94
[2024-02-26 04:00] VITALS: BP 137/78; PULSE 83; RESP 20; TEMP 36.5; O2SAT 96
[2024-02-26 07:21] LABS: Anion Gap 11 (12-20); Blood Urea Nitrogen 17 mg/dL (9-16); Calcium 8.4 mg/dL (8.4-10.2); Carbon Dioxide 24 mmol/L (22-29); Chloride 107 mmol/L (96-108); Creatinine Clr Calc Pharmacy 56.5; Estimated Glomerular Filt Rate 59; Glucose Random 109 mg/dL (60-115); Sodium 138 mmol/L (135-145)
[2024-02-26 07:54] VITALS: BP 142/84; PULSE 80; RESP 18; TEMP 36.3; O2SAT 95
[2024-02-26] MEDS: Cyanocobalamin (Vitamin B-12) 500 MCG TABLET PO (08:01)
[2024-02-26] MEDS: Apixaban 5 MG TABLET 10 MG PO (08:01)
[2024-02-26] MEDS: Aspirin Enteric Coated 81 MG TABLET.DR PO (08:01)
[2024-02-26] MEDS: buPROPion HCl XL 150 MG TAB.ER.24H PO (08:01)
[2024-02-26] MEDS: Doxycycline Monohydrate 100 MG CAPSULE PO (08:01)
[2024-02-26] MEDS: Cholecalciferol (Vitamin D3) 25 MCG TABLET PO (08:01)
[2024-02-26] MEDS: lisinopriL 5 MG TABLET PO (08:01)
[2024-02-26] MEDS: atenoloL 25 MG TABLET PO (08:01)
[2024-02-26 08:58] LABS: Legionella Ag Urine Not Detected (Not Detected)
--- NOTE | 2024-02-26 10:34 | PM.DS ---
DS: Providers Provider Date of Service: 02/26/24 Date of admission: 02/17/24 17:32 Date of discharge: 02/26/24 Primary care physician: Karthik Calle PA-C Consults: 02/17/24 17:54 Consult to Cardiology Routine Consulting Provider: [facility] Reason for consultation: elevated troponin Has provider been notified: Yes 02/21/24 11:09 Consult to Pulmonology Routine Consulting Provider: [facility] Reason for consultation: submassive PE, ?candidate for catheter or systemic thrombolysis? 02/21/24 12:03 Consult to Vascular Surgery Routine Consulting Provider: [facility] Reason for consultation: submassive PE 02/23/24 07:52 Consult to Cardiology Routine Consulting Provider: [facility] Reason for consultation: acute cor pulmonale DS: Diagnosis Discharge Diagnosis (1) Acute hypoxemic respiratory failure: Status: Acute (2) Pulmonary emboli: Status: Acute (3) Deep venous thrombosis: Status: Acute (4) Acute cor pulmonale: Status: Acute (5) Pneumonia: Status: Acute DS: Summary Hospital Course Hospital Course: From the history and physical by the admitting hospitalist, Dave Corbett DO, 02/17/24: 68-year-old male with past medical history of hypertension depression ascending aortic dissection status post urgent surgical repair, CVA presents for evaluation of cough weakness and dehydration since 02/14/24. He states he has felt generally sick with diffuse body aches. He had some blood work done by his PCP was suggested he come in for volume repletion but declined. He presents today for worsening shortness of breath weakness in the absence of chest pain. He does endorse productive cough Mr Shukla is a 68 year-old man with with HTN and history of type A aortic dissection s/p repair with tube graft in 2019. He presented to the [facility] ED with 2 weeks of dyspnea, productive cough, and fatigue/malaise; found to have ALEX on outpatient labs and sent in by his primary care doctor. He was admitted for acute hypoxia initially attributed to RLL pneumonia but ultimately was found to have a submassive PE with right heart strain. Hospital course problem: acute hypoxic respiratory failure due to saddle PE with R heart strain bilateral LE DVT acute cor pulmonale - Oxygenation worsened to the point where he was on HFNC. PE was diagnosed on 02/20 and started on therapeutic heparin infusion. Vascular Surgery was urgently consulted, and he underwent successful mechanical thrombectomy of pulmonary embolism of bilateral pulmonary arteries on 02/21. Oxygen requirement decreased rapidly afterwards and he was actually weaned to room air and did not qualify for home oxygen. He was transitioned to PO apixaban 10 mg bid 02/22-02/28, then 5 mg bid 03/01 for life. - Troponin and BNP were elevated and Cardiology was consulted for concern of R heart strain. TTE 02/21 showed severely dilated RV with severe systolic dysfunction with apical sparing suggestive of acute cor pulmonale. RV size + function improved on TTE 02/23. He will follow up with Cardiology as an outpatient. - Overnight sleep study was done 02/24-02/25 and he will be called with the results. - Pulmonology was consulted and will obtain repeat CT of the chest as an outpatient to assess for underlying occult malignancy. - He will follow up with Vascular Surgery as an outpatient. - He will be also referred to Hematology for thrombophilia testing. pneumonia - 02/16-02/20 ceftriaxone, 02/20-02/23 piperacillin-tazobactam, 02/23-02/26 cefuroxime, 02/16-02/26 doxycycline. RPP negative; PCT low; blood cultures negative; urinary antigens for Legionella and pneumococcus negative. Some of the radiographic findings could have been to pulmonary infarction. As above, repeat CT of the chest as an outpatient to ensure no underlying malignancy. acute/CKD3 - Creatinine returned to baseline. He was discharged home with referral to outpatient pulmonary rehabilitation and specialists follow-ups as above. Time Attestation Discharge Coordination Time (in mins): 45 Quality: Safe Use of Opioids Does Pt have an Active Cancer Diagnosis on the Problem List?: No Quality: Stroke Does the patient have a stroke diagnosis?: No Physical Exam Vital Signs: Vital Signs: Last Vital Signs Temp 97.3 F 02/26/24 07:54 Pulse 80 02/26/24 07:54 Resp 18 02/26/24 07:54 BP 142/84 H 02/26/24 07:54 Pulse Ox 95 02/26/24 07:54 O2 Del Method Room Air 02/26/24 07:54 O2 Flow Rate 4 02/25/24 08:00 FiO2 65 02/22/24 04:00 BMI result Body Mass Index 27.6 Gen: in no acute distress HEENT: sclera anicteric, moist mucus membranes Neck: supple Lungs: clear to auscultation bilaterally Heart: regular rate and rhythm, no murmurs Abd: soft, non-tender, non-distended Ext: no edema Skin: warm/well-perfused Neuro: alert and oriented x3, no focal findings Psych: appropriate affect DS: Data Data Completed and Pending Completed studies during hospitalization [Text1]: Laboratory Results WBC 10.0 X10*3/uL (4.8-10.8) 02/23/24 05:52 RBC 4.14 X10*6/uL (4.60-5.80) L 02/23/24 05:52 Hgb 12.1 g/dl (14.0-18.0) L 02/23/24 05:52 Hct 36.8 % (42.0-52.0) L 02/23/24 05:52 MCV 88.9 fL (80.0-98.0) 02/23/24 05:52 MCH 29.2 pg (27.0-33.0) 02/23/24 05:52 MCHC 32.9 g/dl (31.0-36.0) 02/23/24 05:52 RDW 14.9 % (11.0-16.0) 02/23/24 05:52 Plt Count 287 X10*3/uL (160-400) 02/23/24 05:52 MPV 9.0 fL (9.4-12.4) L 02/23/24 05:52 Immature Gran % (Auto) 1.8 % (0.0-0.4) H 02/18/24 06:12 Neut % (Auto) 73.3 % (45-73) H 02/18/24 06:12 Lymph % (Auto) 10.9 % (20-40) L 02/18/24 06:12 Emery % (Auto) 12.7 % (2-11) H 02/18/24 06:12 Eos % (Auto) 0.9 % (0-4) 02/18/24 06:12 Baso % (Auto) 0.4 % (0-2) 02/18/24 06:12 Lymph # (Auto) 1.1 X10*3/uL (1.2-4.9) L 02/18/24 06:12 [place]y # (Auto) 1.3 X10*3/uL (0.1-1.2) H 02/18/24 06:12 Eos # (Auto) 0.1 X10*3/uL (0.0-0.4) 02/18/24 06:12 Baso # (Auto) 0.0 X10*3/uL (0.0-0.2) 02/18/24 06:12 Abs Immat Gran (auto) 0.19 X10*3/uL (0.00-0.03) H 02/18/24 06:12 Absolute Neuts (auto) 7.7 x10*3/uL (2.0-8.3) 02/18/24 06:12 Absolute Nucleated RBC 0.000 X10*3/uL (0.0-0.012) 02/23/24 05:52 Nucleated RBC % (auto) 0.0 /100WBC (0.0-0.2) 02/23/24 05:52 Hold Purple Top SEE NOTE 02/26/24 06:38 PT 15.2 SEC (10.9-12.4) H 02/22/24 06:05 INR 1.3 (0.9-1.1) H 02/22/24 06:05 APTT 28.1 SEC (26.0-36.8) 02/17/24 17:01 aPTT Heparin Protocol 30.3 SEC (53-77.9) L D 02/23/24 05:52 Activated Clotting Time 261 Celite s (79-173) H 02/22/24 16:46 D-Dimer High Sensitivty 675 NG/ML 02/23/24 05:52 Sodium 138 mmol/L (135-145) 02/26/24 06:38 Potassium 4.0 mmol/L (3.3-5.1) 02/26/24 06:38 Chloride 107 mmol/L (96-108) 02/26/24 06:38 Carbon Dioxide 24 mmol/L (22-29) 02/26/24 06:38 Anion Gap 11 (12-20) L 02/26/24 06:38 BUN 17 mg/dL (9-16) H 02/26/24 06:38 Creatinine 1.21 mg/dL (0.5-1.4) 02/26/24 06:38 Estim Creat Clear Calc 56.5 02/26/24 06:38 Estimated GFR 59 02/26/24 06:38 POC Glucose 116 mg/dL (60-115) H 02/21/24 11:34 Random Glucose 109 mg/dL (60-115) 02/26/24 06:38 Lactic Acid 2.0 mmol/L (0.5-2.0) 02/17/24 17:01 Calcium 8.4 mg/dL (8.4-10.2) 02/26/24 06:38 Total Bilirubin 1.1 mg/dL (0.0-1.0) H 02/22/24 06:05 Direct Bilirubin 0.4 mg/dL (0.0-0.5) 02/21/24 06:29 AST 43 U/L (5-37) H 02/22/24 06:05 ALT 100 U/L (0-40) H 02/22/24 06:05 Alkaline Phosphatase 57 U/L (39-117) 02/22/24 06:05 Troponin I High Sens 102.7 ng/L (<3.5-35.0) H* D 02/23/24 05:52 C-Reactive Protein 10.81 mg/dL (< or = 0.50) H 02/21/24 06:29 B-Natriuretic Peptide 532 pg/mL (<100) H 02/24/24 06:35 Total Protein 5.4 g/dL (6.5-8.0) L 02/22/24 06:05 Albumin 2.8 g/dL (3.5-5.0) L 02/22/24 06:05 Procalcitonin 0.07 ng/mL 02/21/24 06:29 Urine Color Yellow 02/18/24 21:10 Urine Appearance Clear 02/18/24 21:10 Urine pH 5.5 (5.0-9.0) 02/18/24 21:10 Ur Specific Creole 1.025 (1.005-1.025) 02/18/24 21:10 Urine Protein Trace mg/dL (Neg-Trace) 02/18/24 21:10 Urine Glucose (UA) Negative mg/dL (Negative) 02/18/24 21:10 Urine Ketones Negative mg/dL (Negative) 02/18/24 21:10 Urine Blood Negative (Negative) 02/18/24 21:10 Urine Nitrite Negative (Negative) 02/18/24 21:10 Ur Leukocyte Esterase Negative (Negative) 02/18/24 21:10 Nasal Screen MRSA (PCR) NEGATIVE (Negative) 02/21/24 09:15 Nasal S. aureus Screen NEGATIVE (Negative) 02/21/24 09:15 Nasal MRSA/S.aureus Interp SEE NOTE 02/21/24 09:15 Respiratory Panel [place] See Note 02/21/24 09:15 Adenovirus (Rapid PCR) Not Detected (Not Detect.) 02/21/24 09:15 B.pert (TEM-PCR) Not Detected (Not Detect.) 02/21/24 09:15 B.parapertussis DNA PCR Not Detected (Not Detect.) 02/21/24 09:15 C. pneumoniae DNA (PCR) Not Detected (Not Detect.) 02/21/24 09:15 Coronavirus OC43 (PCR) Not Detected (Not Detect.) 02/21/24 09:15 Coronavirus HKU1 (PCR) Not Detected (Not Detect.) 02/21/24 09:15 Coronavirus 229E (PCR) Not Detected (Not Detect.) 02/21/24 09:15 Coronavirus NL63 (PCR) Not Detected (Not Detect.) 02/21/24 09:15 Human Metapneumovir PCR Not Detected (Not Detect.) 02/21/24 09:15 Influenza A (RT-PCR) Not Detected (Not Detect.) 02/21/24 09:15 Influenza Type A (PCR) NEGATIVE (Negative) 02/17/24 15:06 Influenza B (RT-PCR) Not Detected (Not Detect.) 02/21/24 09:15 Influenza Type B (PCR) NEGATIVE (Negative) 02/17/24 15:06 Ur L.pneumophila Ag Not Detected (Not Detected) 02/22/24 01:15 M. pneumoniae (PCR) Not Detected (Not Detect.) 02/21/24 09:15 Parainfluenza 1 (PCR) Not Detected (Not Detect.) 02/21/24 09:15 Parainfluenza 2 (PCR) Not Detected (Not Detect.) 02/21/24 09:15 Parainfluenza 3 (PCR) Not Detected (Not Detect.) 02/21/24 09:15 Parainfluenza 4 (PCR) Not Detected (Not Detect.) 02/21/24 09:15 RSV (PCR) Not Detected (Not Detect.) 02/21/24 09:15 RSV RNA Qual (PCR) NEGATIVE (Negative) 02/17/24 15:06 Entero/Rhino (PCR) Not Detected (Not Detect.) 02/21/24 09:15 SARS-CoV-2 RNA (RT-PCR) Not Detected (Not Detect.) 02/21/24 09:15 Ur Strep pneumoniae Ag Not Detected (Not Detected) 02/22/24 01:15 Impressions Chest CTA 02/21/24 10:12 IMPRESSION: 1. Positive for pulmonary emboli. Large thrombus burden. 2. Extensive right lung consolidation, infarction versus aspiration. 3. Indeterminate irregular 10 mm left upper lobe pulmonary nodule. Follow with noncontrast chest CT in 3 months. 4. Postsurgical changes thoracic aorta. 5. Evidence of right heart strain/increased right heart pressures. 6. Cholelithiasis. 7. Diverticulosis. VTE: Positive This critical result was discussed with Dr Barboza at 10:50 AM on 02/21/2024 and it was ascertained that the content and urgency of the report was understood at the time of direct communication. Fleischner guidelines were followed. Electronically signed by: Lane Witt MD 02/21/2024 11:00 AM EDT Venous Duplex 02/21/24 11:44 IMPRESSION: Acute DVT in the bilateral below the knee veins and in the right popliteal vein. Electronically signed by: Astrid Kelly MD 02/21/2024 12:31 PM EDT Chest X-Ray 02/22/24 01:56 IMPRESSION: *No change compared with 02/20/2024. Focal consolidation within the right middle lung zone unchanged compared with 02/20/2024 suspicious for pneumonia. Electronically signed by: Rakesh Melendrez MD 02/22/2024 05:38 AM EDT TTE 02/22/24: 1. Severely dilated right ventricle with severe systolic dysfunction with apical sparing, findings usually seen with acute cor pulmonale 2. Normal LV ejection fraction of 60-65% with grade 1 diastolic dysfunction TTE 02/24/24: Moderately dilated RV with [id number] systolic dysfunction Discharge Plan Discharge Anticipated Discharge Date/Time: 02/26/24 10:25 Patient Disposition: Home, Self-Care Discharge Diagnosis: Large pulmonary embolism, deep vein thrombosis Acute right heart failure Hypoxia Pneumonia Referrals: Physical Therapy - [facility] [Outside] - 1 Week (Outpatient pulmonary rehabilitation ) Terra Kumari MD [Physician] - 1 Month Karthik Calle PA-C [Primary Care Provider] - 1 Week Milan Arnold MD [Physician] - 2 Weeks Allan Don MD [Physician] - 2 Weeks Deep Steele MD [Physician] - 2 Weeks Discharge Medications: New doxycycline monohydrate 100 mg Capsule 100 mg PO Q12H Qty: 2 0RF cefuroxime axetil 500 mg Tablet 500 mg PO Q12H Qty: 2 0RF Eliquis 5 mg Tablet See Rx Instructions .ROUTE .COMPLEX Qty: 68 0RF Rx Instructions: 2 tabs (10 mg) twice daily 02/25-02/28; then 1 tab (5 mg) twice daily for life Continued lisinopril 5 mg tablet 5 mg PO DAILY Qty: 90 1RF atenolol 25 mg tablet 25 mg PO DAILY Qty: 90 3RF amlodipine 5 mg tablet 2.5 mg PO DAILY 90 Days Qty: 45 0RF cyanocobalamin (vitamin B-12) [Vitamin B-12] 500 mcg Tablet 500 mcg PO DAILY cholecalciferol (vitamin D3) [Vitamin D3] 25 mcg (1,000 unit) Tablet 25 mcg PO DAILY Centrum Minis Men 50 Plus [phone] mcg Tablet 1 tab PO DAILY atorvastatin 80 mg tablet 80 mg PO BEDTIME bupropion HCl 150 mg tablet extended release 24 hr 150 mg PO DAILY Discontinued aspirin [Adult Low Dose Aspirin] 81 mg tablet,delayed release (DR/EC) 81 mg PO DAILY Discharge Orders: Discharge Order (Routine); Ordered 02/26/24 Ordered By: Albaro Barboza Diet: Advance to usual diet Activity on Discharge: As tolerated Stand Alone Forms: Patient Portal Discharge page Print Language: Estonian Care Plan Goals: Cardiopulmonary health Health Concerns: Large pulmonary embolism, deep vein thrombosis Acute right heart failure Hypoxia Pneumonia Plan of Treatment: Take apixaban [Eliquis] 5 mg tablets as follows: 02/25-02/28: 2 tabs (10 mg) twice daily 03/01 and afterwards for life: 1 tab (5 mg) twice daily Stop aspirin Take cefuroxime 500 mg PLUS doxycycline 100 mg twice daily for 2 more doses Outpatient pulmonary rehabilitation. Follow up with these specialists: - Dr Milan Arnold, [facility] Vascular Surgery, 2 weeks - Dr Deep Steele, [facility] Cardiology, 2 weeks. He will repeat your echocardiogram. - Dr Allan Don, [facility] Pulmonology, 2 weeks. He will repeat your chest CT. - Dr Terra Kumari, [facility] Hematology, 1 month. Sleep study result is pending at this time. It will be read next week around 03/01. Please follow up with your primary care doctor within 1 week. Return to the hospital if you experience recurrent or worsening symptoms. Assessment: See Discharge Summary. Patient Instructions: Cefuroxime (By mouth), Doxycycline (By mouth), Apixaban (By mouth)
[2024-02-26] MEDS: cefuroxime axetiL 500 MG TABLET PO (10:38)
--- NOTE | 2024-02-26 11:57 | MHC.CM.PN ---
Pt. has been medically cleared for DC, he will go home via private transport, plan is self care.
== END 2024-02-26 11:50 | disposition home or self-care (01) | DRG 853 ==
LOC: HO.ED 17:00 → HO.EDOVER 17:40 → HO.IMC 19:29 → HO.S3 02-19 15:17 → HO.IMC 02-21 11:01
PROVIDERS: Hospitalist; Internal Medicine; Registered Nurse Emergency; Student in an Organized Health Care Education/Training Program; Surgery Vascular Surgery; Admitting Provider Hospitalist; Emergency Provider Emergency Medicine; PCP Physician Assistant; Visit Provider Family Medicine
PROC: 02CR3ZZ Extirpation of Matter from Left Pulmonary Artery, Percutaneous Approach (ICD-10-PCS; principal; 2024-02-22 14:30)
DX: A41.9 Sepsis, unspecified organism (principal); I21.A1 Myocardial infarction type 2; J18.9 Pneumonia, unspecified organism; J96.01 Acute respiratory failure with hypoxia; I26.02 Saddle embolus of pulmonary artery with acute cor pulmonale; I13.0 Hypertensive heart and chronic kidney disease with heart failure and stage 1 through stage 4 chronic kidney disease, or unspecified chronic kidney disease; I82.4Z3 Acute embolism and thrombosis of unspecified deep veins of distal lower extremity, bilateral; I82.431 Acute embolism and thrombosis of right popliteal vein; I25.10 Atherosclerotic heart disease of native coronary artery without angina pectoris; Z95.1 Presence of aortocoronary bypass graft; E87.5 Hyperkalemia; I50.811 Acute right heart failure; F39 Unspecified mood [affective] disorder; N18.30 Chronic kidney disease, stage 3 unspecified; E86.0 Dehydration; Z23 Encounter for immunization; Z20.822 Contact with and (suspected) exposure to COVID-19; Z79.899 Other long term (current) drug therapy
CPT/HCPCS: 0241U; 36415; 36595; 71045; 71046; 71275; 76937; 80048; 80053; 80076; 81003; 82947; 83605; 83880; 84145; 84484; 85025; 85027; 85347; 85379; 85610; 85730; 86140; 87040; 87449; 87633; 87640; 87641; 87899; 90656; 93005; 93308; 93970; 97161; 99152; 99153; 99285; A4649; C1725; C1757; C1769; C1887; C1894; J0696; J1644; J1650; J2543; J7120; Q9957; Q9967

== ENCOUNTER 2024-02-17 17:32 | Outpatient (BNV) | payer OTHER, SELFPAY | END 2024-02-24 07:00 | PROVIDERS: Admitting Provider Hospitalist; Emergency Provider Emergency Medicine; PCP Physician Assistant; Visit Provider Internal Medicine Cardiovascular Disease | DX: I51.89 Other ill-defined heart diseases (principal); I50.810 Right heart failure, unspecified | CPT/HCPCS: 93308; 93321 ==

== ENCOUNTER 2024-02-17 17:32 | Outpatient (BNV) | payer OTHER, SELFPAY | END 2024-02-22 07:00 | PROVIDERS: Admitting Provider Hospitalist; Emergency Provider Emergency Medicine; PCP Physician Assistant; Visit Provider Internal Medicine Cardiovascular Disease | DX: I26.09 Other pulmonary embolism with acute cor pulmonale (principal); I51.89 Other ill-defined heart diseases | CPT/HCPCS: 93308; 93321; 93325; 93356 ==

== ENCOUNTER → 2024-02-17 17:32 | Outpatient (BNV) | payer OTHER, SELFPAY | PROVIDERS: Admitting Provider Hospitalist; Emergency Provider Emergency Medicine; PCP Physician Assistant; Visit Provider Internal Medicine Cardiovascular Disease | DX: I26.09 Other pulmonary embolism with acute cor pulmonale (principal) | CPT/HCPCS: 99222; 99233 ==

== ENCOUNTER → 2024-02-17 17:32 | Outpatient (BNV) | payer OTHER, SELFPAY | PROVIDERS: Admitting Provider Hospitalist; Emergency Provider Emergency Medicine; PCP Physician Assistant; Visit Provider Internal Medicine Pulmonary Disease | DX: I26.99 Other pulmonary embolism without acute cor pulmonale (principal); J96.01 Acute respiratory failure with hypoxia; I82.409 Acute embolism and thrombosis of unspecified deep veins of unspecified lower extremity | CPT/HCPCS: 99223; 99233 ==

== ENCOUNTER → 2024-02-17 17:32 | Outpatient (BNV) | payer OTHER, SELFPAY | PROVIDERS: Admitting Provider Hospitalist; Emergency Provider Emergency Medicine; PCP Physician Assistant; Visit Provider Physician Assistant Surgical | DX: I82.409 Acute embolism and thrombosis of unspecified deep veins of unspecified lower extremity (principal); I26.99 Other pulmonary embolism without acute cor pulmonale | CPT/HCPCS: 36014; 37184; 75825; 76937; 99231; 99233; 99499 ==

== ENCOUNTER → 2024-02-17 17:32 | Outpatient (BNV) | payer OTHER, SELFPAY | PROVIDERS: Admitting Provider Hospitalist; Emergency Provider Emergency Medicine; PCP Physician Assistant; Visit Provider Hospitalist | DX: J18.9 Pneumonia, unspecified organism (principal); R17 Unspecified jaundice; D72.829 Elevated white blood cell count, unspecified; J96.01 Acute respiratory failure with hypoxia | CPT/HCPCS: 99223; 99232; 99233; 99239; 99499 ==

== ENCOUNTER 2024-03-07 14:17 | Outpatient (AMB) | payer OTHER, SELFPAY ==
--- NOTE | 2024-03-07 14:21 | MHC.OFFVIS ---
Vital Signs 03/07/24 14:22 Height 5 ft 6 in Weight 174 lb 2.643 oz BMI 28.1 BP 114/68 Blood Pressure Location Lt brachial Position Sitting Pulse 86 Pulse Source Pulse Oximeter Pulse Oximetry (%) 97 Oxygen Delivery Method Room Air Intake Visit Reasons: Acute cor pulmonale Allergies No Known Allergies [No Known Allergies*] Allergy (Verified 03/08/24 10:28) HPI HPI Acute cor pulmonale: Details: Guero candelario is a 68 year-old male, never smoker, with HTN and h/o aortic dissection repair with tube graft in 2019. He was referred by [facility] after recent admission 02/16-02/25, admitted for acute hypoxia initially attributed to RLL pneumonia but ultimately was found to have a submassive PE with right heart strain with bilateral LE DVT and acute cor pulmonale. Oxygenation worsened to the point where he was on HFNC. PE was diagnosed on 02/20 and started on therapeutic heparin infusion. Vascular Surgery was urgently consulted, and he underwent successful mechanical thrombectomy of pulmonary embolism of bilateral pulmonary arteries on 02/21. Oxygen requirement decreased rapidly afterwards and he was weaned to room air and did not qualify for home oxygen. He was transitioned to PO apixaban 10 mg bid 02/22-02/28, then 5 mg bid 03/01 for life. He was also discharged with doxycycline and cefuroxime. 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 He is unsure of any known exposures however believes exposure was as a child and denies treatment. He reports significant improvements in productive cough and chest congestion. Denies wheezing or chest tightness/pain. He denies hemoptysis. He feels he is back to baseline in regards to respiratory symptoms. Prior to admission he was undergoing work up for increasing fatigue with exertion, awaiting stress test to be scheduled. He reports prior DVT after surgery in 2019, but due to nature of surgery was not placed on anticoagulation. He denies personal or family history of clotting disorders. He has upcoming evaluation with hematology. He denies any h/o asthma/COPD. He denies pertinent family history. 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 [facility] Medical History Abnormal echocardiogram Fatigue Essential hypertension Aortic dissection Surgical History Hx of colonoscopy H/O heart bypass surgery Family History Mother Breast cancer Father Heart disease Stroke Social History Household Members: Spouse Housing: House Do you presently have visiting nurse or other home services: No Alcohol intake: current Alcohol intake frequency: holidays/special occasions only Alcohol type: beer Patient Tobacco Use Status: Never used Tobacco Tobacco use type: Cigarette e-Cigarette/Vaping Use: Never Used Second Hand Smoke Exposure: No service: No Current occupational status: retired Cognitive needs: No Hearing needs: No Vision needs: No Review of Systems Const Denies chills, Denies excessive sweating, Denies fever(s), Denies headache(s) and Denies night sweats Eyes Denies dry eyes, Denies irritation and Denies itchy eyes ENT Reports Normal hearing present, Denies headache(s), Denies nasal congestion, Denies nasal discharge, Denies post nasal drip and Denies sore throat Card Denies chest pain, Denies chest pain at rest, Denies chest pain with activity, Denies claudication, Denies leg edema, Denies dyspnea, Reports dyspnea on exertion, Denies orthopnea and Denies paroxysmal nocturnal dyspnea Resp Denies chest congestion, Denies excessive phlegm production, Denies pain on inspiration, Denies pain with cough, Denies dyspnea, Reports dyspnea on exertion, Denies stridor and Denies wheezing Musc Denies myalgias Neuro Reports Normal hearing present and Denies headache(s) Endo Denies excessive sweating Giovanni/Lymph Denies lymphadenopathy Aller/Immun Denies itchy eyes, Denies seasonal rhinorrhea and Denies wheezing Physical Exam Vital Signs: Last Vital Signs Pulse 86 03/07/24 14:22 BP 114/68 03/07/24 14:22 Pulse Ox 97 03/07/24 14:22 Oxygen Delivery Method Room Air 03/07/24 14:22 BMI result Body Mass Index 28.1 Const General: cooperative, healthy appearing, comfortable, no acute distress, well developed and alert Nutritional Appearance: obese Orientation/consciousness: patient oriented x3 Limitations: no limitations HEENT Head: Yes normal to inspection, Yes normocephalic and Yes atraumatic Ears: hearing grossly normal bilaterally and external ears normal Eyes General: appearance normal, both eyes and all related structures Eyelids: Yes eyelids normal Sclerae: sclerae normal EOM: EOMs intact bilaterally Neck Neck: Yes normal visual inspection and Yes no lymphadenopathy Lymphatic: no lymphadenopathy noted Chest Chest palpation & inspection: normal inspection of the chest Resp Effort & Inspection: normal respiratory effort, able to speak in complete sentences, no audible wheezes, no cough, no stridor, not tachypneic, no tripod positioning and no use of accessory muscles Auscultation: clear to auscultation bilaterally Cardio Jugular venous distension: no JVD Rate: regular rate Rhythm: regular rhythm Skin Other: warm, dry General skin exam: no rashes or lesions noted Neuro General: patient oriented x3 Cranial nerves: Yes Normal hearing present Cognition (Neuro): normal cognition Gait exam (Neuro): Normal gait present Extrem General: Yes normal to inspection, Yes capillary refill normal, Yes no clubbing, cyanosis or edema and Yes no pedal edema Psych Appearance: grossly normal and well kempt Speech and movement: Normal speech and movement present and Clear speech present Affect: normal affect Attitude: cooperative Thought process: Normal thought process present Thought content: Normal thought content present Insight: Good insight present (Psych) Judgement: Good judgement present (Psych) Assessment & Plan Assessment & Plan (1) Pulmonary emboli: Comment: s/p embolectomy Code(s): I26.99 - Other pulmonary embolism without acute cor pulmonale Category: Medical Qualifiers: Acute cor pulmonale presence: with acute cor pulmonale Chronicity: acute Pulmonary embolism type: saddle Qualified Code(s): I26.02 - Saddle embolus of pulmonary artery with acute cor pulmonale (2) Acute cor pulmonale: Code(s): I26.09 - Other pulmonary embolism with acute cor pulmonale Category: Medical (3) Acute hypoxemic respiratory failure: Code(s): J96.01 - Acute respiratory failure with hypoxia Category: Medical (4) Pneumonia: Code(s): J18.9 - Pneumonia, unspecified organism Category: Medical (5) Nocturnal hypoxemia: Code(s): G47.34 - Idiopathic sleep related nonobstructive alveolar hypoventilation Category: Medical Plan Guero presents for pulmonary evaluation after recent hospital admission for admitted for acute hypoxia initially attributed to RLL pneumonia but ultimately was found to have a submassive PE with right heart strain with bilateral LE DVT and acute cor pulmonale. He is s/p embolectomy and feels symptoms are significantly improved since discharge. He was discharged on Eliquis which he is aware this would be a lifelong medication. Will enter refills. He continues to report fatigue with exertion, scheduled for stress test. Patient with unprovoked DVT/PE with prior h/o DVT after surgery in 2019. He denies any personal or family h/o clotting disorders and will be followed by hematology. Given recent pneumonia and PE, will repeat chest CT in 8-10 weeks. Patient with right heart strain and acute cor pulmonae, will repeat echo in three months. Will also send for PFT to obtain baseline respiratory status given dyspnea on exertion prior to PE. He was discharged from hospital on room air, but there was note of nocturnal hypoxemia. Will send for overnight oximetry to assess. We discussed signs and symptoms that would need emergent evaluation. All questions were answered and patient is in agreement of plan. Will follow up to review results of tests or sooner if needed. Orders: Orders PFT pulmonary function test Today I26.02 - Saddle embolus of pulmonary artery with acute cor pulmonale, R06.09 - Other forms of dyspnea CA echo transthoracic complete 3 Months I26.09 - Other pulmonary embolism with acute cor pulmonale CT chest wo IV con 8 Weeks I26.02 - Saddle embolus of pulmonary artery with acute cor pulmonale, J18.9 - Pneumonia, unspecified organism Overnight Pulse Oximetry Today G47.34 - Idiopathic sleep related nonobstructive alveolar hypoventilation Medications: New apixaban 5 mg PO BID 60 tabs 6RF Coding Level of Care Code New Pt Level 5 (25190) Complex EM visit Add On G2211 Diagnoses Acute saddle pulmonary embolism with acute cor pulmonale I26.02 Acute cor pulmonale presence: with acute cor pulmonale Chronicity: acute Pulmonary embolism type: saddle Acute cor pulmonale I26.09 Acute hypoxemic respiratory failure J96.01 Pneumonia J18.9 Nocturnal hypoxemia G47.34 Time Spent (min) 50
[2024-03-07 14:22] VITALS: BP 114/68; PULSE 86; O2SAT 97; BMI 28.1
== END 2024-03-07 15:26 | disposition home or self-care (01) ==
PROVIDERS: PCP Physician Assistant; Visit Provider Nurse Practitioner Family
DX: I26.02 Saddle embolus of pulmonary artery with acute cor pulmonale (principal); I26.09 Other pulmonary embolism with acute cor pulmonale; J96.01 Acute respiratory failure with hypoxia; J18.9 Pneumonia, unspecified organism; G47.34 Idiopathic sleep related nonobstructive alveolar hypoventilation
CPT/HCPCS: 99205

== ENCOUNTER → 2024-03-07 14:17 | Outpatient (BNVA) | payer OTHER, SELFPAY | PROVIDERS: PCP Physician Assistant; Visit Provider Nurse Practitioner Family ==

== ENCOUNTER 2024-03-08 09:06 | Outpatient (AMB) | payer OTHER, SELFPAY ==
[2024-03-08 09:25] VITALS: BMI 28.1
--- NOTE | 2024-03-08 09:25 | MHC.OFFVIS ---
Vital Signs 03/08/24 09:25 Height 5 ft 6 in Weight 174 lb BMI 28.1 Intake Visit Reasons: follow up s/p PE Thrombectomy 02/17/24 Intake Note: follow up Thrombectomy for PE 02/22/24, taking eliquis. Allergies No Known Allergies [No Known Allergies*] Allergy (Verified 03/08/24 10:03) HPI HPI follow up s/p PE Thrombectomy 02/17/24: Details: Guero is a pleasant 68-year-old male presenting today for a follow-up to a thrombectomy on 02/[address] Arnold. He is taking Eliquis 5 mg b.i.d. and will be taking that lifelong. He states he is feeling much better but is bored, not being able to do much for physical activity. He has been breathing much easier and denies any shortness of breath, difficulty breathing, or chest pain. He denies any pain. He states he is able to walk up a flight of stairs without any dyspnea. He has no concerns today about the procedure and postoperatively. He states he does have concerns because he missed 1 dose of Eliquis yesterday. [facility] Medical History Abnormal echocardiogram Fatigue Essential hypertension Aortic dissection Surgical History Hx of colonoscopy H/O heart bypass surgery Family History Mother Breast cancer Father Heart disease Stroke Social History Household Members: Spouse Housing: House Do you presently have visiting nurse or other home services: No Alcohol intake: current Alcohol intake frequency: holidays/special occasions only Alcohol type: beer Patient Tobacco Use Status: Never used Tobacco Tobacco use type: Cigarette e-Cigarette/Vaping Use: Never Used Second Hand Smoke Exposure: No service: No Current occupational status: retired Cognitive needs: No Hearing needs: No Vision needs: No Review of Systems Const Reports as per HPI and Denies weakness ENT Reports Normal hearing present and Denies dizziness Card Reports as per HPI, Denies chest pain, Denies chest pain at rest, Denies chest pain with activity, Denies dyspnea and Denies dyspnea on exertion Resp Reports as per HPI, Denies cough, Denies dyspnea and Denies dyspnea on exertion GI Reports as per HPI, Denies abdominal pain, Denies nausea and Denies vomiting Musc Denies numbness Skin/Breast Reports as per HPI, Denies erythema and Denies wounds Neuro Reports Normal hearing present, Denies dizziness, Denies numbness, Denies Sensory deficit (Neuro) and Denies weakness Psych Reports no additional complaints Endo Reports no additional complaints Physical Exam Vital Signs: BMI result Body Mass Index 28.1 Const General: healthy appearing and no acute distress Orientation/consciousness: patient oriented x3 HEENT Head: Yes normal to inspection Ears: hearing grossly normal bilaterally Mouth: Normal oral and palatal mucosa present Resp Effort & Inspection: normal respiratory effort and able to speak in complete sentences Auscultation: clear to auscultation bilaterally Cardio Jugular venous distension: no JVD Rate: regular rate Rhythm: regular rhythm Heart sounds: S1 normal heart sound present and S2 normal heart sound present Bruits: no abdominal aortic bruits, no carotid bruits, no femoral bruits and no renal bruits Peripheral pulses: Peripheral pulses 2+ throughout GI Inspection: Yes normal to inspection Palpation (GI): No Abdominal aortic bruit present Skin Other: Right groin: Site is clean, dry, and intact. One suture sitting above the skin. One suture is below the skin but easily accessible with forceps. Patient denies any pain to the site. He has been keeping the area clean and dry. General skin exam: no rashes or lesions noted Wounds: no wounds Hair: normal Neuro General: patient oriented x3 Cranial nerves: Yes Normal hearing present Cognition (Neuro): normal cognition Gait exam (Neuro): Normal gait present Motor exam (neuro): 5/5 motor strength present throughout Sensory Exam: No Sensory deficit (Neuro) Extrem General: Yes normal to inspection, Yes full ROM, Yes capillary refill normal and Yes normal gait Assessment & Plan Assessment & Plan (1) Pulmonary emboli: Comment: s/p embolectomy Code(s): I26.99 - Other pulmonary embolism without acute cor pulmonale Category: Medical Qualifiers: Pulmonary embolism type: saddle Chronicity: acute Acute cor pulmonale presence: with acute cor pulmonale Qualified Code(s): I26.02 - Saddle embolus of pulmonary artery with acute cor pulmonale Plan: Guero is presenting today for a 2 week follow-up status post thrombectomy on 02/[address] Arnold. States he is doing much better and denies any shortness of breath, difficulty breathing, chest pain, and dyspnea on exertion. We have removed 2 sutures from the right groin area, keep the bacitracin and Allevyn on for the day; it can be removed tomorrow. You can start increasing her physical activity; however, please take it slow. Do not over exert yourself. Continue to drink enough water and maintain a highly nutritious diet. We discussed about the missed dose of Eliquis last night; it is okay if it occasionally happens however, it must be taken twice a day for effectiveness. Due to the unprovoked nature of the saddle embolus, he will need to be on lifelong Eliquis 5 mg b.i.d.. At this point, we will not need to do a follow-up with you. If any concerns or questions arise, please reach out to us. Thank you for allowing us to take care of you. Coding Level of Care Code Established Pt Est Pt Level 4 (09529) Patient Type Established Diagnoses Acute saddle pulmonary embolism with acute cor pulmonale I26.02 Pulmonary embolism type: saddle Chronicity: acute Acute cor pulmonale presence: with acute cor pulmonale Time Spent (min) 25 Comment suture removal, pt education
== END 2024-03-08 09:48 | disposition home or self-care (01) ==
PROVIDERS: PCP Physician Assistant; Visit Provider Physician Assistant Surgical
DX: I26.02 Saddle embolus of pulmonary artery with acute cor pulmonale (principal)
CPT/HCPCS: 99214

== ENCOUNTER → 2024-03-08 09:06 | Outpatient (BNVA) | payer OTHER, SELFPAY | PROVIDERS: PCP Physician Assistant; Visit Provider Physician Assistant Surgical ==

== ENCOUNTER 2024-03-08 09:51 | Outpatient (AMB) | payer OTHER, SELFPAY ==
[2024-03-08 09:58] VITALS: BP 116/72; PULSE 64; O2SAT 99; BMI 28.1
--- NOTE | 2024-03-08 09:58 | MHC.PC.OV ---
Vital Signs 03/08/24 09:58 Height 5 ft 6 in Weight 174 lb BMI 28.1 BP 116/72 Blood Pressure Location Lt brachial Position Sitting Pulse 64 Pulse Source Pulse Oximeter Pulse Oximetry (%) 99 Oxygen Delivery Method Room Air Intake Visit Reasons: [facility] 02/25 Pulmonary embolism Lei Seller Required: No Allergies No Known Allergies [No Known Allergies*] Allergy (Verified 03/08/24 10:28) Medication List - Last Reconciled 03/08/24 by Karthik Calle PA-C amlodipine 2.5 mg (1/2 x 5 mg) PO DAILY 90 days apixaban (Eliquis) 2 tabs (10 mg) twice daily 02/25-02/28; then 1 tab (5 mg) twice daily for life apixaban 5 mg PO BID atenolol 25 mg PO DAILY atorvastatin 80 mg PO BEDTIME bupropion HCl XL 150 mg PO DAILY cefuroxime axetil 500 mg PO Q12H cholecalciferol (vitamin D3) (Vitamin D3) 25 mcg PO DAILY cyanocobalamin (vitamin B-12) (Vitamin B-12) 500 mcg PO DAILY doxycycline monohydrate 100 mg PO Q12H lisinopril 5 mg PO DAILY [id number] mcg (Centrum Minis Men 50 Plus) 1 tab PO DAILY Tobacco use date assessed: 01/26/24 Fall risk assessment: No Falls in past year Last assessed Fall Risk: 03/08/24 Dental Screening Dental Screen Date: 01/26/24 [facility] 02/25 Pulmonary embolism HPI Details Guero is a 68-year-old male here today for a hospital discharge follow-up. Patient has a past medical history significant for hypertension, depression, history of aortic dissection. Patient here today for has been hospital discharge follow-up. Patient was seen for an acute respiratory failure after feeling that he had the flu like symptoms for few weeks before his presentation. Was found to have Bilateral DVT and hypoxemic. He has found to have pneumonia and also a quite large pulmonary embolism with right heart strain. He was started on heparin and vascular surgeon was consulted. Patient underwent a mechanical thrombectomy that was successful. Patient has been started on Eliquis indefinitely. He has followed up with both pulmonology vascular surgery and Hematology [facility] TCM Information Date of Discharge 02/26/24 Discharged From [facility] Medical History Abnormal echocardiogram Fatigue Essential hypertension Aortic dissection Surgical History Hx of colonoscopy H/O heart bypass surgery Family History Mother Breast cancer Father Heart disease Stroke Social History Household Members: Spouse Housing: House Do you presently have visiting nurse or other home services: No Alcohol intake: current Alcohol intake frequency: holidays/special occasions only Alcohol type: beer Patient Tobacco Use Status: Never used Tobacco Tobacco use type: Cigarette e-Cigarette/Vaping Use: Never Used Second Hand Smoke Exposure: No service: No Current occupational status: retired Cognitive needs: No Hearing needs: No Vision needs: No Questionnaire Thrive Questionnaire Date Thrive assessed: 01/26/24 I am a: Parent/Caregiver What is your living situation today?: I choose not to answer this question Within the past 12 months, did the food you bought not last and you didn't have the money to get more?: I choose not to answer this question Within the past 12 months, did you worry whether your food would run out before you got money to buy more?: I choose not to answer this question Do you have trouble paying for medicines?: I choose not to answer this question Do you have trouble getting transportation to medical appointments?: I choose not to answer this question Do you have trouble paying your heating and electricity bill?: I choose not to answer this question Do you have trouble taking care of your child, family member or friend?: I choose not to answer this question Do you have trouble with day-to-day activities such as bathing, preparing meals, shopping, managing finances, etc.?: I choose not to answer this question Are you currently unemployed and looking for a job?: I choose not to answer this question Are you interested in more education?: I choose not to answer this question Please select the resources that you would like help with: None Currently or been in a relationship where the following occur: I choose not to answer THRIVE Score: 0 JANET-7 AMB Questionnaire JANET-7 Date JANET - 7 assessed: 01/26/24 Source: Developed by Drs. Jose Martinez, Jessica Mehta, Tulio Arroyo and colleagues, with an educational gal from [employer]. Physical exam (Primary Care) Vital Signs: Last Vital Signs Pulse 64 03/08/24 09:58 BP 116/72 03/08/24 09:58 Pulse Ox 99 03/08/24 09:58 Oxygen Delivery Method Room Air 03/08/24 09:58 BMI result Body Mass Index 28.1 Tobacco/Smoking Status: Tobacco use Status Tobacco use date assessed 01/26/24 03/08/24 09:59 Patient Tobacco Use Status Never used Tobacco 03/08/24 09:59 Tobacco use type Cigarette 03/08/24 09:59 e-Cigarette/Vaping Use Never Used 03/08/24 09:59 Thrive Assessment: Date of Thrive Assessment Date Thrive assessed 01/26/24 03/08/24 09:59 Currently or been in a relationship where the following occur: I choose not to answer Coding Level of Care Code Est Pt Level 4 (31051) Diagnoses Hospital discharge follow-up Z09 Acute saddle pulmonary embolism with acute cor pulmonale I26.02 Acute cor pulmonale presence: with acute cor pulmonale Chronicity: acute Pulmonary embolism type: saddle Pneumonia of right lower lobe due to infectious organism J18.9 Pneumonia type: due to unspecified organism Assessment & Plan Assessment & Plan (1) Hospital discharge follow-up: Code(s): Z09 - Encounter for follow-up examination after completed treatment for conditions other than malignant neoplasm Category: Medical Plan: As per HPI (2) Pulmonary emboli: Comment: s/p embolectomy Code(s): I26.99 - Other pulmonary embolism without acute cor pulmonale Category: Medical Qualifiers: Acute cor pulmonale presence: with acute cor pulmonale Chronicity: acute Pulmonary embolism type: saddle Qualified Code(s): I26.02 - Saddle embolus of pulmonary artery with acute cor pulmonale Plan: Was found to have bilateral lower extremity DVTs. Patient had bilateral saddle pulmonary emboli that required mechanical thrombectomy. unclear etiology to patient's PE. Has followed up with Hematology. He is now on Eliquis 5 mg b.i.d. indefinitely. Reports since his hospitalization he feels better. (3) Right lower lobe pneumonia: Code(s): J18.9 - Pneumonia, unspecified organism Category: Medical Qualifiers: Pneumonia type: due to unspecified organism Qualified Code(s): J18.9 - Pneumonia, unspecified organism Plan: Has found to have a bilateral pneumonia was treated with antibiotics in the hospital and after admission.
== END 2024-03-08 10:49 | disposition home or self-care (01) ==
PROVIDERS: PCP Physician Assistant; Visit Provider Physician Assistant
DX: Z09 Encounter for follow-up examination after completed treatment for conditions other than malignant neoplasm (principal); I26.02 Saddle embolus of pulmonary artery with acute cor pulmonale; J18.9 Pneumonia, unspecified organism

== ENCOUNTER 2024-03-14 13:55 | Outpatient (AMB) | payer OTHER, SELFPAY ==
[2024-03-14 14:04] VITALS: BP 120/70; PULSE 74; BMI 28.3
--- NOTE | 2024-03-14 14:04 | MHC.OFFVIS ---
Vital Signs 03/14/24 14:04 Height 5 ft 6 in Weight 175 lb 7.807 oz BMI 28.3 BP 120/70 Blood Pressure Location Lt brachial Position Sitting Pulse 74 Pulse Source Pulse Oximeter Intake Visit Reasons: 4 mth f/up echo Intake Note: 4 mth f/up-echo Tobacco Cloth Reclaimer Required: No Accompanied by: Spouse Allergies No Known Allergies [No Known Allergies*] Allergy (Verified 03/08/24 10:28) Medication List - Last Reconciled 03/14/24 by Chriss Taylor MD amlodipine 2.5 mg (1/2 x 5 mg) PO DAILY 90 days apixaban (Eliquis) 2 tabs (10 mg) twice daily 02/25-02/28; then 1 tab (5 mg) twice daily for life atenolol 25 mg PO DAILY atorvastatin 80 mg PO BEDTIME bupropion HCl XL 150 mg PO DAILY cholecalciferol (vitamin D3) (Vitamin D3) 25 mcg PO DAILY cyanocobalamin (vitamin B-12) (Vitamin B-12) 500 mcg PO DAILY lisinopril 5 mg PO DAILY [id number] mcg (Centrum Minis Men 50 Plus) 1 tab PO DAILY HPI Comments Details: 68-year-old gentleman here for follow-up. He has background history of aortic dissection for which he underwent surgery. He recovered uneventfully. Since then he has had significant adjustment issues and has chronic fatigue. He had exercise stress test in the past which was normal. He returns again for follow-up and has complaints of fatigue. He feels that he gets fatigued very easily. He said before aortic dissection happened he was rowing and was quite active. We stop his Coreg and change atenolol which helped a little bit. Also his vitamin-D levels were low which were repleted. He also had stress testing which did not show any ischemia. Echocardiography has shown normal biventricular function. He continues to complain of fatigue and feels that he is unable to go back to his previous self before aortic dissection. He has seen CT surgery in follow-up and had CT scan of his chest. His aortic dissection repair is stable. He was incidentally found to have hepatic steatosis and gallstones. 03/14/2024: He is here for follow-up. He recently got admitted to [facility] in early 03/06/2024 with pneumonia and acute kidney injury. He was started on antibiotics and was hydrated and was clinically improving when he became more hypoxic suddenly and CT scan showed bilateral pulmonary embolism and he was also diagnosed with DVTs. He was hypoxic and after anticoagulation was started he was seen by vascular surgery and underwent mechanical thrombectomy for pulmonary embolism. This improved his right ventricular function significantly but he continued to have moderate RV dilation and dysfunction. This was definitely has significant improvement compared to original echocardiography which showed severe RV dilation with severe systolic dysfunction consistent with acute cor pulmonale due to pulmonary embolism. He has been doing well. He is off oxygen. He is starting to do some activities and has been doing well. He is on anticoagulation with apixaban at this point. He is following with pulmonology and also seeing hematology to have workup for hypercoagulable state. [facility] Medical History (Updated 03/14/24 @ 16:18 by Chriss Taylor MD) Abnormal echocardiogram Fatigue Essential hypertension Aortic dissection Surgical History Hx of colonoscopy H/O heart bypass surgery Family History Mother Breast cancer Father Heart disease Stroke Social History Household Members: Spouse Housing: House Do you presently have visiting nurse or other home services: No Alcohol intake: current Alcohol intake frequency: holidays/special occasions only Alcohol type: beer Patient Tobacco Use Status: Never used Tobacco Tobacco use type: Cigarette e-Cigarette/Vaping Use: Never Used Second Hand Smoke Exposure: No service: No Current occupational status: retired Cognitive needs: No Hearing needs: No Vision needs: No Review of Systems Const Denies chills, Denies fatigue, Denies fever(s), Denies frequent falls, Denies weakness, Denies weight gain and Denies weight loss ENT Denies dizziness Card Denies chest pain, Denies leg edema, Denies lightheadedness, Denies palpitations, Denies dyspnea and Denies dyspnea on exertion Resp Denies cough, Denies dyspnea and Denies dyspnea on exertion GI Denies hematochezia Musc Denies abnormal gait, Denies muscle weakness, Denies numbness, Denies radiating pain into limb and Denies tingling Neuro Denies abnormal gait, Denies dizziness, Denies frequent falls, Denies numbness, Denies tingling and Denies weakness Endo Denies fatigue and Denies palpitations Physical Exam Vital Signs: Last Vital Signs Pulse 74 03/14/24 14:04 BP 120/70 03/14/24 14:04 BMI result Body Mass Index 28.3 GENERAL APPEARANCE: in no acute distress, pleasant. NECK: no carotid bruit, no jugular venous distention. SKIN: no suspicious lesions, warm and dry. HEART: no murmurs, regular rate and rhythm. LUNGS: clear to auscultation bilaterally. ABDOMEN: soft, nontender. EXTREMITIES: no edema. PERIPHERAL PULSES: equal. NEUROLOGIC: No gross deficits, AAO X 3 Assessment & Plan Assessment & Plan (1) Essential hypertension: Comment: Stable Code(s): I10 - Essential (primary) hypertension Category: Medical (2) Pulmonary emboli: Comment: s/p embolectomy Code(s): I26.99 - Other pulmonary embolism without acute cor pulmonale Category: Medical Qualifiers: Pulmonary embolism type: saddle Chronicity: acute Acute cor pulmonale presence: with acute cor pulmonale Qualified Code(s): I26.02 - Saddle embolus of pulmonary artery with acute cor pulmonale (3) Right ventricular dysfunction: Code(s): I51.9 - Heart disease, unspecified Category: Medical Plan 68 year gentleman with background history of aortic dissection and hypertension. Recent admission with pneumonia complicated by DVT and saddle pulmonary embolism with hypoxia. He had acute cor pulmonale on echocardiography. He underwent mechanical thrombectomy for pulmonary embolism with good improvement in RV function as well as oxygen requirement. He is currently off oxygen and has been doing well. Blood pressure is well controlled. He will be on apixaban long-term but will be seeing pulmonology to have some advise 2. He already has an echo request by pulmonology to have echo in 3 months to reassess the PA pressures and right ventricular function. Thank you for allowing me to participate in the care of your patient. Please feel free to contact me if you have any questions. Coding Level of Care Code Est Pt Level 4 (09737) Diagnoses Essential hypertension I10 Acute saddle pulmonary embolism with acute cor pulmonale I26.02 Pulmonary embolism type: saddle Chronicity: acute Acute cor pulmonale presence: with acute cor pulmonale Right ventricular dysfunction I51.9
== END 2024-03-14 14:39 | disposition home or self-care (01) ==
LOC: HO.HCS 13:55
PROVIDERS: PCP Physician Assistant; Visit Provider Internal Medicine Cardiovascular Disease
DX: I10 Essential (primary) hypertension (principal); I26.02 Saddle embolus of pulmonary artery with acute cor pulmonale; I51.9 Heart disease, unspecified
CPT/HCPCS: 99214

== ENCOUNTER → 2024-03-14 13:55 | Outpatient (BNVA) | payer OTHER, SELFPAY | PROVIDERS: PCP Physician Assistant; Visit Provider Internal Medicine Cardiovascular Disease ==

== ENCOUNTER → 2024-04-18 10:04 | Outpatient (REF) | payer OTHER, SELFPAY | LOC: HO.CARD 10:04 | PROVIDERS: PCP Physician Assistant; Visit Provider Nurse Practitioner | DX: Z13.89 Encounter for screening for other disorder (principal) ==

== ENCOUNTER 2024-04-21 14:01 | Outpatient (REF) | payer OTHER, SELFPAY ==
[2024-04-21 11:43] VITALS: PULSE 75; O2SAT 96
--- NOTE | 2024-04-21 14:00 | PFT_ITS ---
Flows: FEV1: 107 % of predicted at 3.03 L FVC: 112 % of predicted at 4.15 L FEV1/FVC: 73 % Bronchodilator response: Not performed Volumes: Total lung capacity: 99 % of predicted at 6.19 L Residual volume: 87 % of predicted at 1.91 L Slow vital capacity: 106 % of predicted at 4.28 L Expiratory reserve volume: 50 % of predicted at 0.51 L Diffusion capacity: Normal Impression: No obstructive or restrictive ventilatory defect. Bronchodilator testing was not performed. MTDD
--- OUTSIDE RECORDS SUMMARY | 2024-04-27 02:59 | XMS_ITS | Continuity of Care Document ---
Author Organization [facility] Augustus eleanor Address [address] [place] [address]- Care Team Providers Care Coil Former Name Role Phone Karthik Jerome Primary [facility] Phys[id number]): [facility] [address] [place] [address] Drive [address] [place], [place] [address] Attending Physician: Simeon Jaime MD Referring Physician: Karthik Jerome Encounter Type: Office Visit Allergies, Adverse Reactions, Alerts No Known Allergies Medications amLODIPine 5 mg oral tablet 0.5, TAKE 0.5 TABLET BY MOUTH EVERY DAY Start Date: 05/28/20 Status: Ordered Repeat number: 1 atorvastatin 80 mg oral tablet = 80 mg, By Mouth, Daily at bedtime, 0 Refills, Maintenance, Tablet Start Date: 08/12/18 Status: Ordered Repeat number: 1 buPROPion 150 mg/24 hours (XL) oral tablet, extended release TAKE 1 TABLET BY MOUTH EVERY DAY IN THE MORNING Start Date: 05/28/20 Status: Ordered Repeat number: 1 carvedilol 6.25 mg oral tablet TAKE 1 TABLET BY MOUTH TWICE A DAY Start Date: 05/28/20 Status: Ordered Repeat number: 1 cyanocobalamin 500 mcg oral tablet 1 tablet = 500 mcg, By Mouth, Daily, # 30 tablet, 0 Refills, Maintenance, 05/28/20 4:55:00 PM EST, Tablet, Partial fill upon patient request if the prescription is for a schedule II opioid drug. Start Date: 05/28/20 Status: Ordered Quantity: 30.0 Unit: tablet Repeat number: 1 Eliquis 5 mg oral tablet TAKE 2 TABS (10 MG) TWICE DAILY 02/25-02/28 THEN 1 TAB (5 MG) TWICE DAILY FOR LIFE Start Date: 03/30/24 Status: Ordered Repeat number: 1 lisinopril 5 mg oral tablet TAKE 1 TABLET BY MOUTH EVERY DAY Start Date: 05/28/20 Status: Ordered Repeat number: 1 Multivitamin 0 Refills, Maintenance, 03/30/24 10:31:00 AM EST, Partial fill upon patient request if the prescription is for a schedule II opioid drug. Start Date: 03/30/24 Status: Ordered Repeat number: 1 Vitamin D3 oral tablet 1 tablet = 10 mcg, By Mouth, Daily, # 30 tablet, 0 Refills, Maintenance, 03/30/24 10:30:00 AM EST, Tablet, Partial fill upon patient request if the prescription is for a schedule II opioid drug. Start Date: 03/30/24 Status: Ordered Quantity: 30.0 Unit: tablet Repeat number: 1 Vital Signs Most recent to oldest [Reference Range]: 1 Height 168 cm (03/30/24 10:24 AM) Weight 75.90 kg (03/30/24 10:24 AM) Oxygen Saturation [94-100 %] 99 % (03/30/24 10:24 AM) Pulse Rate [55-90 bpm] 73 bpm (03/30/24 10:24 AM) Body Mass Index [18.5-24.99 kg/m2] 26.89 kg/m2 *H* (03/30/24 10:24 AM) Blood Pressure [90-138/55-84 mm Hg] 10/6 6mm Hg *L* (03/30/24 10:24 AM) Respiratory Rate [16-30 br/min] 16 br/mi n (03/30/24 10:24 AM) Temperature [96.8-100.4 DegF] 98.8 DegF (03/30/24 10:24 AM) Mode of Delivery (Oxygen) Room air (03/30/24 10:24 AM) Blood pressure sites Arm, right (03/30/24 10:24 AM) Temperature Route Oral (03/30/24 10:24 AM) Dry Weight 75.90 kg (03/30/24 10:24 AM) Weight Obtained Via Patient/family state d (03/30/24 10:24 AM) Dry Weight Obtained Via Patient/family s tated (03/30/24 10:24 AM) Social History Social History Type Response Smoking Status Never (less than 100 in lifetime) entered on: 09/02/18 Sex Sex Representation Male (finding) Cardiac surgery Outpatient Note * Nemesio BLANCA, Tristin Fernandes: PERFORM Event Display: Cardiac Surgery Note Office Authored Date: [id number] Patient: ??JANETH SHUKLA ? Age:??68 Years?Sex:??Male?:??1955?? Chief Complaint Status post repair of an acute type??A??aortic dissection History of Present Illness Janeth Shukla is a 68-year-old white male??who presents to cardiac surgery clinic??in follow-up after undergoing repair of a type a aortic dissection with the placement of a tube graft??in 2019.?He was doing well until February 22, 2024??when he??was admitted to[facility] with pneumonia and dehydration.?? Three days following admission,??he??suffered a saddle pulmonary embolism. ??He spent an additional 6 days in the hospital and ultimately made a good recovery. ??Following his discharge, he has been maintained on a regimen of??Eliquis for his??anticoagulation. ??His postdischarge follow-up for his pulmonary embolism is currently being managed??by his pipeline superintendent and hotel guest service agent??at??[facility]. ? At the time of his visit to clinic today, he has no complaints. Specifically, he denies any symptoms of chest pain, chest pressure, shortness of breath, dyspnea on exertion, near-syncope or syncope.?? He states that his blood pressure??remains under good control on his current antihypertensive regimen.?? He is quite active??and experiences no episodes of chest or back pain??during activity. ?? His most recent CT scan of the chest was performed on??January 29, 2024.?? Overall, this study demonstrated no aneurysmal dilation or dissection of the thoracic aorta.?? Specifically, the dimensions of his??thoracic aorta were as follows: the sinuses of Valsalva measured 3.6 x 3.7 x 3.6 cm, the sinotubular junction measured 3.6 x 3.6 cm, the maximal??ascending aortic??measured??3.6 x 3.4 cm, the mid aortic arch measured 3.3 x 3.4 cm??and the mid descending thoracic aorta measured 2.8 x 2.7 cm. ??Otherwise, postsurgical changes of??consistent with a prior??ascending aortic repair were noted. ?? Mr. Shukla presents to cardiac surgery clinic to review these findings and discuss the next beststep in his management. Review of Systems Cardiac: Symptoms of congestion: No Symptomatic hypotension: No Symptoms of ischemia: No Constitutional:?? Recent infection: No; no fever, no chills Unintentional weight loss/cachexia: No Respiratory: Symptomatic primary lung disease: No; No cough, No shortness of breath? All other systems are negative unless noted above. Physical Exam Vitals & Measurements T:??98.8?F?? HR:??73??(Peripheral)?? RR:??16?? BP:??10/66?? SpO2:??99%?? HT:??168??cm?? WT:??75.90??kg?? BMI:??26.89?? Cardiac: No jugular venous distension No peripheral edema?? Regular??heart??rhythm He??has equal but diminished 1+??carotid pulses bilaterally??with no carotid bruits. He??has no??leg edema. General Appearance:??Normal body habitus Eyes:??Non-icteric Pulmonary:??Normal respiratory effort. Clear to auscultation. No wheezing, rales or rhonchi Cardiac:??Regular rate and rhythm, I/ systolic murmur at the upper right sternal border, no S3 orS4 present. Sternum is stable on palpation. ??Well- healed??prior sternal incision. Vascular:??1+ femoral pulses bilaterally Gastrointestinal:??Soft, non-tender, no obvious ascites Musculoskeletal:??No overt mechanical limitations on movement and mobility Skin:??Intact, no rashes Neurological:??Alert and oriented, no gross deficits Psychiatric:??Appropriate mood and affect?? Assessment/Plan Janeth Shukla is a 68-year-old white male who presents to cardiac surgery clinic today??in follow-up after undergoing??repair of a type a dissection??of the ascending aorta with a 2 graft in 2019.?? His most recent CT scan of the chest performed on??01/29/2024, demonstrates??no aneurysmal dilationor dissection of the thoracic aorta. ?? Based on this finding, I have recommended to Mr. Shukla that??he undergo a repeat CT scan of theaorta??in 2 years. ??We plan to see him back in clinic after the completion of the study at that time.?? He is in agreement with this plan. Follow-Up Appointments No qualifying data available Problem List/Past Medical History Ongoing No qualifying data Medications amLODIPine 5 mg oral tablet, 0.5 atorvastatin 80 mg oral tablet, 80 mg, By Mouth, Daily at bedtime buPROPion 150 mg/24 hours (XL) oral tablet, extended release carvedilol 6.25 mg oral tablet cyanocobalamin 500 mcg oral tablet, 500 mcg= 1 tablet, By Mouth, Daily Eliquis 5 mg oral tablet lisinopril 5 mg oral tablet Multivitamin Vitamin D3 oral tablet, 10 mcg= 1 tablet, By Mouth, Daily Allergies NKA Social History Tobacco Use: Never (less than 100 in lifetime). Immunizations Vaccine Date Status pneumococcal 23-valent vaccine - Not Given Comments : Patient Refuses Patient Care team information Care Team Personnel Name: Libra Schaefer RN Position: S RN Member Role: Primary Care Nurse Name: Angelica Wilkins RN Position: S RN Member Role: Primary Care Nurse Name: Karthik Jerome Position: Reference Physician Member Role: PCP Address: [address] [facility] [address] [place] [address]- Telecom: Name: Pardeep [Deandra BURGOS Position: S RN Member Role: Primary Care Nurse Name: Shanti Garcia RN Position: S RN Member Role: Primary Care Nurse Name: Sarina Rivera RN Position: S RN Member Role: Primary Care Nurse Name: Mckayla Capone RN Position: S RN Supv Member Role: Primary Care Nurse Name: Ashlie Temple RN Position: S RN Member Role: Primary Care Nurse Care Team Related Persons Name: MISSY SHUKLA Name: PADMA MCBRIDE Insurance Providers Guarantor name: JANETH SHUKLA [facility] Information #: 1 Payer: [facility] POS Member Number: [id number] Policy Number: NA Group Number: NA Health Plan Information #: 2 Payer: [facility] POS Member Number: [id number] Policy Number: NA Group Number: NA
== END 2024-04-21 14:02 | disposition home or self-care (01) ==
LOC: HO.RESP 14:01
PROVIDERS: PCP Physician Assistant; Visit Provider Nurse Practitioner Family
DX: R06.09 Other forms of dyspnea (principal); I26.02 Saddle embolus of pulmonary artery with acute cor pulmonale
CPT/HCPCS: 94010; 94640; 94727; 94729

== ENCOUNTER → 2024-04-21 14:50 | Outpatient (BNV) | payer OTHER, SELFPAY | PROVIDERS: PCP Physician Assistant; Visit Provider Internal Medicine Pulmonary Disease | DX: R06.09 Other forms of dyspnea (principal) | CPT/HCPCS: 94060; 94727; 94729 ==

== ENCOUNTER 2024-05-02 13:55 | Outpatient (REF) | payer OTHER, SELFPAY ==
--- NOTE | ~2024-05-02 | CT_ITS ---
EXAMINATION: CT ANGIOGRAM CHEST CLINICAL INFORMATION: prior saddle embolus of pulmonary artery, assess for resolution COMPARISON: CT chest February 21, 2024 TECHNIQUE: Multiple axial images were obtained through the chest after the administration of 65 mL of Omnipaque 350 intravenous contrast. Extensive vascular post-processing including two-dimensional and three-dimensional reformatted images were created and reviewed on an independent workstation. This CT examination was performed using dose optimization techniques as appropriate, variously including the following: *Automated exposure control *Adjustment of mA and/or kV according to patient size (this includes techniques or standardized protocols for targeted exams where dose is matched to indication/reason for exam; i.e. extremities or head) *Use of iterative reconstruction technique DLP: 118 mGy-cm FINDINGS: VASCULAR: There has been interval resolution of the previously seen pulmonary embolism on the CT chest study February 21, 2024. the main pulmonary artery, secondary and tertiary branches of the pulmonary artery are normally opacified with no evidence of pulmonary embolism. The aorta and great vessels are unremarkable. MEDIASTINUM: No mediastinal mass. No significant lymphadenopathy. There is no pericardial effusion. CORONARY ARTERIES: Volume of coronary calcification:Small to moderate volume of coronary calcification. LUNGS: The lungs are clear. No nodule or infiltrate. Central bronchial airways open. FLUID: There is no pericardial effusion. There is no pleural effusion. AXILLA: No significant lymphadenopathy. UPPER ABDOMEN: Adrenal glands normal. Visualized portions of liver and spleen unremarkable. Low attenuating gallstone in the gallbladder. SKELETAL: No suspicious focal bone finding. Status post median sternotomy. Multilevel degenerative spondylosis spine. CT/CT angio chest PE protocol IMPRESSION: Unremarkable examination. IMPRESSION: 1. Interval resolution of previously seen pulmonary embolism. No evidence of pulmonary embolism. 2. Cholelithiasis. Fleischner guidelines were followed. Electronically signed by: Kevyn Gutierrez MD 05/03/2024 04:22 PM [facility]
--- OUTSIDE RECORDS SUMMARY | 2024-05-02 14:00 | XMS_ITS | Continuity of Care Document ---
Author Organization [facility] eleanor Address [address] [place] [address]- Care Team Providers Care Cloth Bale Header Name Role Phone Karthik Jerome Primary Care Physician Encounter [facility] ACCT R [id number] Date(s): 03/28/24 - 04/27/24 [facility] Cardiac Surgery [address] [place] [address] Drive [address] [place], [place] [address] Encounter Type: Triage Allergies, Adverse Reactions, Alerts No Known Allergies [...] Quantity: 30.0 Unit: tablet Repeat number: 1 Social History Social History Type Response Smoking Status Never (less than 100 in lifetime) entered on: 09/02/18 Sex Sex Representation Male (finding) Patient Care team information Care Team Personnel Name: Jessica Luna CNM Position: Reference Physician Member Role: Primary Care Nurse Address: [address] [place] [address]- Telecom: Name: Libra Schaefer RN Position: S RN Member Role: Primary Care Nurse Name: Angelica Wilkins RN Position: S RN Member Role: Primary Care Nurse Name: Karthik Jerome Position: Reference Physician Member Role: PCP Address: [address] [place] [address]- Telecom: Name: Pardeep [INSTR]Deandra Position: S RN Member Role: Primary Care Nurse Name: Shanti Garcia RN Position: S RN Member Role: Primary Care Nurse Name: Sarina Rivera RN Position: S RN Member Role: Primary Care Nurse Name: Mckayla Capone RN Position: S RN Supv Member Role: Primary Care Nurse Name: Ashlie Temple RN Position: S RN Member Role: Primary Care Nurse Care Team Related Persons Name: MISSY MONTERO Name: PADMA MCBRIDE Insurance Providers Guarantor name: JANETH [facility] Plan Information #: 1 Payer: [facility] POS Member Number: NA Policy Number: NA Group Number: NA
--- OUTSIDE RECORDS SUMMARY | 2024-05-02 14:00 | XMS_ITS | Continuity of Care Document ---
Author Organization [facility] Card[facility] eleanor Address [address] [place] [address]- Care Team Providers Care Erosion Control Coordinator Name Role Phone Karthik Jerome Primary Care Physician Encounter [facility] Date(s): 03/30/24 - 04/29/24 [facility] Cardiac Surgery [address] [place] [address] Drive [address] [place], [place] [address] Attending Physician: Burt Howe Admitting Physician: Burt Howe Referring Physician: Burt Howe Encounter Type: Triage Allergies, Adverse Reactions, Alerts [...] Physician Member Role: Primary Care Nurse Address: [address] [place] [address]- Telecom: Name: Libra Schaefer RN Position: S RN Member Role: Primary Care Nurse Name: Angelica Wilkins RN Position: S RN Member Role: Primary Care Nurse Name: Karthik Jerome Position: Reference Physician Member Role: PCP Address: [address] [place] [address] [address] [place] [address]- Telecom: Name: Pardeep [INSTRDeandra Whitaker Position: S RN Member Role: Primary Care Nurse Name: Shanti Garcia RN Position: S RN Member Role: Primary Care Nurse Name: Sarina Rivera RN Position: S RN Member Role: Primary Care Nurse Name: Mckayla Capone RN Position: S RN Supv Member Role: Primary Care Nurse Name: Ashlie Temple RN Position: [facility] RN Member Role: Primary Care Nurse Care Team Related Persons Name: MONTEROCALOS REEDERAN Name: PADMA MCBRIDE Insurance Providers Guarantor name: JANETH MONTERO [facility] Plan Information #: 1 Payer: [facility] POS Member Number: NA Policy Number: NA Group Number: NA
[2024-05-02] MEDS: iohexoL 350 MG/ML 75 ML INFUS..BTL 65 ML IV (14:27)
[2024-05-03 08:00] LABS: Creatinine POC 1.3 mg/dL (0.5-1.4); GFR POC 58
== END 2024-05-02 13:56 | disposition home or self-care (01) ==
LOC: HO.CT 13:55
PROVIDERS: PCP Physician Assistant; Visit Provider Nurse Practitioner Family
DX: I26.02 Saddle embolus of pulmonary artery with acute cor pulmonale (principal)
CPT/HCPCS: 71275; 82565; Q9967

== ENCOUNTER → 2024-05-19 08:47 | Outpatient (REF) | payer OTHER, SELFPAY ==
--- NOTE | 2024-05-19 08:51 | CA_ITS ---
Transthoracic Echocardiogram Patient (Last, First, Middle): Guero Shukla, Gender: Male Date of : 1955 Age: 68 Procedure Date: 05/19/2024 Procedure Type: Transthoracic Echocardiogram Location: OP Height: 167.64 cm Weight: 79.38 kg BSA: 1.89 m2 Heart Rate: bpm BP: 132 / 68 mmHg Fibreglass Laminator: TO Referring MD: Deandra Parks FLUXER Certified Meeting Professional: Deep Steele MD Symptoms: I26.09 - Other pulmonary embolism with acute cor pulmonale Study Quality: Adequate ECG Rhythm: Sinus Conclusions: - 1. Normal LV systolic function with LVEF of 60-65% 2. RV systolic function has normalized 3. Normal cardiac valvular Dopplers 4. Normal RV systolic pressure with mildly elevated right atrial pressures 5. No gross pericardial effusion Findings Left Ventricle Normal left ventricular size, thickness, and systolic function. The visually estimated ejection fraction is between 60-65%. Spectral Doppler is indicative of a normal filling pattern. E/E prime ratio is between 8 and 15 consistent with indeterminate filling pressures. There is mild septal asymmetric hypertrophy.Peak GLS is -19.3%, within normal limits. Right Ventricle Normal right ventricular cavity size and systolic function. Atria The left atrium is likely dilated. There is no evidence of interatrial shunt. The right atrium is normal in size. Aortic Valve There is mild calcification of the aortic valve. There is mild thickening of the aortic valve. There is no aortic valve stenosis. There is no aortic valve regurgitation. Mitral Valve There is mild anterior and posterior mitral leaflet thickening. There is trace mitral valve regurgitation. There is no mitral valve stenosis. Pulmonic Valve The pulmonic valve is likely normal. There is trace pulmonic valve regurgitation. Tricuspid Valve Likely normal tricuspid valve structure and function. There is mild tricuspid valve regurgitation. The right ventricular systolic pressure is normal. The right ventricular systolic pressure is 20 mmHg. Mildly elevated right atrial pressure. There is no evidence of pulmonary hypertension. Great Vessels All visible segments of the aorta are normal in size. The pulmonary artery was not well visualized. There is no dilatation of the ascending aorta measuring 3.30 cm. Venous The inferior vena cava is mildly dilated and collapses greater than 50% with inspiration. Pericardium/Pleural There is no evidence of pericardial effusion. Prior Study Comparison Changes noted compared to prior study dated: 02/24/2024. RV systolic function has normalized Measurements 2D Linear Measurements IVSd: 1.34 0.6-0.9/0.6-1.0 cm LVIDd: 3.26 3.9-5.3/4.2-5.9 cm LVIDd Index: 1.72 2.4-3.2/2.2-3.1 cm/m2 LVIDs: 2.43 2.0-3.6 cm LVPWd: 1.11 0.7-1.1 cm LA Diam: 3.80 2.7-3.8/3.0-4.0 cm LAIDs Index: 2.01 1.5-2.3 cm/m2 LV Mass: 157.58 67-162/88-224 g LV Mass Index: 83.38 43-95/49-115 g/m2 LVOT Diam: 2.00 3.0+(-)1.3 cm 2D Systolic Function EF 4C: 60.70 >55% EF 2C: 62.00 >55% EF BiP: 62.40 >55% Mitral Valve MV Pk E: 0.97 MV PK A: 0.90 MV Decel Time: 221.00 E/A: 1.10 E'Lateral: 8.16 E'Medial: 5.98 E/E' Med: 16.20 E/E' Lat: 11.90 PHT: 65.00 MVA PHT: 3.38 Decel [place]: 4.38 Aortic Valve AoV Pk Kailash: 1.36 AoV Mn Kailash: 0.95 AoV VTI: 0.29 AoV Pk Grad: 7.00 Aov Mn Grad: 4.00 CHERYL Cont.VTI: 2.31 LVOT LVOT Pk Kailash: 1.00 LVOT Mn Kailash: 0.70 LVOT VTI: 0.21 LVOT Pk Grad: 4.00 LVOT Mn Grad: 2.00 LVOT Diam: 2.00 LVOT Area: 3.14 Diastolic Function MV Pk E: 0.97 MV Pk A: 0.90 E/A: 1.10 E'Medial: 5.98 E/E' Med: 16.20 E' Laterial: 8.16 E/E' Lat: 11.90 Right Ventricle TAPSE (mm): 17.50 TVS' Kailash: 10.20 Tricuspid Valve TR Pk Kailash: 1.76 TR Pk Grad: 12.00 RA Press: 8.00 RVSP: 20.00 Great Vessels Aorta Sinus of Valsalva: 3.71 2.0-3.5 cm Ao Asc: 3.30 2.1-3.4 cm Updated in Other Vendor System with Status of Final Deep Steele MD electronically signed on 05/19/2024 3:59:09 PM with status of Final
== END ==
LOC: HO.CARD 08:47
PROVIDERS: PCP Physician Assistant; Visit Provider Nurse Practitioner Family
DX: I26.09 Other pulmonary embolism with acute cor pulmonale (principal)
CPT/HCPCS: 93306; 93356

== ENCOUNTER → 2024-05-19 08:51 | Outpatient (BNV) | payer OTHER, SELFPAY | PROVIDERS: PCP Physician Assistant; Visit Provider Internal Medicine Cardiovascular Disease | DX: I26.09 Other pulmonary embolism with acute cor pulmonale (principal); I42.2 Other hypertrophic cardiomyopathy; I36.1 Nonrheumatic tricuspid (valve) insufficiency; I35.8 Other nonrheumatic aortic valve disorders | CPT/HCPCS: 93306; 93356 ==

== ENCOUNTER 2024-05-26 08:57 | Outpatient (REF) | payer OTHER, SELFPAY ==
[2024-05-26 09:37] LABS: Mean Corpuscular HGB Conc 33.3 g/dl (31.0-36.0); Mean Corpuscular Hemoglobin 28.8 pg (27.0-33.0); Mean Corpuscular Volume 86.4 fL (80.0-98.0); Mean Platelet Volume 8.9 fL (9.4-12.4); Platelet Count 172 X10*3/uL (160-400); Red Blood Count 5.21 X10*6/uL (4.60-5.80); Red Cell Distribution Width 14.3 % (11.0-16.0); White Blood Count 6.6 X10*3/uL (4.8-10.8)
[2024-05-26 10:04] LABS: Appearance Urine Clear; Color Urine Yellow; Glucose Urine UA Negative (Negative); Leukocyte Esterase Urine Negative (Negative); Nitrite Urine Negative (Negative); Specific Gravity - Urine 1.025 (1.005-1.025); Urine Blood Negative (Negative); Urine Ketones Negative (Negative); Urine Protein Negative (Neg-Trace)
[2024-05-26 10:50] LABS: Alanine Aminotransferase 26 U/L (0-40); Anion Gap 10 (12-20); Aspartate Amino Transferase 28 U/L (5-37); Bilirubin Total 0.8 mg/dL (0.0-1.0); Blood Urea Nitrogen 22 mg/dL (9-16); Calcium 9.2 mg/dL (8.4-10.2); Carbon Dioxide 28 mmol/L (22-29); Chloride 108 mmol/L (96-108); Cholesterol 152 mg/dL (<200); Estimated Glomerular Filt Rate 48; Glucose Fasting 119 mg/dL (60-99); HDL Cholesterol 45 mg/dL (>40); LDL Cholesterol Calculated 85 mg/dL (<100); Sodium 141 mmol/L (135-145); Total Protein 6.5 g/dL (6.5-8.0); Triglycerides 113 mg/dL (<150)
[2024-05-26 12:25] LABS: Alkaline Phosphatase 47 U/L (39-117)
== END 2024-05-26 08:58 | disposition home or self-care (01) ==
LOC: HO.LAB 08:57
PROVIDERS: Nurse Practitioner; PCP Physician Assistant; Visit Provider Physician Assistant
DX: I71.010 Dissection of ascending aorta (principal); I10 Essential (primary) hypertension; R30.0 Dysuria
CPT/HCPCS: 36415; 80053; 80061; 81003; 85027

== ENCOUNTER 2024-05-30 08:30 | Outpatient (AMB) | payer OTHER, SELFPAY ==
--- NOTE | 2024-05-30 08:32 | A.OFFPC_ITS ---
Vital Signs 05/30/24 08:33 Height 5 ft 6 in Weight 181 lb BMI 29.2 BP 132/86 Blood Pressure Location Lt brachial Position Sitting Pulse 70 Pulse Source Pulse Oximeter Pulse Oximetry (%) 95 Oxygen Delivery Method Room Air Intake Visit Reasons: f/u IGM Allergies No Known Allergies [No Known Allergies*] Allergy (Verified 05/30/24 08:40) Medication List - Last Reconciled 05/30/24 by Karthik Calle PA-C amlodipine 2.5 mg (1/2 x 5 mg) PO DAILY 90 days apixaban (Eliquis) 5 mg PO BID 90 days atenolol 25 mg PO DAILY atorvastatin 80 mg PO BEDTIME bupropion HCl XL 150 mg PO DAILY cholecalciferol (vitamin D3) (Vitamin D3) 25 mcg PO DAILY cyanocobalamin (vitamin B-12) (Vitamin B-12) 500 mcg PO DAILY lisinopril 5 mg PO DAILY [id number] [phone] mcg (Centrum Minis Men 50 Plus) 1 tab PO DAILY Tobacco use date assessed: 05/30/24 Dental Screening Dental Screen Date: 05/30/24 Did you have a dental visit in the last 12 months?: Yes Did you have a dental problem in the last 6 months where you did not have access to dental care?: No Was dental information given to patient?: Patient has dentist HPI f/u IGM HPI Details The patient is a 68 year old male presenting with follow-up concerns for previously identified borderline hyperglycemia, anemia, and mildly impaired kidney function. Last year, in the fall, the patient was noted to be anemic, which has since resolved as the current blood levels, including hemoglobin and hematocrit, are within normal ranges. Additionally, previously detected laboratory results showed signs of dehydration with a creatinine level of 1.4, indicating mild impairment of kidney function. The patient had a fasting blood sugar reading of 129 in the past, which has decreased to 119; however, it remains slightly above the normal range. Advice was previously given to monitor diet, particularly limiting high-carbohydrate intake, in an effort to control blood sugar levels. Laboratory Tests 01/21/24 02/11/24 02/21/24 07:34 10:43 09:15 RBC BUN Creatinine Fasting Glucose 129 H Troponin I High Se ns B-Natriuretic Pept harika LDL Cholesterol, C alc SARS-CoV-2 RNA (RT -PCR) NEGATIVE Not Detected Ur Strep pneumonia e Ag 02/22/24 02/22/24 02/23/24 01:15 06:05 05:52 RBC 4.14 L BUN Creatinine Fasting Glucose Troponin I High Se ns 102.7 H* D B-Natriuretic Pept harika 1119 H 634 H LDL Cholesterol, C alc SARS-CoV-2 RNA (RT -PCR) Ur Strep pneumonia e Ag Not Detected 02/24/24 02/26/24 05/26/24 06:35 06:38 09:19 RBC 5.21 D BUN 22 H Creatinine 1.21 1.45 H Fasting Glucose 119 H Troponin I High Se ns B-Natriuretic Pept harika 532 H LDL Cholesterol, C alc 85 SARS-CoV-2 RNA (RT -PCR) Ur Strep pneumonia e Ag PFSH Medical History History of aortic dissection History of DVT (deep vein thrombosis) Atrial fibrillation History of CVA (cerebrovascular accident) Abnormal echocardiogram Fatigue Essential hypertension Surgical History History of thrombectomy History of aortic aneurysm repair Hx of colonoscopy H/O heart bypass surgery Family History Mother Breast cancer Father Heart disease Stroke Social History Household Members: Spouse Housing: House Do you presently have visiting nurse or other home services: No Alcohol intake: current Alcohol intake frequency: holidays/special occasions only Alcohol type: beer Patient Tobacco Use Status: Never used Tobacco Tobacco use type: Cigarette e-Cigarette/Vaping Use: Never Used Second Hand Smoke Exposure: No service: No Current occupational status: retired Cognitive needs: No Hearing needs: No Vision needs: No Questionnaire PHQ-9 Over the last 2 weeks, how often have you been bothered by any of the following problems? 96294 - PHQ-9 Billing: Yes Source: Developed by Drs. Jose Martinez, Jessica Mehta, Tulio Arroyo and colleagues, with an educational gal from [employer]. Thrive Questionnaire Date Thrive assessed: 05/30/24 I am a: Parent/Caregiver What is your living situation today?: I choose not to answer this question Within the past 12 months, did the food you bought not last and you didn't have the money to get more?: I choose not to answer this question Within the past 12 months, did you worry whether your food would run out before you got money to buy more?: I choose not to answer this question Do you have trouble paying for medicines?: I choose not to answer this question Do you have trouble getting transportation to medical appointments?: I choose not to answer this question Do you have trouble paying your heating and electricity bill?: I choose not to answer this question Do you have trouble taking care of your child, family member or friend?: I choose not to answer this question Do you have trouble with day-to-day activities such as bathing, preparing meals, shopping, managing finances, etc.?: I choose not to answer this question Are you currently unemployed and looking for a job?: I choose not to answer this question Are you interested in more education?: I choose not to answer this question Please select the resources that you would like help with: None Currently or been in a relationship where the following occur: I choose not to answer THRIVE Score: 0 AUDIT C Alcohol Use Questionnaire (AUDIT-C) 1. How often do you have a drink containing alcohol?: Never 3. How often do you have six or more drinks on one occasion?: Never Total Score: 0 JANET-7 AMB Questionnaire JANET-7 Date JANET - 7 assessed: 01/26/24 Source: Developed by Drs. Jose Martinez, Jessica Mehta, Tulio Arroyo and colleagues, with an educational gal from [employer]. Physical exam (Primary Care) Vital Signs: Last Vital Signs Pulse 70 05/30/24 08:33 BP 132/86 05/30/24 08:33 Pulse Ox 95 05/30/24 08:33 Oxygen Delivery Method Room Air 05/30/24 08:33 BMI result Body Mass Index 29.2 Tobacco/Smoking Status: Tobacco use Status Tobacco use date assessed 05/30/24 05/30/24 08:36 Patient Tobacco Use Status Never used Tobacco 05/30/24 08:36 Tobacco use type Cigarette 05/30/24 08:36 e-Cigarette/Vaping Use Never Used 05/30/24 08:36 Thrive Assessment: Date of Thrive Assessment Date Thrive assessed 05/30/24 05/30/24 08:36 Currently or been in a relationship where the following occur: I choose not to answer Coding Level of Care Code Est Pt Level 4 (43509) Diagnoses Impaired glucose metabolism R73.09 Stage 3a chronic kidney disease N18.31 Chronic kidney disease stage: stage 3 (moderate) Chronic kidney disease stage 3 subtype: stage 3a (GFR 45-59) Essential hypertension I10 Additional Codes PHQ-9 - 16198 - PHQ-9 Billing: Yes ([id number]) Assessment & Plan Assessment & Plan (1) Impaired glucose metabolism: Code(s): R73.09 - Other abnormal glucose Category: Medical Plan: Continue monitoring blood sugar and dietary modifications to address borderline hyperglycemia. Recommend dietary adjustments focusing on low carbohydrate intake and increased physical activity. - Evaluate with HbA1c in the next lab workup to track glucose levels over a three-month period. (2) CKD (chronic kidney disease): Code(s): N18.9 - Chronic kidney disease, unspecified Category: Medical Qualifiers: Chronic kidney disease stage: stage 3 (moderate) Chronic kidney disease stage 3 subtype: stage 3a (GFR 45-59) Qualified Code(s): N18.31 - Chronic kidney disease, stage 3a Plan: - Ensure adequate hydration to support kidney function and avoid dehydration- related creatinine abnormalities. - Plan for regular follow-up labs in spring and annual PSA testing for prostate health maintenance. (3) Essential hypertension: Comment: Stable Code(s): I10 - Essential (primary) hypertension Category: Medical Plan: Patient's blood pressure acceptable today in office. Will continue his current dose of antihypertensive medication with goal blood pressure to remain below 140/90 Orders: Orders Comprehensive [place]. Panel Fast Today I10 - Essential (primary) hypertension Prostate Specific Antigen Scr Today N18.9 - Chronic kidney disease, unspecified, Z12.5 - Encounter for screening for malignant neoplasm of prostate Hemoglobin A1c Today I10 - Essential (primary) hypertension
[2024-05-30 08:33] VITALS: BP 132/86; PULSE 70; O2SAT 95; BMI 29.2
== END 2024-05-30 08:53 | disposition home or self-care (01) ==
PROVIDERS: PCP Physician Assistant; Visit Provider Physician Assistant
DX: R73.09 Other abnormal glucose (principal); N18.31 Chronic kidney disease, stage 3a; I10 Essential (primary) hypertension

== ENCOUNTER → 2024-05-30 08:30 | Outpatient (BNVA) | payer OTHER, SELFPAY | PROVIDERS: PCP Physician Assistant; Visit Provider Physician Assistant | DX: I26.02 Saddle embolus of pulmonary artery with acute cor pulmonale (principal); J96.01 Acute respiratory failure with hypoxia; J18.9 Pneumonia, unspecified organism; Z86.718 Personal history of other venous thrombosis and embolism; Z79.01 Long term (current) use of anticoagulants; R73.09 Other abnormal glucose; I12.9 Hypertensive chronic kidney disease with stage 1 through stage 4 chronic kidney disease, or unspecified chronic kidney disease; N18.31 Chronic kidney disease, stage 3a | CPT/HCPCS: 96127 ==

== ENCOUNTER 2024-05-30 14:00 | Outpatient (AMB) | payer OTHER, SELFPAY ==
[2024-05-30 14:03] VITALS: BP 126/64; PULSE 70; O2SAT 97; BMI 29.2
--- NOTE | 2024-05-30 14:03 | A.OFFVIS_ITS ---
Vital Signs 05/30/24 14:03 Height 5 ft 6 in Weight 181 lb BMI 29.2 BP 126/64 Blood Pressure Location Rt brachial Position Sitting Pulse 70 Pulse Source Pulse Oximeter Pulse Oximetry (%) 97 Oxygen Delivery Method Room Air Intake Visit Reasons: Acute cor pulmonale Statement Clerks Supervisor Required: No Plier Worker: Plier Worker offered & declined Allergies No Known Allergies [No Known Allergies*] Allergy (Verified 05/30/24 14:09) Medication List - Last Reconciled 05/30/24 by Nat Bishop LPN amlodipine 2.5 mg (1/2 x 5 mg) PO DAILY 90 days apixaban (Eliquis) 5 mg PO BID 90 days atenolol 25 mg PO DAILY atorvastatin 80 mg PO BEDTIME bupropion HCl XL 150 mg PO DAILY cholecalciferol (vitamin D3) (Vitamin D3) 25 mcg PO DAILY cyanocobalamin (vitamin B-12) (Vitamin B-12) 500 mcg PO DAILY lisinopril 5 mg PO DAILY [id number] [id number] mcg (Centrum Minis Men 50 Plus) 1 tab PO DAILY HPI HPI Acute cor pulmonale: Details: Guero candelario is a 68 year-old male, never smoker, with HTN and h/o aortic dissection repair with tube graft in 2019. He was referred by [facility] after recent admission 02/16-02/25, admitted for acute hypoxia initially attributed to RLL pneumonia but ultimately was found to have a submassive PE with right heart strain with bilateral LE DVT and acute cor pulmonale. Oxygenation worsened to the point where he was on HFNC. PE was diagnosed on 02/20 and started on therapeutic heparin infusion. Vascular Surgery was urgently consulted, and he underwent successful mechanical thrombectomy of pulmonary embolism of bilateral pulmonary arteries on 02/21. Oxygen requirement decreased rapidly afterwards and he was weaned to room air and did not qualify for home oxygen. He was transitioned to PO apixaban 10 mg bid 02/22-02/28, then 5 mg bid 03/01 for life. 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 He denies personal or family history of clotting disorders. At the last visit, he was sent to hematology for further workup. Since discharge he continues to improve and feels his respiratory symptoms are back to baseline and been attending cardiac rehab. Denies any cough, wheezing or dyspnea. Today he presents to review repeat CTA, overnight oximetry, PFT and echo. [facility] Medical History History of aortic dissection History of DVT (deep vein thrombosis) Atrial fibrillation History of CVA (cerebrovascular accident) Abnormal echocardiogram Fatigue Essential hypertension Surgical History History of thrombectomy History of aortic aneurysm repair Hx of colonoscopy H/O heart bypass surgery Family History Mother Breast cancer Father Heart disease Stroke Social History Household Members: Spouse Housing: House Do you presently have visiting nurse or other home services: No Alcohol intake: current Alcohol intake frequency: holidays/special occasions only Alcohol type: beer Patient Tobacco Use Status: Never used Tobacco Tobacco use type: Cigarette e-Cigarette/Vaping Use: Never Used Second Hand Smoke Exposure: No service: No Current occupational status: retired Cognitive needs: No Hearing needs: No Vision needs: No Review of Systems Const Denies chills, Denies excessive sweating, Denies fever(s), Denies headache(s) and Denies night sweats Eyes Denies dry eyes, Denies irritation and Denies itchy eyes ENT Reports Normal hearing present, Denies headache(s), Denies nasal congestion, Denies nasal discharge, Denies post nasal drip and Denies sore throat Card Denies chest pain, Denies chest pain at rest, Denies chest pain with activity, Denies claudication, Denies leg edema, Denies dyspnea, Denies dyspnea on exertion, Denies orthopnea and Denies paroxysmal nocturnal dyspnea Resp Denies chest congestion, Denies cough, Denies excessive phlegm production, Denies pain on inspiration, Denies pain with cough, Denies dyspnea, Denies dyspnea on exertion, Denies stridor and Denies wheezing Musc Denies myalgias Neuro Reports Normal hearing present and Denies headache(s) Endo Denies excessive sweating Giovanni/Lymph Denies lymphadenopathy Aller/Immun Denies itchy eyes, Denies seasonal rhinorrhea and Denies wheezing Physical Exam Vital Signs: Last Vital Signs Pulse 70 05/30/24 14:03 BP 126/64 05/30/24 14:03 Pulse Ox 97 05/30/24 14:03 Oxygen Delivery Method Room Air 05/30/24 14:03 BMI result Body Mass Index 29.2 Const General: cooperative, healthy appearing, comfortable, no acute distress, well developed and alert Orientation/consciousness: patient oriented x3 Limitations: no limitations HEENT Head: Yes normal to inspection, Yes normocephalic and Yes atraumatic Ears: hearing grossly normal bilaterally and external ears normal Eyes General: appearance normal, both eyes and all related structures Eyelids: Yes eyelids normal Sclerae: sclerae normal EOM: EOMs intact bilaterally Neck Neck: Yes normal visual inspection and Yes no lymphadenopathy Lymphatic: no lymphadenopathy noted Chest Chest palpation & inspection: normal inspection of the chest Resp Effort & Inspection: normal respiratory effort, able to speak in complete sentences, no audible wheezes, no cough, no stridor, not tachypneic, no tripod positioning and no use of accessory muscles Auscultation: clear to auscultation bilaterally Cardio Jugular venous distension: no JVD Rate: regular rate Rhythm: regular rhythm Skin Other: warm, dry General skin exam: no rashes or lesions noted Neuro General: patient oriented x3 Cranial nerves: Yes Normal hearing present Cognition (Neuro): normal cognition Gait exam (Neuro): Normal gait present Extrem General: Yes normal to inspection, Yes capillary refill normal, Yes no clubbing, cyanosis or edema and Yes no pedal edema Psych Appearance: grossly normal and well kempt Speech and movement: Normal speech and movement present and Clear speech present Affect: normal affect Attitude: cooperative Thought process: Normal thought process present Thought content: Normal thought content present Insight: Good insight present (Psych) Judgement: Good judgement present (Psych) Results Reviewed Results Reviewed: [address] [address] [address] Scan Report Signed Patient: Guero Shukla MR#: [id number] : 1955 Acct:[id number] Age/Sex: 68 / M ADM Date: 05/02/24 Loc: .CT Attending Dr: Deandra Parks NP Ordering Physician: Deandra Parks NP Date of Service: 05/02/24 Procedure(s): CT angio chest PE protocol Accession Number(s): [id number] cc: Karthik Calle PA-C; Deandra Parks NP~ EXAMINATION: CT ANGIOGRAM CHEST CLINICAL INFORMATION: prior saddle embolus of pulmonary artery, assess for resolution COMPARISON: CT chest February 21, 2024 TECHNIQUE: Multiple axial images were obtained through the chest after the administration of 65 mL of Omnipaque 350 intravenous contrast. Extensive vascular post-processing including two-dimensional and three-dimensional reformatted images were created and reviewed on an independent workstation. This CT examination was performed using dose optimization techniques as appropriate, variously including the following: *Automated exposure control *Adjustment of mA and/or kV according to patient size (this includes techniques or standardized protocols for targeted exams where dose is matched to indication/reason for exam; i.e. extremities or head) *Use of iterative reconstruction technique DLP: 118 mGy-cm FINDINGS: VASCULAR: There has been interval resolution of the previously seen pulmonary embolism on the CT chest study February 21, 2024. the main pulmonary artery, secondary and tertiary branches of the pulmonary artery are normally opacified with no evidence of pulmonary embolism. The aorta and great vessels are unremarkable. MEDIASTINUM: No mediastinal mass. No significant lymphadenopathy. There is no pericardial effusion. CORONARY ARTERIES: Volume of coronary calcification:Small to moderate volume of coronary calcification. LUNGS: The lungs are clear. No nodule or infiltrate. Central bronchial airways open. FLUID: There is no pericardial effusion. There is no pleural effusion. AXILLA: No significant lymphadenopathy. UPPER ABDOMEN: Adrenal glands normal. Visualized portions of liver and spleen unremarkable. Low attenuating gallstone in the gallbladder. SKELETAL: No suspicious focal bone finding. Status post median sternotomy. Multilevel degenerative spondylosis spine. CT/CT angio chest PE protocol IMPRESSION: Unremarkable examination. IMPRESSION: 1. Interval resolution of previously seen pulmonary embolism. No evidence of pulmonary embolism. 2. Cholelithiasis. Fleischner guidelines were followed. Electronically signed by: Kevyn Gutierrez MD 05/03/2024 04:22 PM [facility] Dictated By: Kevyn Gutierrez MD Signed By: <Electronically signed by Kevyn Gutierrez MD in OV> 05/03/24 1622 DD/ 1405 TD/TT: 05/02/24 1420 Life Skills Worker: MILLIE Assessment & Plan Assessment & Plan (1) Pulmonary emboli: Onset Date: ~2023 Comment: s/p embolectomy Code(s): I26.99 - Other pulmonary embolism without acute cor pulmonale Category: Medical Qualifiers: Pulmonary embolism type: saddle Chronicity: acute Acute cor pulmonale presence: with acute cor pulmonale Qualified Code(s): I26.02 - Saddle embolus of pulmonary artery with acute cor pulmonale (2) Acute cor pulmonale: Code(s): I26.09 - Other pulmonary embolism with acute cor pulmonale Category: Medical (3) Acute hypoxemic respiratory failure: Code(s): J96.01 - Acute respiratory failure with hypoxia Category: Medical (4) Pneumonia: Code(s): J18.9 - Pneumonia, unspecified organism Category: Medical Plan Reviewed PFT which revealed No obstructive or restrictive ventilatory defect. Bronchodilator testing was not performed. DLCO normal. Echo revealed LVEF 60- 65%, RVSP WNL and normalized RV systolic function. Overnight oximetry negative for significant nocturnal hypoxemia. There was note of 16 oxygen desaturation events, suggestive of possible DAMIAN, however home sleep study from 03/10 negative for DAMIAN. CTA 05/02 revealed resolution of prior PE. At this time Guero feels his symptoms are back to baseline. He has been maintained on Eliquis 5 mg BID which he will remain on indefinitely due to nature of PE, this has been prescribed by cardiology. All questions were answered and patient is in agreement of plan. Will follow up in 6 months or sooner if needed. Coding Level of Care Code Est Pt Level 4 (66170) Complex EM visit Add On G2211 Diagnoses Acute saddle pulmonary embolism with acute cor pulmonale I26.02 Pulmonary embolism type: saddle Chronicity: acute Acute cor pulmonale presence: with acute cor pulmonale Acute cor pulmonale I26.09 Acute hypoxemic respiratory failure J96.01 Pneumonia J18.9
== END 2024-05-30 14:35 | disposition home or self-care (01) ==
PROVIDERS: PCP Physician Assistant; Visit Provider Nurse Practitioner Family
DX: I26.02 Saddle embolus of pulmonary artery with acute cor pulmonale (principal); I26.09 Other pulmonary embolism with acute cor pulmonale; J96.01 Acute respiratory failure with hypoxia; J18.9 Pneumonia, unspecified organism
CPT/HCPCS: 99214

== ENCOUNTER 2024-08-01 08:30 | Outpatient (RCR) | payer OTHER, SELFPAY | END 2024-08-03 06:31 | disposition home or self-care (01) | LOC: HO.CR 08:30 | PROVIDERS: PCP Physician Assistant; Visit Provider Internal Medicine Cardiovascular Disease | DX: I71.010 Dissection of ascending aorta (principal); Z98.61 Coronary angioplasty status | CPT/HCPCS: 93798 ==

== ENCOUNTER 2024-08-26 13:49 | Outpatient (REF) | payer OTHER, SELFPAY ==
--- NOTE | ~2024-08-26 | US_ITS ---
CLINICAL HISTORY: I65.29 - Occlusion and stenosis of unspecified carotid artery US Bilateral Carotid Duplex Comparison: None Findings: No significant plaque within the common carotid arteries. Mild plaque within the carotid bulbs. Color doppler and spectral tracings normal. Peak systolic velocities: Right CCA: 103 cm/s. Right ICA: 101 cm/s. ICA/CCA ratio: 1.1. Right ECA: Unremarkable. Right vertebral artery flow antegrade. Left CCA: 110 cm/s. Left ICA: 67 cm/s. ICA/CCA ratio: 0.9. Left ECA: Unremarkable. Left vertebral artery flow antegrade. IMPRESSION: Normal carotid velocities, no significant stenosis (0-49% stenosis). This document has been electronically signed by: Tristin Chacon MD on 08/27/2024 08:48:57
--- OUTSIDE RECORDS SUMMARY | 2024-08-26 14:10 | XMS_ITS | Clinical Summary ---
Author Organization [facility] it Address [address] [place] [address] Care Team Providers Care Slubber Hand Name Role Phone Unavailable Primary Care Provider Unavailabl e Social History Tobacco Use Types Packs/Day Years Used Date Smoking Tobacco: Never Assessed Sex and Gender Information Value Date Recorded Sex Assigned at Not on file Legal Sex Male 3:06 PM EST Gender Identity Not on file Sexual Orientation Not on file Plan of Treatment Health Maintenance Due Date Last Done Comments DTaP,Tdap,and Td Vaccines (1 - Tdap) 1973 Pneumococcal Vaccine: 50+ Ye ars (1 of 1 - PCV) 2004 Zoster Vaccines (1 of 2) 2004 COVID-19 Vaccine ( - 2023-2 5 season) 2024 Influenza Vaccine (Season Ended) 2025 RSV Immunization Adult Patie nts (1 - 1-dose 75+ series) 2029 HIB Vaccines Aged Out No longer eligi ble based on patient's age to complete this topic HPV Vaccines Aged Out No longer eligi ble based on patient's age to complete this topic Hepatitis A Vaccines Aged Out No long er eligible based on patient's age to complete this topic Hepatitis B Vaccines Aged Out No long er eligible based on patient's age to complete this topic IPV Vaccines Aged Out No longer eligi ble based on patient's age to complete this topic MMR Vaccines Aged Out No longer eligi ble based on patient's age to complete this topic Meningococcal ACWY Vaccine Aged Out N o longer eligible based on patient's age to complete this topic Meningococcal B Vaccine Aged Out No l onger eligible based on patient's age to complete this topic RSV Immunization Patients Un anay 20 months Aged Out No longer eligible b ased on patient's age to complete this topic Varicella Vaccines Aged Out No longer eligible based on patient's age to complete this topic
== END 2024-08-26 13:50 | disposition home or self-care (01) ==
LOC: HO.HMGCX 13:49
PROVIDERS: PCP Physician Assistant; Visit Provider Internal Medicine Cardiovascular Disease
DX: I65.29 Occlusion and stenosis of unspecified carotid artery (principal); I10 Essential (primary) hypertension; I71.00 Dissection of unspecified site of aorta
CPT/HCPCS: 93880

== ENCOUNTER → 2024-08-26 13:53 | Outpatient (BNV) | payer OTHER, SELFPAY | PROVIDERS: PCP Physician Assistant; Visit Provider Specialist | DX: I65.23 Occlusion and stenosis of bilateral carotid arteries (principal) | CPT/HCPCS: 93880 ==

== ENCOUNTER 2024-08-31 11:31 | Outpatient (AMB) | payer OTHER, SELFPAY ==
--- NOTE | 2024-08-31 11:34 | A.OFFVIS_ITS ---
Vital Signs 08/31/24 11:36 Height 5 ft 6 in Weight 185 lb 10.067 oz BMI 30.0 BP 120/74 Blood Pressure Location Lt brachial Position Sitting Pulse 68 Pulse Source Monitor Intake Visit Reasons: 4 mth fu Intake Note: 4 mth f/up Assistant Portfolio Manager Required: No Accompanied by: Spouse Allergies No Known Allergies [No Known Allergies*] Allergy (Verified 05/30/24 14:09) Medication List - Last Reconciled 08/31/24 by Chriss Taylor MD amlodipine 2.5 mg (1/2 x 5 mg) PO DAILY 90 days apixaban (Eliquis) 5 mg PO BID 90 days atenolol 25 mg PO DAILY atorvastatin 80 mg PO BEDTIME bupropion HCl XL 150 mg PO DAILY cholecalciferol (vitamin D3) (Vitamin D3) 25 mcg PO DAILY cyanocobalamin (vitamin B-12) (Vitamin B-12) 500 mcg PO DAILY lisinopril 5 mg PO DAILY [id number]-[id number] 652-73-463-150 mcg (Centrum Minis Men 50 Plus) 1 tab PO DAILY HPI Comments Details: 69-year-old gentleman here for follow-up. He has background history of aortic dissection for which he underwent surgery. He recovered uneventfully. Since then he has had significant adjustment issues and has chronic fatigue. He had exercise stress test in the past which was normal. He returns again for follow- up and has complaints of fatigue. He feels that he gets fatigued very easily. He said before aortic dissection happened he was rowing and was quite active. We stop his Coreg and change atenolol which helped a little bit. Also his scar min-D levels were low which were repleted. He also had stress testing which did not show any ischemia. Echocardiography has shown normal biventricular function. He continues to complain of fatigue and feels that he is unable to go back to his previous self before aortic dissection. He has seen CT surgery in follow-up and had CT scan of his chest. His aortic dissection repair is stable. He was incidentally found to have hepatic steatosis and gallstones. 03/14/2024: He is here for follow-up. He recently got admitted to [facility] in early 03/06/2024 with pneumonia and acute kidney injury. He was started on antibiotics and was hydrated and was clinically improving when he became more hypoxic suddenly and CT scan showed bilateral pulmonary embolism and he was also diagnosed with DVTs. He was hypoxic and after anticoagulation was started he was seen by vascular surgery and underwent mechanical thrombectomy for pulmonary embolism. This improved his right ventricular function significantly but he continued to have moderate RV dilation and dysfunction. This was definitely has significant improvement compared to original echocardiography which showed severe RV dilation with severe systolic dysfunction consistent with acute cor pulmonale due to pulmonary embolism. He has been doing well. He is off oxygen. He is starting to do some activities and has been doing well. He is on anticoagulation with apixaban at this point. He is following with pulmonology and also seeing hematology to have workup for hypercoagulable state. 09/01/24: Here for follow-up. Denying any chest discomfort shortness of breath. He has been physically active and doing well. He had RV dysfunction but after mechanical thrombectomy and anticoagulation is right ventricular function has improved back to normal. He is tolerating anticoagulation. [facility] Medical History History of aortic dissection History of DVT (deep vein thrombosis) Atrial fibrillation History of CVA (cerebrovascular accident) Abnormal echocardiogram Fatigue Essential hypertension Surgical History History of thrombectomy History of aortic aneurysm repair Hx of colonoscopy H/O heart bypass surgery Family History Mother Breast cancer Father Heart disease Stroke Social History Household Members: Spouse Housing: House Do you presently have visiting nurse or other home services: No Alcohol intake: current Alcohol intake frequency: holidays/special occasions only Alcohol type: beer Patient Tobacco Use Status: Never used Tobacco Tobacco use type: Cigarette e-Cigarette/Vaping Use: Never Used Second Hand Smoke Exposure: No service: No Current occupational status: retired Cognitive needs: No Hearing needs: No Vision needs: No Review of Systems Const Denies chills, Denies fatigue, Denies fever(s), Denies frequent falls, Denies weakness, Denies weight gain and Denies weight loss ENT Denies dizziness Card Denies chest pain, Denies leg edema, Denies lightheadedness, Denies palpitations, Denies dyspnea and Denies dyspnea on exertion Resp Denies cough, Denies dyspnea and Denies dyspnea on exertion GI Denies hematochezia Musc Denies abnormal gait, Denies muscle weakness, Denies numbness, Denies radiating pain into limb and Denies tingling Neuro Denies abnormal gait, Denies dizziness, Denies frequent falls, Denies numbness, Denies tingling and Denies weakness Endo Denies fatigue and Denies palpitations Physical Exam Vital Signs: Last Vital Signs Pulse 68 08/31/24 11:36 BP 120/74 08/31/24 11:36 BMI result Body Mass Index 30.0 GENERAL APPEARANCE: in no acute distress, pleasant. NECK: no carotid bruit, no jugular venous distention. SKIN: no suspicious lesions, warm and dry. HEART: no murmurs, regular rate and rhythm. LUNGS: clear to auscultation bilaterally. ABDOMEN: soft, nontender. EXTREMITIES: no edema. PERIPHERAL PULSES: equal. NEUROLOGIC: No gross deficits, AAO X 3 Office Procedures EKG Details: Sinus rhythm 68 beats per minute, normal axis, normal ECG, QTC 414 milliseconds. [id number], Complete Assessment & Plan Assessment & Plan (1) Essential hypertension: Comment: Stable Code(s): I10 - Essential (primary) hypertension Category: Medical (2) Pulmonary emboli: Onset Date: ~2023 Comment: s/p embolectomy Code(s): I26.99 - Other pulmonary embolism without acute cor pulmonale Category: Medical Qualifiers: Pulmonary embolism type: saddle Chronicity: acute Acute cor pulmonale presence: with acute cor pulmonale Qualified Code(s): I26.02 - Saddle embolus of pulmonary artery with acute cor pulmonale Plan 69 year gentleman with background history of aortic dissection and hypertension. Recent admission with pneumonia complicated by DVT and saddle pulmonary embolism with hypoxia. He had acute cor pulmonale on echocardiography. He underwent mechanical thrombectomy for pulmonary embolism with good improvement in RV function as well as oxygen requirement. He is currently off oxygen and has been doing well. Blood pressure is well controlled. He will be on apixaban long-term. Repeat echocardiography has shown improvement in RV function back to normal. He has been doing well on anticoagulation and has no bleeding issues. He will follow-up with us in 6 months. Aortic size has been stable based on CAT scan done recently during admission. Thank you for allowing me to participate in the care of your patient. Please feel free to contact me if you have any questions. Orders: Orders Lipid Panel 08/31/24 I10 - Essential (primary) hypertension Coding Level of Care Code Est Pt Level 4 (09303) Diagnoses Essential hypertension I10 Acute saddle pulmonary embolism with acute cor pulmonale I26.02 Pulmonary embolism type: saddle Chronicity: acute Acute cor pulmonale presence: with acute cor pulmonale CPT Codes EKG - CPT: 62989-[id number], Complete ([id number])
[2024-08-31 11:36] VITALS: BP 120/74; PULSE 68
--- OUTSIDE RECORDS SUMMARY | 2024-08-31 13:58 | XMS_ITS | Clinical Summary ---
Author Organization [facility] it Address [address] [place] [address] Care Team Providers Care Coat Hanger Shaper Machine Operator Name Role Phone Unavailable Primary Care Provider [...]
== END 2024-08-31 11:53 | disposition home or self-care (01) ==
LOC: HO.HCS 11:32
PROVIDERS: PCP Physician Assistant; Visit Provider Internal Medicine Cardiovascular Disease
DX: I10 Essential (primary) hypertension (principal); I26.02 Saddle embolus of pulmonary artery with acute cor pulmonale
CPT/HCPCS: 99214

== ENCOUNTER → 2024-08-31 11:31 | Outpatient (BNVA) | payer OTHER, SELFPAY | PROVIDERS: PCP Physician Assistant; Visit Provider Internal Medicine Cardiovascular Disease | DX: I10 Essential (primary) hypertension (principal); I26.02 Saddle embolus of pulmonary artery with acute cor pulmonale | CPT/HCPCS: 93005 ==

== ENCOUNTER 2024-09-21 08:18 | Outpatient (REF) | payer OTHER, SELFPAY ==
--- OUTSIDE RECORDS SUMMARY | 2024-09-21 08:26 | XMS_ITS | Clinical Summary ---
Author Organization [facility] it Address [address] [place] [address] Care Team Providers Care Director College Name Role Phone Unavailable Primary Care Provider [...]
[2024-09-21 09:04] LABS: Estimated Average Glucose 120 mg/dL; Hemoglobin A1C 165.9901 umol/L; Hemoglobin A1c % 5.8 % (<6.0); Total Hemoglobin (HGBA1C) 4131.7715 umol/L
[2024-09-21 09:20] LABS: Alanine Aminotransferase 31 U/L (0-40); Alkaline Phosphatase 50 U/L (39-117); Anion Gap 11 (12-20); Aspartate Amino Transferase 24 U/L (5-37); Bilirubin Total 0.6 mg/dL (0.0-1.0); Blood Urea Nitrogen 27 mg/dL (9-16); Calcium 9.1 mg/dL (8.4-10.2); Carbon Dioxide 26 mmol/L (22-29); Chloride 108 mmol/L (96-108); Cholesterol 164 mg/dL (<200); Estimated Glomerular Filt Rate 45; Glucose Fasting 123 mg/dL (60-99); HDL Cholesterol 46 mg/dL (>40); LDL Cholesterol Calculated 94 mg/dL (<100); Potassium 4.3 mmol/L (3.3-5.1); Sodium 141 mmol/L (135-145); Total Protein 6.4 g/dL (6.5-8.0); Triglycerides 123 mg/dL (<150)
[2024-09-21 09:50] LABS: Prostate Specific Antigen Scr 2.26 ng/mL (<0.05-4.0)
== END 2024-09-21 08:19 | disposition home or self-care (01) ==
LOC: HO.LAB 08:18
PROVIDERS: Absent Provider Physician Assistant; PCP Physician Assistant; Visit Provider Internal Medicine Cardiovascular Disease
DX: R73.09 Other abnormal glucose (principal); Z12.5 Encounter for screening for malignant neoplasm of prostate; N18.9 Chronic kidney disease, unspecified; I10 Essential (primary) hypertension
CPT/HCPCS: 36415; 80053; 80061; 83036; 84153

== ENCOUNTER 2024-09-27 08:48 | Outpatient (AMB) | payer OTHER, SELFPAY ==
[2024-09-27 08:51] VITALS: BP 114/80; PULSE 68; RESP 18; TEMP 36.2; O2SAT 99
--- NOTE | 2024-09-27 08:51 | A.OFFPC_ITS ---
Vital Signs 09/27/24 08:51 Height 5 ft 6 in Weight 185 lb 12.8 oz BMI 30.0 BP 114/80 Blood Pressure Location Lt brachial Position Sitting Respiration 18 Pulse 68 Pulse Source Pulse Oximeter Temp 97.1 F Temp Source Temporal Artery Scan Pulse Oximetry (%) 99 Oxygen Delivery Method Room Air Intake Visit Reasons: f/u labs/ HTN/ IGM Wine Steward/Stewardess Required: No Accompanied by: Self / Same As Patient Allergies No Known Allergies [No Known Allergies*] Allergy (Verified 09/27/24 09:14) Medication List - Last Reconciled 09/27/24 by Karthik Calle PA-C amlodipine 2.5 mg (1/2 x 5 mg) PO DAILY 90 days apixaban (Eliquis) 5 mg PO BID 90 days atenolol 25 mg PO DAILY atorvastatin 80 mg PO BEDTIME bupropion HCl XL 150 mg PO DAILY cholecalciferol (vitamin D3) (Vitamin D3) 25 mcg PO DAILY cyanocobalamin (vitamin B-12) (Vitamin B-12) 500 mcg PO DAILY lisinopril 5 mg PO DAILY sp-[id number]-ldzwp-[id number]-kniscn [id number] mcg (Centrum Minis Men 50 Plus) 1 tab PO DAILY Tobacco use date assessed: 09/27/24 Fall risk assessment: No Falls in past year Last assessed Fall Risk: 09/27/24 Dental Screening Dental Screen Date: 09/27/24 Did you have a dental visit in the last 12 months?: Yes Did you have a dental problem in the last 6 months where you did not have access to dental care?: No Was dental information given to patient?: Patient has dentist HPI f/u labs/ HTN/ IGM HPI Details Patient is a 69-year-old male here today for a follow-up visit Patient has a past medical history significant for essential hypertension, history of aortic dissection with surgical repair, MDD. .. 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 Recently underwent a echocardiogram that showed some relaxing filling defects around the RCA, he will be sent for nuclear stress test in a CTA angiogram at [facility]..? Otherwise he is fairly asymptomatic without any chest discomfort, shortness of breath on exertion ect.. .. Pulmonary embolism: Suffered pulmonary embolism in 2023, status post embolectomy. Continues lifelong on Eliquis 5 mg b.i.d.. .. CKD- most recent renal function is noted to be impaired. Creatinine at 1.55, BUN elevated as well. PLAN: Will work on being more hydrated and avoiding nephrotoxins. Will consider Nephrology evaluation .. Hypertension: Blood pressure well controlled on current antihypertensive therapy. . Major depressive disorder: Continues to feel mild fatigue and anhedonia. Continues on Wellbutrin 150mg and does not feel it is helped much. Laboratory Tests 02/11/24 02/23/24 05/26/24 10:46 05:52 09:19 RBC 4.14 L 5.21 D BUN 22 H Creatinine 1.45 H Fasting Glucose Hemoglobin A1c % 5.9 PSA Screen 09/21/24 08:24 RBC BUN 27 H Creatinine 1.55 H Fasting Glucose 123 H Hemoglobin A1c % 5.8 PSA Screen 2.26 PFSH Medical History History of aortic dissection History of DVT (deep vein thrombosis) Atrial fibrillation History of CVA (cerebrovascular accident) Abnormal echocardiogram Fatigue Essential hypertension Surgical History History of thrombectomy History of aortic aneurysm repair Hx of colonoscopy H/O heart bypass surgery Family History Mother Breast cancer Father Heart disease Stroke Social History Household Members: Spouse Housing: House Do you presently have visiting nurse or other home services: No Alcohol intake: current Alcohol intake frequency: holidays/special occasions only Alcohol type: beer Patient Tobacco Use Status: Never used Tobacco Tobacco use type: Cigarette e-Cigarette/Vaping Use: Never Used Second Hand Smoke Exposure: No service: No Current occupational status: retired Cognitive needs: No Hearing needs: No Vision needs: No Questionnaire PHQ-9 Over the last 2 weeks, how often have you been bothered by any of the following problems? 1. Little interest or pleasure in doing things: not at all 2. Feeling down, depressed, or hopeless: not at all 3. Trouble falling or staying asleep, or sleeping too much: not at all 4. Feeling tired or having little energy: not at all 5. Poor appetite or overeating: not at all 6. Feeling bad about yourself - or that you are a failure or have let yourself or your family down: not at all 7. Trouble concentrating on things, such as reading the newspaper or watching television: not at all 8. Moving or speaking so slowly that other people could have noticed. Or the opposite - being so fidgety or restless that you have been moving around a lot more than usual: not at all 9. Thoughts that you would be better off or of hurting yourself in some way: not at all Total score: 0 Depression Screening Interpretation: Negative Depression Screening Done: Yes 81624 - PHQ-9 Billing: Yes Source: Developed by Drs. Jose Martinez, Jessica Mehta, Tulio Arroyo and colleagues, with an educational gal from [employer] Thrive Questionnaire Date Thrive assessed: 09/27/24 I am a: Patient What is your living situation today?: I have a steady place to live Within the past 12 months, did the food you bought not last and you didn't have the money to get more?: Never true Within the past 12 months, did you worry whether your food would run out before you got money to buy more?: Never true Do you have trouble paying for medicines?: No Do you have trouble getting transportation to medical appointments?: No Do you have trouble paying your heating and electricity bill?: No Do you have trouble taking care of your child, family member or friend?: No Do you have trouble with day-to-day activities such as bathing, preparing meals, shopping, managing finances, etc.?: No Are you currently unemployed and looking for a job?: No Are you interested in more education?: No Please select the resources that you would like help with: None Currently or been in a relationship where the following occur: No concerns reported THRIVE Score: 0 AUDIT C Alcohol Use Questionnaire (AUDIT-C) 1. How often do you have a drink containing alcohol?: 2-4 times a month Total Score: 2 Score Reviewed/Action Taken: No JANET-7 AMB Questionnaire JANET-7 Date JANET - 7 assessed: 09/27/24 Feeling nervous, anxious, or on edge: 0 = Not at all Not being able to stop or control worryin = Not at all Worrying too much about different things: 0 = Not at all Trouble relaxin = Not at all Being so restless that it is hard to sit still: 0 = Not at all Becoming easily annoyed or irritable: 0 = Not at all Feeling afraid as if something awful might happen: 0 = Not at all Total JANET-7 score (0-4 normal; 5-9 mild; 10-14 moderate; 15-21 severe): 0 Source: Developed by Drs. Jose Martinez, Jessica Mehta, Tulio Arroyo and colleagues, with an educational gal from [employer] JANET-7 Assessment Billing JANET-7 Assessment Tool: JANET-7 Assessment 40565 Review of Systems Const Denies headache(s) Eyes Denies loss of vision ENT Denies vertigo, Denies dizziness, Denies headache(s) and Denies sore throat Card Denies chest pain, Denies leg edema and Denies lightheadedness Resp Denies cough, Denies hemoptysis and Denies wheezing GI Denies abdominal pain, Denies melena, Denies constipation, Denies diarrhea and Denies vomiting Denies dysuria, Denies urinary frequency and Denies urinary urgency Musc Denies arthralgias, Denies joint swelling, Denies numbness and Denies tingling Neuro Denies Abnormal speech present, Denies behavioral changes, Denies vertigo, Denies dizziness, Denies headache(s), Denies loss of vision, Denies memory loss, Denies numbness and Denies tingling Psych Denies anxiety, Denies behavioral changes, Denies depression, Denies memory loss and Denies panic attacks Giovanni/Lymph Denies easy bleeding and Denies easy bruising Aller/Immun Denies wheezing Physical exam (Primary Care) Vital Signs: Last Vital Signs Temp 97.1 F 09/27/24 08:51 Pulse 68 09/27/24 08:51 Resp 18 09/27/24 08:51 BP 114/80 09/27/24 08:51 Pulse Ox 99 09/27/24 08:51 Oxygen Delivery Method Room Air 09/27/24 08:51 BMI result Body Mass Index 30.0 Tobacco/Smoking Status: Tobacco use Status Tobacco use date assessed 09/27/24 09/27/24 08:54 Patient Tobacco Use Status Never used Tobacco 09/27/24 08:54 Tobacco use type Cigarette 09/27/24 08:54 e-Cigarette/Vaping Use Never Used 09/27/24 08:54 PHQ-9: PHQ-9 Score PHQ-9: Total score 0 09/27/24 08:54 Depression Screening Interpretation: Negative Thrive Assessment: Date of Thrive Assessment Date Thrive assessed 09/27/24 09/27/24 08:54 Currently or been in a relationship where the following occur: No concerns reported Const General: healthy appearing, no acute distress, alert and awake Nutritional Appearance: well nourished Orientation/consciousness: oriented to person, oriented to place and oriented to time HENMT Ears: TM's normal bilaterally General nose exam: Normal nasal mucous membranes and turbinates present Eyes Conjunctivae: conjunctivae normal Sclerae: sclerae normal Pupils: Equal, round and reactive pupils present Neck Neck: Yes no lymphadenopathy and Yes no JVD Thyroid: Thyroid normal Carotids: no bruits Resp Effort & Inspection: normal respiratory effort and not tachypneic Auscultation: no crackles, no rales, no rhonchi and no wheezes Cardio Rate: regular rate Rhythm: regular rhythm Heart sounds: no murmurs and normal S1 and S2 GI Palpation (GI): Soft to palpation, nontender, no hepatomegaly and no splenomegaly Auscultation: normal bowel sounds Skin General skin exam: no rashes or lesions noted and dry skin Neuro General: oriented to person, oriented to place and oriented to time Cranial nerves: Yes Equal, round and reactive pupils present Speech: No Abnormal speech present Gait exam (Neuro): Normal gait present Motor exam (neuro): no tremor noted Extrem Right upper extremity: full ROM Left upper extremity: full ROM Right lower extremity: full ROM; no edema Left lower extremity: full ROM; no edema Psych Mental Status: mental status grossly normal Speech and movement: Normal speech and movement present Affect: normal affect Attitude: cooperative Thought process: Normal thought process present Coding Level of Care Code Est Pt Level 4 (44325) Diagnoses Impaired glucose metabolism R73.09 Stage 3a chronic kidney disease N18.31 Chronic kidney disease stage: stage 3 (moderate) Chronic kidney disease stage 3 subtype: stage 3a (GFR 45-59) Essential hypertension I10 MDD (major depressive disorder), recurrent episode, moderate F33.1 Acute saddle pulmonary embolism with acute cor pulmonale I26.02 Pulmonary embolism type: saddle Chronicity: acute Acute cor pulmonale presence: with acute cor pulmonale Additional Codes JANET-7 Assessment Billing - JANET-7 Assessment Tool: JANET-7 Assessment 77085 ([id number]) PHQ-9 - 71915 - PHQ-9 Billing: Yes ([id number]) Assessment & Plan Assessment & Plan (1) Impaired glucose metabolism: Code(s): R73.09 - Other abnormal glucose Category: Medical Plan: Continue monitoring blood sugar and dietary modifications to address borderline hyperglycemia. Recommend dietary adjustments focusing on low carbohydrate intake and increased physical activity. Patient's recent fasting blood sugar 123 and A1c of 5.9. He will continue working on low carbohydrate diet (2) CKD (chronic kidney disease): Code(s): N18.9 - Chronic kidney disease, unspecified Category: Medical Qualifiers: Chronic kidney disease stage: stage 3 (moderate) Chronic kidney disease stage 3 subtype: stage 3a (GFR 45-59) Qualified Code(s): N18.31 - Chronic kidney disease, stage 3a Plan: - Ensure adequate hydration to support kidney function and avoid dehydration- related creatinine abnormalities. Recent creatinine at 1.55 . (3) Essential hypertension: Comment: Stable Code(s): I10 - Essential (primary) hypertension Category: Medical Plan: Patient's blood pressure acceptable today in office. Will continue his current dose of antihypertensive medication with goal blood pressure to remain below 140/90 (4) MDD (major depressive disorder), recurrent episode, moderate: Code(s): F33.1 - Major depressive disorder, recurrent, moderate Category: Medical Plan: Patient's PHQ-9 score 0, does have a history of major depressive disorder. Continues on Wellbutrin with good effect. He does have a supportive family. (5) Pulmonary emboli: Onset Date: ~2023 Comment: s/p embolectomy Code(s): I26.99 - Other pulmonary embolism without acute cor pulmonale Category: Medical Qualifiers: Pulmonary embolism type: saddle Chronicity: acute Acute cor pulmonale presence: with acute cor pulmonale Qualified Code(s): I26.02 - Saddle embolus of pulmonary artery with acute cor pulmonale Plan: Patient is status post pulmonary embolism in 2023. Status post embolectomy. Continues on Eliquis 5 mg b.i.d.. Renal function slightly impaired since start of anticoagulation. Orders: Orders Complete Blood Count no Diff Today I10 - Essential (primary) hypertension Microalbumin, Random (w Creat) Today N18.31 - Chronic kidney disease, stage 3a Hemoglobin A1c Today R73.09 - Other abnormal glucose Comprehensive Straw[place]. Panel Fast Today R73.09 - Other abnormal glucose Medications: New doxycycline hyclate 100 mg PO BID 5 days 10 tabs 0RF W57.XXXA - Bitten or stung by nonvenomous insect and other nonvenomous arthropods, initial encounter Patient Instructions: Goal: Blood pressure to remain below 140/90 Barriers: Adherence to physical activity and healthy eating habits
--- OUTSIDE RECORDS SUMMARY | 2024-09-27 09:13 | XMS_ITS | Clinical Summary ---
Author Organization [facility] it Address [address] [place] [address] Care Team Providers Care Medical Malpractice Paralegal Name Role Phone Unavailable Primary Care Provider [...]
== END 2024-09-27 09:31 | disposition home or self-care (01) ==
LOC: HO.HMCH 08:49
PROVIDERS: PCP Physician Assistant; Visit Provider Physician Assistant
DX: I12.9 Hypertensive chronic kidney disease with stage 1 through stage 4 chronic kidney disease, or unspecified chronic kidney disease (principal); N18.31 Chronic kidney disease, stage 3a; F33.1 Major depressive disorder, recurrent, moderate; I26.02 Saddle embolus of pulmonary artery with acute cor pulmonale; R73.09 Other abnormal glucose

== ENCOUNTER → 2024-09-27 08:48 | Outpatient (BNVA) | payer OTHER, SELFPAY | PROVIDERS: PCP Physician Assistant; Visit Provider Physician Assistant | DX: R73.09 Other abnormal glucose (principal); I12.9 Hypertensive chronic kidney disease with stage 1 through stage 4 chronic kidney disease, or unspecified chronic kidney disease; N18.31 Chronic kidney disease, stage 3a; F33.1 Major depressive disorder, recurrent, moderate; I26.02 Saddle embolus of pulmonary artery with acute cor pulmonale; Z79.01 Long term (current) use of anticoagulants | CPT/HCPCS: 96127 ==

== ENCOUNTER 2024-11-21 09:40 | Outpatient (AMB) | payer OTHER, SELFPAY ==
--- NOTE | 2024-11-21 09:57 | A.OFFVIS_ITS ---
Vital Signs 11/21/24 10:01 Height 5 ft 6 in Weight 191 lb 12.835 oz BMI 31.0 BP 120/90 H Blood Pressure Location Lt brachial Position Sitting Pulse 65 Pulse Source Pulse Oximeter Pulse Oximetry (%) 98 Oxygen Delivery Method Room Air Intake Visit Reasons: Acute cor pulmonale Manager Requirements Required: No Allergies No Known Allergies (No Known Allergies*) Allergy (Verified 11/21/24 10:07) HPI HPI Acute cor pulmonale: Details: Guero candelario is a 69 year-old male, never smoker, with HTN, h/o aortic dissection repair with tube graft in 2018 and h/o admission 02/2024 due to pneumonia complicated by DVT and saddle pulmonary embolism with hypoxia s/p mechanical thrombectomy of pulmonary embolism of bilateral pulmonary arteries on 02/21. He completed pulmonary/cardiac rehab and has been maintained on Eliquis BID, which will be lifelong. Echo initially revealed right heart strain, with resolution on repeat echo. He is under the care of [facility] cardiology. Since the last visit, he reports maintaining an active lifestyle with no dyspnea, cough, wheezing or chest tightness. He does note feeling more fatigue with activity but is able to engage in rowing a few times per week without symptoms. 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 He denies any visits to urgent care or hospitalizations related to respiratory distress since the last visit. [facility] Medical History History of aortic dissection History of DVT (deep vein thrombosis) Atrial fibrillation History of CVA (cerebrovascular accident) Abnormal echocardiogram Fatigue Essential hypertension Surgical History History of thrombectomy History of aortic aneurysm repair Hx of colonoscopy H/O heart bypass surgery Family History Mother Breast cancer Father Heart disease Stroke Social History Household Members: Spouse Housing: House Do you presently have visiting nurse or other home services: No Alcohol intake: current Alcohol intake frequency: holidays/special occasions only Alcohol type: beer Patient Tobacco Use Status: Never used Tobacco Tobacco use type: Cigarette e-Cigarette/Vaping Use: Never Used Second Hand Smoke Exposure: No service: No Current occupational status: retired Cognitive needs: No Hearing needs: No Vision needs: No Review of Systems Const Denies chills, Denies excessive sweating, Denies fever(s), Denies headache(s) and Denies night sweats Eyes Denies dry eyes, Denies irritation and Denies itchy eyes ENT Reports Normal hearing present, Denies headache(s), Denies nasal congestion, Denies nasal discharge, Denies post nasal drip and Denies sore throat Card Denies chest pain, Denies chest pain at rest, Denies chest pain with activity, Denies claudication, Denies leg edema, Denies dyspnea, Denies dyspnea on exertion, Denies orthopnea and Denies paroxysmal nocturnal dyspnea Resp Denies chest congestion, Denies cough, Denies excessive phlegm production, Denies pain on inspiration, Denies pain with cough, Denies dyspnea, Denies dyspnea on exertion, Denies stridor and Denies wheezing Musc Denies myalgias Neuro Reports Normal hearing present and Denies headache(s) Endo Denies excessive sweating Giovanni/Lymph Denies lymphadenopathy Aller/Immun Denies itchy eyes, Denies seasonal rhinorrhea and Denies wheezing Physical Exam Vital Signs: Last Vital Signs Pulse 65 11/21/24 10:01 BP 120/90 H 11/21/24 10:01 Pulse Ox 98 11/21/24 10:01 Oxygen Delivery Method Room Air 11/21/24 10:01 BMI result Body Mass Index 31.0 Const General: cooperative, healthy appearing, comfortable, no acute distress, well developed and alert Orientation/consciousness: patient oriented x3 Limitations: no limitations HEENT Head: Yes normal to inspection, Yes normocephalic and Yes atraumatic Ears: hearing grossly normal bilaterally and external ears normal Eyes General: appearance normal, both eyes and all related structures Eyelids: Yes eyelids normal Sclerae: sclerae normal EOM: EOMs intact bilaterally Neck Neck: Yes normal visual inspection and Yes no lymphadenopathy Lymphatic: no lymphadenopathy noted Chest Chest palpation & inspection: normal inspection of the chest Resp Effort & Inspection: normal respiratory effort, able to speak in complete sentences, no audible wheezes, no cough, no stridor, not tachypneic, no tripod positioning and no use of accessory muscles Auscultation: clear to auscultation bilaterally Cardio Jugular venous distension: no JVD Rate: regular rate Rhythm: regular rhythm Skin Other: warm, dry General skin exam: no rashes or lesions noted Neuro General: patient oriented x3 Cranial nerves: Yes Normal hearing present Cognition (Neuro): normal cognition Gait exam (Neuro): Normal gait present Extrem General: Yes normal to inspection, Yes capillary refill normal, Yes no clubbing, cyanosis or edema and Yes no pedal edema Psych Appearance: grossly normal and well kempt Speech and movement: Normal speech and movement present and Clear speech present Affect: normal affect Attitude: cooperative Thought process: Normal thought process present Thought content: Normal thought content present Insight: Good insight present (Psych) Judgement: Good judgement present (Psych) Assessment & Plan Assessment & Plan (1) Pulmonary emboli: Onset Date: ~2023 Comment: s/p embolectomy Code(s): I26.99 - Other pulmonary embolism without acute cor pulmonale Category: Medical Qualifiers: Pulmonary embolism type: saddle Chronicity: acute Acute cor pulmonale presence: with acute cor pulmonale Qualified Code(s): I26.02 - Saddle embolus of pulmonary artery with acute cor pulmonale (2) Pulmonary nodule: Code(s): R91.1 - Solitary pulmonary nodule Category: Medical Plan Reviewed PFT which revealed No obstructive or restrictive ventilatory defect. Bronchodilator testing was not performed. DLCO normal. Echo revealed LVEF 60- 65%, RVSP WNL and normalized RV systolic function. Overnight oximetry negative for significant nocturnal hypoxemia, prior home sleep study revealed significant nocturnal hypoxemia. There was note of 16 oxygen desaturation events, suggestive of possible DAMIAN, however home sleep study from 03/10 negative for DAMIAN. CTA 05/02 revealed resolution of prior PE, will repeat CT chest 04/2026 to assess stability of pulmonary nodule. If no change, then no further need for imaging. At this time Guero denies respiratory symptoms and will be maintained on Eliquis 5 mg BID which he will remain on indefinitely due to nature of PE, this has been prescribed by cardiology. All questions were answered and patient is in agreement of plan. Will follow up in 6 months or sooner if needed. Orders: Orders CT chest wo IV con 5 Months R91.1 - Solitary pulmonary nodule Coding Level of Care Code Est Pt Level 4 (89800) Diagnoses Acute saddle pulmonary embolism with acute cor pulmonale I26.02 Pulmonary embolism type: saddle Chronicity: acute Acute cor pulmonale presence: with acute cor pulmonale Pulmonary nodule R91.1
[2024-11-21 10:01] VITALS: BP 120/90; PULSE 65; O2SAT 98; BMI 31.0
--- OUTSIDE RECORDS SUMMARY | 2024-11-21 10:13 | XMS_ITS | Clinical Summary ---
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
== END 2024-11-21 10:21 | disposition home or self-care (01) ==
LOC: HO.HPS 09:41
PROVIDERS: PCP Physician Assistant; Visit Provider Nurse Practitioner Family
DX: I26.02 Saddle embolus of pulmonary artery with acute cor pulmonale (principal); R91.1 Solitary pulmonary nodule
CPT/HCPCS: 99214

== ENCOUNTER 2025-01-27 08:25 | Outpatient (REF) | payer OTHER, SELFPAY ==
--- OUTSIDE RECORDS SUMMARY | 2025-01-27 08:54 | XMS_ITS | Clinical Summary ---
Author Organization [facility] ity Address [address] [place] [address] Care Team Providers Care Trade Show Coordinator Name Role Phone Unavailable Primary Care Provider [...] Vaccine ( - 2023-2 5 season) 2024 Depression Screening 05/18/2024 Influenza Vaccine (#1) 2025 RSV Immunization Adult [...]
[2025-01-27 09:39] LABS: Hematocrit 42.2 % (42.0-52.0); Hemoglobin 14.5 g/dl (14.0-18.0); Mean Corpuscular HGB Conc 34.4 g/dl (31.0-36.0); Mean Corpuscular Hemoglobin 30.0 pg (27.0-33.0); Mean Corpuscular Volume 87.4 fL (80.0-98.0); NRBC Abs Auto 0.000 X10*3/uL (0.0-0.012); NRBC Pct Auto 0.0 /100WBC (0.0-0.2); Platelet Count 173 X10*3/uL (160-400); Red Blood Count 4.83 X10*6/uL (4.60-5.80); White Blood Count 7.1 X10*3/uL (4.8-10.8)
[2025-01-27 10:19] LABS: Alanine Aminotransferase 40 U/L (0-40); Albumin Level 4.2 g/dL (3.5-5.0); Alkaline Phosphatase 44 U/L (39-117); Anion Gap 13 (12-20); Aspartate Amino Transferase 31 U/L (5-37); Blood Urea Nitrogen 31 mg/dL (9-16); Calcium 8.8 mg/dL (8.4-10.2); Carbon Dioxide 25 mmol/L (22-29); Chloride 107 mmol/L (96-108); Estimated Glomerular Filt Rate 41; Potassium 4.3 mmol/L (3.3-5.1); Sodium 141 mmol/L (135-145); Total Protein 6.3 g/dL (6.5-8.0)
[2025-01-27 10:22] LABS: Hemoglobin A1C 164.4956 umol/L; Total Hemoglobin (HGBA1C) 3786.6804 umol/L
[2025-01-27 11:43] LABS: Microalbum/Creatinine Ratio Ur 5.5 ug/mg cr (<30)
== END 2025-01-27 08:26 | disposition home or self-care (01) ==
LOC: HO.LAB 08:25
PROVIDERS: PCP Physician Assistant; Visit Provider Physician Assistant
DX: R73.09 Other abnormal glucose (principal); I12.9 Hypertensive chronic kidney disease with stage 1 through stage 4 chronic kidney disease, or unspecified chronic kidney disease; N18.31 Chronic kidney disease, stage 3a
CPT/HCPCS: 36415; 80053; 82043; 82570; 83036; 85027

== ENCOUNTER 2025-02-01 08:20 | Outpatient (AMB) | payer OTHER, SELFPAY ==
[2025-02-01 08:23] VITALS: BP 124/82; PULSE 72; TEMP 36.2; O2SAT 96; BMI 30.2
--- NOTE | 2025-02-01 08:23 | A.OFFPC_ITS ---
Vital Signs 02/01/25 08:23 Height 5 ft 6 in Weight 187 lb 2 oz BMI 30.2 BP 124/82 Blood Pressure Location Lt brachial Position Sitting Pulse 72 Pulse Source Pulse Oximeter Temp 97.1 F Temp Source Temporal Artery Scan Pulse Oximetry (%) 96 Oxygen Delivery Method Room Air Intake Visit Reasons: Annual Exam Allergies No Known Allergies (No Known Allergies*) Allergy (Verified 02/01/25 08:40) Medication List - Last Reconciled 02/01/25 by Karthik Calle PA-C amlodipine 2.5 mg (1/2 x 5 mg) PO DAILY apixaban (Eliquis) 5 mg PO BID 90 days atenolol 25 mg PO DAILY atorvastatin 80 mg PO BEDTIME bupropion HCl XL 150 mg PO DAILY 90 days cholecalciferol (vitamin D3) (Vitamin D3) 25 mcg PO DAILY cyanocobalamin (vitamin B-12) (Vitamin B-12) 500 mcg PO DAILY lisinopril 5 mg PO DAILY [id number] mcg (Centrum Minis Men 50 Plus) 1 tab PO DAILY Tobacco use date assessed: 02/01/25 Fall risk assessment: No Falls in past year Last assessed Fall Risk: 02/01/25 Dental Screening Dental Screen Date: 02/01/25 Did you have a dental visit in the last 12 months?: Yes Did you have a dental problem in the last 6 months where you did not have access to dental care?: No Was dental information given to patient?: Patient has dentist HPI Annual Exam HPI Details Patient is a 69-year-old male here today for an annual physical Patient has a past medical history significant for essential hypertension, history of aortic dissection with surgical repair, MDD. Concern: The patient reports symptoms consistent with osteoarthritis, including stiffness and pain in the hands, which improve with activity and warmth. He has been advised to consider wrtz-awm-[id number] treatments such as Voltaren gel and occupational therapy for symptom management. .. 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 Recently underwent a echocardiogram that showed some relaxing filling defects around the RCA, he will be sent for nuclear stress test in a CTA angiogram at [facility]..? Otherwise he is fairly asymptomatic without any chest discomfort, shortness of breath on exertion ect.. .. Impaired glucose metabolism: Most recent labs showing elevated fasting blood sugar and A1c is 6.1. .. Pulmonary embolism: Suffered pulmonary embolism in 2023, status post embolectomy. Continues lifelong on Eliquis 5 mg b.i.d.. .. CKD stage III- most recent renal function is noted to be impaired. Creatinine at .66, BUN elevated as well. PLAN: Will work on being more hydrated and avoiding nephrotoxins. Will consider Nephrology evaluation .. Hypertension: Blood pressure well controlled on current antihypertensive therapy. . Major depressive disorder: Continues to feel mild fatigue and anhedonia. Continues on Wellbutrin 150mg and does not feel it is helped much. Colorectal cancer screening: Colonoscopy done in 2022, fair prep due for repeat 5 years. Vaccines: Up-to-date with tetanus, UTD PCV-20 , up-to-date with shingles and COVID vaccine Laboratory Tests 05/26/24 09/21/24 01/27/25 09:19 08:24 08:32 RBC Creatinine 1.45 H 1.55 H Estimated GFR 48 Fasting Glucose 123 H Hemoglobin A1c % 5.8 LDL Cholesterol, C alc 85 94 Urine Microalbumin 6.0 01/27/25 08:36 RBC 4.83 Creatinine 1.66 H Estimated GFR 41 Fasting Glucose 118 H Hemoglobin A1c % 6.1 H LDL Cholesterol, C alc Urine Microalbumin PFSH Medical History History of aortic dissection History of DVT (deep vein thrombosis) Atrial fibrillation History of CVA (cerebrovascular accident) Abnormal echocardiogram Fatigue Essential hypertension Surgical History History of thrombectomy History of aortic aneurysm repair Hx of colonoscopy H/O heart bypass surgery Family History Mother Breast cancer Father Heart disease Stroke Social History Household Members: Spouse Housing: House Do you presently have visiting nurse or other home services: No Alcohol intake: current Alcohol intake frequency: holidays/special occasions only Alcohol type: beer Patient Tobacco Use Status: Never used Tobacco Tobacco use type: Cigarette e-Cigarette/Vaping Use: Never Used Second Hand Smoke Exposure: No service: No Current occupational status: retired Cognitive needs: No Hearing needs: No Vision needs: No Questionnaire PHQ-9 Over the last 2 weeks, how often have you been bothered by any of the following problems? 1. Little interest or pleasure in doing things: not at all 2. Feeling down, depressed, or hopeless: not at all 3. Trouble falling or staying asleep, or sleeping too much: not at all 4. Feeling tired or having little energy: not at all 5. Poor appetite or overeating: not at all 6. Feeling bad about yourself - or that you are a failure or have let yourself or your family down: not at all 7. Trouble concentrating on things, such as reading the newspaper or watching television: not at all 8. Moving or speaking so slowly that other people could have noticed. Or the opposite - being so fidgety or restless that you have been moving around a lot more than usual: not at all 9. Thoughts that you would be better off or of hurting yourself in some way: not at all Total score: 0 Depression Screening Interpretation: Negative Depression Screening Done: Yes 17384 - PHQ-9 Billing: Yes Source: Developed by Drs. Jose Martinez, Jessica Mehta, Tulio Arroyo and colleagues, with an educational gal from [employer]. Thrive Questionnaire Date Thrive assessed: 09/27/24 I am a: Patient What is your living situation today?: I have a steady place to live Within the past 12 months, did the food you bought not last and you didn't have the money to get more?: Never true Within the past 12 months, did you worry whether your food would run out before you got money to buy more?: Never true Do you have trouble paying for medicines?: No Do you have trouble getting transportation to medical appointments?: No Do you have trouble paying your heating and electricity bill?: No Do you have trouble taking care of your child, family member or friend?: No Do you have trouble with day-to-day activities such as bathing, preparing meals, shopping, managing finances, etc.?: No Are you currently unemployed and looking for a job?: No Are you interested in more education?: No Please select the resources that you would like help with: None Currently or been in a relationship where the following occur: No concerns reported THRIVE Score: 0 AUDIT C Alcohol Use Questionnaire (AUDIT-C) 1. How often do you have a drink containing alcohol?: Monthly or less 2. How many drinks containing alcohol do you have on a typical day when you are drinking?: 1 or 2 3. How often do you have six or more drinks on one occasion?: Never Total Score: 1 JANET-7 AMB Questionnaire JANET-7 Date JANET - 7 assessed: 09/27/24 Feeling nervous, anxious, or on edge: 0 = Not at all Not being able to stop or control worryin = Not at all Worrying too much about different things: 0 = Not at all Trouble relaxin = Not at all Being so restless that it is hard to sit still: 0 = Not at all Becoming easily annoyed or irritable: 0 = Not at all Feeling afraid as if something awful might happen: 0 = Not at all Total JANET-7 score (0-4 normal; 5-9 mild; 10-14 moderate; 15-21 severe): 0 Source: Developed by Drs. Jose Martinez, Jessica Mehta, Tulio Arroyo and colleagues, with an educational gal from [employer]. Review of Systems Const Denies body aches, Denies chills, Denies excessive sweating, Denies fatigue, Denies fever(s) and Denies headache(s) Eyes Denies blurry vision ENT Denies dysphagia, Denies vertigo, Denies dizziness, Denies headache(s), Denies hearing loss and Denies tinnitus Card Denies chest pain, Denies chest pain with activity, Denies syncope, Denies irregular heart rhythm and Denies dyspnea Resp Denies chest congestion, Denies cough, Denies hemoptysis, Denies dyspnea and Denies wheezing GI Denies abdominal pain, Denies melena, Denies hematochezia, Denies coffee ground emesis, Denies dysphagia, Denies diarrhea, Denies nausea and Denies vomiting Denies difficulty urinating, Denies dysuria, Denies urinary frequency, Denies urinary hesitancy and Denies urinary urgency Musc Denies arthralgias, Denies limited range of motion, Denies muscle cramps and Denies muscle weakness Skin/Breast Denies rash and Denies skin ulcer Neuro Denies Abnormal speech present, Denies confusion, Denies vertigo, Denies dizziness, Denies syncope, Denies headache(s), Denies memory loss and Denies seizure-like activity Psych Denies anxiety, Denies confusion, Denies depression, Denies memory loss, Denies panic attacks and Denies paranoia Endo Denies excessive sweating, Denies fatigue, Denies flushing, Denies polydipsia and Denies polyuria Aller/Immun Denies wheezing Physical exam (Primary Care) Vital Signs: Last Vital Signs Temp 97.1 F 02/01/25 08:23 Pulse 72 02/01/25 08:23 BP 124/82 02/01/25 08:23 Pulse Ox 96 02/01/25 08:23 Oxygen Delivery Method Room Air 02/01/25 08:23 BMI result Body Mass Index 30.2 Tobacco/Smoking Status: Tobacco use Status Tobacco use date assessed 02/01/25 02/01/25 08:30 Patient Tobacco Use Status Never used Tobacco 02/01/25 08:30 Tobacco use type Cigarette 02/01/25 08:30 e-Cigarette/Vaping Use Never Used 02/01/25 08:30 PHQ-9: PHQ-9 Score PHQ-9: Total score 0 02/01/25 08:35 Depression Screening Interpretation: Negative Thrive Assessment: Date of Thrive Assessment Date Thrive assessed 09/27/24 02/01/25 08:30 Currently or been in a relationship where the following occur: No concerns reported Const General: cooperative, comfortable, no acute distress, alert and awake; No confusion Orientation/consciousness: oriented to person, oriented to place, patient oriented x3 and No confusion HENMT Head: Yes normocephalic Ears: external ears normal and TM's normal bilaterally Face and sinus: No sinus tenderness Mouth: Normal oral and palatal mucosa present and tongue normal Teeth and gingiva: dentition normal and gingiva normal Throat: Yes posterior oropharynx normal, Yes tonsils normal and Yes uvula midline Eyes Conjunctivae: conjunctivae normal Sclerae: sclerae normal Pupils: Equal, round and reactive pupils present EOM: EOMs intact bilaterally Direct Ophthalmoscopy: No no photophobia Neck Neck: Yes no lymphadenopathy, No tender and Yes no JVD Thyroid: Thyroid normal Carotids: no bruits Chest Chest palpation & inspection: no tenderness Resp Effort & Inspection: normal respiratory effort, no audible wheezes, not labored and no stridor Auscultation: no crackles, no rales, no rhonchi and no wheezes Cardio Jugular venous distension: no JVD Rate: regular rate, not bradycardic and not tachycardic Rhythm: regular rhythm Bruits: no carotid bruits Peripheral pulses: Peripheral pulses 2+ throughout GI Inspection: Yes normal to inspection, No abdominal wall ecchymosis and No visible herniation Palpation (GI): Soft to palpation, nontender, no guarding, not rigid and No hepatosplenomegaly present Auscultation: normoactive bowel sounds General: Yes no CVA tenderness Back/Spine/Pelvis Back: no CVA tenderness and No back tenderness Cervical Spine: cervical ROM normal Thoracic/Lumbar Spine: thoracic and lumbar spine normal to inspection, straight leg raise negative bilaterally, No thoraco-lumbar ROM limited and No lumbar spinal tenderness Skin Lesions: no lesions Rashes: no rashes Wounds: no wounds Neuro General: oriented to person, oriented to place, patient oriented x3, CN's II-XI intact bilaterally and No confusion Cranial nerves: Yes Equal, round and reactive pupils present and Yes Normal accommodation reflex present Cognition (Neuro): normal cognition Speech: No Abnormal speech present Gait exam (Neuro): Normal gait present Motor exam (neuro): 5/5 motor strength present throughout Extrem Right upper extremity: full ROM; no cyanosis Left upper extremity: full ROM; no cyanosis Right lower extremity: no edema Left lower extremity: no edema Psych Appearance: grossly normal Mental Status: mental status grossly normal Affect: normal affect Attitude: cooperative Thought process: Normal thought process present Coding Level of Care Code Est Pt Prev Care >65y(44862) Diagnoses Annual physical exam Z00.00 Impaired glucose metabolism R73.09 Stage 3a chronic kidney disease N18.31 Chronic kidney disease stage: stage 3 (moderate) Chronic kidney disease stage 3 subtype: stage 3a (GFR 45-59) Essential hypertension I10 Acute saddle pulmonary embolism with acute cor pulmonale I26.02 Pulmonary embolism type: saddle Chronicity: acute Acute cor pulmonale presence: with acute cor pulmonale Arthritis of both hands M19.041; M19.042 Laterality: bilateral Additional Codes PHQ-9 - 50208 - PHQ-9 Billing: Yes ([id number]) Assessment & Plan Assessment & Plan (1) Annual physical exam: Code(s): Z00.00 - Encounter for general adult medical examination without abnormal findings Category: Medical Plan: As per HPI (2) Impaired glucose metabolism: Code(s): R73.09 - Other abnormal glucose Category: Medical Plan: Continue monitoring blood sugar and dietary modifications to address borderline hyperglycemia. Recommend dietary adjustments focusing on low carbohydrate intake and increased physical activity. Patient's recent fasting blood sugar 123 and A1c of 5.9. He will continue working on low carbohydrate diet (3) CKD (chronic kidney disease): Code(s): N18.9 - Chronic kidney disease, unspecified Category: Medical Qualifiers: Chronic kidney disease stage: stage 3 (moderate) Chronic kidney disease stage 3 subtype: stage 3a (GFR 45-59) Qualified Code(s): N18.31 - Chronic kidney disease, stage 3a Plan: - Ensure adequate hydration to support kidney function and avoid dehydration- related creatinine abnormalities. Recent creatinine at 1.66 Continue to avoid nephrotoxins. . (4) Essential hypertension: Comment: Stable Code(s): I10 - Essential (primary) hypertension Category: Medical Plan: Patient's blood pressure acceptable today in office. Will continue his current dose of antihypertensive medication with goal blood pressure to remain below 140/90 (5) Pulmonary emboli: Onset Date: ~2023 Comment: s/p embolectomy Code(s): I26.99 - Other pulmonary embolism without acute cor pulmonale Category: Medical Qualifiers: Pulmonary embolism type: saddle Chronicity: acute Acute cor pulmonale presence: with acute cor pulmonale Qualified Code(s): I26.02 - Saddle embolus of pulmonary artery with acute cor pulmonale Plan: Patient is status post pulmonary embolism in 2023. Status post embolectomy. Continues on Eliquis 5 mg b.i.d.. Renal function slightly impaired since start of anticoagulation. (6) Hand arthritis: Code(s): M19.049 - Primary osteoarthritis, unspecified hand Category: Medical Qualifiers: Laterality: bilateral Qualified Code(s): M19.041 - Primary osteoarthritis, right hand; M19.042 - Primary osteoarthritis, left hand Plan: The patient reports symptoms consistent with osteoarthritis, including stiffness and pain in the hands, which improve with activity and warmth. He has been advised to consider [id number] treatments such as Voltaren gel and occupational therapy for symptom management.
--- OUTSIDE RECORDS SUMMARY | 2025-02-01 09:14 | XMS_ITS | Clinical Summary ---
Author Organization [facility] ity Address [address] [place] [address] Care Team Providers Care Peanut Grader Name Role Phone Unavailable Primary Care Provider [...] 2004 Zoster Vaccines (1 of 2) 2004 Depression Screening 05/18/2024 COVID-19 Vaccine (1 - 2023-2 5 season) 2025 Influenza Vaccine (#1) 2025 RSV Immunization Adult [...]
== END 2025-02-01 09:02 | disposition home or self-care (01) ==
LOC: HO.HMCH 08:21
PROVIDERS: PCP Physician Assistant; Visit Provider Physician Assistant
DX: Z00.00 Encounter for general adult medical examination without abnormal findings (principal); I12.9 Hypertensive chronic kidney disease with stage 1 through stage 4 chronic kidney disease, or unspecified chronic kidney disease; N18.31 Chronic kidney disease, stage 3a; I26.02 Saddle embolus of pulmonary artery with acute cor pulmonale; R73.09 Other abnormal glucose; M19.041 Primary osteoarthritis, right hand; M19.042 Primary osteoarthritis, left hand

== ENCOUNTER → 2025-02-01 08:20 | Outpatient (BNVA) | payer OTHER, SELFPAY | PROVIDERS: PCP Physician Assistant; Visit Provider Physician Assistant | DX: Z00.00 Encounter for general adult medical examination without abnormal findings (principal); I12.9 Hypertensive chronic kidney disease with stage 1 through stage 4 chronic kidney disease, or unspecified chronic kidney disease; N18.31 Chronic kidney disease, stage 3a; F32.A Depression, unspecified; R73.09 Other abnormal glucose; I26.02 Saddle embolus of pulmonary artery with acute cor pulmonale; M19.041 Primary osteoarthritis, right hand; M19.042 Primary osteoarthritis, left hand | CPT/HCPCS: 96127 ==

== ENCOUNTER 2025-03-06 15:27 | Outpatient (AMB) | payer OTHER, SELFPAY ==
--- NOTE | 2025-03-06 15:34 | MHC.OFFVIS ---
Vital Signs 03/06/25 15:36 Height 5 ft 6 in Weight 191 lb 5.78 oz BMI 30.9 BP 110/70 Blood Pressure Location Lt brachial Position Sitting Pulse 78 Pulse Source Pulse Oximeter Intake Visit Reasons: 6mth f/up Intake Note: 6 mth f/up Warning Coordination Meteorologist Required: No Accompanied by: Spouse Allergies No Known Allergies (No Known Allergies*) Allergy (Verified 02/01/25 08:40) Medication List - Last Reconciled 03/06/25 by Chriss Taylor MD amlodipine 2.5 mg (1/2 x 5 mg) PO DAILY apixaban (Eliquis) 5 mg PO BID 90 days atenolol 25 mg PO DAILY atorvastatin 80 mg PO BEDTIME bupropion HCl XL 150 mg PO DAILY 90 days cholecalciferol (vitamin D3) (Vitamin D3) 25 mcg PO DAILY cyanocobalamin (vitamin B-12) (Vitamin B-12) 500 mcg PO DAILY lisinopril 5 mg PO DAILY [id number] mcg (Centrum Minis Men 50 Plus) 1 tab PO DAILY HPI Comments Details: 69-year-old gentleman here for follow-up. He has background history of aortic dissection for which he underwent surgery. He recovered uneventfully. Since then he has had significant adjustment issues and has chronic fatigue. He had exercise stress test in the past which was normal. He returns again for follow-up and has complaints of fatigue. He feels that he gets fatigued very easily. He said before aortic dissection happened he was rowing and was quite active. We stop his Coreg and change atenolol which helped a little bit. Also his vitamin-D levels were low which were repleted. He also had stress testing which did not show any ischemia. Echocardiography has shown normal biventricular function. He continues to complain of fatigue and feels that he is unable to go back to his previous self before aortic dissection. He has seen CT surgery in follow-up and had CT scan of his chest. His aortic dissection repair is stable. He was incidentally found to have hepatic steatosis and gallstones. 03/14/2024: He is here for follow-up. He recently got admitted to [facility] in early 03/06/2024 with pneumonia and acute kidney injury. He was started on antibiotics and was hydrated and was clinically improving when he became more hypoxic suddenly and CT scan showed bilateral pulmonary embolism and he was also diagnosed with DVTs. He was hypoxic and after anticoagulation was started he was seen by vascular surgery and underwent mechanical thrombectomy for pulmonary embolism. This improved his right ventricular function significantly but he continued to have moderate RV dilation and dysfunction. This was definitely has significant improvement compared to original echocardiography which showed severe RV dilation with severe systolic dysfunction consistent with acute cor pulmonale due to pulmonary embolism. He has been doing well. He is off oxygen. He is starting to do some activities and has been doing well. He is on anticoagulation with apixaban at this point. He is following with pulmonology and also seeing hematology to have workup for hypercoagulable state. 09/01/24: Here for follow-up. Denying any chest discomfort shortness of breath. He has been physically active and doing well. He had RV dysfunction but after mechanical thrombectomy and anticoagulation is right ventricular function has improved back to normal. He is tolerating anticoagulation. 03/06/2025 he is here for follow-up. He has been doing well. On Eliquis without any concern for bleeding. No chest pain or shortness of breath. Blood pressure is well controlled. [facility] Medical History History of aortic dissection History of DVT (deep vein thrombosis) Atrial fibrillation History of CVA (cerebrovascular accident) Abnormal echocardiogram Fatigue Essential hypertension Surgical History History of thrombectomy History of aortic aneurysm repair Hx of colonoscopy H/O heart bypass surgery Family History Mother Breast cancer Father Heart disease Stroke Social History Household Members: Spouse Housing: House Do you presently have visiting nurse or other home services: No Alcohol intake: current Alcohol intake frequency: holidays/special occasions only Alcohol type: beer Patient Tobacco Use Status: Never used Tobacco Tobacco use type: Cigarette e-Cigarette/Vaping Use: Never Used Second Hand Smoke Exposure: No service: No Current occupational status: retired Cognitive needs: No Hearing needs: No Vision needs: No Review of Systems Const Denies chills, Denies fatigue, Denies fever(s), Denies frequent falls, Denies weakness, Denies weight gain and Denies weight loss ENT Denies dizziness Card Denies chest pain, Denies leg edema, Denies lightheadedness, Denies palpitations, Denies dyspnea and Denies dyspnea on exertion Resp Denies cough, Denies dyspnea and Denies dyspnea on exertion GI Denies hematochezia Musc Denies abnormal gait, Denies muscle weakness, Denies numbness, Denies radiating pain into limb and Denies tingling Neuro Denies abnormal gait, Denies dizziness, Denies frequent falls, Denies numbness, Denies tingling and Denies weakness Endo Denies fatigue and Denies palpitations Physical Exam Vital Signs: Last Vital Signs Pulse 78 03/06/25 15:36 BP 110/70 03/06/25 15:36 BMI result Body Mass Index 30.9 GENERAL APPEARANCE: in no acute distress, pleasant. NECK: no carotid bruit, no jugular venous distention. SKIN: no suspicious lesions, warm and dry. HEART: no murmurs, regular rate and rhythm. LUNGS: clear to auscultation bilaterally. ABDOMEN: soft, nontender. EXTREMITIES: no edema. PERIPHERAL PULSES: equal. NEUROLOGIC: No gross deficits, AAO X 3 Assessment & Plan Assessment & Plan (1) Essential hypertension: Comment: Stable Code(s): I10 - Essential (primary) hypertension Category: Medical (2) History of aortic dissection: Comment: (stable - s/p repair 07/2018) Code(s): Z86.79 - Personal history of other diseases of the circulatory system Category: Medical (3) Pulmonary emboli: Onset Date: ~2023 Comment: s/p embolectomy Code(s): I26.99 - Other pulmonary embolism without acute cor pulmonale Category: Medical Qualifiers: Pulmonary embolism type: saddle Chronicity: acute Acute cor pulmonale presence: with acute cor pulmonale Qualified Code(s): I26.02 - Saddle embolus of pulmonary artery with acute cor pulmonale Plan [age] year gentleman who is here for follow-up. He has background history of aortic dissection and underwent surgical repair with good outcome. Recently had pulmonary embolism in the setting of pneumonia. He had embolectomy done and has been on Eliquis since then. Clinically has been doing well. No chest pain or shortness of breath. Blood pressure is well controlled. Taking medication regularly. He will see us back in 1 year. Thank you for allowing me to participate in the care of your patient. Please feel free to contact me if you have any questions. Coding Level of Care Code Est Pt Level 4 (08065) Diagnoses Essential hypertension I10 History of aortic dissection Z86.79 Acute saddle pulmonary embolism with acute cor pulmonale I26.02 Pulmonary embolism type: saddle Chronicity: acute Acute cor pulmonale presence: with acute cor pulmonale
[2025-03-06 15:36] VITALS: BP 110/70; PULSE 78; BMI 30.9
== END 2025-03-06 15:48 | disposition home or self-care (01) ==
LOC: HO.HCS 15:29
PROVIDERS: PCP Physician Assistant; Visit Provider Internal Medicine Cardiovascular Disease
DX: I10 Essential (primary) hypertension (principal); Z86.79 Personal history of other diseases of the circulatory system; I26.02 Saddle embolus of pulmonary artery with acute cor pulmonale
CPT/HCPCS: 99214

== ENCOUNTER 2025-05-08 16:09 | Outpatient (REF) | payer OTHER, SELFPAY ==
--- NOTE | ~2025-05-08 | CT_ITS ---
CLINICAL HISTORY: R91.1 - Solitary pulmonary nodule CT chest without contrast Comparison: CT/REG/VT/SR - CT CHEST ANGIOGRAPHY WITH IV CONTRAST - 05/02/24 14:[address]/SR - CT CHEST WITHOUT IV CONTRAST - 01/01/23 17:48 EDT Findings: Previous sternotomy. Ascending aorta replacement. Heart size is normal. Coronary artery calcifications are present. The visualized thyroid and mediastinum are unremarkable. Small area of linear scarring in the lateral right lower lobe. No pulmonary nodules or masses. No focal infiltrate. No effusion or pneumothorax. There are multiple gallstones noted within the gallbladder. The bones are intact. IMPRESSION: 1. No pulmonary nodules or masses. No acute findings in the chest. 2. Cholelithiasis. This document has been electronically signed by: Connor Pablo MD on 05/09/2025 20:49:41
--- OUTSIDE RECORDS SUMMARY | 2025-05-08 18:46 | XMS_ITS | Clinical Summary ---
Author Organization [facility] ity Address [address] [place] [address] Care Team Providers Care Frame Polisher Name Role Phone Unavailable Primary Care Provider [...] Depression Screening 05/18/2024 COVID-19 Vaccine (1 - 2024-2 6 season) 2025 Influenza Vaccine (#1) 2025 RSV [...]
== END 2025-05-08 16:10 | disposition home or self-care (01) ==
LOC: HO.CT 16:09
PROVIDERS: PCP Physician Assistant; Visit Provider Nurse Practitioner Family
DX: R91.1 Solitary pulmonary nodule (principal)
CPT/HCPCS: 71250

== ENCOUNTER → 2025-05-08 16:10 | Outpatient (BNV) | payer OTHER, SELFPAY | PROVIDERS: PCP Physician Assistant; Visit Provider Radiology Diagnostic Radiology | DX: K80.20 Calculus of gallbladder without cholecystitis without obstruction (principal) | CPT/HCPCS: 71250 ==